=== PATIENT | female | born 1935 | race Caucasian/White ===

== ENCOUNTER → 2018-12-23 | Outpatient (CLI) | payer MEDICARE ==
[2018-12-23 12:45] LABS: HCT 46.7 % (34.0-46.0); HGB 14.7 gm/dL (11.4-16.0); Hypochromasia Slight; MCH 28.3 pg (25.0-35.0); MCHC 31.4 g/dL (31.0-37.0); MCV 90.1 fL (80.0-100.0); Platelet Count 199 k/uL (150-450); RBC 5.19 m/uL (3.80-5.40); RDW 15.5 % (11.5-15.5); WBC 6.4 k/uL (3.8-10.6)
[2018-12-23 12:57] LABS: Potassium 4.9 mmol/L (3.5-5.1)
== END | disposition home or self-care (01) ==
LOC: LABPAT 11:41
PROVIDERS: ATTEND Internal Medicine Cardiovascular Disease
DX: Z01.812 Encounter for preprocedural laboratory examination (principal); I25.10 Atherosclerotic heart disease of native coronary artery without angina pectoris
CPT/HCPCS: 36415; 80051; 82565; 82947; 84520; 85027

== ENCOUNTER 2018-12-25 06:15 | Inpatient (IN) | payer MEDICARE ==
[~2018-12-25 06:15] MED LIST: ALPRAZolam 0.25 MG TAB PO PRN; ALPRAZolam 0.5 MG TAB PO PRN; ASPIRIN 325 MG TAB PO ONE; NITROGLYCERIN SL TABS 0.4 MG TAB SUBLINGUAL PRN
[2018-12-25] MEDS: SODIUM CHLORIDE 0.9% 1,000 ML IV SCH ×2 (08:05→16:00)
[2018-12-25] MEDS ORDERED: LIDOCAINE 1% INJ 10MG/ML (20 ML MDV) ONE ×2 (08:05→08:50)
[2018-12-25] MEDS ORDERED: fentaNYL (PF) 50 MCG/ML 2 ML AMP ONE (08:26)
[2018-12-25] MEDS ORDERED: IV FLUID CONTINUATION 1,000 ML IV ONE (08:32)
--- NOTE | 2018-12-25 08:36 | P.HPCAR ---
History of Present Illness H&P Date: 12/25/18 This is a 83-year-old female with history of ischemic heart disease, previous myocardial infarction and stent placement who has moved to live with her daughters recently. She used to live in [facility]. Patient apparently has been having chest pains going to the back and associated with shortness of breath with minimal activities. The symptoms are relieved with rest. The symptoms reminded her of the pains that she had during her myocardial infarction. Patient did have a nuclear stress test last year and apparently the findings were normal. Echocardiogram done at the time showed normal LV function. Patient also has chronic atrial fibrillation and has been on anti-cognition therapy. She has hypercholesterolemia and also hypertensive cardiac vascular disease. In view of typical chest pains, patient is advised to have a cardiac catheterization for definitive diagnosis. Patient and family were explained the risks and benefits of the procedure to the fully understood and accepted. Review of Systems REVIEW OF SYSTEMS: CONSTITUTIONAL:. Patient is doing well. No complaints of fever or chills EYES: Denies diplopia, blurring of vision EARS, NOSE, MOUTH, THROAT: Denies headaches, denies sore throat. CARDIOVASCULAR: As per the chart and H&P RESPIRATORY: Denies shortness of breath, denies cough. GASTROINTESTINAL: Denies change in appetite, denies abdominal pain, denies diarrhea GENITOURINARY: Denies hematuria, denies infections. MUSKULOSKELETAL: Denies pain, denies swelling. Denies any cramps or claudication INTEGUMENTARY: Denies rash, denies eczema. NEUROLOGICAL: Denies focal weakness, or visual disturbance. Denies any dizzin ess or syncope PSYCHIATRIC: Denies anxiety, denies depression. HEMATOLOGIC/LYMPHATIC: Denies any bleeding, denies enlarged lymph nodes. Physical Exam Vitals: Vital Signs Temp Pulse Resp BP Pulse Ox 12/25/18 06:33 97.3 F L 67 16 110/73 98 GENERAL EXAM: Patient is alert and oriented and doesn't appear to be in any acute distress HEENT: Normocephalic. Normal reaction of pupils, equal size, normal range of extraocular motion. No erythema or exudates in the throat. NECK: No masses, no nuchal rigidity. CHEST: No chest wall deformity. LUNGS: Equal air entry with no crackles or wheeze. HEART: S1 and S2 normal with no audible mumurs or gallops. Regular rhythm, femorals equal on both sides.. ABDOMEN: No hepatosplenomegaly, normal bowel sounds, no guarding or rigidity. SKIN: No rashes CENTRAL NERVOUS SYSTEM: No focal deficits. EXTREMITIES: No cyanosis, clubbing or edema. Past Medical History Past Medical History: Coronary Artery Disease (CAD), GERD/Reflux, Hyperlipidemia, Hypertension, Osteoarthritis (OA) Additional Past Medical History / Comment(s): See Dr Ayala's H&P,"prediabetic" History of Any Multi-Drug Resistant Organisms: None Reported Past Surgical History: Heart Catheterization With Stent, Hysterectomy, Orthopedic Surgery Additional Past Surgical History / Comment(s): vein stripping,heart stents x4,lt foot,mattie carpel tunnel Past Anesthesia/Blood Transfusion Reactions: No Reported Reaction Additional Past Anesthesia/Blood Transfusion Reaction / Comment(s): no hx blood transfusion Date of Last Stent Placement:: 2009 Past Psychological History: No Psychological Hx Reported Smoking Status: Unknown if ever smoked Past Alcohol Use History: None Reported Past Drug Use History: None Reported - Past Family History Mother Family Medical History: Cancer Additional Family Medical History / Comment(s): colon Father Family Medical History: Coronary Artery Disease (CAD) Brother(s) Family Medical History: Myocardial Infarction (NH) Physical Examination Vital Signs Temp Pulse Resp BP Pulse Ox 12/25/18 06:33 97.3 F L 67 16 110/73 98 Results Current Medications Generic Name Dose Route Start Last Admin Trade Name Freq PRN Reason Stop Dose Admin Alprazolam 0.25 mg 12/25/18 06:00 Xanax PO Q6HR PRN Mild Anxiety Alprazolam 0.5 mg 12/25/18 06:00 Xanax PO Q6HR PRN Moderate Anxiety Sodium Chloride 1,000 mls @ 100 mls/hr 12/25/18 06:00 12/25/18 08:05 Saline 0.9% IV 100 mls/hr .Q10H KIMBERLY Administration Nitroglycerin 0.4 mg 12/25/18 06:00 Nitrostat SUBLINGUAL Q5M PRN Chest Pain EKG Interpretations (text) Atrial fibrillation with controlled ventricular response Assessment and Plan (1) Unstable angina Current Visit: Yes Status: Acute Code(s): I20.0 - UNSTABLE ANGINA SNOMED Code(s): 2110141 (2) Ischemic heart disease Current Visit: Yes Status: Acute Code(s): I25.9 - CHRONIC ISCHEMIC HEART DISEASE, UNSPECIFIED SNOMED Code(s): 289118330 (3) Previous myocardial infarction older than 8 weeks Current Visit: Yes Status: Acute Code(s): I25.2 - OLD MYOCARDIAL INFARCTION SNOMED Code(s): 6473589 (4) Essential hypertension Current Visit: Yes Status: Acute Code(s): I10 - ESSENTIAL (PRIMARY) HYPERTENSION SNOMED Code(s): 37833011 (5) Hypercholesterolemia Current Visit: Yes Status: Acute Code(s): E78.00 - PURE HYPERCHOLESTEROLEMIA, UNSPECIFIED SNOMED Code(s): 98287914 Plan: Patient is having atypical chest pain sized of exertional angina which is new onset. Patient is advised to have a cardiac catheterization for definitive diagnosis. Patient and family were explained the risks and benefits of the procedure which they fully understood and accepted. Further recommendations depend upon the cardiac catheterization.
[2018-12-25] MEDS ORDERED: MIDAZOLAM (PF) 2 MG/2 ML VIAL IV ONE (08:42)
[2018-12-25] MEDS: fentaNYL (PF) 50 MCG/ML 2 ML AMP IV ONE ×2 (08:42→10:15)
[2018-12-25] MEDS ORDERED: LIDOCAINE 1% INJ 10MG/ML (20 ML MDV) SQ ONE (08:45)
[2018-12-25] MEDS ORDERED: CLOPIDOGREL 75 MG TAB ONE (09:12)
[2018-12-25] MEDS ORDERED: BIVALIRUDIN BOLUS 250 MG/50 ML IV ONE (09:15)
[2018-12-25] MEDS ORDERED: CLOPIDOGREL 75 MG TAB PO ONE (09:20)
[2018-12-25] MEDS ORDERED: BIVALIRUDIN 250 MG in SODIUM CHLORIDE 0.9% 50 ML IV ONE ×2 (09:20→10:08)
--- NOTE | 2018-12-25 09:32 | P.CARDCATH ---
Date of Procedure: 12/25/18 Preoperative Diagnosis: Unstable angina Postoperative Diagnosis: The same: Multivessel disease Procedure(s) Performed: Left heart catheterization without left ventriculography Description of Procedure: HISTORY: This is a 83-year-old female with history of ischemic heart disease with a previous stent placement of the left anterior descending coronary artery done about 10 years ago in [facility]. Patient came to live with her daughters locally and has been having exertional chest pain suggestive of new-onset angina. Patient is also having exertional shortness of breath. In view of recurrent symptoms and known ischemic heart disease, patient is advised to have cardiac catheterization for definite diagnosis. CONSENT:I have discussed the risks, benefits and alternative therapies for the above-mentioned procedure and for both sedation/analgesia as well as necessary blood product administration, if indicated, as they pertain to this patient. The patient has indicated understanding and acceptance of the risks and procedures discussed. PROCEDURE: Patient was brought to the lab in a fasting state. Patient was given some IV sedation. The right groin is infiltrated with lidocaine and right femoral artery was entered using Seldinger technique. A 6-Turkish catheter was left in place and selective coronary arteriography was performed. Patient tolerated the procedure well. Femoral angiogram was performed and Angio-Seal was applied for hemostasis. No immediate complications were noted and patient was transferred to [facility] in a stable condition Conscious Sedation: Versed 0.5mg Fentanyl 12.5 g Duration 21minutes HEMODYNAMICS: The aortic pressure is about 17 1/80. Left ventricular end- diastolic pressure was 12-16. There was no gradient across the aortic valve SELECTIVE CORONARY ARTERIOGRAPHY: LEFT MAIN: Short and divides into LAD and circumflex coronary artery immediately. Free of any significant focal lesions THE LEFT ANTERIOR DESCENDING CORONARY ARTERY:. This is a good caliber vessel with multiple stents from ostium to midportion. The LAD has a 95% stenosis proximally and totally occluded after the diagonal branch. There are collaterals from the right coronary artery filling the distal LAD THE LEFT CIRCUMFLEX AND IS CORONARY ARTERY: This is a good caliber vessel giving rise to good-sized OM branch. OM branch has about 70% stenosis followed by 95% stenosis. THE RIGHT CORONARY ARTERY: Small and nondominant and free of occlusive disease and provides collateral to the distal LAD LEFT VENTRICULOGRAPHY: Not performed FINAL IMPRESSION:. 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 The LAD has multiple stents involving a long segment and is felt it's not practical to work in the LAD PROGNOSIS: Guarded
[2018-12-25] MEDS ORDERED: IOPAMIDOL-370 125ML BTL INJ ONE (09:35)
[2018-12-25] MEDS ORDERED: IOPAMIDOL-370 100ML BTL INJ ONE ×2 (10:19→10:50)
[2018-12-25] MEDS ORDERED: MAG HYDROX/AL HYDROX/SIMETH 30 ML CUP PO PRN (10:33)
[2018-12-25] MEDS ORDERED: ATROPINE SULFATE 0.1 MG/ML 10ML SYRINGE IV PRN (10:33)
[2018-12-25] MEDS ORDERED: NITROGLYCERIN SL TABS 0.4 MG TAB SUBLINGUAL PRN (10:33)
[2018-12-25] MEDS ORDERED: RX INFO: IV CONTRAST WAS GIVEN 1 EACH MISC MISCELLANE PRN (10:33)
[2018-12-25] MEDS ORDERED: ZOLPIDEM 5 MG TAB PO PRN (10:33)
[2018-12-25] MEDS ORDERED: SODIUM CHLORIDE 0.9% 1,000 ML IV SCH (10:45)
[2018-12-25 11:03] LABS: Glucose,Whole Blood 107 mg/dL (75-99)
--- NOTE | 2018-12-25 11:24 | PTCA ---
PERCUTANEOUSTRANS CORORONARY ANGIOGRAPHY Mrs. Stokes is an 83-year-old female with known history of coronary artery disease, history of hypertension, hyperlipidemia, who was seen by Dr. Ayala, has been having progressive symptoms of angina pectoris. She has underwent multiple stents into the LAD in the [facility]. She underwent cardiac catheterization, was found to have a totally occluded LAD in the stented segment with tight lesion in the diagonal branch that is a jailed branch as well as tight lesion in the first obtuse marginal branch. In view of that, recommendation was made regarding angioplasty and stenting. The procedures as well as risks and complications were discussed with the patient who is in full understanding and agreement. PROCEDURE: A 6-Mongolian FR4 guiding catheter into system. After cannulating the left main, a 0.014 balanced medium weight J-wire was advanced and position in the diagonal branch. Attempt to advance a 2.5 x 12 mm balloon trek in the diagonal branch were unsuccessful. That balloon was removed and a 0.014 whisper J-wire was advanced and positioned distally and next to the first one in a pramod fashion. An attempt to advance the balloon were unsuccessful to exit into the diagonal branch because it is a jailed branch. That balloon was removed and a 1.5 x 8 mm Trek balloon was advanced and that balloon could not cross the jailed ostium of the diagonal branch. At that point, the balloon was removed and a 3.0 x 12 mm NC Trek balloon was advanced and one inflation into the LAD in the stented segment was done at 12 atmospheres. Following that, the balloon was removed and because of the inability to advance a diagonal branch, the wire was withdrawn and the whisper weight J-wire was advanced into the obtuse marginal branch and subsequently the 1.5 x 8 mm Trek balloon was advanced and 2 inflations at 14 atmospheres were done. Following that, the balloon was removed and the 2.5 x 12 mm Trek balloon was advanced and inflation at 8 atmospheres were done. Following that, the balloon was removed and the whisper J-wire was advanced next to the 1st wire in a pramod fashion. Subsequently attempt to advance a 2.5 x 12 mm Xience Dulce Maria stent were unsuccessful in entering the first obtuse marginal branch because of the tortuosity. That stent was removed and the BMW J-wire was removed and the GuideLiner was advanced and in spite of the GuideLiner support, there was inability to advance the stent into the obtuse marginal branch. That stent was removed and a 2.5 x 12 mm Resolute shayan stent was advanced, and that could not enter the obtuse marginal branch either and even a 2.5 x 8 mm Xience Dulce Maria stent. At that point, the balloon and the guidewire were withdrawn back in the guiding catheter. Images were obtained, repeated. Those images reveal stable successful angioplasty. At that point, the guiding catheter, the balloon and the guidewire were removed. The sheath was removed. Hemostasis was obtained with deployment of an Angio-Seal and suture of the right femoral vein sheath. The patient was returned to her room in stable condition. Of note, the patient had chest discomfort during the procedure that resolved at the end of the procedure. She received Angiomax per protocol as well as oral loading dose of clopidogrel. RESULTS: 1. Successful angioplasty of the first obtuse marginal branch with reduction of stenosis from 99% to less than 10%. 2. Unsuccessful angioplasty of the jailed diagonal branch through the heavily stented LAD. RECOMMENDATION: Patient will be continued on dual antiplatelet treatment. Xarelto will be initiated because of her history of atrial fibrillation. Those findings and recommendations were discussed with the patient and her family who are in full understanding and agreement. If she has recurrent pain, then further attempt to try to do angioplasty to the obtuse marginal branch and stenting will be done. The patient and family are in full understanding and agreement. Duration of procedure is 60 minutes. MMODL / IJN: [id number] /
[2018-12-25 12:42] LABS: Basophils % (A) 0 %; Eosinophils # (A) 0.2 k/uL (0-0.7); Eosinophils % (A) 3 %; HCT 40.5 % (34.0-46.0); HGB 12.5 gm/dL (11.4-16.0); Hypochromasia Slight; Lymphocytes # (A) 1.4 k/uL (1.0-4.8); Lymphocytes % (A) 28 %; MCH 27.3 pg (25.0-35.0); MCHC 30.7 g/dL (31.0-37.0); MCV 88.9 fL (80.0-100.0); Mean Platelet Volume 7.9; Monocytes # (A) 0.3 k/uL (0-1.0); Monocytes % (A) 6 %; Neutrophils # (A) 2.9 k/uL (1.3-7.7); Neutrophils % (A) 59 %; Platelet Count 162 k/uL (150-450); RBC 4.56 m/uL (3.80-5.40); RDW 15.2 % (11.5-15.5); WBC 4.8 k/uL (3.8-10.6)
[2018-12-25 13:09] LABS: Calcium 8.4 mg/dL (8.4-10.2); Potassium 4.7 mmol/L (3.5-5.1)
[2018-12-25] MEDS ORDERED: METOPROLOL TARTRATE 50 MG TAB PO SCH (21:00)
[2018-12-25] MEDS: ATORVASTATIN 80 MG TAB PO SCH (21:21)
[2018-12-25] MEDS: METOPROLOL TARTRATE 25 MG TAB PO SCH (21:23)
[2018-12-26] MEDS: SODIUM CHLORIDE 0.9% 1,000 ML IV SCH ×2 (03:38→14:44)
[2018-12-26 06:20] LABS: HCT 39.2 % (34.0-46.0); HGB 12.1 gm/dL (11.4-16.0); Hypochromasia Slight; MCH 27.4 pg (25.0-35.0); MCHC 30.9 g/dL (31.0-37.0); MCV 88.7 fL (80.0-100.0); Mean Platelet Volume 8.5; Platelet Count 177 k/uL (150-450); RBC 4.42 m/uL (3.80-5.40); RDW 15.5 % (11.5-15.5); WBC 5.7 k/uL (3.8-10.6)
[2018-12-26 06:26] LABS: Calcium 8.5 mg/dL (8.4-10.2); Magnesium 1.9 mg/dL (1.6-2.3); Potassium 4.5 mmol/L (3.5-5.1)
[2018-12-26] MEDS: PANTOPRAZOLE 40 MG TABLET PO SCH (06:53)
[2018-12-26] MEDS: LISINOPRIL 10 MG TAB PO SCH (08:12)
[2018-12-26] MEDS: CLOPIDOGREL 75 MG TAB PO SCH (08:13)
[2018-12-26] MEDS: METOPROLOL TARTRATE 25 MG TAB PO SCH ×2 (08:13→20:48)
[2018-12-26] MEDS: ISOSORBIDE MONONITRATE ER 30 MG TAB.ER.24H PO SCH (08:13)
[2018-12-26] MEDS: ASPIRIN 81 MG PO SCH (08:13)
--- NOTE | 2018-12-26 08:34 | PN ---
PROGRESS NOTE Mrs. Stokes is an 83-year-old female with known history of coronary artery disease status post multiple stenting of the LAD done [facility], who presented with symptoms of chest pain. She underwent cardiac catheterization by Dr. Ayala and was found to have critical stenosis involving the first obtuse marginal branch as well as diagonal branch. The diagonal branch was a jailed branch and he was unable to advance any balloon in it. She underwent angioplasty of the obtuse marginal branch with inability to advance the stent. She is feeling well this morning. Her breathing is stable. She denies any chest pain. She denies any dizziness or palpitation. Hemodynamically, she is stable. She continues to be on aspirin once a day, Plavix 75 mg daily, isosorbide mononitrate 30 mg daily, lisinopril 10 mg daily, metoprolol tartrate 25 mg twice a day. PHYSICAL EXAMINATION: Blood pressure 143/70 with a heart rate in the 50s. LUNGS: Clear. HEART: Irregularly irregular S1, S2. No S3 with systolic murmur. No diastolic murmur. No rub. ABDOMEN: Soft, nontender. EXTREMITIES: No edema. Right groin no hematoma. LAB DATA: Lab data revealed BUN and creatinine 22 and 0.9, potassium 4.5, hemoglobin 12.1. IMPRESSION: 1. Status post angioplasty of the right coronary artery. 2. History of chronically occluded stented segment of the LAD. 3. Atrial fibrillation chronic and rate controlled. 4. Hypertension. 5. Hyperlipidemia. RECOMMENDATION: I will re-initiate treatment with Xarelto, transfer to telemetry floor. Increase her activity. If she remains stable, I would expect she should be able to be discharged home tomorrow. If she has further symptoms, then attempt to proceed with stenting of the obtuse marginal branch can be tried again. Yesterday, the balloon angioplasty was done only because of reaching the dye threshold. MMODL / IJN: [id number] /
[2018-12-26 12:19] VITALS: BMI 36.9
[2018-12-26] MEDS ORDERED: RIVAROXABAN 15 MG TAB PO SCH (17:30)
[2018-12-26] MEDS: ATORVASTATIN 80 MG TAB PO SCH (20:48)
[2018-12-26] MEDS ORDERED: ACETAMINOPHEN TAB 325 MG TAB PO PRN (23:36)
[2018-12-27 05:31] LABS: Calcium 8.8 mg/dL (8.4-10.2); Potassium 4.5 mmol/L (3.5-5.1)
[2018-12-27] MEDS: PANTOPRAZOLE 40 MG TABLET PO SCH (06:59)
--- NOTE | 2018-12-27 08:09 | DS ---
DISCHARGE SUMMARY Mrs. Stokes is an 83-year-old female with known history of chronic persistent atrial fibrillation, history of coronary disease who underwent cardiac catheterization because of progressive angina pectoris by Dr. Ayala and was found to have a chronically occluded long segment of the LAD that had multiple stents, a tight lesion in the diagonal branch that is a jailed branch as well as significant disease in the first obtuse marginal branch. She underwent angioplasty of the first obtuse marginal branch. She is feeling well at this time. She is denying any chest pain. Her breathing has been stable. She denies any dizziness or palpitation. She denies any nausea. She is ambulating without symptoms. She continued be on aspirin 81 mg daily, Lipitor 80 mg daily, Plavix 75 mg daily, isosorbide mononitrate 30 mg daily, lisinopril 10 mg daily, metoprolol tartrate 25 mg twice a day, Xarelto 15 mg daily. PHYSICAL EXAMINATION: Blood pressure 132/80 with the heart rate in the 60s. LUNGS: Clear. HEART: Irregular, irregular. S1, S2. No S3 with systolic murmur. No diastolic murmur. ABDOMEN: Soft, obese, nontender. EXTREMITIES: No edema. LAB DATA: Lab data revealed BUN and creatinine 21 and 0.87. Potassium 4.5. IMPRESSION: 1. Status post angioplasty of the first obtuse marginal branch with chronic occluded LAD and with stent chronic occlusion. 2. Chronic persistent atrial fibrillation. 3. Hypertension. 4. Hyperlipidemia. RECOMMENDATION: The patient will be discharged home today and followed with Dr. Ayala. She will stop her aspirin in 4 weeks and continue on Xarelto and Plavix. MMODL / IJN: [id number] /
[2018-12-27] MEDS: LISINOPRIL 10 MG TAB PO SCH (08:40)
[2018-12-27] MEDS: ISOSORBIDE MONONITRATE ER 30 MG TAB.ER.24H PO SCH (08:40)
[2018-12-27] MEDS: ASPIRIN 81 MG PO SCH (08:40)
[2018-12-27] MEDS: CLOPIDOGREL 75 MG TAB PO SCH (08:40)
[2018-12-27] MEDS: METOPROLOL TARTRATE 25 MG TAB PO SCH (08:40)
[2018-12-27 11:43] VITALS: BP 121/72; PULSE 61; RESP 16; TEMP 98.1
== END 2018-12-27 11:46 | disposition home or self-care (01) | DRG 251 ==
LOC: CATHCVL 06:15 → 1SOBS 06:16 → 2SICU 10:44 → CATHCVL 12-26 14:24
PROVIDERS: ADMIT Internal Medicine Cardiovascular Disease; ATTEND Internal Medicine Cardiovascular Disease
PROC: 02703ZZ Dilation of Coronary Artery, One Artery, Percutaneous Approach (ICD-10-PCS; principal; 2018-12-25 08:30)
PROC: 4A023N7 Measurement of Cardiac Sampling and Pressure, Left Heart, Percutaneous Approach (ICD-10-PCS; 2018-12-25 08:30)
PROC: B2111ZZ Fluoroscopy of Multiple Coronary Arteries using Low Osmolar Contrast (ICD-10-PCS; 2018-12-25 08:30)
DX: I25.110 Atherosclerotic heart disease of native coronary artery with unstable angina pectoris (principal); I48.1 Persistent atrial fibrillation; I25.82 Chronic total occlusion of coronary artery; I10 Essential (primary) hypertension; I25.2 Old myocardial infarction; E78.5 Hyperlipidemia, unspecified; E78.00 Pure hypercholesterolemia, unspecified; F41.9 Anxiety disorder, unspecified; K21.9 Gastro-esophageal reflux disease without esophagitis; R73.03 Prediabetes; M19.90 Unspecified osteoarthritis, unspecified site; Z79.01 Long term (current) use of anticoagulants; Z79.82 Long term (current) use of aspirin; Z79.899 Other long term (current) drug therapy; Z95.5 Presence of coronary angioplasty implant and graft; Z90.710 Acquired absence of both cervix and uterus; Z98.890 Other specified postprocedural states; Z80.0 Family history of malignant neoplasm of digestive organs; Z82.49 Family history of ischemic heart disease and other diseases of the circulatory system
CPT/HCPCS: 80048; 83735; 85025; 85027; 85347; 92920; 93458; C1874

== ENCOUNTER 2019-10-17 | Emergency (ER) | payer MEDICARE | END 2019-10-18 00:09 | disposition home or self-care (01) | CPT/HCPCS: 36415; 70450; 80053; 81001; 85025; 85610; 85730; 87086; 93005; 99285 ==

== ENCOUNTER 2020-03-15 18:05 | Inpatient (IN) | payer MEDICARE ==
[2020-03-15] MEDS ORDERED: HYDROmorphone 1 MG/ML 1 ML SYRINGE IVP STA (18:43)
[2020-03-15 19:07] LABS: Anisocytosis Slight; Basophils % (A) 0 %; Eosinophils # (A) 0.2 k/uL (0-0.7); Eosinophils % (A) 2 %; HCT 40.4 % (34.0-46.0); HGB 12.5 gm/dL (11.4-16.0); Hypochromasia Moderate; Lymphocytes # (A) 2.1 k/uL (1.0-4.8); Lymphocytes % (A) 27 %; MCH 26.5 pg (25.0-35.0); MCHC 30.9 g/dL (31.0-37.0); MCV 85.9 fL (80.0-100.0); Mean Platelet Volume 8.2; Monocytes # (A) 0.4 k/uL (0-1.0); Monocytes % (A) 6 %; Neutrophils # (A) 4.8 k/uL (1.3-7.7); Neutrophils % (A) 63 %; Platelet Count 195 k/uL (150-450); RDW 16.6 % (11.5-15.5); WBC 7.7 k/uL (3.8-10.6)
[2020-03-15 19:18] LABS: Albumin 3.5 g/dL (3.5-5.0); Calcium 9.1 mg/dL (8.4-10.2); Potassium 4.6 mmol/L (3.5-5.1); Total Bilirubin 0.6 mg/dL (0.2-1.3); Total Protein 6.2 g/dL (6.3-8.2)
[2020-03-15 19:20] LABS: INR 1.1 (<1.2); Partial Thromboplastin Time 24.2 sec (22.0-30.0)
--- NOTE | 2020-03-15 19:26 | ED ---
Fall HPI - General Source: patient, EMS, RN notes reviewed, old records reviewed Mode of arrival: EMS <JoelerwinRashida - Last Filed: 03/15/20 19:49> <Eyal Henry - Last Filed: 03/16/20 01:19> <OzielEleni Marbin - Last Filed: 03/22/20 03:03> - General Chief Complaint: Fall Stated Complaint: Fall, left leg injury Time Seen by Provider: 03/15/20 18:20 - History of Present Illness Initial Comments: This Patient is a pleasant 84-year-old female who presents emergency department today for concern for trip and fall. She reports that she was walking back into her home from her garage and she tripped. She reports that she fell onto her r ight hip and thigh. She reports severe pain with any range of motion. She also states that she had her head and neck. She is on several toe. She has a history of hypertension and thyroid disorder. Patient has had no previous orthopedic injuries. Her main complaint at this time is severe pain with any range of motion over the right leg and hip. She denies any loss of consciousness with that injury. She was placed in a c-collar by EMS. Patient reports that she was laying on the ground for 15-20 minutes before she was able to be helped. (Rashida Mock) - Related Data Home Medications Medication Instructions Recorded Confirmed Acetaminophen [Tylenol] 1,000 mg PO Q4-6H PRN 12/24/18 03/15/20 Aspirin 81 mg PO DAILY 12/24/18 03/15/20 Cholecalciferol (Vitamin D3) 2,000 unit PO DAILY 12/24/18 03/15/20 [Vitamin D3] Isosorbide Mononitrate ER [Imdur] 30 mg PO DAILY 12/24/18 03/15/20 Lansoprazole [Prevacid] 15 mg PO DAILY 12/24/18 03/15/20 Nitroglycerin Sl Tabs [Nitrostat] 0.4 mg SUBLINGUAL Q5M PRN 12/24/18 03/15/20 Rivaroxaban [Xarelto] 15 mg PO DAILY 12/24/18 03/15/20 Ubidecarenone [Co Q-10] 100 mg PO DAILY 12/24/18 03/15/20 Previous Rx's Medication Instructions Recorded Atorvastatin [Lipitor] 80 mg PO HS #90 tab 12/27/18 Metoprolol Tartrate [Lopressor] 25 mg PO BID #0 12/27/18 Sennosides-Docusate Sodium 2 tab PO DAILY #30 tablet 03/19/20 [Senokot-S] oxyCODONE HCL/ACETAMINOPHEN 1 tab PO Q6HR PRN #40 tab 03/20/20 [Percocet 5-325 mg] Allergies Allergy/AdvReac Type Severity Reaction Status Date / Time latex Allergy Rash/Hives Verified 03/15/20 19:27 Review of Systems ROS Other: All systems not noted in ROS Statement are negative. <Rashida Mock - Last Filed: 03/15/20 19:49> ROS Other: All systems not noted in ROS Statement are negative. <Eyal Henry - Last Filed: 03/16/20 01:19> ROS Other: All systems not noted in ROS Statement are negative. <Eleni Ludwig - Last Filed: 03/22/20 03:03> ROS Statement: Those systems with pertinent positive or pertinent negative responses have been documented in the HPI. Past Medical History Past Medical History: Coronary Artery Disease (CAD), GERD/Reflux, Hyperlipidemi a, Hypertension, Osteoarthritis (OA) Additional Past Medical History / Comment(s): "prediabetic" History of Any Multi-Drug Resistant Organisms: None Reported Past Surgical History: Heart Catheterization With Stent, Hysterectomy, Orthopedic Surgery Additional Past Surgical History / Comment(s): vein stripping,heart stents x4,lt foot,mattie carpel tunnel Past Anesthesia/Blood Transfusion Reactions: No Reported Reaction Additional Past Anesthesia/Blood Transfusion Reaction / Comment(s): no hx blood transfusion Date of Last Stent Placement:: 2009 Past Psychological History: No Psychological Hx Reported Smoking Status: Never smoker Past Alcohol Use History: None Reported Past Drug Use History: None Reported - Past Family History Mother Family Medical History: Cancer Additional Family Medical History / Comment(s): colon Father Family Medical History: Coronary Artery Disease (CAD) Brother(s) Family Medical History: Myocardial Infarction ([place]) <Rashida Mock - Last Filed: 03/15/20 19:49> General Exam Limitations: no limitations General appearance: alert, in no apparent distress, other ( has contusion over the right side of the scalp) Head exam: Present: atraumatic, normocephalic, normal inspection Eye exam: Present: normal appearance, PERRL, EOMI. Absent: scleral icterus, conjunctival injection, periorbital swelling ENT exam: Present: normal exam, mucous membranes moist Neck exam: Present: other (Patient is in c-collar). Absent: normal inspection, tenderness, meningismus, lymphadenopathy Respiratory exam: Present: normal lung sounds bilaterally. Absent: respiratory distress, wheezes, rales, rhonchi, stridor Cardiovascular Exam: Present: regular rate, normal rhythm, normal heart sounds. Absent: systolic murmur, diastolic murmur, rubs, gallop, clicks GI/Abdominal exam: Present: soft, normal bowel sounds. Absent: distended, tenderness, guarding, rebound, rigid Extremities exam: Present: full ROM, normal capillary refill. Absent: normal inspection, tenderness, pedal edema, joint swelling, calf tenderness Right Hip exam: Present: tenderness (over greater trochanter), external rotation, shortening. Absent: normal inspection Upper Leg exam: Present: normal inspection, full ROM Knee exam: Present: normal inspection, full ROM Lower Leg exam: Present: normal inspection, full ROM Ankle exam: Present: normal inspection, full ROM Foot/Toe exam: Present: normal inspection, full ROM Neurovascular tendon exam: Present: no vascular compromise Gait: observed and normal Neurological exam: Present: alert, oriented X3, CN II-XII intact Psychiatric exam: Present: normal affect, normal mood Skin exam: Present: warm, dry, intact, normal color. Absent: rash <Rashida Mock - Last Filed: 03/15/20 19:49> Course <Rashida Mock - Last Filed: 03/15/20 19:49> Vital Signs 03/15/20 03/15/20 03/15/20 18:16 19:32 21:00 Temperature 98.7 F 97.9 F 97.4 F L Pulse Rate 72 71 64 Pulse Rate [ Pulse Oximetery ] Respiratory 18 18 16 Rate Blood Pressure 137/95 144/79 114/73 O2 Sat by Pulse 100 99 100 Oximetry 03/15/20 03/15/20 22:11 22:30 Temperature 97.6 F Pulse Rate 70 Pulse Rate [ 74 Pulse Oximetery ] Respiratory 18 18 Rate Blood Pressure 116/86 O2 Sat by Pulse 98 Oximetry - Reevaluation(s) Reevaluation #1: 03/15/20 19:49 Patient case transferred to Chidi Henry PA-C at 7:49 PM (Rashida Mock) Medical Decision Making - Lab Data Result diagrams: 03/15/20 18:46 03/15/20 18:46 <Rashida Mock - Last Filed: 03/15/20 19:49> - Lab Data Result diagrams: 03/15/20 18:46 03/15/20 18:46 - EKG Data -: EKG Interpreted by Me (and Dr. Sanchez ) <Eyal Henry - Last Filed: 03/16/20 01:19> - Lab Data Result diagrams: 03/19/20 07:51 03/18/20 06:50 <Eleni Ludwig - Last Filed: 03/22/20 03:03> - Medical Decision Making I received this patient has a sign out at shift change. Patient does have evidence of a right-sided intertrochanteric hip fracture. Patient will be admitted for orthopedic evaluation. Medicine was consult that. Patient has history of atrial fibrillation. Which is chronic displayed on her EKG. Rate is well-controlled. Case discussed with Dr. Ludwig. (Eyal Henry) I was available for consultation in the emergency department. The history and physical exam were done by the midlevel provider. I was consulted for this patients care. I reviewed the case with the midlevel provider and based on their presentation of the patient, I agree with the assessment, medical decision making and plan of care as documented. Chart was dictated using [employer] dictation software. Attempts were made to correct any dictation errors however some typographical errors may persist. Patient was seen during a national state of emergency due to the Covid-19 pandemic. (Eleni Ludwig) - Lab Data Lab Results 03/15/20 03/15/20 03/15/20 Range/Units 18:46 18:46 18:46 WBC 7.7 (3.8-10.6) k/uL RBC 4.70 (3.80-5.40) m/uL Hgb 12.5 (11.4-16.0) gm/dL Hct 40.4 (34.0-46.0) % MCV 85.9 (80.0-100.0) fL MCH 26.5 (25.0-35.0) pg MCHC 30.9 L (31.0-37.0) g/dL RDW 16.6 H (11.5-15.5) % Plt Count 195 (150-450) k/uL Neutrophils % 63 % Lymphocytes % 27 % Monocytes % 6 % Eosinophils % 2 % Basophils % 0 % Neutrophils # 4.8 (1.3-7.7) k/uL Lymphocytes # 2.1 (1.0-4.8) k/uL Monocytes # 0.4 (0-1.0) k/uL Eosinophils # 0.2 (0-0.7) k/uL Basophils # 0.0 (0-0.2) k/uL Hypochromasia Moderate Anisocytosis Slight PT 11.0 (9.0-12.0) sec INR 1.1 (<1.2) APTT 24.2 (22.0-30.0) sec Sodium 136 L (137-145) mmol/L Potassium 4.6 (3.5-5.1) mmol/L Chloride 106 (98-107) mmol/L Carbon Dioxide 23 (22-30) mmol/L Anion Gap 7 mmol/L BUN 31 H (7-17) mg/dL Creatinine 1.04 (0.52-1.04) mg/dL Est GFR (CKD-EPI)AfAm 56 (>60 ml/min/1.73 sqM) Est GFR (CKD-EPI)NonAf 49 (>60 ml/min/1.73 sqM) Glucose 100 H (74-99) mg/dL Calcium 9.1 (8.4-10.2) mg/dL Total Bilirubin 0.6 (0.2-1.3) mg/dL AST 29 (14-36) U/L ALT 16 (4-34) U/L Alkaline Phosphatase 94 (38-126) U/L Total Protein 6.2 L (6.3-8.2) g/dL Albumin 3.5 (3.5-5.0) g/dL - EKG Data EKG Comments: Ventricular rate 75, QTS 76, QT/QTc 400/446. Atrial fibrillation. No concern for acute ischemia at this time. (Eyal Henry) Disposition <Rashida Mock - Last Filed: 03/15/20 19:49> Is patient prescribed a controlled substance at d/c from ED?: No <Eyal Henry - Last Filed: 03/16/20 01:19> <Eleni Ludwig - Last Filed: 03/22/20 03:03> Clinical Impression: Hip fracture Disposition: ADMITTED IP TO THIS HOSP Condition: Stable
--- NOTE | 2020-03-15 20:01 | CT ---
EXAMINATION TYPE: CT brain cspine wo con DATE OF EXAM: 03/15/2020 COMPARISON: 10/17/2019 HISTORY: Fall today. Pain. CT DLP: 1561.3 mGycm Automated exposure control for dose reduction was used. TECHNIQUE: CT scan of the head and cervical spine are performed without contrast. FINDINGS: There is no acute intracranial hemorrhage, mass effect, or midline shift identified. No definite new attenuation defect. Previously seen 2 x 1 cm right encephalomalacia is unchanged. The ve ntricles and sulci are within normal limits in size. The globes are intact and the visualized sinuse s are clear. Cervical spine is visualized in its entirety from C1 through upper thoracic levels and demonstrates s atisfactory alignment without evidence of acute fracture or dislocation. Prevertebral soft tissue ap pears within normal limits. The C1-C2 articulation is unremarkable. IMPRESSION: 1. There is no acute fracture or dislocation evident in the cervical spine. 2. No acute intracranial hemorrhage, mass effect, or midline shift is seen.
--- NOTE | 2020-03-15 21:11 | XR ---
PROCEDURE: XR Hip RT and AP Pelvis - 3 views DATE AND TIME: 03/15/2020 8:22 PM CLINICAL INDICATION: fall, shortening, pain TECHNIQUE: AP pelvis. Right hip coned AP and crosstable lateral views. COMPARISON: None FINDINGS: There is a comminuted intertrochanteric right hip fracture with apex superolateral angulati on. The right femoral head remains seated within the acetabulum. The left hip is negative for acute injury. There is no other fracture or malalignment. IMPRESSION: Comminuted intratrochanteric right hip fracture.
--- NOTE | 2020-03-15 21:12 | XR ---
PROCEDURE: XR femur RT - 4V DATE AND TIME: 03/15/2020 8:22 PM CLINICAL INDICATION: PHH; fall TECHNIQUE: Department protocol, with imaging from the right hip to the right knee. COMPARISON: None FINDINGS: There is a comminuted intertrochanteric right hip fracture with apex superolateral angulati on. The right femoral head remains seated within the acetabulum. There is no other fracture or malalignment. IMPRESSION: Comminuted intertrochanteric right hip fracture.
--- NOTE | 2020-03-15 21:14 | XR ---
EXAMINATION: XR chest 1V AP supine portable DATE AND TIME: 03/15/2020 8:22 PM CLINICAL INDICATION: PHH; fall, pain TECHNIQUE: AP supine radiograph COMPARISON: None FINDINGS: The lungs are clear. The pleural spaces are negative as seen. The cardiac silhouette appears mildly enlarged on this AP supine view. The remainder of the mediastinal silhouette is unremarkable. The skeletal structures and soft tissues are negative for acute findings. IMPRESSION: No acute radiographic process, AP supine radiograph.
[2020-03-15] MEDS ORDERED: ONDANSETRON 4 MG/2 ML VIAL IVP STA (21:25)
[2020-03-15] MEDS ORDERED: NALOXONE 0.4 MG/ML 1 ML VIAL IV PRN (21:48)
[2020-03-15 21:55] LABS: Appearance,Urine Clear (Clear); Bilirubin,Urine Negative (Negative); Blood,Urine Negative (Negative); Color,Urine Yellow; Glucose,Urine (UA) Negative (Negative); Ketones,Urine Negative (Negative); Leukocyte Esterase,Urine Negative (Negative); Nitrite,Urine Negative (Negative); Protein,Urine Negative (Negative); Specific Gravity,Urine 1.015 (1.001-1.035); Urobilinogen,Urine <2.0 mg/dL (<2.0)
[2020-03-15] MEDS: MORPHINE SULFATE 4 MG/ML SYRINGE IV PRN (21:58)
[2020-03-16] MEDS: MORPHINE SULFATE 4 MG/ML SYRINGE IV PRN ×3 (04:23→14:04)
[2020-03-16] MEDS: SODIUM CHLORIDE 0.9% 1,000 ML IV SCH (08:54)
--- NOTE | 2020-03-16 09:03 | P.HPOR ---
<Kelley Sellers J - Last Filed: 03/16/20 09:05> History of Present Illness H&P Date: 03/16/20 Chief Complaint: Right hip fracture The patient is an 84-year-old female with a past medical history of CAD with a stent in December 2019, GERD, hypertension, and hyperlipidemia, who presented to the emergency department via EMS after sustaining a fall at home. She states that she was walking back and/or house from her garage and she tripped. She states she fell onto her right hip and thigh and had immediate pain. She was unable to ambulate and she also hit her head. The patient denied any loss of consciousness and she laid on the ground for approximately 15-20 minutes. She presented to the emergency department and a CT of the head was performed which revealed no fractures or bleed. X-rays of the right hip and pelvis revealed a comminuted intertrochanteric fracture of the right hip with angulation. The patient was admitted to orthopedics for further surgical care. Internal medicine has been consulted for preoperative evaluation and medical management. The patient states that she does live in their own home but her daughter lives across the street. She uses a cane at home for ambulation. Today, the patient states that the hip is comfortable while laying in bed. Her main complaint this morning is a dry throat which makes it difficult to swallow. She has been using mouth swabs which seems to help a little. Review of Systems Constitutional: Denies chills, Denies fever Cardiovascular: Denies chest pain, Denies shortness of breath Respiratory: Denies cough Gastrointestinal: Denies abdominal pain, Denies diarrhea, Denies nausea, Denies vomiting Musculoskeletal: right: hip pain, hip stiffness, hip swelling Past Medical History Past Medical History: Coronary Artery Disease (CAD), GERD/Reflux, H yperlipidemia, Hypertension, Osteoarthritis (OA) Additional Past Medical History / Comment(s): "prediabetic" History of Any Multi-Drug Resistant Organisms: None Reported Past Surgical History: Heart Catheterization With Stent, Hysterectomy, Orthopedic Surgery Additional Past Surgical History / Comment(s): vein stripping,heart stents x4,lt foot,mattie carpel tunnel Past Anesthesia/Blood Transfusion Reactions: No Reported Reaction Additional Past Anesthesia/Blood Transfusion Reaction / Comment(s): no hx blood transfusion Date of Last Stent Placement:: 2009 Past Psychological History: No Psychological Hx Reported Smoking Status: Never smoker Past Alcohol Use History: None Reported Past Drug Use History: None Reported - Past Family History Mother Family Medical History: Cancer Additional Family Medical History / Comment(s): colon Father Family Medical History: Coronary Artery Disease (CAD) Brother(s) Family Medical History: Myocardial Infarction ([place]) Medications and Allergies Home Medications Medication Instructions Recorded Confirmed Type Acetaminophen [Tylenol] 1,000 mg PO Q4-6H PRN 12/24/18 03/15/20 History Aspirin 81 mg PO DAILY 12/24/18 03/15/20 History Cholecalciferol (Vitamin D3) 2,000 unit PO DAILY 12/24/18 03/15/20 History [Vitamin D3] Furosemide [Lasix] 20 mg PO DAILY 12/24/18 03/15/20 History Isosorbide Mononitrate ER [Imdur] 30 mg PO DAILY 12/24/18 03/15/20 History Lansoprazole [Prevacid] 15 mg PO DAILY 12/24/18 03/15/20 History Nitroglycerin Sl Tabs [Nitrostat] 0.4 mg SUBLINGUAL Q5M PRN 12/24/18 03/15/20 History Rivaroxaban [Xarelto] 15 mg PO DAILY 12/24/18 03/15/20 History Ubidecarenone [Co Q-10] 100 mg PO DAILY 12/24/18 03/15/20 History lisinopriL [Zestril] 10 mg PO DAILY 12/24/18 03/15/20 History Atorvastatin [Lipitor] 80 mg PO HS #90 tab 12/27/18 03/15/20 Rx Metoprolol Tartrate [Lopressor] 25 mg PO BID #0 12/27/18 03/15/20 Rx Allergies Allergy/AdvReac Type Severity Reaction Status Date / Time latex Allergy Rash/Hives Verified 03/15/20 19:27 Physical Examination The patient is an 84 year old female that is no acute distress. She is alert and oriented x3. The patient's head is normocephalic with a small external hematoma on the back of her head. Exam of the cervical spine reveals no pain up on palpation or range of motion. Exam of the bilateral upper extremities reveal no obvious deformities or pain upon range of motion. Exam of the left lower extremity reveals no pain upon palpation. Exam of the right lower extremity reveals a externally rotated and shortened leg. No pain upon palpation to the lateral hip. There is pain upon logrolling and any range of motion of the leg. Bilateral calves are soft and nontender. Patient has good foot and ankle motion bilaterally. Neurological and circulatory status is intact. Results - Labs Labs: Abnormal Lab Results - Last 24 Hours (Table) 03/15/20 03/15/20 Range/Units 18:46 18:46 MCHC 30.9 L (31.0-37.0) g/dL RDW 16.6 H (11.5-15.5) % Sodium 136 L (137-145) mmol/L BUN 31 H (7-17) mg/dL Glucose 100 H (74-99) mg/dL Total Protein 6.2 L (6.3-8.2) g/dL H & H 03/15/20 Range/Units 18:46 Hgb 12.5 (11.4-16.0) gm/dL Hct 40.4 (34.0-46.0) % Coagulation 03/15/20 Range/Units 18:46 INR 1.1 (<1.2) Result Diagrams: 03/15/20 18:46 03/15/20 18:46 - Diagnostic results Hip x-ray: image reviewed (X-rays of the right hip reveal a comminuted intertrochanteric fracture with angulation.) Assessment and Plan (1) Hip fracture, right Current Visit: Yes Status: Acute Code(s): S72.001A - FRACTURE OF UNSP PART OF NECK OF RIGHT FEMUR, INIT SNOMED Code(s): 921377021 (2) CAD (coronary artery disease) Current Visit: Yes Status: Acute Code(s): I25.10 - ATHSCL HEART DISEASE OF [place] CORONARY ARTERY W/O ANG PCTRS SNOMED Code(s): 88183376 (3) GERD (gastroesophageal reflux disease) Current Visit: Yes Status: Acute Code(s): K21.9 - GASTRO-ESOPHAGEAL REFLUX DISEASE WITHOUT ESOPHAGITIS SNOMED Code(s): 737036846 (4) Osteoarthritis Current Visit: Yes Status: Acute Code(s): M19.90 - UNSPECIFIED OSTEOARTHRITI S, UNSPECIFIED SITE SNOMED Code(s): 243494524 (5) Essential hypertension Current Visit: No Status: Acute Code(s): I10 - ESSENTIAL (PRIMARY) HYPERTENSION SNOMED Code(s): 65894582 (6) Hypercholesterolemia Current Visit: No Status: Acute Code(s): E78.00 - PURE HYPERCHOLESTEROLEMIA, UNSPECIFIED SNOMED Code(s): 84305094 Plan: The clinical and x-ray findings were discussed with the patient. The case was discussed at length with Dr. Finley. Treatment options were discussed and surgical intervention is recommended. We discussed the surgical plan as well as the expected postoperative course. Risks and benefits were reviewed including (but not limited to) the risks of infection, bleeding, blood clots, delayed or nonunion, anesthesia-related complications and possible need for additional surgery. Questions were invited and answered. The patient expressed understanding and wishes to proceed with surgery. The patient will be kept on bedrest. Continue PRN pain management. NPO today. Start IV fluids at 50 mL/hr. She is scheduled for a closed reduction with insertion of cephalomedullary nail of the right hip later this afternoon. We will await pre-op clearance from internal medicine. The patient did have recent cardiac workup with a heart cath with stent placement in December 2019. <Fernando Finley - Last Filed: 03/16/20 13:14> Results - Labs Labs: Abnormal Lab Results - Last 24 Hours (Table) 03/15/20 03/15/20 Range/Units 18:46 18:46 MCHC 30.9 L (31.0-37.0) g/dL RDW 16.6 H (11.5-15.5) % Sodium 136 L (137-145) mmol/L BUN 31 H (7-17) mg/dL Glucose 100 H (74-99) mg/dL Total Protein 6.2 L (6.3-8.2) g/dL H & H 03/15/20 Range/Units 18:46 Hgb 12.5 (11.4-16.0) gm/dL Hct 40.4 (34.0-46.0) % Coagulation 03/15/20 Range/Units 18:46 INR 1.1 (<1.2) Result Diagrams: 03/15/20 18:46 03/15/20 18:46 Assessment and Plan Plan: Discussed with MUKESH Sellers and agree with above (amendments/correction noted below). The patient was also seen and examined by me. S: The patient states she simply stumbled and fell. She denies antecedent hip pain or dizziness. O: Focused musculoskeletal examination of the right lower extremity: The limb rests in a shortened and externally rotated position. No tenderness to palpation over the greater trochanter. No visible ulcerations, abrasions or ecchymosis around the hip. Prominent pain with logroll. The calf is soft and nontender. Intact active dorsiflexion and plantarflexion (but limited secondary to pain). Light touch sensation is subjectively intact throughout the lower extremity and symmetric to the contralateral side. The foot is warm, dry and well perfused. DP pulse: 2+ Imaging: Comminuted, displaced right intertrochanteric femur fracture with shortening and varus angulation. Large fragment of the lesser trochanter and posteromedial wall. A: 1. Displaced right intertrochanteric femur fracture status post fall on 03/15/20 P: I discussed the diagnosis and radiographic findings with the patient. We reviewed the pertinent anatomy and pathophysiology of the fracture. We discussed treatment options and I explained the rationale behind surgical intervention. I recommended operative treatment in the form of closed reduction and cephalomedullary nailing. We discussed the surgical plan as well as the expected postoperative course. Risks and benefits were reviewed including (but not limited to) the risks of infection, bleeding, blood clots, anesthesia- related complications and possible need for additional surgery. Questions were invited and answered. The patient expressed understanding and wishes to proceed with surgery. The patient will be kept on bedrest. Continue PRN pain management. NPO. We will plan for surgery after preoperative evaluation by the internal medicine team. Thank you for allowing me to participate in the care of this patient. Fernando Finley D.O. [facility]
[2020-03-16] MEDS ORDERED: NITROGLYCERIN SL TABS 0.4 MG TAB SUBLINGUAL PRN (09:26)
[2020-03-16] MEDS ORDERED: ACETAMINOPHEN TAB 500 MG TAB PO PRN (09:30)
[2020-03-16] MEDS: PANTOPRAZOLE 40 MG TABLET PO SCH (10:05)
[2020-03-16] MEDS ORDERED: PANTOPRAZOLE 40 MG/10 ML VIAL IVP ONE (10:15)
--- NOTE | 2020-03-16 11:55 | P.CRDCN ---
History of Present Illness History of present illness: HISTORY OF PRESENTING ILLNESS This is a pleasant 84-year-old female past medical history significant for coronary artery disease, hypertension, dyslipidemia, chronic persistent atr ial fibrillation on long-term anticoagulation and gastroesophageal reflux disease. She follows in the office with Dr. Ayala. We have been asked to see in consultation for preoperative evaluation. Presented to the hospital status post fall. She states her feet simply tripped over the stairs she was walking on and she fell landing on her right side suffering a comminuted intertrochanteric right hip fracture. She is scheduled to undergo surgical repair with Dr. Finley this afternoon. She is seen and examined laying flat resting comfortably in bed in no acute distress. She denies symptoms of chest discomfort, shortness of breath with activity or exertion, PND, orthopnea, palpitations or dizziness. She underwent successful PCI of the first OM branch in [address] Avendano. At that time he attempted angioplasty of the jailed diagonal branch through heavily calcified and stented LAD however was unsuccessful. She is currently maintained on Xarelto, aspirin, Lasix, Imdur, Lopressor and lisinopril. EKG on arrival reveals atrial fibrillation with controlled ventricular rates. Chest x-ray is negative for an acute cardiopulmonary process. Laboratory data reviewed. Most recent echo performed 04/2018 showed preserved LV function. REVIEW OF SYSTEMS At the time of my exam: CONSTITUTIONAL: Denies fever or chills. CARDIOVASCULAR: Denies chest pain, shortness of breath, orthopnea, PND or palpitations. RESPIRATORY: Denies cough. GASTROINTESTINAL: Denies abdominal pain, diarrhea, constipation, nausea or vomiting. MUSCULOSKELETAL: Complains of discomfort to the right hip and leg. NEUROLOGIC: Denies numbness, tingling or weakness. ENDOCRINE: Denies fatigue, weight change, polydipsia or polyurina. GENITOURINARY: Denies burning, hematuria or urgency with micturation. HEMATOLOGIC: Denies history of anemia or bleeding. PHYSICAL EXAMINATION Blood pressure 110/64 heart rate 67 afebrile and maintaining oxygen saturation on nasal cannula. CONSTITUTIONAL: No apparent distress. HEENT: Head is normocephalic. Pupils are equal, round. Sclerae anicteric. Mucous membranes of the mouth are moist. No JVD. No carotid bruit. CHEST EXAMINATION: Lungs are clear to auscultation. No chest wall tenderness is noted on palpation or with deep breathing. HEART EXAMINATION: Irregular rate and rhythm. S1, S2 heard. No murmurs, gallops or rub. ABDOMEN: Soft, nontender. Positive bowel sounds. EXTREMITIES: 2+ peripheral pulses, no lower extremity edema and no calf tenderness. NEUROLOGIC EXAMINATION: Patient is awake, alert and oriented x3. ASSESSMENT Fall Right intertrochanteric hip fracture Chronic persistent atrial fibrillation on long-term anticoagulation Coronary artery disease status post PCI Hypertension Dyslipidemia PLAN Clinically the patient is euvolemic and free of symptoms of angina. She has had no syncope associated with her fall. PCI was over one year ago. She is maintained on Xarelto along with aspirin. Recommend continuous administration of beta walter and aspirin perioperatively. Resume Xarelto as soon as possible postoperatively. In the postoperative phase would recommend continuing Xarelto 15 mg daily and Plavix 75 mg daily and discontinuation of aspirin at that time. Thank you kindly for this consultation. Nurse Practitioner note has been reviewed, I agree with a documented findings and plan of care. Patient was seen and examined. Past Medical History Past Medical History: Coronary Artery Disease (CAD), GERD/Reflux, Hyperlipidemia, Hypertension, Osteoarthritis (OA) Additional Past Medical History / Comment(s): "prediabetic" History of Any Multi-Drug Resistant Organisms: None Reported Past Surgical History: Heart Catheterization With Stent, Hysterectomy, Orthopedic Surgery Additional Past Surgical History / Comment(s): vein stripping,heart stents x4,lt foot,mattie carpel tunnel Past Anesthesia/Blood Transfusion Reactions: No Reported Reaction Additional Past Anesthesia/Blood Transfusion Reaction / Comment(s): no hx blood transfusion Date of Last Stent Placement:: 2009 Past Psychological History: No Psychological Hx Reported Smoking Status: Never smoker Past Alcohol Use History: None Reported Past Drug Use History: None Reported - Past Family History Mother Family Medical History: Cancer Additional Family Medical History / Comment(s): colon Father Family Medical History: Coronary Artery Disease (CAD) Brother(s) Family Medical History: Myocardial Infarction ([place]) Medications and Allergies Home Medications Medication Instructions Recorded Confirmed Type Acetaminophen [Tylenol] 1,000 mg PO Q4-6H PRN 12/24/18 03/15/20 History Aspirin 81 mg PO DAILY 12/24/18 03/15/20 History Cholecalciferol (Vitamin D3) 2,000 unit PO DAILY 12/24/18 03/15/20 History [Vitamin D3] Furosemide [Lasix] 20 mg PO DAILY 12/24/18 03/15/20 History Isosorbide Mononitrate ER [Imdur] 30 mg PO DAILY 12/24/18 03/15/20 History Lansoprazole [Prevacid] 15 mg PO DAILY 12/24/18 03/15/20 History Nitroglycerin Sl Tabs [Nitrostat] 0.4 mg SUBLINGUAL Q5M PRN 12/24/18 03/15/20 History Rivaroxaban [Xarelto] 15 mg PO DAILY 12/24/18 03/15/20 History Ubidecarenone [Co Q-10] 100 mg PO DAILY 12/24/18 03/15/20 History lisinopriL [Zestril] 10 mg PO DAILY 12/24/18 03/15/20 History Atorvastatin [Lipitor] 80 mg PO HS #90 tab 12/27/18 03/15/20 Rx Metoprolol Tartrate [Lopressor] 25 mg PO BID #0 12/27/18 03/15/20 Rx Allergies Allergy/AdvReac Type Severity Reaction Status Date / Time latex Allergy Rash/Hives Verified 03/15/20 19:27 Physical Exam Vitals: Vital Signs Temp Pulse Pulse Resp BP BP BP 03/16/20 07:18 98.2 F 67 16 110/64 03/16/20 04:00 18 03/16/20 01:20 98.2 F 73 125/77 03/16/20 00:00 18 03/15/20 22:51 97.7 F 74 157/75 03/15/20 22:30 97.6 F 70 18 116/86 03/15/20 22:11 74 18 03/15/20 21:00 97.4 F L 64 16 114/73 03/15/20 19:32 97.9 F 71 18 144/79 03/15/20 18:16 98.7 F 72 18 137/95 Pulse Ox 03/16/20 07:18 99 03/16/20 04:00 03/16/20 01:20 100 03/16/20 00:00 03/15/20 22:51 100 03/15/20 22:30 98 03/15/20 22:11 03/15/20 21:00 100 03/15/20 19:32 99 03/15/20 18:16 100 Intake and Output 03/15/20 03/16/20 03/16/20 22:59 06:59 14:59 Output Total 400 Balance -400 Output: Urine 400 Other: Voiding Method Indwelling Catheter Indwelling Catheter Indwelling Catheter Weight 86.183 kg Results 03/15/20 18:46 03/15/20 18:46 Cardiac Enzymes 03/15/20 Range/Units 18:46 AST 29 (14-36) U/L Coagulation 03/15/20 Range/Units 18:46 PT 11.0 (9.0-12.0) sec APTT 24.2 (22.0-30.0) sec CBC 03/15/20 Range/Units 18:46 WBC 7.7 (3.8-10.6) k/uL RBC 4.70 (3.80-5.40) m/uL Hgb 12.5 (11.4-16.0) gm/dL Hct 40.4 (34.0-46.0) % Plt Count 195 (150-450) k/uL Comprehensive Metabolic Panel 03/15/20 Range/Units 18:46 Sodium 136 L (137-145) mmol/L Potassium 4.6 (3.5-5.1) mmol/L Chloride 106 (98-107) mmol/L Carbon Dioxide 23 (22-30) mmol/L BUN 31 H (7-17) mg/dL Creatinine 1.04 (0.52-1.04) mg/dL Glucose 100 H (74-99) mg/dL Calcium 9.1 (8.4-10.2) mg/dL AST 29 (14-36) U/L ALT 16 (4-34) U/L Alkaline Phosphatase 94 (38-126) U/L Total Protein 6.2 L (6.3-8.2) g/dL Albumin 3.5 (3.5-5.0) g/dL Current Medications Generic Name Dose Route Start Last Admin Trade Name Freq PRN Reason Stop Dose Admin Acetaminophen 1,000 mg 03/16/20 09:30 Tylenol Tab PO Q6H PRN Pain Aspirin 81 mg 03/17/20 09:00 Aspirin PO DAILY [facility] Atorvastatin Calcium 80 mg 03/16/20 21:00 Lipitor PO HS [facility] Cholecalciferol 2,000 unit 03/17/20 09:00 Vitamin D3 (25 Mcg = 1000 Iu) PO DAILY [facility] Sodium Chloride 1,000 mls @ 50 mls/hr 03/16/20 08:45 03/16/20 08:54 Saline 0.9% IV 50 mls/hr .Q20H KIMBERLY Administration Isosorbide Mononitrate 30 mg 03/17/20 09:00 Imdur PO DAILY [facility] Lisinopril 10 mg 03/17/20 09:00 Zestril PO DAILY [facility] Metoprolol Tartrate 25 mg 03/16/20 21:00 Lopressor PO BID [facility] Morphine Sulfate 4 mg 03/15/20 21:48 03/16/20 09:00 Morphine Sulfate (Inj) IV 4 mg Q4HR PRN Administration Severe Pain Naloxone HCl 0.2 mg 03/15/20 21:48 Narcan IV Q2M PRN Opioid Reversal Nitroglycerin 0.4 mg 03/16/20 09:26 Nitrostat SUBLINGUAL Q5M PRN Chest Pain Pantoprazole Sodium 40 mg 03/16/20 09:45 03/16/20 10:05 Protonix PO Not Given [facility] Intake and Output 03/15/20 03/16/20 03/16/20 22:59 06:59 14:59 Output Total 400 Balance -400 Output: Urine 400 Other: Voiding Method Indwelling Catheter Indwelling Catheter Indwelling Catheter Weight 86.183 kg 03/15/20 18:46 03/15/20 18:46
[2020-03-16] MEDS ORDERED: SODIUM CHLORIDE 0.9% 1,000 ML IV ONE (14:38)
[2020-03-16] MEDS ORDERED: fentaNYL (PF) 50 MCG/ML 2 ML AMP ONE (16:25)
[2020-03-16] MEDS ORDERED: ROCURONIUM BROMIDE 10 MG/ML 5 ML VIAL IV ONE (16:25)
[2020-03-16] MEDS ORDERED: LIDOCAINE 1% INJ 10MG/ML (20 ML MDV) ONE (16:25)
[2020-03-16] MEDS ORDERED: PROPOFOL 10 MG/ML 20 ML VIAL IV ONE (16:25)
[2020-03-16] MEDS ORDERED: PHENYLEPHRINE-0.9% NACL SYG 1 MG/10 ML SYRINGE ONE (16:25)
[2020-03-16] MEDS ORDERED: SUCCINYLCHOLINE CHLORIDE 100 MG/5 ML SYR IV ONE (16:25)
[2020-03-16] MEDS ORDERED: SODIUM CHLORIDE 0.9% 100 ML with ceFAZolin 2,000 MG IV ONE ×2 (17:20)
[2020-03-16] MEDS ORDERED: LIDOCAINE 2%-EPI 1:100,000 20 ML VIAL SQ ONE ×2 (18:04)
[2020-03-16] MEDS ORDERED: LACTATED RINGERS 1,000 ML IV ONE (18:16)
[2020-03-16] MEDS ORDERED: NALOXONE 0.4 MG/ML 1 ML VIAL IV PRN (18:41)
[2020-03-16] MEDS ORDERED: ONDANSETRON 4 MG/2 ML VIAL IVP PRN (18:41)
[2020-03-16] MEDS ORDERED: HYDROcodone/APAP 5-325MG 1 EACH TAB PO PRN (18:41)
--- NOTE | 2020-03-16 18:41 | P.OP ---
Date of Procedure: 03/16/20 Preoperative Diagnosis: Displaced, comminuted right intertrochanteric femur fracture Postoperative Diagnosis: Displaced, comminuted right intertrochanteric femur fracture Procedure(s) Performed: Closed reduction and surgical stabilization of right intertrochanteric femur fracture with cephalomedullary nailing Implants: [employer] TFNA short proximal femoral nail, 120 11mm x 170 mm; 95mm helical blade and a 38 mm x 5.0 mm distal locking screw Anesthesia: GETA Surgeon: Fernando Finley Estimated Blood Loss (ml): 150 Condition: stable Disposition: PACU Indications for Procedure: The patient is pleasant 84-year-old female who sustained a displaced right intertrochanteric femur fracture after a mechanical fall. Surgical treatment was recommended. Risks and benefits were discussed, including (but not limited to) the risks of infection, bleeding, anesthesia-related complications and blood clots. In preop, additional questions were addressed with the patient and her family. The patient expressed understanding and wished to proceed with surgery. Consent forms were signed. The surgical site was confirmed and marked preoperatively. Description of Procedure: The patient was brought to the operative suite by the anesthesia team. General anesthesia was administered uneventfully. The patient was transferred to the operating table and positioned supine. The foot of the operative limb was secured in a well-padded boot and positioned straight. The contralateral limb was flexed, abducted and secured to a padded, well-leg betts. All bony prominences were padded in the typical fashion. Prophylactic antibiotics were administered. A time-out was performed, confirming patient identifiers, the operative side, site and procedure: all team members expressed agreement. The fracture was evaluated with intraoperative fluoroscopy. The fracture was manually reduced and confirmed on orthogonal images. The right lower extremity was then prepped and draped in a standard, sterile fashion. A small stab incision was made proximal to the greater trochanter and a guidewire was inserted. Fluoroscopy was used to localize the starting point at the tip of the greater trochanter and the wire was advanced into the proximal femur. Wire position was confirmed on orthogonal imaging. The skin incision was extended to accommodate the entry reamer, which was inserted through a tissue protector and advanced to the level of the lesser trochanter under fluoroscopic guidance. The reamer and guidewire were removed. Based on the patient's anatomy and fracture pattern, an 11 mm short nail was selected. This was attached to the insertion handle and passed down the medullary canal. An incision was made laterally along the proximal thigh for placement of the cephalomedullary helical blade. A drill sleeve was inserted through the aiming arm and advanced to the lateral femoral cortex. A guidewire was advanced through the nail and into the femoral head. Position of the wire was confirmed on orthogonal views and adjusted to a satisfactory position. M easuring off the guidewire, 95 mm blade was selected. The cannulated drill was used and the blade was inserted over the guidewire to the appropriate depth. The set screw was tightened to lock the blade in place, then slightly loosened to allow for dynamic compression. Compression was applied through the lag screw insertion cannula, visually confirmed on imaging. The guidewire was removed. A small incision was made for the distal screw. The drill sleeve was inserted and advanced to the lateral femoral cortex. The bone was drilled & measured. A 5 mm x 38 mm distal cortical screw was inserted. The insertion handle and aiming arm were removed. Final x-rays were taken to confirm fracture reduction and implant position. All wounds were irrigated thoroughly with normal saline. The wounds were closed in layers with 0 Vicryl for the fascia and interrupted 0 Vicryl and 2-0 Vicryl sutures for the deep and superficial subcutaneous tissues. The skin was closed with cyndi. The operative sites were injected with local anaesthetic with epinephrine for adjunct postoperative pain control and hemostasis. Sterile dressings were applied. All sponge, needle and instrument counts were correct at the end of the procedure. The patient tolerated the procedure well. The patient was transferred to a hospital bed and transported to the recovery room in stable condition.
[2020-03-16] MEDS ORDERED: ONDANSETRON 4 MG/2 ML VIAL IVP ONE (18:59)
[2020-03-16] MEDS: ATORVASTATIN 80 MG TAB PO SCH (20:04)
[2020-03-16] MEDS: METOPROLOL TARTRATE 25 MG TAB PO SCH (20:04)
--- NOTE | 2020-03-16 20:44 | FL ---
EXAMINATION TYPE: FL guidance operating room, XR Hip Complete RT DATE OF EXAM: 03/16/2020 COMPARISON: NONE HISTORY: ORIF right hip TECHNIQUE: Fluoroscopy. FINDINGS: Fluoroscopic guidance was provided during procedure by performing physician. A total of 1 min 22 seconds of fluoroscopic time was utilized during the procedure and 4 spot images was acquired . Please see operative report for additional details. IMPRESSION: As Above.
--- NOTE | 2020-03-16 23:04 | P.CONS ---
History of Present Illness - Reason for Consult Consult date: 03/16/20 medical management Requesting physician: Fernando Finley - Chief Complaint fall - History of Present Illness Consultation: This is a pleasant 84-year-old patient of . Does use a cane at baseline. Chronic stable medical conditions include coronary artery disease with stent over a year ago, GERD, hypertension, hyperlipidemia, osteoarthritis. Vision to go wrong step and fell down causing a fractured right hip. Significant pain in the same. Patient denies any chest pain or shortness of breath. Of course of excess tolerance is unlimited. She does follow with Dr. Baker from cardiology. Laying in bed. Due to go down for surgery this afternoon. No active chest pain or shortness breath. No fever no chills. Review of systems: GEN.: Tired EYES: None HEENT: None NECK: None RESPIRATORY: None CARDIOVASCULAR: None GASTROINTESTINAL: None GENITOURINARY: None MUSCULOSKELETAL: Joint pains LYMPHATICS: None HEMATOLOGICAL: None PSYCHIATRY: Bit forgetful NEUROLOGICAL: None Past medical history to include: Coronary artery disease with stent, GERD, hyperlipidemia, hypertension, osteoarthritis, coronary stents 4 carpal tunnel Social history: Does not smoke or drink alcohol. Lives alone. Does use a cane Physical examination: VITAL SIGNS: 98.7, 72, 18, 137/95, 100% room air GENERAL: BMI 33.7, laying in bed, awake. EYES: Pupils equal. Conjunctiva normal. HEENT: External appearance of nose and ears normal, oral cavity grossly normal. NECK: JVD not raised; masses not palpable. HEART: First and second heart sounds are normal; no edema. LUNGS: Respiratory rate normal; decreased breath sounds. ABDOMEN: Soft, nontender, liver spleen not palpable, no masses palpable. PSYCH: Alert and oriented x3; mood and affect normal MUSCULAR skeletal: Evidence of OA, limited range of motion of the right hip. NEUROLOGICAL: Cranial nerves grossly intact; no facial asymmetry, power and sensation grossly intact. LYMPHATICS: No lymph nodes palpable in the axilla and neck INVESTIGATIONS, reviewed in the clinical context: White count 7.7 hemoglobin 12.54.6 creatinine 1.04 UA negative X-ray of the hip and femur shows comminuted fracture right hip Chest x-ray film personally reviewed by me-cardiomegaly and some chronic changes EKG tracing personally reviewed by me-atrial fibrillation heart rate controlled Assessment: -Cardiovascular assessment: Patient is multiple medical comorbidities with coronary artery with a stent a year ago. Patient is no new coronary symptoms. Has limited excess tolerance. Ordered a beta walter. Continue with the same patient is. At moderate cardiovascular risk for surgery with no medical contraindication -Coronary artery with stent over a year ago -GERD -Hyperlipidemia -Essential hypertension -Primary osteoarthritis -Chronic gait dysfunction uses a cane Plan: Home medications are to continue. Patient xarelto has been held. Cardiac consultation will also place. I did communicate the nurse that patient can go for surgery. Care was discussed with the patient. Questions were answered. will needDVT prophylaxis. Thank you Dr. Finley Past Medical History Past Medical History: Coronary Artery Disease (CAD), GERD/Reflux, Hyperlipidemia, Hypertension, Osteoarthritis (OA) Additional Past Medical History / Comment(s): "prediabetic" History of Any Multi-Drug Resistant Organisms: None Reported Past Surgical History: Heart Catheterization With Stent, Hysterectomy, Ortho pedic Surgery Additional Past Surgical History / Comment(s): vein stripping,heart stents x4,lt foot,mattie carpel tunnel Past Anesthesia/Blood Transfusion Reactions: No Reported Reaction Additional Past Anesthesia/Blood Transfusion Reaction / Comm: no hx blood transfusion Date of Last Stent Placement:: 2009 Past Psychological History: No Psychological Hx Reported Smoking Status: Never smoker Past Alcohol Use History: None Reported Past Drug Use History: None Reported - Past Family History Mother Family Medical History: Cancer Additional Family Medical History / Comment(s): colon Father Family Medical History: Coronary Artery Disease (CAD) Brother(s) Family Medical History: Myocardial Infarction ([place]) Medications and Allergies Home Medications Medication Instructions Recorded Confirmed Type Acetaminophen [Tylenol] 1,000 mg PO Q4-6H PRN 12/24/18 03/15/20 History Aspirin 81 mg PO DAILY 12/24/18 03/15/20 History Cholecalciferol (Vitamin D3) 2,000 unit PO DAILY 12/24/18 03/15/20 History [Vitamin D3] Furosemide [Lasix] 20 mg PO DAILY 12/24/18 03/15/20 History Isosorbide Mononitrate ER [Imdur] 30 mg PO DAILY 12/24/18 03/15/20 History Lansoprazole [Prevacid] 15 mg PO DAILY 12/24/18 03/15/20 History Nitroglycerin Sl Tabs [Nitrostat] 0.4 mg SUBLINGUAL Q5M PRN 12/24/18 03/15/20 History Rivaroxaban [Xarelto] 15 mg PO DAILY 12/24/18 03/15/20 History Ubidecarenone [Co Q-10] 100 mg PO DAILY 12/24/18 03/15/20 History lisinopriL [Zestril] 10 mg PO DAILY 12/24/18 03/15/20 History Atorvastatin [Lipitor] 80 mg PO HS #90 tab 12/27/18 03/15/20 Rx Metoprolol Tartrate [Lopressor] 25 mg PO BID #0 12/27/18 03/15/20 Rx Allergies Allergy/AdvReac Type Severity Reaction Status Date / Time latex Allergy Rash/Hives Verified 03/15/20 19:27 Physical Exam Vitals: Vital Signs Temp Pulse Pulse Resp BP BP BP 03/16/20 07:18 98.2 F 67 16 110/64 03/16/20 04:00 18 03/16/20 01:20 98.2 F 73 125/77 03/16/20 00:00 18 03/15/20 22:51 97.7 F 74 157/75 03/15/20 22:30 97.6 F 70 18 116/86 03/15/20 22:11 74 18 03/15/20 21:00 97.4 F L 64 16 114/73 03/15/20 19:32 97.9 F 71 18 144/79 03/15/20 18:16 98.7 F 72 18 137/95 Pulse Ox 03/16/20 07:18 99 03/16/20 04:00 03/16/20 01:20 100 03/16/20 00:00 03/15/20 22:51 100 03/15/20 22:30 98 03/15/20 22:11 03/15/20 21:00 100 03/15/20 19:32 99 03/15/20 18:16 100 Intake and Output 03/15/20 03/16/20 03/16/20 22:59 06:59 14:59 Output Total 400 Balance -400 Output: Urine 400 Other: Voiding Method Indwelling Catheter Indwelling Catheter Indwelling Catheter Weight 86.183 kg Results CBC & Chem 7: 03/15/20 18:46 03/15/20 18:46 Labs: Abnormal Lab Results - Last 24 Hours (Table) 03/15/20 03/15/20 Range/Units 18:46 18:46 MCHC 30.9 L (31.0-37.0) g/dL RDW 16.6 H (11.5-15.5) % Sodium 136 L (137-145) mmol/L BUN 31 H (7-17) mg/dL Glucose 100 H (74-99) mg/dL Total Protein 6.2 L (6.3-8.2) g/dL
[2020-03-16] MEDS: HYDROcodone/APAP 5-325MG 1 EACH TAB PO PRN (23:47)
[2020-03-17] MEDS: HYDROcodone/APAP 5-325MG 1 EACH TAB PO PRN ×3 (05:10→21:42)
[2020-03-17] MEDS: SODIUM CHLORIDE 0.9% 1,000 ML IV SCH ×2 (06:25→08:53)
[2020-03-17] MEDS: METOPROLOL TARTRATE 25 MG TAB PO SCH (08:49)
[2020-03-17] MEDS: ASPIRIN 81 MG PO SCH (08:49)
[2020-03-17] MEDS: PANTOPRAZOLE 40 MG TABLET PO SCH (08:49)
[2020-03-17] MEDS: CHOLECALCIFEROL 1,000 UNIT TAB PO SCH (08:50)
[2020-03-17] MEDS: ISOSORBIDE MONONITRATE ER 30 MG TAB.ER.24H PO SCH (08:50)
[2020-03-17] MEDS: MORPHINE SULFATE 4 MG/ML SYRINGE IV PRN ×2 (08:56→15:57)
[2020-03-17] MEDS ORDERED: lisinopriL 10 MG TAB PO SCH (09:00)
[2020-03-17] MEDS ORDERED: RIVAROXABAN 15 MG TAB PO SCH (09:00)
[2020-03-17] MEDS ORDERED: NON FORMULARY DRUG (Ubidecarenone [Co Q-10] 100 MG) PO SCH (09:00)
[2020-03-17] MEDS ORDERED: FUROSEMIDE 20 MG TAB PO SCH (09:00)
[2020-03-17] MEDS ORDERED: ENOXAPARIN 40 MG/0.4 ML SYRINGE SQ SCH (09:00)
[2020-03-17 09:01] LABS: Anisocytosis Slight; Basophils % (A) 0 %; Eosinophils % (A) 0 %; HCT 32.7 % (34.0-46.0); Hypochromasia Marked; Lymphocytes % (A) 11 %; MCH 26.8 pg (25.0-35.0); MCHC 30.2 g/dL (31.0-37.0); MCV 88.7 fL (80.0-100.0); Mean Platelet Volume 9.5; Monocytes # (A) 0.8 k/uL (0-1.0); Monocytes % (A) 9 %; Neutrophils % (A) 79 %; Platelet Count 154 k/uL (150-450); RBC 3.68 m/uL (3.80-5.40); RDW 16.4 % (11.5-15.5); WBC 8.8 k/uL (3.8-10.6)
[2020-03-17 09:12] LABS: HGB 9.9 gm/dL (11.4-16.0)
--- NOTE | 2020-03-17 09:35 | P.PN ---
Subjective Progress Note Date: 03/17/20 This is an 84-year-old female who is status post closed reduction and internal fixation of right intertrochanteric femur fracture with cephalomedullary nail. This is postoperative day #1 and patient is seen and evaluated at bedside. Patient does report soreness in the right hip today. Otherwise patient denies any new complaints. Patient denies any fever/chills, numbness, weakness, tingling, abdominal pain, shortness of breath or chest pain. Objective - Vital Signs Vital signs: Vital Signs Temp 98.2 F 03/17/20 07:38 Pulse 74 03/17/20 08:48 Resp 16 03/17/20 07:38 BP 113/64 03/17/20 08:48 Pulse Ox 95 03/17/20 07:38 Intake & Output 03/16/20 03/17/20 03/17/20 18:59 06:59 18:59 Intake Total 1400 100 275 Output Total 700 225 Balance 700 -125 275 Intake: IV 1400 100 Oral 275 Output: Urine 550 225 Estimated Blood Loss 150 Other: Voiding Method Indwelling Catheter Indwelling Catheter Indwelling Catheter - Exam Vital signs are stable. Patient is in no acute distress and is alert and oriented 3. Calf is soft and nontender to palpation. Dressing is clean, dry, and intact. Patient has full foot and ankle motion without pain or difficulty. Neurovascular status and circulatory status are intact. - Labs CBC & Chem 7: 03/17/20 08:19 03/15/20 18:46 Labs: Abnormal Lab Results - Last 24 Hours (Table) 03/17/20 Range/Units 08:19 RBC 3.68 L (3.80-5.40) m/uL Hgb 9.9 L D (11.4-16.0) gm/dL Hct 32.7 L (34.0-46.0) % MCHC 30.2 L (31.0-37.0) g/dL RDW 16.4 H (11.5-15.5) % Microbiology - Last 24 Hours (Table) 03/16/20 17:55 Urine Culture - Preliminary Urine,Voided Assessment and Plan Assessment: Status post closed reduction and internal fixation of right intertrochanteric femur fracture. (1) Hip fracture Current Visit: Yes Status: Acute Code(s): S72.009A - FRACTURE OF UNSP PART OF NECK OF UNSP FEMUR, INIT SNOMED Code(s): 242705171 Plan: Continue routine postop care and pain control. Continue anticoagulation with Xarelto. Weightbearing as tolerated with a walker. Daily dressing changes. Appreciate input from medicine. Anticipated discharge to [facility] in the next 48-72 hours.
[2020-03-17] MEDS ORDERED: PANTOPRAZOLE 40 MG/10 ML VIAL IVP ONE (10:04)
--- NOTE | 2020-03-17 11:01 | P.PN ---
Subjective Progress Note Date: 03/17/20 Principal diagnosis: Long-standing persistent atrial fibrillation This is an 84-year-old female patient with history of long-standing persistent atrial fibrillation as well as coronary artery disease and hypertension and dyslipidemia was admitted to the hospital after she fell and fractured her right hip. She underwent surgery yesterday. The patient was seen today 03/17/2020. She seems to be stable from a cardiac vascular standpoint overview. The heart rate has been under good control. She is on oral anticoagulation as well as antiplatelet. Objective - Vital Signs Vital signs: Vital Signs Temp 98.2 F 03/17/20 07:38 Pulse 74 03/17/20 08:48 Resp 16 03/17/20 07:38 BP 113/64 03/17/20 08:48 Pulse Ox 95 03/17/20 07:38 Intake & Output 03/16/20 03/17/20 03/17/20 18:59 06:59 18:59 Intake Total 1400 100 275 Output Total 700 225 Balance 700 -125 275 Intake: IV 1400 100 Oral 275 Output: Urine 550 225 Estimated Blood Loss 150 Other: Voiding Method Indwelling Catheter Indwelling Catheter Indwelling Catheter - Constitutional General appearance: Present: no acute distress - Respiratory Respiratory: bilateral: CTA - Cardiovascular Rhythm: irregularly irregular Heart sounds: normal: S1, S2 - Labs CBC & Chem 7: 03/17/20 08:19 03/15/20 18:46 Labs: Abnormal Lab Results - Last 24 Hours (Table) 03/17/20 Range/Units 08:19 RBC 3.68 L (3.80-5.40) m/uL Hgb 9.9 L D (11.4-16.0) gm/dL Hct 32.7 L (34.0-46.0) % MCHC 30.2 L (31.0-37.0) g/dL RDW 16.4 H (11.5-15.5) % Microbiology - Last 24 Hours (Table) 03/16/20 17:55 Urine Culture - Preliminary Urine,Voided Assessment and Plan Assessment: Assessment #1 status post fall with right hip fracture #2 long-standing persistent atrial fibrillation #3 coronary artery disease #4 multiple comorbid conditions Plan #1 continue the current medical regimen #2 the patient is stable from the cardiac vascular standpoint overview #3 follow-up with the patient on when necessary
[2020-03-17] MEDS ORDERED: LACTATED RINGERS 1,000 ML IV SCH ×2 (15:00→15:30)
[2020-03-17] MEDS: RIVAROXABAN 15 MG TAB PO SCH (18:26)
[2020-03-17] MEDS ORDERED: SODIUM CHLORIDE 0.9% 250 ML IV SCH (19:00)
--- NOTE | 2020-03-17 19:42 | P.PN ---
Progress Note - Text Progress Note Date: 03/17/20 - Chief Complaint fall Consultation: This is a pleasant 84-year-old patient of . Does use a cane at baseline. Chronic stable medical conditions include coronary artery disease with stent over a year ago, GERD, hypertension, hyperlipidemia, osteoarthritis. Vision to go wrong step and fell down causing a fractured right hip. follow with Dr. Baker from cardiology. On March 16 underwent closed reduction and internal fixation with the nailing. Today-some pain at the operative site. The more awake. Did start some diet. Daughter is present. Breathing is stable. No chest pain. Review of systems: Was done for constitutional, cardiovascular, GI, pulmonary. Musculoskeletal relevant finding as above Active Medications Acetaminophen (Tylenol Tab) 1,000 mg PO Q6H PRN PRN Reason: Pain Hydrocodone Bitart/Acetaminophen ([place] 5-325) 1 each PO Q6HR PRN PRN Reason: Pain Scale 1 to 5 Hydrocodone Bitart/Acetaminophen ([place] 5-325) 2 each PO Q6HR PRN PRN Reason: Pain Scale 6 to 10 Last Admin: 03/17/20 12:22 Dose: 2 each Documented by: Aspirin (Aspirin) 81 mg PO DAILY [facility] Last Admin: 03/17/20 08:49 Dose: 81 mg Documented by: Atorvastatin Calcium (Lipitor) 80 mg PO HS [facility] Last Admin: 03/16/20 20:04 Dose: Not Given Documented by: Cholecalciferol (Vitamin D3 (25 Mcg = 1000 Iu)) 2,000 unit PO DAILY [facility] Last Admin: 03/17/20 08:50 Dose: 2,000 unit Documented by: Sodium Chloride (Saline 0.9%) 1,000 mls @ 75 mls/hr IV .[id number] [facility] Last Admin: 03/17/20 08:53 Dose: 50 mls/hr Documented by: Isosorbide Mononitrate (Imdur) 30 mg PO DAILY [facility] Last Admin: 03/17/20 08:50 Dose: 30 mg Documented by: Lisinopril (Zestril) 10 mg PO DAILY [facility] Last Admin: 03/17/20 08:49 Dose: 10 mg Documented by: Metoprolol Tartrate (Lopressor) 25 mg PO BID [facility] Last Admin: 03/17/20 08:49 Dose: 25 mg Documented by: Morphine Sulfate (Morphine Sulfate (Inj)) 4 mg IV Q4HR PRN PRN Reason: Severe Pain Last Admin: 03/17/20 15:57 Dose: 4 mg Documented by: Naloxone HCl (Narcan) 0.2 mg IV Q2M PRN PRN Reason: Opioid Reversal Nitroglycerin (Nitrostat) 0.4 mg SUBLINGUAL Q5M PRN PRN Reason: Chest Pain Ondansetron HCl (Zofran) 4 mg IVP Q8HR PRN PRN Reason: Nausea And Vomiting Pantoprazole Sodium (Protonix) 40 mg PO AC-BRKFST [facility] Last Admin: 03/17/20 08:49 Dose: 40 mg Documented by: Rivaroxaban (Xarelto) 15 mg PO W/SUPPER [facility] Last Admin: 03/17/20 18:26 Dose: 15 mg Documented by: Physical examination: VITAL SIGNS: 98.2, 85, 14, 8251, 97% on 2 L GENERAL: Propper in bed, awake EYES: Pupils equal. Conjunctiva pale HEENT: External appearance of nose and ears normal, oral cavity grossly normal. NECK: JVD not raised; masses not palpable. HEART: First and second heart sounds are normal; no edema. LUNGS: Respiratory rate normal; decreased breath sounds. ABDOMEN: Soft, nontender, liver spleen not palpable, no masses palpable. PSYCH: Alert and oriented x3; mood and affect normal MUSCULAR skeletal: Evidence of OA, limited range of motion of the right hip. INVESTIGATIONS, reviewed in the clinical context: Hemoglobin 9.9 Previous testing White count 7.7 hemoglobin 12.5potassium 4.6 creatinine 1.04 UA negative X-ray of the hip and femur shows comminuted fracture right hip Chest x-ray film personally reviewed by me-cardiomegaly and some chronic changes EKG tracing personally reviewed by me-atrial fibrillation heart rate controlled Assessment: -Right femur fracture secondary to fall followed by closed reduction internal fixation with cephalo-medullary nail -Coronary artery with stent over a year ago -GERD -Hyperlipidemia -Essential hypertension -Primary osteoarthritis -Chronic gait dysfunction uses a cane - Plan: Patient was hypotensive earlier today. Fluid bolus was given. Put on maintenance fluid. Would hold off lisinopril. Cutback the dose of beta walter. Resume the same and systolic blood pressure above 100. Discussed with the patient daughter the bedside. Repeat labs in the morning. Thank you Dr. Finley
[2020-03-17] MEDS: METOPROLOL TARTRATE 12.5 MG TAB PO SCH (20:19)
[2020-03-17] MEDS: ATORVASTATIN 80 MG TAB PO SCH (20:25)
[2020-03-18 07:48] LABS: Anisocytosis Slight; HCT 26.3 % (34.0-46.0); Hypochromasia Marked; MCH 26.9 pg (25.0-35.0); MCHC 30.6 g/dL (31.0-37.0); MCV 87.9 fL (80.0-100.0); Mean Platelet Volume 8.3; Platelet Count 126 k/uL (150-450); RDW 16.2 % (11.5-15.5); WBC 7.6 k/uL (3.8-10.6)
[2020-03-18 07:55] LABS: HGB 8.1 gm/dL (11.4-16.0)
[2020-03-18 08:04] LABS: Calcium 7.7 mg/dL (8.4-10.2); Potassium 4.8 mmol/L (3.5-5.1)
[2020-03-18] MEDS: ISOSORBIDE MONONITRATE ER 30 MG TAB.ER.24H PO SCH (08:55)
[2020-03-18] MEDS: CHOLECALCIFEROL 1,000 UNIT TAB PO SCH (08:55)
[2020-03-18] MEDS: METOPROLOL TARTRATE 12.5 MG TAB PO SCH ×2 (08:55→19:13)
[2020-03-18] MEDS: ASPIRIN 81 MG PO SCH (08:55)
[2020-03-18] MEDS: PANTOPRAZOLE 40 MG TABLET PO SCH (08:55)
[2020-03-18] MEDS: HYDROcodone/APAP 5-325MG 1 EACH TAB PO PRN ×2 (09:06→17:41)
--- NOTE | 2020-03-18 09:54 | P.PN ---
Subjective Progress Note Date: 03/18/20 This is an 84-year-old female who is status post closed reduction and internal fixation of right intertrochanteric femur fracture with cephalomedullary nail. This is postoperative day #2 and patient is seen and evaluated at bedside. Patient denies any new complaints today. Objective - Vital Signs Vital signs: Vital Signs Temp 98.1 F 03/18/20 07:30 Pulse 78 03/18/20 08:52 Resp 15 03/18/20 07:30 BP 116/77 03/18/20 08:52 Pulse Ox 94 L 03/18/20 08:57 Intake & Output 03/17/20 03/18/20 03/18/20 18:59 06:59 18:59 Intake Total 595 150 Output Total 340 250 Balance 255 -100 Intake: Intake, IV Titration 150 Amount Sodium Chloride 0.9% 1, 150 000 ml @ 75 mls/hr IV . [id number] [facility] Rx#:[id number] Oral 595 Output: Urine 340 250 Uretheral ([place]) 220 Other: Voiding Method Indwelling Catheter Indwelling Catheter - Exam Vital signs are stable. Patient is in no acute distress and is alert and oriented 3. Calf is soft and nontender to palpation. Incisions are clean, dry, and intact. Patient has full foot and ankle motion without pain or difficulty. Neurovascular status and circulatory status are intact. - Labs CBC & Chem 7: 03/18/20 06:50 03/18/20 06:50 Labs: Abnormal Lab Results - Last 24 Hours (Table) 03/18/20 03/18/20 Range/Units 06:50 06:50 RBC 3.00 L (3.80-5.40) m/uL Hgb 8.1 L D (11.4-16.0) gm/dL Hct 26.3 L (34.0-46.0) % MCHC 30.6 L (31.0-37.0) g/dL RDW 16.2 H (11.5-15.5) % Plt Count 126 L (150-450) k/uL Sodium 134 L (137-145) mmol/L Chloride 108 H (98-107) mmol/L BUN 29 H (7-17) mg/dL Creatinine 1.15 H (0.52-1.04) mg/dL Glucose 119 H (74-99) mg/dL Calcium 7.7 L (8.4-10.2) mg/dL Microbiology - Last 24 Hours (Table) 03/16/20 17:55 Urine Culture - Final Urine,Voided Assessment and Plan Assessment: Status post closed reduction and internal fixation of right intertrochanteric femur fracture. (1) Hip fracture Current Visit: Yes Status: Acute Code(s): S72.009A - FRACTURE OF UNSP PART OF NECK OF UNSP FEMUR, INIT SNOMED Code(s): 723549429 Plan: Continue routine postop care and pain control. Continue anticoagulation with Xarelto. Weightbearing as tolerated with a walker. Daily dressing changes. Appreciate input from medicine. Anticipated discharge to ECF in the next 24-48 hours.
--- NOTE | 2020-03-18 17:05 | P.PN ---
Progress Note - Text Progress Note Date: 03/18/20 - Chief Complaint fall Consultation: This is a pleasant 84-year-old patient of . Does use a cane at baseline. Chronic stable medical conditions include coronary artery disease with stent over a year ago, GERD, hypertension, hyperlipidemia, osteoarthritis. Vision to go wrong step and fell down causing a fractured right hip. follow with Dr. Baker from cardiology. On March 16 underwent closed reduction and internal fixation with the nailing. Today-laying in bed. Pain at the operative site. Decreased appetite. Awake propped up in bed. Weak and tired. Did drop of blood pressure with standing up. Review of systems: Was done for constitutional, cardiovascular, GI, pulmonary. Musculoskeletal relevant finding as above Active Medications Acetaminophen (Tylenol Tab) 1,000 mg PO Q6H PRN PRN Reason: Pain Hydrocodone Bitart/Acetaminophen ([place] 5-325) 1 each PO Q6HR PRN PRN Reason: Pain Scale 1 to 5 Hydrocodone Bitart/Acetaminophen ([place] 5-325) 2 each PO Q6HR PRN PRN Reason: Pain Scale 6 to 10 Last Admin: 03/18/20 09:06 Dose: 2 each Documented by: Aspirin (Aspirin) 81 mg PO DAILY [facility] Last Admin: 03/18/20 08:55 Dose: 81 mg Documented by: Atorvastatin Calcium (Lipitor) 80 mg PO HS [facility] Last Admin: 03/17/20 20:25 Dose: 80 mg Documented by: Cholecalciferol (Vitamin D3 (25 Mcg = 1000 Iu)) 2,000 unit PO DAILY [facility] Last Admin: 03/18/20 08:55 Dose: 2,000 unit Documented by: Isosorbide Mononitrate (Imdur) 30 mg PO DAILY [facility] Last Admin: 03/18/20 08:55 Dose: 30 mg Documented by: Metoprolol Tartrate (Lopressor) 12.5 mg PO BID [facility] Last Admin: 03/18/20 08:55 Dose: 12.5 mg Documented by: Morphine Sulfate (Morphine Sulfate (Inj)) 4 mg IV Q4HR PRN PRN Reason: Severe Pain Last Admin: 03/17/20 15:57 Dose: 4 mg Documented by: Naloxone HCl (Narcan) 0.2 mg IV Q2M PRN PRN Reason: Opioid Reversal Nitroglycerin (Nitrostat) 0.4 mg SUBLINGUAL Q5M PRN PRN Reason: Chest Pain Ondansetron HCl (Zofran) 4 mg IVP Q8HR PRN PRN Reason: Nausea And Vomiting Last Admin: 03/18/20 09:31 Dose: 4 mg Documented by: Pantoprazole Sodium (Protonix) 40 mg PO AC-BRKFST [facility] Last Admin: 03/18/20 08:55 Dose: 40 mg Documented by: Rivaroxaban (Xarelto) 15 mg PO W/SUPPER [facility] Last Admin: 03/17/20 18:26 Dose: 15 mg Documented by: Physical examination: VITAL SIGNS: 98.2, 66, 16, 85/64, 97% GENERAL: Propper in bed, awake EYES: Pupils equal. Conjunctiva pale HEENT: External appearance of nose and ears normal, oral cavity grossly normal. NECK: JVD not raised; masses not palpable. HEART: First and second heart sounds are normal; no edema. LUNGS: Respiratory rate normal; decreased breath sounds. ABDOMEN: Soft, nontender, liver spleen not palpable, no masses palpable. PSYCH: Alert and oriented x3; mood and affect normal MUSCULAR skeletal: Evidence of OA, dressing over the right hip incision INVESTIGATIONS, reviewed in the clinical context: Hemoglobin 8.1 Previous testing White count 7.7 hemoglobin 12.5potassium 4.6 creatinine 1.04 UA negative X-ray of the hip and femur shows comminuted fracture right hip Chest x-ray film personally reviewed by me-cardiomegaly and some chronic changes EKG tracing personally reviewed by me-atrial fibrillation heart rate controlled Assessment: -Right femur fracture secondary to fall followed by closed reduction internal fixation with cephalo-medullary nail -Coronary artery with stent over a year ago -GERD -Hyperlipidemia -Essential hypertension -Primary osteoarthritis -Chronic gait dysfunction uses a cane -Acute blood loss anemia secondary surgery expected, symptomatic with low blood pressure. Hypotension-we'll transfuse unit of blood - Plan: Transfuse 1 unit of blood. DC IV fluids for now. Repeat H&H. We will need to go to rehab. Thank you Dr. Finley
[2020-03-18] MEDS: RIVAROXABAN 15 MG TAB PO SCH (18:30)
[2020-03-18] MEDS: ATORVASTATIN 80 MG TAB PO SCH (19:16)
[2020-03-19 08:08] LABS: Anisocytosis Slight; Basophils % (A) 0 %; Eosinophils # (A) 0.2 k/uL (0-0.7); Eosinophils % (A) 3 %; HCT 29.9 % (34.0-46.0); HGB 9.3 gm/dL (11.4-16.0); Hypochromasia Moderate; Lymphocytes # (A) 0.9 k/uL (1.0-4.8); Lymphocytes % (A) 13 %; MCHC 30.9 g/dL (31.0-37.0); MCV 87.2 fL (80.0-100.0); Mean Platelet Volume 8.5; Monocytes # (A) 0.5 k/uL (0-1.0); Monocytes % (A) 7 %; Neutrophils # (A) 5.2 k/uL (1.3-7.7); Neutrophils % (A) 75 %; Platelet Count 127 k/uL (150-450); RBC 3.43 m/uL (3.80-5.40); RDW 16.2 % (11.5-15.5); WBC 6.9 k/uL (3.8-10.6)
[2020-03-19] MEDS: METOPROLOL TARTRATE 12.5 MG TAB PO SCH ×2 (08:37→20:00)
[2020-03-19] MEDS: HYDROcodone/APAP 5-325MG 1 EACH TAB PO PRN ×3 (08:37→20:00)
[2020-03-19] MEDS: CHOLECALCIFEROL 1,000 UNIT TAB PO SCH (08:37)
[2020-03-19] MEDS: ASPIRIN 81 MG PO SCH (08:37)
[2020-03-19] MEDS: PANTOPRAZOLE 40 MG TABLET PO SCH (08:37)
[2020-03-19] MEDS: ISOSORBIDE MONONITRATE ER 30 MG TAB.ER.24H PO SCH (08:37)
[2020-03-19] MEDS ORDERED: MAGNESIUM HYDROXIDE 2,400 MG/10 ML CUP PO PRN (09:28)
--- NOTE | 2020-03-19 09:40 | P.DS ---
Providers Date of admission: 03/15/20 21:42 Expected date of discharge: 03/19/20 Attending physician: Fernando Finley DO Consults: 03/15/20 21:48 Consult Physician Stat Consulting Provider: Bishop Rodriguez Consult Reason/Comments: medical management Do you want consulting provider notified?: Yes 03/16/20 10:44 Consult Physician Routine Consulting Provider: Danika Ayala Consult Reason/Comments: pre-op-/CAD Do you want consulting provider notified?: Yes Primary care physician: Miko Bocanegra - Discharge Diagnosis(es) (1) Hip fracture, right Current Visit: Yes Status: Acute (2) CAD (coronary artery disease) Current Visit: Yes Status: Acute (3) GERD (gastroesophageal reflux disease) Current Visit: Yes Status: Acute (4) Osteoarthritis Current Visit: Yes Status: Acute (5) Essential hypertension Current Visit: No Status: Acute (6) Hypercholesterolemia Current Visit: No Status: Acute (7) Status post hip surgery Current Visit: Yes Status: Acute Hospital Course: This is an 84 year old female who presented to the hospital post fall at home and sustained a right hip fracture. The patient was cleared by internal medicine and cardiology for surgery. The patient underwent a closed reduction with insertion of cephalomedullary nail on 03/16/[address] Finlye. The procedure was performed without complication or sequelae. The patient is doing well postoperatively. Labs and vital signs are stable on the day of discharge. She had one unit of PRBCs yesterday. Hgb is 9.3 today. On the day of discharge the patient's hip incision is healing well. There is minimal erythema. There is no drainage noted at this time. There is minimal soft tissue swelling to the hip and thigh. The patient has full foot and ankle motion without difficulty or pain. Neurovascular status to the right lower extremity is intact. The patient is discharged to skilled rehab in stable condition. See discharge medication reconciliation for accurate list of discharge medications. Pertinent Studies: Laboratory Tests 03/18/20 03/19/20 06:50 07:51 WBC 6.9 RBC 3.43 L Hgb 9.3 L Hct 29.9 L MCHC 30.9 L RDW 16.2 H Plt Count 127 L Lymphocytes # 0.9 L Sodium 134 L Chloride 108 H BUN 29 H Creatinine 1.15 H Glucose 119 H Calcium 7.7 L Patient Condition at Discharge: Stable Plan - Discharge Summary Discharge Rx Participant: Yes New Discharge Prescriptions: New HYDROcodone/APAP 5-325MG [[place] 5] 1 - 2 each PO Q4-6H PRN #48 tab PRN Reason: Pain Sennosides-Docusate Sodium [Senokot-S] 2 tab PO DAILY #30 tablet No Action Isosorbide Mononitrate ER [Imdur] 30 mg PO DAILY Furosemide [Lasix] 20 mg PO DAILY lisinopriL [Zestril] 10 mg PO DAILY Lansoprazole [Prevacid] 15 mg PO DAILY Acetaminophen [Tylenol] 1,000 mg PO Q4-6H PRN PRN Reason: Pain Ubidecarenone [Co Q-10] 100 mg PO DAILY Nitroglycerin Sl Tabs [Nitrostat] 0.4 mg SUBLINGUAL Q5M PRN PRN Reason: Chest Pain Cholecalciferol (Vitamin D3) [Vitamin D3] 2,000 unit PO DAILY Aspirin 81 mg PO DAILY Rivaroxaban [Xarelto] 15 mg PO DAILY Atorvastatin [Lipitor] 80 mg PO HS #90 tab Metoprolol Tartrate [Lopressor] 25 mg PO BID #0 Discharge Medication List Acetaminophen [Tylenol] 1,000 mg PO Q4-6H PRN 12/24/18 [History] Aspirin 81 mg PO DAILY 12/24/18 [History] Cholecalciferol (Vitamin D3) [Vitamin D3] 2,000 unit PO DAILY 12/24/18 [History] Furosemide [Lasix] 20 mg PO DAILY 12/24/18 [History] Isosorbide Mononitrate ER [Imdur] 30 mg PO DAILY 12/24/18 [History] Lansoprazole [Prevacid] 15 mg PO DAILY 12/24/18 [History] Nitroglycerin Sl Tabs [Nitrostat] 0.4 mg SUBLINGUAL Q5M PRN 12/24/18 [History] Rivaroxaban [Xarelto] 15 mg PO DAILY 12/24/18 [History] Ubidecarenone [Co Q-10] 100 mg PO DAILY 12/24/18 [History] lisinopriL [Zestril] 10 mg PO DAILY 12/24/18 [History] Atorvastatin [Lipitor] 80 mg PO HS #90 tab 12/27/18 [Rx] Metoprolol Tartrate [Lopressor] 25 mg PO BID #0 12/27/18 [Rx] HYDROcodone/APAP 5-325MG [[place] 5] 1 - 2 each PO Q4-6H PRN #48 tab 03/19/20 [Rx] Sennosides-Docusate Sodium [Senokot-S] 2 tab PO DAILY #30 tablet 03/19/20 [Rx] Follow up Appointment(s)/Referral(s): Miko Bocanegra MD [Primary Care Provider] - 1-2 days Fernando Finley DO [Medical Doctor] - 2 Weeks Activity/Diet/Wound Care/Special Instructions: Change dressing daily and as needed with sterile 4x4s and paper tape. [place] to be removed in the office in 2 weeks. PT - WBAT with walker and assistance. Use pain medication as directed. Continue Xarelto per home dose. Follow up outpatient with Dr. Finley in 2 weeks -- call for appointment. Call [facility] with questions or concerns. Discharge Disposition: TRANSFER TO SNF/ECF
[2020-03-19] MEDS: SENNOSIDES-DOCUSATE SODIUM 1 EACH TAB PO SCH ×2 (10:54→20:00)
[2020-03-19] MEDS: RIVAROXABAN 15 MG TAB PO SCH (17:55)
[2020-03-19] MEDS: ATORVASTATIN 80 MG TAB PO SCH (20:00)
--- NOTE | 2020-03-20 01:29 | P.PN ---
Subjective Progress Note Date: 03/19/20 Principal diagnosis: Right femur fracture secondary to fall followed by closed reduction internal fixation with cephalo-medullary nail This is a pleasant 84-year-old patient of . Does use a cane at baseline. Chronic stable medical conditions include coronary artery disease with stent over a year ago, GERD, hypertension, hyperlipidemia, osteoarthritis. Vision to go wrong step and fell down causing a fractured right hip. follow with Dr. Baker from cardiology. On March 16 underwent closed reduction and internal fixation with the nailing. on 03/18-laying in bed. Pain at the operative site. Decreased appetite. Awake propped up in bed. Weak and tired. Did drop of blood pressure with standing up. 03/19/2020 Patient is status post close reduction and surgical stabilization of the right intertrochanteric femur fracture with cephalo-medullary nailing. Patient is currently sitting in the chair comfortably. Still complaining of right hip pain and unable to bear weight. Not able to participate in physical therapy. Continue with pain management and monitor for another 24 hours. Review of systems: Was done for constitutional, cardiovascular, GI, pulmonary. Musculoskeletal relevant finding as above Current medications reviewed. Objective - Vital Signs Vital signs: Vital Signs Temp 97.9 F 03/19/20 14:05 Pulse 75 03/19/20 14:05 Resp 17 03/19/20 14:05 BP 103/66 03/19/20 14:05 Pulse Ox 97 03/19/20 14:05 Intake & Output 03/18/20 03/19/20 03/19/20 18:59 06:59 18:59 Intake Total 910 Output Total 862 303 3702 Balance 590 -450 -1300 Intake: IV 600 Sodium Chloride 0.9% 1, 600 000 ml @ 75 mls/hr IV . [id number] [facility] Rx#:[id number] Blood Product 310 Rc As-1 Unit 310 [id number] Output: Urine 634 287 6619 Uretheral ([place]) 320 1300 Other: Voiding Method Indwelling Catheter Indwelling Catheter - Exam Physical examination: VITAL SIGNS: 98.2, 66, 16, 85/64, 97% GENERAL: Propper in bed, awake EYES: Pupils equal. Conjunctiva pale HEENT: External appearance of nose and ears normal, oral cavity grossly normal. NECK: JVD not raised; masses not palpable. HEART: First and second heart sounds are normal; no edema. LUNGS: Respiratory rate normal; decreased breath sounds. ABDOMEN: Soft, nontender, liver spleen not palpable, no masses palpable. PSYCH: Alert and oriented x3; mood and affect normal MUSCULAR skeletal: Evidence of OA, dressing over the right hip incision - Labs CBC & Chem 7: 03/19/20 07:51 03/18/20 06:50 Labs: Abnormal Lab Results - Last 24 Hours (Table) 03/18/20 03/19/20 Range/Units 12:11 07:51 RBC 3.43 L (3.80-5.40) m/uL Hgb 9.3 L (11.4-16.0) gm/dL Hct 29.9 L (34.0-46.0) % MCHC 30.9 L (31.0-37.0) g/dL RDW 16.2 H (11.5-15.5) % Plt Count 127 L (150-450) k/uL Lymphocytes # 0.9 L (1.0-4.8) k/uL Crossmatch See Detail Assessment and Plan Assessment: Assessment: -Right femur fracture secondary to fall followed by closed reduction internal fixation with cephalo-medullary nail -Coronary artery with stent over a year ago -GERD -Hyperlipidemia -Essential hypertension -Primary osteoarthritis -Chronic gait dysfunction uses a cane -Acute blood loss anemia secondary surgery expected, symptomatic with low blood pressure. Hypotension-we'll transfuse unit of blood - Plan: Patient is status post 1 unit of PRBC transfusion. Hemoglobin is 9.3 today. Encourage oral intake. PT OT. Incentive spirometry. Possible discharge to rehab in the next [address] Finley Time with Patient: Greater than 30
[2020-03-20] MEDS ORDERED: PSYLLIUM HUSK 100% 6 GM PACKET PO SCH (09:00)
[2020-03-20] MEDS: SENNOSIDES-DOCUSATE SODIUM 1 EACH TAB PO SCH (09:14)
[2020-03-20] MEDS: ASPIRIN 81 MG PO SCH (09:14)
[2020-03-20] MEDS: ISOSORBIDE MONONITRATE ER 30 MG TAB.ER.24H PO SCH (09:14)
[2020-03-20] MEDS: METOPROLOL TARTRATE 12.5 MG TAB PO SCH (09:14)
[2020-03-20] MEDS: CHOLECALCIFEROL 1,000 UNIT TAB PO SCH (09:14)
[2020-03-20] MEDS: PANTOPRAZOLE 40 MG TABLET PO SCH (09:15)
[2020-03-20] MEDS ORDERED: oxyCODONE-APAP 5-325MG 1 EACH TAB PO PRN (11:56)
[2020-03-20 18:40] VITALS: BP 144/67; PULSE 74; RESP 16; TEMP 97.9
== END 2020-03-20 16:08 | DRG 481 ==
LOC: EC 18:05 → 4SSUR 21:42
PROVIDERS: ADMIT Orthopaedic Surgery; ATTEND Orthopaedic Surgery
PROC: 0QS636Z Reposition Right Upper Femur with Intramedullary Internal Fixation Device, Percutaneous Approach (ICD-10-PCS; principal; 2020-03-16 11:35)
PROC: 30233N1 Transfusion of Nonautologous Red Blood Cells into Peripheral Vein, Percutaneous Approach (ICD-10-PCS; 2020-03-18)
DX: S72.141A Displaced intertrochanteric fracture of right femur, initial encounter for closed fracture (principal); I48.11 Longstanding persistent atrial fibrillation; D62 Acute posthemorrhagic anemia; I95.9 Hypotension, unspecified; Y93.01 Activity, walking, marching and hiking; K21.9 Gastro-esophageal reflux disease without esophagitis; I25.10 Atherosclerotic heart disease of native coronary artery without angina pectoris; I10 Essential (primary) hypertension; E78.5 Hyperlipidemia, unspecified; E78.00 Pure hypercholesterolemia, unspecified; W01.0XXA Fall on same level from slipping, tripping and stumbling without subsequent striking against object, initial encounter; M19.91 Primary osteoarthritis, unspecified site; R26.9 Unspecified abnormalities of gait and mobility; Z11.59 Encounter for screening for other viral diseases; Z79.01 Long term (current) use of anticoagulants; Z79.82 Long term (current) use of aspirin; Z79.899 Other long term (current) drug therapy; Z91.040 Latex allergy status; Z95.5 Presence of coronary angioplasty implant and graft; Z90.710 Acquired absence of both cervix and uterus; Z82.49 Family history of ischemic heart disease and other diseases of the circulatory system; Y92.009 Unspecified place in unspecified non-institutional (private) residence as the place of occurrence of the external cause; Z80.9 Family history of malignant neoplasm, unspecified
CPT/HCPCS: 36415; 70450; 71045; 72125; 73502; 80048; 80053; 81003; 85025; 85027; 85610; 85730; 86850; 86900; 86901; 86920; 87086; 87635; 93005; 96374; 96375; 99285

== ENCOUNTER 2020-08-16 11:43 | Inpatient (IN) | payer MEDICARE ==
--- NOTE | 2020-08-16 12:10 | ED ---
General Adult HPI - General Chief complaint: Shortness of Breath Stated complaint: sob Time Seen by Provider: 08/16/20 11:50 Source: patient, RN notes reviewed, old records reviewed Mode of arrival: EMS Limitations: no limitations - History of Present Illness Initial comments: This is an 84-year-old female who complains of shortness of breath for 3 weeks. Patient states she seen her primary medical care doctor but is yet to have any workup. Patient states she feels weak if she exerts of. Patient denies any chest pain or palpitations. Patient denies abdominal pain patient denies nausea vomiting diarrhea. Patient denies any edema to the legs or calf tenderness. Patient denies any fever chills or cough - Related Data Home Medications Medication Instructions Recorded Confirmed Aspirin 81 mg PO DAILY 12/24/18 08/16/20 Cholecalciferol (Vitamin D3) 2,000 unit PO DAILY 12/24/18 08/16/20 [Vitamin D3] Isosorbide Mononitrate ER [Imdur] 30 mg PO DAILY 12/24/18 08/16/20 Lansoprazole [Prevacid] 15 mg PO DAILY 12/24/18 08/16/20 Nitroglycerin Sl Tabs [Nitrostat] 0.4 mg SUBLINGUAL Q5M PRN 12/24/18 08/16/20 Rivaroxaban [Xarelto] 15 mg PO DAILY 12/24/18 08/16/20 Furosemide [Lasix] 20 mg PO DAILY 08/16/20 08/16/20 Metoprolol Tartrate [Lopressor] 50 mg PO BID 08/16/20 08/16/20 lisinopriL [Zestril] 10 mg PO DAILY 08/16/20 08/16/20 Previous Rx's Medication Instructions Recorded Atorvastatin [Lipitor] 80 mg PO HS #90 tab 12/27/18 Allergies Allergy/AdvReac Type Severity Reaction Status Date / Time latex Allergy Rash/Hives Verified 08/16/20 12:44 Review of Systems ROS Statement: Those systems with pertinent positive or pertinent negative responses have been documented in the HPI. ROS Other: All systems not noted in ROS Statement are negative. Past Medical History Past Medical History: Coronary Artery Disease (CAD), GERD/Reflux, Hyperlipidemia, Hypertension, Osteoarthritis (OA) Additional Past Medical History / Comment(s): "prediabetic" History of Any Multi-Drug Resistant Organisms: None Reported Past Surgical History: Heart Catheterization With Stent, Hysterectomy, Orthopedic Surgery Additional Past Surgical History / Comment(s): vein stripping,heart stents x4,lt foot,mattie carpel tunnel Past Anesthesia/Blood Transfusion Reactions: No Reported Reaction Additional Past Anesthesia/Blood Transfusion Reaction / Comment(s): no hx blood transfusion Date of Last Stent Placement:: 2009 Past Psychological History: Depression Smoking Status: Never smoker Past Alcohol Use History: None Reported Past Drug Use History: None Reported - Past Family History Mother Family Medical History: Cancer Additional Family Medical History / Comment(s): colon Father Family Medical History: Coronary Artery Disease (CAD) Brother(s) Family Medical History: Myocardial Infarction ([place]) General Exam - General Exam Comments Initial Comments: GENERAL: Patient is well-developed and well-nourished. Patient is nontoxic and well- hydrated and is in no acute distress. ENT: Neck is soft and supple. No significant lymphadenopathy is noted. Oropharynx is clear. Moist mucous membranes. Neck has full range of motion without eliciting any pain. ` EYES: Patient conjunctiva is pale. Extraocular movements were intact and pupils were equal round and reactive to light. Eyelids were unremarkable. PULMONARY: Unlabored respirations. Good breath sounds bilaterally. No audible rales rhonchi or wheezing was noted. CARDIOVASCULAR: There is a regular rate and rhythm without any murmurs gallops or rubs. ABDOMEN: Soft and nontender with normal bowel sounds. SKIN: Skin is pale NEUROLOGIC: Patient is alert and oriented x3. Cranial nerves II through XII are grossly intact. Motor and sensory are also intact. Normal speech, volume and content. Symmetrical smile. MUSCULOSKELETAL: Normal extremities with adequate strength and full range of motion. No lower extremity swelling or edema. No calf tenderness. LYMPHATICS: No significant lymphadenopathy is noted PSYCHIATRIC: Normal psychiatric evaluation. Limitations: no limitations Course Vital Signs 08/16/20 08/16/20 08/16/20 11:51 12:30 13:00 Temperature 97.7 F Pulse Rate 67 69 53 L Respiratory 18 18 16 Rate Blood Pressure 97/58 123/46 104/40 O2 Sat by Pulse 96 86 L 78 L Oximetry 08/16/20 13:46 Temperature Pulse Rate 52 L Respiratory 16 Rate Blood Pressure 101/40 O2 Sat by Pulse 99 Oximetry Medical Decision Making - Medical Decision Making EKG shows atrial fibrillation at a rate of 57 bpm NV interval 70 QRS is 14 QTC is 406. Patient's EKG shows no ST segment elevation or depression. - Lab Data Result diagrams: 08/16/20 12:07 08/16/20 12:07 Lab Results 08/16/20 08/16/20 08/16/20 Range/Units 12:07 12:07 12:07 WBC 5.7 (3.8-10.6) k/uL RBC 3.14 L (3.80-5.40) m/uL Hgb 7.3 L (11.4-16.0) gm/dL Hct 24.8 L (34.0-46.0) % MCV 79.1 L (80.0-100.0) fL MCH 23.4 L (25.0-35.0) pg MCHC 29.6 L (31.0-37.0) g/dL RDW 15.9 H (11.5-15.5) % Plt Count 300 (150-450) k/uL MPV 8.2 Neutrophils % 69 % Lymphocytes % 17 % Monocytes % 9 % Eosinophils % 1 % Basophils % 1 % Neutrophils # 4.0 (1.3-7.7) k/uL Lymphocytes # 1.0 (1.0-4.8) k/uL Monocytes # 0.5 (0-1.0) k/uL Eosinophils # 0.1 (0-0.7) k/uL Basophils # 0.0 (0-0.2) k/uL Hypochromasia Marked Poikilocytosis Moderate PT 11.0 (9.0-12.0) sec INR 1.0 (<1.2) APTT 20.4 L (22.0-30.0) sec Sodium 138 (137-145) mmol/L Potassium 4.6 (3.5-5.1) mmol/L Chloride 108 H (98-107) mmol/L Carbon Dioxide 21 L (22-30) mmol/L Anion Gap 9 mmol/L BUN 32 H (7-17) mg/dL Creatinine 1.02 (0.52-1.04) mg/dL Est GFR (CKD-EPI)AfAm 58 (>60 ml/min/1.73 sqM) Est GFR (CKD-EPI)NonAf 50 (>60 ml/min/1.73 sqM) Glucose 121 H (74-99) mg/dL Plasma Lactic Acid Los (0.7-2.0) mmol/L Calcium 9.1 (8.4-10.2) mg/dL Total Bilirubin 0.5 (0.2-1.3) mg/dL AST 19 (14-36) U/L ALT 14 (4-34) U/L Alkaline Phosphatase 85 (38-126) U/L Troponin I (0.000-0.034) ng/mL Total Protein 6.0 L (6.3-8.2) g/dL Albumin 3.3 L (3.5-5.0) g/dL Blood Type Blood Type Recheck Bld Type Recheck Status Antibody Screen Spec Expiration Date 08/16/20 08/16/20 08/16/20 Range/Units 12:07 12:07 12:15 WBC (3.8-10.6) k/uL RBC (3.80-5.40) m/uL Hgb (11.4-16.0) gm/dL Hct (34.0-46.0) % MCV (80.0-100.0) fL MCH (25.0-35.0) pg MCHC (31.0-37.0) g/dL RDW (11.5-15.5) % Plt Count (150-450) k/uL MPV Neutrophils % % Lymphocytes % % Monocytes % % Eosinophils % % Basophils % % Neutrophils # (1.3-7.7) k/uL Lymphocytes # (1.0-4.8) k/uL Monocytes # (0-1.0) k/uL Eosinophils # (0-0.7) k/uL Basophils # (0-0.2) k/uL Hypochromasia Poikilocytosis PT (9.0-12.0) sec INR (<1.2) APTT (22.0-30.0) sec Sodium (137-145) mmol/L Potassium (3.5-5.1) mmol/L Chloride (98-107) mmol/L Carbon Dioxide (22-30) mmol/L Anion Gap mmol/L BUN (7-17) mg/dL Creatinine (0.52-1.04) mg/dL Est GFR (CKD-EPI)AfAm (>60 ml/min/1.73 sqM) Est GFR (CKD-EPI)NonAf (>60 ml/min/1.73 sqM) Glucose (74-99) mg/dL Plasma Lactic Acid Los 3.1 H* (0.7-2.0) mmol/L Calcium (8.4-10.2) mg/dL Total Bilirubin (0.2-1.3) mg/dL AST (14-36) U/L ALT (4-34) U/L Alkaline Phosphatase (38-126) U/L Troponin I <0.012 (0.000-0.034) ng/mL Total Protein (6.3-8.2) g/dL Albumin (3.5-5.0) g/dL Blood Type O Positive Blood Type Recheck O Pos Bld Type Recheck Status No Antibody Screen NEGATIVE Spec Expiration Date 08/19/20202314 Disposition Clinical Impression: Anemia, Dyspnea Disposition: ADMITTED IP TO THIS [facility] Referrals: Miko Bocanegra MD [Primary Care Provider] - 1-2 days Time of Disposition: 14:11
[2020-08-16 12:22] LABS: Basophils % (A) 1 %; Eosinophils # (A) 0.1 k/uL (0-0.7); Eosinophils % (A) 1 %; HCT 24.8 % (34.0-46.0); HGB 7.3 gm/dL (11.4-16.0); Hypochromasia Marked; Lymphocytes % (A) 17 %; MCH 23.4 pg (25.0-35.0); MCHC 29.6 g/dL (31.0-37.0); MCV 79.1 fL (80.0-100.0); Mean Platelet Volume 8.2; Monocytes # (A) 0.5 k/uL (0-1.0); Monocytes % (A) 9 %; Neutrophils % (A) 69 %; Platelet Count 300 k/uL (150-450); Poikilocytosis Moderate; RBC 3.14 m/uL (3.80-5.40); RDW 15.9 % (11.5-15.5); WBC 5.7 k/uL (3.8-10.6)
--- NOTE | 2020-08-16 12:32 | XR ---
EXAMINATION TYPE: XR chest 2V DATE OF EXAM: 08/16/2020 COMPARISON: 03/15/2020 TECHNIQUE: PA and lateral views submitted. HISTORY: Difficulty breathing FINDINGS: The lungs are clear and there is no pneumothorax, pleural effusion, or focal pneumonia. Annular marilyn cification noted. Heart size stable. No overt failure. Subsegmental consolidation at the lung bases. Diffuse osteopenia. Degenerative change of the spine. Hyperinflation suggests COPD. IMPRESSION: 1. COPD with basilar atelectasis favored over pneumonia..
[2020-08-16 12:40] LABS: Albumin 3.3 g/dL (3.5-5.0); Calcium 9.1 mg/dL (8.4-10.2); Potassium 4.6 mmol/L (3.5-5.1); Total Bilirubin 0.5 mg/dL (0.2-1.3)
[2020-08-16 12:41] LABS: Partial Thromboplastin Time 20.4 sec (22.0-30.0)
[2020-08-16] MEDS ORDERED: SODIUM CHLORIDE 0.9% 1,000 ML IV ONE ×2 (13:02→13:38)
[2020-08-16 14:21] LABS: Glucose,Whole Blood 83 mg/dL (75-99)
[2020-08-16 17:40] LABS: Basophils % (A) 1 %; Eosinophils # (A) 0.1 k/uL (0-0.7); Eosinophils % (A) 2 %; Hypochromasia Marked; Lymphocytes # (A) 1.1 k/uL (1.0-4.8); Lymphocytes % (A) 26 %; MCH 24.1 pg (25.0-35.0); MCHC 30.3 g/dL (31.0-37.0); MCV 79.4 fL (80.0-100.0); Mean Platelet Volume 9.1; Monocytes # (A) 0.3 k/uL (0-1.0); Monocytes % (A) 7 %; Neutrophils # (A) 2.7 k/uL (1.3-7.7); Neutrophils % (A) 62 %; Platelet Count 242 k/uL (150-450); Poikilocytosis Moderate; RBC 2.78 m/uL (3.80-5.40); RDW 15.6 % (11.5-15.5); WBC 4.3 k/uL (3.8-10.6)
[2020-08-16 17:42] LABS: HGB 6.7 gm/dL (11.4-16.0)
[2020-08-16] MEDS: ATORVASTATIN 80 MG TAB PO SCH (20:56)
[2020-08-16] MEDS: METOPROLOL TARTRATE 50 MG TAB PO SCH (20:56)
[2020-08-16] MEDS ORDERED: NITROGLYCERIN SL TABS 0.4 MG TAB SUBLINGUAL PRN (22:37)
[2020-08-17 00:31] LABS: Basophils % (A) 1 %; Eosinophils # (A) 0.1 k/uL (0-0.7); Eosinophils % (A) 2 %; HCT 24.4 % (34.0-46.0); HGB 7.8 gm/dL (11.4-16.0); Hypochromasia Marked; Lymphocytes # (A) 1.2 k/uL (1.0-4.8); Lymphocytes % (A) 21 %; MCH 25.4 pg (25.0-35.0); MCHC 31.9 g/dL (31.0-37.0); MCV 79.6 fL (80.0-100.0); Mean Platelet Volume 7.9; Monocytes # (A) 0.5 k/uL (0-1.0); Monocytes % (A) 9 %; Neutrophils # (A) 3.7 k/uL (1.3-7.7); Neutrophils % (A) 66 %; Platelet Count 260 k/uL (150-450); Poikilocytosis Marked; RBC 3.06 m/uL (3.80-5.40); WBC 5.6 k/uL (3.8-10.6)
[2020-08-17 06:15] LABS: Anisocytosis Slight; Basophils % (A) 1 %; Eosinophils # (A) 0.3 k/uL (0-0.7); Eosinophils % (A) 4 %; HCT 24.6 % (34.0-46.0); HGB 7.5 gm/dL (11.4-16.0); Hypochromasia Marked; Lymphocytes # (A) 1.3 k/uL (1.0-4.8); Lymphocytes % (A) 22 %; MCH 24.8 pg (25.0-35.0); MCHC 30.6 g/dL (31.0-37.0); Mean Platelet Volume 8.1; Monocytes # (A) 0.4 k/uL (0-1.0); Monocytes % (A) 7 %; Neutrophils # (A) 3.9 k/uL (1.3-7.7); Neutrophils % (A) 65 %; Platelet Count 257 k/uL (150-450); Poikilocytosis Marked; RBC 3.03 m/uL (3.80-5.40); RDW 16.2 % (11.5-15.5)
[2020-08-17] MEDS: ISOSORBIDE MONONITRATE ER 30 MG TAB.ER.24H PO SCH (07:38)
[2020-08-17] MEDS: CHOLECALCIFEROL 1,000 UNIT TAB PO SCH (07:38)
[2020-08-17] MEDS: METOPROLOL TARTRATE 50 MG TAB PO SCH ×2 (07:38→19:58)
[2020-08-17] MEDS: PANTOPRAZOLE 40 MG TABLET PO SCH (07:38)
[2020-08-17] MEDS: ASPIRIN 81 MG PO SCH (07:38)
[2020-08-17] MEDS: lisinopriL 10 MG TAB PO SCH (07:38)
[2020-08-17] MEDS ORDERED: FUROSEMIDE 20 MG TAB PO SCH (09:00)
[2020-08-17] MEDS ORDERED: RIVAROXABAN 15 MG TAB PO SCH (09:00)
[2020-08-17] MEDS: ATORVASTATIN 80 MG TAB PO SCH (19:58)
--- NOTE | 2020-08-17 21:12 | P.HPIM ---
History of Present Illness H&P Date: 08/17/20 Chief Complaint: Dizzy History of presenting complaint: This is a pleasant 84-year-old patient of . Does use a cane at baseline. Chronic stable medical conditions include coronary artery disease with stent over a year ago, GERD, hypertension, hyperlipidemia, osteoarthritis. Atrial fibrillation Patient now presents with 2-1/2 weeks of progressively getting weaker. Dizzy. Hardly able to walk. Tired rundown. About 2 weeks ago she noticed some red stools. On presentation hemoglobin was found to be 6.7. Patient is given 2 units of blood. Denies any abdominal pain. Patient is on xarelto for atrial fibrillation. Review of systems: GEN.: Tired EYES: None HEENT: None NECK: None RESPIRATORY: None CARDIOVASCULAR: None GASTROINTESTINAL: As above GENITOURINARY: None MUSCULOSKELETAL: Joint pains LYMPHATICS: None HEMATOLOGICAL: None PSYCHIATRY: Bit forgetful NEUROLOGICAL: None Past medical history to include: Coronary artery disease with stent, GERD, hyperlipidemia, hypertension, osteoarthritis, coronary stents 4 carpal tunnel Social history: Does not smoke or drink alcohol. Lives alone. Does use a cane Physical examination: VITAL SIGNS: 97.7, 67, 18, 97/58, 96% room air GENERAL: BMI 32.9, laying in bed, tired. EYES: Pupils equal. Conjunctiva pale HEENT: External appearance of nose and ears normal, oral cavity grossly normal. NECK: JVD not raised; masses not palpable. HEART: First and second heart sounds are normal; no edema. LUNGS: Respiratory rate normal; decreased breath sounds. ABDOMEN: Soft, nontender, liver spleen not palpable, no masses palpable. PSYCH: Alert and oriented x3; mood and affect normal MUSCULAR skeletal: Evidence of OA, NEUROLOGICAL: Cranial nerves grossly intact; no facial asymmetry, power and sensation grossly intact. LYMPHATICS: No lymph nodes palpable in the axilla and neck INVESTIGATIONS, reviewed in the clinical context: White count 4.3 hemoglobin 6.7 platelets 242 Potassium 4.6 creatinine 1.02 Coronary risk-P/Cr-not detected EKG tracing personally reviewed by me-atrial flutter fibrillation with a rate of 57 Chest x-ray film personally reviewed by me-cardiomegaly, lung pina clear Assessment: -Acute GI bleed in a patient is on xarelto with patient having noticed red stools about to have weeks ago. -Symptomatic acute GI blood loss anemia with a hemoglobin down to 6.7, patient requiring 2 units of blood -Coronary artery with stent over a year ago -GERD -Hyperlipidemia -Essential hypertension -Primary osteoarthritis -Chronic gait dysfunction uses a cane -Persistent atrial fibrillation rate control chronically on xarelto Plan: Patient has received 2 units of blood. Home medications resumed. Xarelto held. GI consulted. Care discussed with the patient. Past Medical History Past Medical History: Coronary Artery Disease (CAD), GERD/Reflux, Hyperlipidemia, Hypertension, Osteoarthritis (OA) Additional Past Medical History / Comment(s): "prediabetic". hiatal hernia History of Any Multi-Drug Resistant Organisms: None Reported Past Surgical History: Heart Catheterization With Stent, Hysterectomy, Orthopedic Surgery Additional Past Surgical History / Comment(s): vein stripping,heart stents x4,lt foot,mattie carpel tunnel. right leg and hip surgery Past Anesthesia/Blood Transfusion Reactions: No Reported Reaction Additional Past Anesthesia/Blood Transfusion Reaction / Comment(s): no hx blood transfusion Date of Last Stent Placement:: 2018 Smoking Status: Never smoker Past Alcohol Use History: None Reported Past Drug Use History: None Reported - Past Family History Mother Family Medical History: Cancer Additional Family Medical History / Comment(s): colon Father Family Medical History: Coronary Artery Disease (CAD), Myocardial Infarction ([place]) Brother(s) Family Medical History: Cancer, Myocardial Infarction ([place]) Additional Family Medical History / Comment(s): colon cancer Medications and Allergies Home Medications Medication Instructions Recorded Confirmed Type Aspirin 81 mg PO DAILY 12/24/18 08/16/20 History Cholecalciferol (Vitamin D3) 2,000 unit PO DAILY 12/24/18 08/16/20 History [Vitamin D3] Isosorbide Mononitrate ER [Imdur] 30 mg PO DAILY 12/24/18 08/16/20 History Lansoprazole [Prevacid] 15 mg PO DAILY 12/24/18 08/16/20 History Nitroglycerin Sl Tabs [Nitrostat] 0.4 mg SUBLINGUAL Q5M PRN 12/24/18 08/16/20 History Rivaroxaban [Xarelto] 15 mg PO DAILY 12/24/18 08/16/20 History Atorvastatin [Lipitor] 80 mg PO HS #90 tab 12/27/18 08/16/20 Rx Furosemide [Lasix] 20 mg PO DAILY 08/16/20 08/16/20 History Metoprolol Tartrate [Lopressor] 25 mg PO BID 08/16/20 08/17/20 History lisinopriL [Zestril] 10 mg PO DAILY 08/16/20 08/16/20 History Allergies Allergy/AdvReac Type Severity Reaction Status Date / Time latex Allergy Rash/Hives Verified 08/16/20 16:24 Physical Exam Vitals: Vital Signs Temp Pulse Pulse Resp BP BP Pulse Ox 08/17/20 08:00 18 08/17/20 07:51 97.1 F L 85 18 132/78 99 08/17/20 01:38 98.2 F 57 L 19 133/70 100 08/16/20 20:40 98.5 F 70 19 121/80 100 08/16/20 19:10 70 15 08/16/20 19:07 98.4 F 97 15 121/80 92 L 08/16/20 18:37 98.0 F 55 L 17 121/80 92 L 08/16/20 18:27 98.4 F 66 17 119/69 94 L 08/16/20 16:43 97.6 F 70 18 156/63 97 08/16/20 15:05 54 L 18 122/55 98 08/16/20 14:23 66 16 122/73 96 08/16/20 13:46 52 L 16 101/40 99 08/16/20 13:00 53 L 16 104/40 95 08/16/20 12:30 69 18 123/46 96 08/16/20 11:51 97.7 F 67 18 97/58 96 Intake and Output 08/16/20 08/17/20 08/17/20 22:59 06:59 14:59 Intake Total 750 Balance 750 Intake: Oral 440 Blood Product 310 Rc Pheresis As-3 Unit 310 [id number] Other: Voiding Method Bedside Commode # Voids 1 1 Results CBC & Chem 7: 08/17/20 05:23 08/16/20 12:07 Labs: Abnormal Lab Results - Last 24 Hours (Table) 08/16/20 08/16/20 08/16/20 Range/Units 12:07 12:07 12:07 RBC 3.14 L (3.80-5.40) m/uL Hgb 7.3 L (11.4-16.0) gm/dL Hct 24.8 L (34.0-46.0) % MCV 79.1 L (80.0-100.0) fL MCH 23.4 L (25.0-35.0) pg MCHC 29.6 L (31.0-37.0) g/dL RDW 15.9 H (11.5-15.5) % APTT 20.4 L (22.0-30.0) sec Chloride 108 H (98-107) mmol/L Carbon Dioxide 21 L (22-30) mmol/L BUN 32 H (7-17) mg/dL Glucose 121 H (74-99) mg/dL Plasma Lactic Acid Los (0.7-2.0) mmol/L Total Protein 6.0 L (6.3-8.2) g/dL Albumin 3.3 L (3.5-5.0) g/dL Crossmatch 08/16/20 08/16/20 08/16/20 Range/Units 12:07 12:15 14:52 RBC (3.80-5.40) m/uL Hgb (11.4-16.0) gm/dL Hct (34.0-46.0) % MCV (80.0-100.0) fL MCH (25.0-35.0) pg MCHC (31.0-37.0) g/dL RDW (11.5-15.5) % APTT (22.0-30.0) sec Chloride (98-107) mmol/L Carbon Dioxide (22-30) mmol/L BUN (7-17) mg/dL Glucose (74-99) mg/dL Plasma Lactic Acid Los 3.1 H* 2.5 H* (0.7-2.0) mmol/L Total Protein (6.3-8.2) g/dL Albumin (3.5-5.0) g/dL Crossmatch See Detail 08/16/20 08/16/20 08/17/20 Range/Units 17:11 23:25 05:23 RBC 2.78 L 3.06 L 3.03 L (3.80-5.40) m/uL Hgb 6.7 L* 7.8 L 7.5 L (11.4-16.0) gm/dL Hct 22.0 L 24.4 L 24.6 L (34.0-46.0) % MCV 79.4 L 79.6 L (80.0-100.0) fL MCH 24.1 L 24.8 L (25.0-35.0) pg MCHC 30.3 L 30.6 L (31.0-37.0) g/dL RDW 15.6 H 16.0 H 16.2 H (11.5-15.5) % APTT (22.0-30.0) sec Chloride (98-107) mmol/L Carbon Dioxide (22-30) mmol/L BUN (7-17) mg/dL Glucose (74-99) mg/dL Plasma Lactic Acid Los (0.7-2.0) mmol/L Total Protein (6.3-8.2) g/dL Albumin (3.5-5.0) g/dL Crossmatch Thrombosis Risk Factor Assmnt - Choose All That Apply Any of the Below Risk Factors Present?: Yes Each Factor Represents 1 point: Obesity (BMI >25) Other Risk Factors: Yes Each Risk Factor Represents 3 Points: Age 75 years or older Other congenital or acquired thrombophilia - If yes, enter type in comment: No Thrombosis Risk Factor Assessment Total Risk Factor Score: 4 Thrombosis Risk Factor Assessment Level: Moderate Risk
--- NOTE | 2020-08-17 23:12 | CONS ---
CONSULTATION DATE OF SERVICE: August 17, 2020. REASON FOR CONSULTATION: Severe symptomatic anemia with a hemoglobin of 6.7 g/dL. HISTORY OF PRESENT ILLNESS: The patient is an 84-year-old pleasant white female admitted to the hospital because of progressive fatigue and weakness with some shortness of breath for the last 2 weeks duration. She went to her primary care and was recommended to go to the emergency room. In the ER, she was noted to have a hemoglobin of 5.5 g/dL and hence admitted to the hospital for further evaluation. She received one unit of PRBC transfusion and repeat hemoglobin was 7.1 g/dL. The patient denies any abdominal pain. No nausea, no vomiting. No rectal bleeding or melena. She does recall having a colonoscopy about 5 years ago. She has been taking Xarelto and the last dose was 2 days ago. She denies any prior history of peptic ulcer disease or recent NSAID use. PAST MEDICAL HISTORY: Hypertension, coronary artery disease, hyperlipidemia, degenerative joint disease, gastroesophageal reflux disease. PAST SURGICAL HISTORY: Cardiac catheterization with stent placement hysterectomy, carpal tunnel surgery. SOCIAL HISTORY: No smoking. No alcohol use. FAMILY HISTORY: Mother had some kind of cancer. Father had coronary artery disease. MEDICATIONS: Medications at home include aspirin, vitamin D3, Imdur, Prevacid, Nitrostat, Xarelto, Lopressor. ALLERGIES: To LATEX. REVIEW OF SYSTEMS: CARDIOPULMONARY: No chest pain or shortness of breath. Genitourinary: No dysuria or hematuria. MUSCULOSKELETAL unremarkable. Skin unremarkable. Endocrine unremarkable. Psychiatric unremarkable. NEUROLOGY: Unremarkable. ENT/VISION: Unremarkable. CONSTITUTIONAL: No recent weight loss. No fever, chills, night sweats. PHYSICAL EXAMINATION: She appears comfortable. No apparent distress. Vital signs stable. Blood pressure is 104/45, pulse rate 59. Temperature 97.7. HEENT examination unremarkable. Conjunctive pink. Sclerae anicteric. Oral cavity no lesions. Neck no JVD. No lymph node enlargement. CHEST was clear to auscultation. HEART: Regular rate and rhythm. ABDOMEN: Soft. Bowel sounds are positive. No organomegaly. Extremities: No pedal edema. NEUROLOGIC: Alert and oriented x3. No focal deficits. LABS: At the time of admission to the hospital: WBC 4.3, hemoglobin 6.7, platelets are 242. Repeat hemoglobin was 7.5 g/dL today. MCV 79. AST, ALT, T-bilirubin and alkaline phosphatase are within normal limits. BUN is 32, creatinine 1.02. IMPRESSION: 1. Microcytic hypochromic anemia with clinically no evidence of active bleeding. The patient presented with a hemoglobin of 6.7, received one unit of PRBC transfusion and repeat hemoglobin is 7.5 g/dL. She has been on Xarelto for chronic atrial fibrillation, which is currently on hold since yesterday. She does recall having an upper endoscopy 2 years ago and a colonoscopy about 5 years ago. She also recalls having a small bowel capsule endoscopy several years ago for acute gastrointestinal bleed. Most likely, we are dealing with occult gastrointestinal blood loss currently. 2. Atrial fibrillation on Xarelto which is currently on hold. 3. History of hypertension and hyperlipidemia. RECOMMENDATIONS: 1. Continue to hold Xarelto. 2. Start on a clear liquid diet. 3. We will proceed with EGD and colonoscopy on Thursday. I discussed with the patient, risks, benefits and complications and she is agreeable to it. In the meantime, continue to monitor CBC on a daily basis and we will continue Protonix 40 mg daily and we will follow with you closely. Thank you for this consultation. MMODL / IJN: [id number] /
[2020-08-18 06:14] LABS: Anisocytosis Slight; HCT 26.1 % (34.0-46.0); HGB 8.5 gm/dL (11.4-16.0); Hypochromasia Marked; MCH 26.6 pg (25.0-35.0); MCHC 32.6 g/dL (31.0-37.0); MCV 81.7 fL (80.0-100.0); Mean Platelet Volume 7.9; Platelet Count 223 k/uL (150-450); Poikilocytosis Marked; RBC 3.19 m/uL (3.80-5.40); RDW 16.1 % (11.5-15.5); WBC 6.1 k/uL (3.8-10.6)
[2020-08-18] MEDS: ASPIRIN 81 MG PO SCH (08:53)
[2020-08-18] MEDS: METOPROLOL TARTRATE 50 MG TAB PO SCH (08:53)
[2020-08-18] MEDS: lisinopriL 10 MG TAB PO SCH (08:53)
[2020-08-18] MEDS: PANTOPRAZOLE 40 MG TABLET PO SCH (08:53)
[2020-08-18] MEDS: CHOLECALCIFEROL 1,000 UNIT TAB PO SCH (08:53)
[2020-08-18] MEDS: ISOSORBIDE MONONITRATE ER 30 MG TAB.ER.24H PO SCH (08:53)
--- NOTE | 2020-08-18 11:34 | PN ---
PROGRESS NOTE DATE OF SERVICE: 08/18/2020 Patient is an 84-year-old pleasant white female admitted to the hospital with severe symptomatic anemia and hemoglobin of 6.7 requiring 2 units of PRBC transfusion. She was noted to have microcytosis consistent with iron deficiency anemia. The patient is doing well. She denies any bleeding. She received one unit of blood transfusion yesterday. Hemoglobin is 8.5 g/dL. No abdominal pain. No nausea, vomiting. PHYSICAL EXAMINATION: Blood pressure is 111/70, pulse is 64, temperature 98.6. HEENT examination unremarkable. Conjunctivae pink. Sclerae anicteric. Oral cavity no lesions. NECK: No JVD or lymph node enlargement. CHEST was clear to auscultation. HEART: Regular rate and rhythm. ABDOMEN: Soft. Bowel sounds are positive. No organomegaly. EXTREMITIES: No pedal edema. NEUROLOGIC: Alert and oriented x3. No focal deficits. LABS: From today WBC 6.1, hemoglobin 8.5, platelets normal. IMPRESSION: Microcytic hypochromic anemia consistent with iron deficiency secondary to occult gastrointestinal blood loss. Clinically no evidence of active bleeding. The patient is status post one unit of PRBC transfusion for hemoglobin of 6.7 and last hemoglobin is 8.5 g/dL. RECOMMENDATIONS: Proceed with EGD and colonoscopy tomorrow. She will be on a clear liquid diet today. I discussed with her risks, benefits and complications of the procedure and she is agreeable to it. In the meantime, continue with Protonix 40 mg daily and monitor CBC on a daily basis. Thank you for this consultation. MMODL / IJN: [id number] /
[2020-08-18] MEDS ORDERED: PEG 3350-NA SULF,BICARB,CL/KCL 4,000 ML BOTTLE PO ONE (16:00)
[2020-08-18] MEDS: ATORVASTATIN 80 MG TAB PO SCH (20:20)
[2020-08-18] MEDS: METOPROLOL TARTRATE 25 MG TAB PO SCH (20:20)
--- NOTE | 2020-08-18 21:01 | XR ---
EXAMINATION TYPE: XR abdomen acute w cxr DATE OF EXAM: 08/18/2020 COMPARISON: Chest x-ray 08/16/2020 HISTORY: Abdominal pain TECHNIQUE: 4 views FINDINGS: Heart is enlarged. There is no gross heart failure. There is coarse interstitial density in the lungs. There is no pulmonary consolidation. There is no sign of intestinal obstruction or pneumoperitoneum. There is right hip nailing. Fecal pat tern is normal. There is no evidence of abdominal mass. IMPRESSION: Cardiomegaly. Mild pulmonary fibrosis. No acute lung disease. No change. Nonacute abdomen.
--- NOTE | 2020-08-18 23:18 | P.PN ---
Progress Note - Text Progress Note Date: 08/18/20 Chief Complaint: Dizzy History of presenting complaint: This is a pleasant 84-year-old patient of . Does use a cane at baseline. Chronic stable medical conditions include coronary artery disease with stent over a year ago, GERD, hypertension, hyperlipidemia, osteoarthritis. Atrial fibrillation Patient now presents with 2-1/2 weeks of progressively getting weaker. Dizzy. Hardly able to walk. Tired rundown. About 2 weeks ago she noticed some red stools. On presentation hemoglobin was found to be 6.7. Patient is given 2 units of blood. Denies any abdominal pain. Patient is on xarelto for atrial fibrillation. Today-feeling better after getting 2 units of blood. Plan is for endoscopy tomorrow. On clear liquids. Review of systems: Was done for constitutional, cardiovascular, GI, pulmonary. relevant finding as above Active Medications Aspirin (Aspirin 81 Mg) 81 mg PO DAILY [facility] Last Admin: 08/18/20 08:53 Dose: 81 mg Documented by: Atorvastatin Calcium (Atorvastatin 80 Mg Tab) 80 mg PO HS [facility] Last Admin: 08/18/20 20:20 Dose: 80 mg Documented by: Cholecalciferol (Cholecalciferol 1,000 Unit Tab) 2,000 unit PO DAILY [facility] Last Admin: 08/18/20 08:53 Dose: 2,000 unit Documented by: Isosorbide Mononitrate (Isosorbide Mononitrate Er 30 Mg Tab.Er.24h) 30 mg PO DAILY [facility] Last Admin: 08/18/20 08:53 Dose: 30 mg Documented by: Lisinopril (Lisinopril 10 Mg Tab) 10 mg PO DAILY [facility] Last Admin: 08/18/20 08:53 Dose: 10 mg Documented by: Metoprolol Tartrate (Metoprolol Tartrate 25 Mg Tab) 25 mg PO BID [facility] Last Admin: 08/18/20 20:20 Dose: 25 mg Documented by: Nitroglycerin (Nitroglycerin Sl Tabs 0.4 Mg Tab) 0.4 mg SUBLINGUAL Q5M PRN PRN Reason: Chest Pain Pantoprazole Sodium (Pantoprazole 40 Mg Tablet) 40 mg PO AC-BRKFST [facility] Last Admin: 08/18/20 08:53 Dose: 40 mg Documented by: Past medical history to include: Coronary artery disease with stent, GERD, hyperlipidemia, hypertension, osteoarthritis, coronary stents 4 carpal tunnel Social history: Does not smoke or drink alcohol. Lives alone. Does use a cane Physical examination: VITAL SIGNS: 98.6, 64, 16, 111/70, 96% room air GENERAL: BMI 32.9, laying in bed, comfortable EYES: Pupils equal. Conjunctiva pale HEENT: External appearance of nose and ears normal, oral cavity grossly normal. NECK: JVD not raised; masses not palpable. HEART: First and second heart sounds are normal; no edema. LUNGS: Respiratory rate normal; decreased breath sounds. ABDOMEN: Soft, nontender, liver spleen not palpable, no masses palpable. PSYCH: Alert and oriented x3; mood and affect normal MUSCULAR skeletal: Evidence of OA, INVESTIGATIONS, reviewed in the clinical context: August 18: Hemoglobin 8.5 White count 4.3 hemoglobin 6.7 platelets 242 Potassium 4.6 creatinine 1.02 Coronary risk-P/Cr-not detected EKG tracing personally reviewed by me-atrial flutter fibrillation with a rate of 57 Chest x-ray film personally reviewed by me-cardiomegaly, lung pina clear Assessment: -Acute GI bleed in a patient is on xarelto with patient having noticed red stools about to have weeks ago. -Symptomatic acute GI blood loss anemia with a hemoglobin down to 6.7, patient requiring 2 units of blood -Coronary artery with stent over a year ago -GERD -Hyperlipidemia -Essential hypertension -Primary osteoarthritis -Chronic gait dysfunction uses a cane -Persistent atrial fibrillation rate control chronically on xarelto Plan: Continue current medication treatment plan. Discussed with the patient. GI endoscopy tomorrow.
[2020-08-19] MEDS ORDERED: PROPOFOL 10 MG/ML 20 ML VIAL IV ONE (07:40)
[2020-08-19] MEDS ORDERED: LIDOCAINE 1% INJ 10MG/ML (20 ML MDV) ONE (07:40)
--- NOTE | 2020-08-19 07:58 | P.PCN ---
Date of Procedure: 08/19/20 Procedure(s) Performed: Brief history: Patient is a pleasant 84-year-old white female admitted hospital with severe symptomatic anemia and hemoglobin of 6.5 g/dL requiring 1 unit of blood transfusion. She denies any GI bleed. She is scheduled for an upper endoscopy as well as colonoscopy as a part of evaluation of severe symptomatic anemia. He has been on Xarelto which has been on hold for the last 2 days. Procedure performed: Esophagogastroduodenoscopy with biopsy Colonoscopy Preoperative diagnosis: Anesthesia: MAC Procedure: After informed consent was obtained from the patient was brought into the endoscopy unit and IV sedation was administered by anesthesia under continuous monitoring. Initially upper endoscopy was done. The Olympus GF 160 video endoscope was inserted inserted into the mouth and esophagus intubated without any difficulty and was gradually advanced into the stomach and duodenum and carefully examined. The bulb and second part of the duodenum appeared normal. She was also the duodenum to rule out celiac disease. The scope was then withdrawn into the stomach adequately insufflated with air and upon careful examination the antrum and body, cardia and fundus appeared normal. The scope was then withdrawn into the esophagus. The GE junction was located at 40 cm to the incisors. It appeared regular with no erythema erosions or ulcerations. Small hiatal hernia. Rest of the esophagus appeared normal. Patient tolerated the procedure well. At this time the patient continued to remain sedation. Initial digital rectal examination was normal. Olympus CF 160 video colonoscope was then inserted into the rectum and gradually advanced to the cecum without any difficulty. Careful examination was performed as the scope was gradually being withdrawn. The prep was excellent. The cecum, ascending colon, transverse colon, descending colon, sigmoid colon and rectum appeared normal. Scattered sigmoid diverticulosis. Retroflexion was performed in the rectum and no lesions were noted. Patient tolerated the procedure well. Impression: 1.. Upper Endoscopy revealed small hiatal hernia 2. Colonoscopy revealed scattered sigmoid diverticulosis but no evidence of telangiectasia or colorectal neoplasia Recommendations: Findings of this examination were discussed with the patient. Since no obvious source of bleeding identified, she will be scheduled for a small bowel capsule endoscopy today.
[2020-08-19] MEDS ORDERED: LACTATED RINGERS 1,000 ML IV ONE (07:59)
[2020-08-19 09:37] VITALS: BP 113/67; RESP 20; TEMP 98.5
[2020-08-19] MEDS: CHOLECALCIFEROL 1,000 UNIT TAB PO SCH (10:45)
[2020-08-19] MEDS: METOPROLOL TARTRATE 25 MG TAB PO SCH (10:45)
[2020-08-19] MEDS: lisinopriL 10 MG TAB PO SCH (10:45)
[2020-08-19] MEDS: ISOSORBIDE MONONITRATE ER 30 MG TAB.ER.24H PO SCH (10:45)
[2020-08-19] MEDS: ASPIRIN 81 MG PO SCH (10:45)
[2020-08-19] MEDS: PANTOPRAZOLE 40 MG TABLET PO SCH (10:45)
[2020-08-19 17:50] VITALS: PULSE 72
--- NOTE | 2020-08-19 23:09 | P.DS ---
Providers Date of admission: 08/16/20 13:39 Expected date of discharge: 08/19/20 Attending physician: Bishop Rodriguez Consults: 08/17/20 12:05 Consult Physician Routine Consulting Provider: Claudette Sharma Consult Reason/Comments: gi bleed Do you want consulting provider notified?: Yes [facility]: Chief Complaint: Dizzy History of presenting complaint: This is a pleasant 84-year-old patient of . Does use a cane at baseline. Chronic stable medical conditions include coronary artery disease with stent over a year ago, GERD, hypertension, hyperlipidemia, osteoarthritis. Atrial fibrillation Patient now presents with 2-1/2 weeks of progressively getting weaker. Dizzy. Hardly able to walk. Tired rundown. About 2 weeks ago she noticed some red stools. On presentation hemoglobin was found to be 6.7. Patient is given 2 units of blood. Denies any abdominal pain. Patient is on xarelto for atrial fibrillation. [id number] hiatal hernia. Colonoscopy-scattered sigmoid diverticulosis. Patient's anticoagulation resumed. Discussed with the patient. Cleared by GI. Consultation: Dr. Chantelle Sharma from GI Past medical history to include: Coronary artery disease with stent, GERD, hyperlipidemia, hypertension, osteoarthritis, coronary stents 4 carpal tunnel Social history: Does not smoke or drink alcohol. Lives alone. Does use a cane Physical examination: VITAL SIGNS: 98.5, 85, 20, 113/67, 100% on 2 L GENERAL: comfortable EYES: Pupils equal. Conjunctiva pale HEENT: External appearance of nose and ears normal, oral cavity grossly normal. NECK: JVD not raised; masses not palpable. HEART: First and second heart sounds are normal; no edema. LUNGS: Respiratory rate normal; decreased breath sounds. ABDOMEN: Soft, nontender, liver spleen not palpable, no masses palpable. PSYCH: Alert and oriented x3; mood and affect normal MUSCULAR skeletal: Evidence of OA, INVESTIGATIONS, reviewed in the clinical context: August 18: Hemoglobin 8.5 White count 4.3 hemoglobin 6.7 platelets 242 Potassium 4.6 creatinine 1.02 Coronary risk-P/Cr-not detected EKG tracing personally reviewed by me-atrial flutter fibrillation with a rate of 57 Chest x-ray film personally reviewed by me-cardiomegaly, lung pina clear Assessment: -Acute GI bleed in a patient is on xarelto with patient having noticed red stools . -Symptomatic acute GI blood loss anemia with a hemoglobin down to 6.7, patient requiring 2 units of blood -Coronary artery with stent over a year ago -GERD -Hyperlipidemia -Essential hypertension -Primary osteoarthritis -Chronic gait dysfunction uses a cane -Persistent atrial fibrillation rate control chronically on xarelto Disposition: Home Patient Condition at Discharge: Stable Plan - Discharge Summary New Discharge Prescriptions: Continue Isosorbide Mononitrate ER [Imdur] 30 mg PO DAILY Lansoprazole [Prevacid] 15 mg PO DAILY Nitroglycerin Sl Tabs [Nitrostat] 0.4 mg SUBLINGUAL Q5M PRN PRN Reason: Chest Pain Cholecalciferol (Vitamin D3) [Vitamin D3] 2,000 unit PO DAILY Aspirin 81 mg PO DAILY Rivaroxaban [Xarelto] 15 mg PO DAILY Atorvastatin [Lipitor] 80 mg PO HS #90 tab Furosemide [Lasix] 20 mg PO DAILY lisinopriL [Zestril] 10 mg PO DAILY Metoprolol Tartrate [Lopressor] 25 mg PO BID Discharge Medication List Aspirin 81 mg PO DAILY 12/24/18 [History] Cholecalciferol (Vitamin D3) [Vitamin D3] 2,000 unit PO DAILY 12/24/18 [History] Isosorbide Mononitrate ER [Imdur] 30 mg PO DAILY 12/24/18 [History] Lansoprazole [Prevacid] 15 mg PO DAILY 12/24/18 [History] Nitroglycerin Sl Tabs [Nitrostat] 0.4 mg SUBLINGUAL Q5M PRN 12/24/18 [History] Rivaroxaban [Xarelto] 15 mg PO DAILY 12/24/18 [History] Atorvastatin [Lipitor] 80 mg PO HS #90 tab 12/27/18 [Rx] Furosemide [Lasix] 20 mg PO DAILY 08/16/20 [History] Metoprolol Tartrate [Lopressor] 25 mg PO BID 08/16/20 [History] lisinopriL [Zestril] 10 mg PO DAILY 08/16/20 [History] Follow up Appointment(s)/Referral(s): Miko Bocanegra MD [Primary Care Provider] - 1-2 days Residential Home[facility] [NON-STAFF] - 1-2 Days Patient Instructions/Handouts: Gastrointestinal Bleeding (DC) Activity/Diet/Wound Care/Special Instructions: cbc - 7 days Discharge Disposition: HOME SELF-CARE
== END 2020-08-19 16:00 | disposition home or self-care (01) | DRG 378 ==
LOC: EC 11:43 → 5NMEDONC 13:39
PROVIDERS: ADMIT Hospitalist; ATTEND Hospitalist
PROC: 30233N1 Transfusion of Nonautologous Red Blood Cells into Peripheral Vein, Percutaneous Approach (ICD-10-PCS; 2020-08-16)
PROC: 0DB98ZX Excision of Duodenum, Via Natural or Artificial Opening Endoscopic, Diagnostic (ICD-10-PCS; principal; 2020-08-19 07:30)
PROC: 0DJD8ZZ Inspection of Lower Intestinal Tract, Via Natural or Artificial Opening Endoscopic (ICD-10-PCS; principal; 2020-08-19 07:30)
DX: K92.1 Melena (principal); D62 Acute posthemorrhagic anemia; I48.19 Other persistent atrial fibrillation; E78.5 Hyperlipidemia, unspecified; D50.9 Iron deficiency anemia, unspecified; I10 Essential (primary) hypertension; I25.10 Atherosclerotic heart disease of native coronary artery without angina pectoris; K21.9 Gastro-esophageal reflux disease without esophagitis; K44.9 Diaphragmatic hernia without obstruction or gangrene; K57.30 Diverticulosis of large intestine without perforation or abscess without bleeding; M19.91 Primary osteoarthritis, unspecified site; Z79.01 Long term (current) use of anticoagulants; Z79.82 Long term (current) use of aspirin; Z79.899 Other long term (current) drug therapy; Z80.0 Family history of malignant neoplasm of digestive organs; Z82.49 Family history of ischemic heart disease and other diseases of the circulatory system; Z90.710 Acquired absence of both cervix and uterus; Z95.5 Presence of coronary angioplasty implant and graft; E66.9 Obesity, unspecified; Z68.32 Body mass index [BMI] 32.0-32.9, adult; Z20.822 Contact with and (suspected) exposure to COVID-19; Z91.040 Latex allergy status; G56.00 Carpal tunnel syndrome, unspecified upper limb; Z60.2 Problems related to living alone
CPT/HCPCS: 36415; 43239; 45378; 71046; 74022; 80053; 83605; 84484; 85025; 85027; 85610; 85730; 86850; 86900; 86901; 86920; 87635; 88305; 93005; 96360; 96361; 99285

== ENCOUNTER 2020-09-03 09:45 | Observation (INO) | payer MEDICARE ==
[2020-09-03] MEDS ORDERED: SODIUM CHLORIDE 0.9% 500 ML 500 ML IV STA (10:30)
--- NOTE | 2020-09-03 11:19 | ED ---
General Adult HPI <Camilo Esteves - Last Filed: 09/03/20 13:24> - General Source: patient, family Mode of arrival: wheelchair Limitations: no limitations <Daya Cuevas - Last Filed: 09/03/20 14:32> - General Chief complaint: Dizziness Stated complaint: GI bleed Time Seen by Provider: 09/03/20 09:57 - History of Present Illness Initial comments: Patient is a 84-year-old female with history of A. fib on Xarelto, anemia, hypertension, presenting to the emergency Department with complaints of ligh theadedness/dizziness, weakness and blood in her stool for the past few days. Patient states she was just discharged from the hospital a few weeks ago for similar complaints, she received a blood transfusion and did feel better. Patient denies any recent falls or trauma. She denies any chest pain. She does feel like she is a little bit short of breath. No fever or chills, no nausea or vomiting, no diarrhea. She denies any changes in her medications. Patient states she has not been eating and drinking very well secondary to not feeling like she has to strength to move around the house like she normally does. She does live on her own. She does have her daughter with her now. There are no further complaints. Upon arrival to the ER, her vital signs are stable. (Daya Cuevas) - Related Data Home Medications Medication Instructions Recorded Confirmed Aspirin 81 mg PO DAILY 12/24/18 09/03/20 Cholecalciferol (Vitamin D3) 50 mcg PO DAILY 12/24/18 09/03/20 [Vitamin D3] Isosorbide Mononitrate ER [Imdur] 30 mg PO DAILY 12/24/18 09/03/20 Lansoprazole [Prevacid] 15 mg PO DAILY 12/24/18 09/03/20 Nitroglycerin Sl Tabs [Nitrostat] 0.4 mg SUBLINGUAL Q5M PRN 12/24/18 09/03/20 Rivaroxaban [Xarelto] 15 mg PO DAILY 12/24/18 09/03/20 Furosemide [Lasix] 20 mg PO DAILY 08/16/20 09/03/20 Metoprolol Tartrate [Lopressor] 25 mg PO BID 08/16/20 09/03/20 lisinopriL [Zestril] 10 mg PO DAILY 08/16/20 09/03/20 Sertraline HCl [Zoloft] 25 mg PO DAILY 09/03/20 09/03/20 Previous Rx's Medication Instructions Recorded Atorvastatin [Lipitor] 80 mg PO HS #90 tab 12/27/18 Allergies Allergy/AdvReac Type Severity Reaction Status Date / Time latex Allergy Rash/Hives Verified 09/03/20 10:42 Review of Systems ROS Other: All systems not noted in ROS Statement are negative. <Camilo Esteves - Last Filed: 09/03/20 13:24> ROS Other: All systems not noted in ROS Statement are negative. <Daya Cuevas - Last Filed: 09/03/20 14:32> ROS Statement: Those systems with pertinent positive or pertinent negative responses have been documented in the HPI. Past Medical History Past Medical History: Coronary Artery Disease (CAD), GERD/Reflux, Hyperlipidemia, Hypertension, Osteoarthritis (OA) Additional Past Medical History / Comment(s): "prediabetic". hiatal hernia History of Any Multi-Drug Resistant Organisms: None Reported Past Surgical History: Heart Catheterization With Stent, Hysterectomy, Orthopedic Surgery Additional Past Surgical History / Comment(s): vein stripping,heart stents x4,lt foot,mattie carpel tunnel. right leg and hip surgery Past Anesthesia/Blood Transfusion Reactions: No Reported Reaction Additional Past Anesthesia/Blood Transfusion Reaction / Comment(s): no hx blood transfusion Date of Last Stent Placement:: 2018 Past Psychological History: Depression Smoking Status: Never smoker Past Alcohol Use History: None Reported Past Drug Use History: None Reported - Past Family History Mother Family Medical History: Cancer Additional Family Medical History / Comment(s): colon Father Family Medical History: Coronary Artery Disease (CAD), Myocardial Infarction ([place]) Brother(s) Family Medical History: Cancer, Myocardial Infarction ([place]) Additional Family Medical History / Comment(s): colon cancer <Daya Cuevas - Last Filed: 09/03/20 14:32> General Exam Limitations: no limitations <Daya Cuevas - Last Filed: 09/03/20 14:32> - General Exam Comments Initial Comments: GENERAL: Patient is well-developed and well-nourished. Patient is nontoxic and in no acute distress. HEAD: Atraumatic, normocephalic. EYES: Pupils equal round and reactive to light, extraocular movements intact, sclera anicteric, conjunctiva are normal. Eyelids were unremarkable. ENT: TMs normal, nares patent, oropharynx clear without exudates. Dry mucous membranes. NECK: Normal range of motion, supple without lymphadenopathy or JVD. LUNGS: Unlabored respirations. Breath sounds clear to auscultation bilaterally and equal. No wheezes rales or rhonchi. HEART: Regular rate and rhythm without murmurs, rubs or gallops. ABDOMEN: Soft, nontender, normoactive bowel sounds. No guarding, no rebound. No masses appreciated. : Deferred MUSCULOSKELETAL: Normal extremities with adequate strength and normal range of motion, no pitting or edema. No clubbing or cyanosis. NEUROLOGICAL: Patient is alert and oriented x 3. Motor and sensory are also intact. Cranial nerves II through XII grossly intact. Symmetrical smile. Normal speech, normal gait. PSYCH: Normal mood, normal affect. SKIN: Warm, Dry, normal turgor, no rashes or lesions noted. (Daya Cuevas) Course <Camilo Esteves - Last Filed: 09/03/20 13:24> Vital Signs 09/03/20 09/03/20 09/03/20 09:51 12:15 13:13 Temperature 98.5 F Pulse Rate 56 L 54 L 52 L Respiratory 18 16 16 Rate Blood Pressure 116/45 128/69 141/77 O2 Sat by Pulse 99 98 99 Oximetry - Reevaluation(s) Reevaluation #1: 09/03/20 13:24 PA supervision: I did personally evaluate this case patient did present with complaints of weakness she was found to have no abdominal pain but she was heme positive on rectal exam. She does have evidence of anemia though her current hemoglobin level stable. She'll be admitted case was discussed with Dr. Rodriguez. (Camilo Esteves) EKG Findings - EKG Comments: EKG Findings:: A. fib with slow ventricular response, low voltage, nonspecific ST abnormalities, no signs of acute ischemia. Similar to previous on 08/16/2020. Ventricular rate 44, QRS duration 66, QTC 452. <Daya Cuevas - Last Filed: 09/03/20 14:32> Medical Decision Making - Lab Data Result diagrams: 09/03/20 10:43 09/03/20 10:43 <Camilo Esteves - Last Filed: 09/03/20 13:24> - Lab Data Result diagrams: 09/03/20 10:43 09/03/20 10:43 <Daya Cuevas - Last Filed: 09/03/20 14:32> - Medical Decision Making Patient is a 84-year-old female here for lightheadedness, fatigue and blood in her stools over the past 3 days. Patient was admitted to the hospital for similar complaints approximately 2 weeks ago. Her vital signs are stable upon arrival. She does have a positive occult test. Lab work shows hemoglobin of 7.6, this is lower than her previous of 8.5. The rest of her labs are stable, urine shows no evidence of infection. Patient was given half a liter fluids and does report mild improvement in her symptoms however when patient sat up to use the commode she still complained of some lightheadedness. Given recent history of anemia, patient will be admitted for repeat labs, GI consult. Patient was accepted by Dr. Rodriguez. Case discussed with Dr. Esteves (Daya Cuevas) - Lab Data Lab Results 09/03/20 09/03/20 09/03/20 Range/Units 10:15 10:15 10:15 WBC (3.8-10.6) k/uL RBC (3.80-5.40) m/uL Hgb (11.4-16.0) gm/dL Hct (34.0-46.0) % MCV (80.0-100.0) fL MCH (25.0-35.0) pg MCHC (31.0-37.0) g/dL RDW (11.5-15.5) % Plt Count (150-450) k/uL MPV Neutrophils % % Lymphocytes % % Monocytes % % Eosinophils % % Basophils % % Neutrophils # (1.3-7.7) k/uL Lymphocytes # (1.0-4.8) k/uL Monocytes # (0-1.0) k/uL Eosinophils # (0-0.7) k/uL Basophils # (0-0.2) k/uL Hypochromasia Poikilocytosis Anisocytosis Microcytosis PT (9.0-12.0) sec INR (<1.2) Sodium 140 (137-145) mmol/L Potassium 4.1 (3.5-5.1) mmol/L Chloride 108 H (98-107) mmol/L Carbon Dioxide 22 (22-30) mmol/L Anion Gap 10 mmol/L BUN 26 H (7-17) mg/dL Creatinine 1.05 H (0.52-1.04) mg/dL Est GFR (CKD-EPI)AfAm 56 (>60 ml/min/1.73 sqM) Est GFR (CKD-EPI)NonAf 48 (>60 ml/min/1.73 sqM) Glucose 147 H (74-99) mg/dL Plasma Lactic Acid Los 1.8 (0.7-2.0) mmol/L Calcium 9.1 (8.4-10.2) mg/dL Total Bilirubin 0.5 (0.2-1.3) mg/dL AST 30 (14-36) U/L ALT 26 (4-34) U/L Alkaline Phosphatase 81 (38-126) U/L Troponin I <0.012 (0.000-0.034) ng/mL Total Protein 6.4 (6.3-8.2) g/dL Albumin 3.4 L (3.5-5.0) g/dL Urine Color Urine Appearance (Clear) Urine pH (5.0-8.0) Ur Specific [place] (1.001-1.035) Urine Protein (Negative) Urine Glucose (UA) (Negative) Urine Ketones (Negative) Urine Blood (Negative) Urine Nitrite (Negative) Urine Bilirubin (Negative) Urine Urobilinogen (<2.0) mg/dL Ur Leukocyte Esterase (Negative) Urine RBC (0-5) /hpf Urine WBC (0-5) /hpf Ur Squamous Epith Cells (0-4) /hpf Urine Bacteria (None) /hpf Hyaline Casts (0-2) /lpf Urine Mucus (None) /hpf Stool Occult Blood (Negative) 09/03/20 09/03/20 09/03/20 Range/Units 10:43 10:43 10:43 WBC 5.3 (3.8-10.6) k/uL RBC 3.18 L (3.80-5.40) m/uL Hgb 7.6 L (11.4-16.0) gm/dL Hct 25.3 L (34.0-46.0) % MCV 79.6 L (80.0-100.0) fL MCH 23.7 L (25.0-35.0) pg MCHC 29.8 L (31.0-37.0) g/dL RDW 16.8 H (11.5-15.5) % Plt Count 322 (150-450) k/uL MPV 8.1 Neutrophils % 72 % Lymphocytes % 14 % Monocytes % 8 % Eosinophils % 3 % Basophils % 1 % Neutrophils # 3.8 (1.3-7.7) k/uL Lymphocytes # 0.8 L (1.0-4.8) k/uL Monocytes # 0.4 (0-1.0) k/uL Eosinophils # 0.2 (0-0.7) k/uL Basophils # 0.0 (0-0.2) k/uL Hypochromasia Marked Poikilocytosis Marked Anisocytosis Slight Microcytosis Slight PT 15.5 H (9.0-12.0) sec INR 1.5 H (<1.2) Sodium 138 (137-145) mmol/L Potassium 4.3 (3.5-5.1) mmol/L Chloride 106 (98-107) mmol/L Carbon Dioxide 24 (22-30) mmol/L Anion Gap 8 mmol/L BUN 26 H (7-17) mg/dL Creatinine 1.05 H (0.52-1.04) mg/dL Est GFR (CKD-EPI)AfAm 56 (>60 ml/min/1.73 sqM) Est GFR (CKD-EPI)NonAf 48 (>60 ml/min/1.73 sqM) Glucose 130 H (74-99) mg/dL Plasma Lactic Acid Los (0.7-2.0) mmol/L Calcium 8.8 (8.4-10.2) mg/dL Total Bilirubin 0.6 (0.2-1.3) mg/dL AST 29 (14-36) U/L ALT 22 (4-34) U/L Alkaline Phosphatase 81 (38-126) U/L Troponin I (0.000-0.034) ng/mL Total Protein 5.8 L (6.3-8.2) g/dL Albumin 3.2 L (3.5-5.0) g/dL Urine Color Urine Appearance (Clear) Urine pH (5.0-8.0) Ur Specific [place] (1.001-1.035) Urine Protein (Negative) Urine Glucose (UA) (Negative) Urine Ketones (Negative) Urine Blood (Negative) Urine Nitrite (Negative) Urine Bilirubin (Negative) Urine Urobilinogen (<2.0) mg/dL Ur Leukocyte Esterase (Negative) Urine RBC (0-5) /hpf Urine WBC (0-5) /hpf Ur Squamous Epith Cells (0-4) /hpf Urine Bacteria (None) /hpf Hyaline Casts (0-2) /lpf Urine Mucus (None) /hpf Stool Occult Blood (Negative) 09/03/20 09/03/20 Range/Units 11:59 11:59 WBC (3.8-10.6) k/uL RBC (3.80-5.40) m/uL Hgb (11.4-16.0) gm/dL Hct (34.0-46.0) % MCV (80.0-100.0) fL MCH (25.0-35.0) pg MCHC (31.0-37.0) g/dL RDW (11.5-15.5) % Plt Count (150-450) k/uL MPV Neutrophils % % Lymphocytes % % Monocytes % % Eosinophils % % Basophils % % Neutrophils # (1.3-7.7) k/uL Lymphocytes # (1.0-4.8) k/uL Monocytes # (0-1.0) k/uL Eosinophils # (0-0.7) k/uL Basophils # (0-0.2) k/uL Hypochromasia Poikilocytosis Anisocytosis Microcytosis PT (9.0-12.0) sec INR (<1.2) Sodium (137-145) mmol/L Potassium (3.5-5.1) mmol/L Chloride (98-107) mmol/L Carbon Dioxide (22-30) mmol/L Anion Gap mmol/L BUN (7-17) mg/dL Creatinine (0.52-1.04) mg/dL Est GFR (CKD-EPI)AfAm (>60 ml/min/1.73 sqM) Est GFR (CKD-EPI)NonAf (>60 ml/min/1.73 sqM) Glucose (74-99) mg/dL Plasma Lactic Acid Los (0.7-2.0) mmol/L Calcium (8.4-10.2) mg/dL Total Bilirubin (0.2-1.3) mg/dL AST (14-36) U/L ALT (4-34) U/L Alkaline Phosphatase (38-126) U/L Troponin I (0.000-0.034) ng/mL Total Protein (6.3-8.2) g/dL Albumin (3.5-5.0) g/dL Urine Color Colorless Urine Appearance Clear (Clear) Urine pH 5.0 (5.0-8.0) Ur Specific [place] 1.007 (1.001-1.035) Urine Protein Negative (Negative) Urine Glucose (UA) Negative (Negative) Urine Ketones Negative (Negative) Urine Blood Negative (Negative) Urine Nitrite Negative (Negative) Urine Bilirubin Negative (Negative) Urine Urobilinogen <2.0 (<2.0) mg/dL Ur Leukocyte Esterase Small H (Negative) Urine RBC 1 (0-5) /hpf Urine WBC 4 (0-5) /hpf Ur Squamous Epith Cells 1 (0-4) /hpf Urine Bacteria Rare H (None) /hpf Hyaline Casts 1 (0-2) /lpf Urine Mucus Rare H (None) /hpf Stool Occult Blood Positive H (Negative) Disposition <Camilo Esteves - Last Filed: 09/03/20 13:24> Decision Date: 09/03/20 Decision Time: 13:37 <Daya Cuevas - Last Filed: 09/03/20 14:32> Clinical Impression: Dehydration, Anemia, Occult blood positive stool, Dizzy Disposition: ADMITTED IP TO THIS [facility] Condition: Stable
[2020-09-03 11:22] LABS: Anisocytosis Slight; Basophils % (A) 1 %; Eosinophils # (A) 0.2 k/uL (0-0.7); Eosinophils % (A) 3 %; HCT 25.3 % (34.0-46.0); HGB 7.6 gm/dL (11.4-16.0); Hypochromasia Marked; Lymphocytes # (A) 0.8 k/uL (1.0-4.8); Lymphocytes % (A) 14 %; MCH 23.7 pg (25.0-35.0); MCHC 29.8 g/dL (31.0-37.0); MCV 79.6 fL (80.0-100.0); Mean Platelet Volume 8.1; Microcytosis Slight; Monocytes # (A) 0.4 k/uL (0-1.0); Monocytes % (A) 8 %; Neutrophils # (A) 3.8 k/uL (1.3-7.7); Neutrophils % (A) 72 %; Platelet Count 322 k/uL (150-450); Poikilocytosis Marked; RBC 3.18 m/uL (3.80-5.40); RDW 16.8 % (11.5-15.5); WBC 5.3 k/uL (3.8-10.6)
[2020-09-03 11:23] LABS: INR 1.5 (<1.2); Prothrombin Time 15.5 sec (9.0-12.0)
[2020-09-03 11:31] LABS: Albumin 3.2 g/dL (3.5-5.0); Calcium 8.8 mg/dL (8.4-10.2); Potassium 4.3 mmol/L (3.5-5.1); Total Bilirubin 0.6 mg/dL (0.2-1.3); Total Protein 5.8 g/dL (6.3-8.2)
[2020-09-03 12:17] LABS: Appearance,Urine Clear (Clear); Bacteria,Urine Rare /hpf; Bilirubin,Urine Negative (Negative); Blood,Urine Negative (Negative); Color,Urine Colorless; Glucose,Urine (UA) Negative (Negative); Hyaline Casts,Urine 1 /lpf (0-2); Ketones,Urine Negative (Negative); Leukocyte Esterase,Urine Small (Negative); Mucus,Urine Rare /hpf; Nitrite,Urine Negative (Negative); Protein,Urine Negative (Negative); RBC,Urine 1 /hpf (0-5); Specific Gravity,Urine 1.007 (1.001-1.035); Squamous Epithelial Cell,Urine 1 /hpf (0-4); Urobilinogen,Urine <2.0 mg/dL (<2.0); WBC,Urine 4 /hpf (0-5)
[2020-09-03 12:31] LABS: Albumin 3.4 g/dL (3.5-5.0); Calcium 9.1 mg/dL (8.4-10.2); Total Bilirubin 0.5 mg/dL (0.2-1.3); Total Protein 6.4 g/dL (6.3-8.2)
[2020-09-03 12:32] LABS: Potassium 4.1 mmol/L (3.5-5.1)
[2020-09-03] MEDS ORDERED: NALOXONE 0.4 MG/ML 1 ML VIAL IV PRN (13:37)
[2020-09-03] MEDS ORDERED: ACETAMINOPHEN TAB 325 MG TAB PO PRN (13:37)
[2020-09-03] MEDS ORDERED: NITROGLYCERIN SL TABS 0.4 MG TAB SUBLINGUAL PRN (17:52)
[2020-09-03] MEDS: METOPROLOL TARTRATE 25 MG TAB PO SCH (19:33)
[2020-09-03] MEDS: ATORVASTATIN 80 MG TAB PO SCH (19:33)
[2020-09-04] MEDS: ASPIRIN 81 MG PO SCH (08:34)
[2020-09-04] MEDS: FUROSEMIDE 20 MG TAB PO SCH (08:35)
[2020-09-04] MEDS: CHOLECALCIFEROL 25 MCG (1000 IU) TABLET PO SCH (08:35)
[2020-09-04] MEDS: ISOSORBIDE MONONITRATE ER 30 MG TAB.ER.24H PO SCH (08:35)
[2020-09-04] MEDS: SERTRALINE 25 MG TAB PO SCH (08:35)
[2020-09-04] MEDS: PANTOPRAZOLE 40 MG TABLET PO SCH (08:36)
[2020-09-04] MEDS: METOPROLOL TARTRATE 25 MG TAB PO SCH (08:36)
[2020-09-04] MEDS ORDERED: lisinopriL 10 MG TAB PO SCH (09:00)
[2020-09-04 09:38] LABS: Anisocytosis Slight; HCT 24.2 % (34.0-46.0); HGB 7.2 gm/dL (11.4-16.0); Hypochromasia Marked; MCH 23.8 pg (25.0-35.0); MCHC 29.8 g/dL (31.0-37.0); MCV 80.1 fL (80.0-100.0); Mean Platelet Volume 10.3; Microcytosis Slight; Platelet Count 221 k/uL (150-450); Poikilocytosis Moderate; RBC 3.02 m/uL (3.80-5.40); RDW 16.9 % (11.5-15.5); WBC 4.7 k/uL (3.8-10.6)
[2020-09-04 09:47] LABS: African American GFR (CKD) 67 (>60 ml/min/1.73 sqM); Anion Gap 6 mmol/L; Blood Urea Nitrogen 18 mg/dL (7-17); Calcium 8.6 mg/dL (8.4-10.2); Carbon Dioxide 26 mmol/L (22-30); Chloride 106 mmol/L (98-107); Glucose 173 mg/dL (74-99); INR 1.2 (<1.2); Non-African American GFR(CKD) 58 (>60 ml/min/1.73 sqM); Potassium 4.3 mmol/L (3.5-5.1); Prothrombin Time 12.4 sec (9.0-12.0); Sodium 138 mmol/L (137-145)
[2020-09-04] MEDS ORDERED: lisinopriL 5 MG TAB PO SCH (14:00)
[2020-09-04] MEDS: SODIUM FERRIC GLUCONAT-SUCROSE 125 MG in SODIUM CHLORIDE 0.9% 100 ML IVPB SCH (14:37)
--- NOTE | 2020-09-04 15:25 | P.CONS ---
History of Present Illness - Reason for Consult Consult date: 09/04/20 Anemia Requesting physician: Daniela Breen - Chief Complaint Anemia - History of Present Illness Mrs. Stokes is a pleasant 84 year old female patient who has known medical history of coronary artery disease with stent over a year ago, GERD, Hypertension, Hyperlipidemia, afib and osteoarthritis. She has been on Xarelto for cardiology reasons. She unfortunately had a fall in March of 2020, resulting in fractured hip. She was seen at [facility] and underwent surgery at that time. She underwent a close reduction and surgical stabilization of the right intertro chanteric femur fracture with cephalo-medullary nailing.Her trending hemoglobin since this time has appeared to remain at a new normal near 8. 08/19/20: EGD and COlonoscopy performed by Dr. Sharma. EGD revealed small hiatel hernia. COlonoscopy revealed scattered sigmoid diverticulosis but no evidence or AVMs or Masses. Small bowel capsule endoscopy was discussed although unclear if this was performed. Since no active bleeding she was discharged on her AC and aspirin at that time. She now presents to the emergency department with complaints of blood in stool, lightheadedness, fatigue. She stated her symptoms worsened over the past few days. Patient was admitted to the hospital for similar complaints approximately 2 weeks ago. She did undergo a GI evaluation at that time 08/20/20. Received PRBC transfusion for hemoglobin of 6.7. Today on arrival her hemoglobin of 7.6. Because of her ongoing anemia we have been asked to further evaluate. She is on PPI, WBC and Platelts are WNL. Renal function and liver function also stable. Review of Systems All systems: negative Constitutional: Reports as per HPI Past Medical History Past Medical History: Coronary Artery Disease (CAD), GERD/Reflux, Hyperlipidemia, Hypertension, Osteoarthritis (OA) Additional Past Medical History / Comment(s): "prediabetic". hiatal hernia History of Any Multi-Drug Resistant Organisms: None Reported Past Surgical History: Heart Catheterization With Stent, Hysterectomy, Orthopedic Surgery Additional Past Surgical History / Comment(s): vein stripping,heart stents x4,lt foot,mattie carpel tunnel. right leg and hip surgery Past Anesthesia/Blood Transfusion Reactions: No Reported Reaction Additional Past Anesthesia/Blood Transfusion Reaction / Comm: no hx blood transfusion Date of Last Stent Placement:: 2018 Past Psychological History: Depression Smoking Status: Never smoker Past Alcohol Use History: None Reported Past Drug Use History: None Reported - Past Family History Mother Family Medical History: Cancer Additional Family Medical History / Comment(s): colon Father Family Medical History: Coronary Artery Disease (CAD), Myocardial Infarction ([place]) Additional Family Medical History / Comment(s): Father of a [place] at the age of 61 yrs. Brother(s) Family Medical History: Cancer, Myocardial Infarction ([place]) Additional Family Medical History / Comment(s): colon cancer Medications and Allergies Home Medications Medication Instructions Recorded Confirmed Type Aspirin 81 mg PO DAILY 12/24/18 09/03/20 History Cholecalciferol (Vitamin D3) 50 mcg PO DAILY 12/24/18 09/03/20 History [Vitamin D3] Isosorbide Mononitrate ER [Imdur] 30 mg PO DAILY 12/24/18 09/03/20 History Lansoprazole [Prevacid] 15 mg PO DAILY 12/24/18 09/03/20 History Nitroglycerin Sl Tabs [Nitrostat] 0.4 mg SUBLINGUAL Q5M PRN 12/24/18 09/03/20 History Rivaroxaban [Xarelto] 15 mg PO DAILY 12/24/18 09/03/20 History Atorvastatin [Lipitor] 80 mg PO HS #90 tab 12/27/18 09/03/20 Rx Furosemide [Lasix] 20 mg PO DAILY 08/16/20 09/03/20 History Metoprolol Tartrate [Lopressor] 25 mg PO BID 08/16/20 09/03/20 History lisinopriL [Zestril] 10 mg PO DAILY 08/16/20 09/03/20 History Sertraline HCl [Zoloft] 25 mg PO DAILY 09/03/20 09/03/20 History Allergies Allergy/AdvReac Type Severity Reaction Status Date / Time latex Allergy Rash/Hives Verified 09/03/20 10:42 Physical Exam Vitals: Vital Signs Temp Pulse Pulse Resp BP BP Pulse Ox 09/04/20 13:26 98.1 F 60 19 105/66 98 09/04/20 07:43 98.1 F 57 L 16 118/67 97 09/04/20 02:00 98 F 88 18 115/77 99 09/03/20 20:00 97.9 F 52 L 18 112/70 100 09/03/20 16:41 50 L 16 115/76 98 Intake and Output 09/04/20 09/04/20 09/04/20 06:59 14:59 22:59 Other: Voiding Method Toilet # Voids 2 1 - Constitutional General appearance: cooperative, no acute distress - EENT Eyes: dentition normal ENT: hard of hearing, NA/AT, normal oropharynx - Neck Neck: normal ROM - Respiratory Respiratory: bilateral: CTA (Shallow effort) - Cardiovascular Rhythm: regular Heart sounds: normal: S1, S2 - Gastrointestinal General gastrointestinal: soft - Integumentary Integumentary: pale - Neurologic non focal - Musculoskeletal Musculoskeletal: strength equal bilaterally - Psychiatric Psychiatric: A&O x's 3, appropriate affect Results CBC & Chem 7: 09/04/20 09:17 09/04/20 09:17 Labs: Abnormal Lab Results - Last 24 Hours (Table) 09/04/20 09/04/20 09/04/20 Range/Units 09:17 09:17 09:17 RBC 3.02 L (3.80-5.40) m/uL Hgb 7.2 L (11.4-16.0) gm/dL Hct 24.2 L (34.0-46.0) % MCH 23.8 L (25.0-35.0) pg MCHC 29.8 L (31.0-37.0) g/dL RDW 16.9 H (11.5-15.5) % PT 12.4 H (9.0-12.0) sec INR 1.2 H (<1.2) BUN 18 H (7-17) mg/dL Glucose 173 H (74-99) mg/dL Comments: Reviewed recent endoscopy and past cbcs, anemia began 03/2020. Assessment and Plan (1) Microcytic hypochromic anemia Current Visit: Yes Status: Acute Code(s): D50.9 - IRON DEFICIENCY ANEMIA, UNSPECIFIED SNOMED Code(s): 86063019 Plan: GI Blood loss without evidence of active bleeding via recent endoscopy. Iron deficiency likely etiology, although iron studies may be altered given recent PRBC last admission, will check. The possibility of Small bowel AVM is still most likely etiology, although other underlying causes will also be assessed for. Since patient is on Anticoagulation with xarelto and she is on aspirin given her cardiac history will need to discuss risk versus benefit with and without. In the interim agree with Parental Iron. Will continue to monitor closely CBC and transfuse hemoglobin less than 7. GI to further evaluate.
[2020-09-04 15:31] LABS: Reticulocyte % 2.4 % (0.5-2.0)
[2020-09-04] MEDS: ATORVASTATIN 80 MG TAB PO SCH (20:31)
[2020-09-04] MEDS: METOPROLOL TARTRATE 12.5 MG TAB PO SCH (20:31)
--- NOTE | 2020-09-04 22:34 | P.HPIM ---
History of Present Illness H&P Date: 09/04/20 Chief Complaint: Dizzy History of presenting complaint: This is a pleasant 84-year-old patient of . Does use a cane at baseline. Chronic stable medical conditions include coronary artery disease with stent over a year ago, GERD, hypertension, hyperlipidemia, osteoarthritis. Atrial fibrillation Patient was just in the hospital from August 16 through August 19. He presented with some red stools. Receive 2 units of blood. EGD showed small hiatal hernia. Colonoscopy showed a scattered sigmoid diverticulosis. Anticoagulation was resumed. Today-presented with limited with feeling dizzy. For 3 days. Sometimes getting up. Has noticed minimal blood in the stool. No fever no chills. No chest pain or palpitation. Review of systems: GEN.: Tired EYES: None HEENT: None NECK: None RESPIRATORY: None CARDIOVASCULAR: None GASTROINTESTINAL: As above GENITOURINARY: None MUSCULOSKELETAL: Joint pains LYMPHATICS: None HEMATOLOGICAL: None PSYCHIATRY: Bit forgetful NEUROLOGICAL: Nonfocal Past medical history to include: Coronary artery disease with stent, GERD, hyperlipidemia, hypertension, osteoarthritis, coronary stents 4 carpal tunnel Social history: Does not smoke or drink alcohol. Lives alone. Does use a cane Physical examination: VITAL SIGNS: 98.5, 56, 18, 116/45, 99% room air GENERAL: BMI 32.9, laying in bed, tired. EYES: Pupils equal. Conjunctiva pale HEENT: External appearance of nose and ears normal, oral cavity grossly normal. NECK: JVD not raised; masses not palpable. HEART: First and second heart sounds are normal; no edema. LUNGS: Respiratory rate normal; decreased breath sounds. ABDOMEN: Soft, nontender, liver spleen not palpable, no masses palpable. PSYCH: Alert and oriented x3; mood and affect normal MUSCULAR skeletal: Evidence of OA, NEUROLOGICAL: Cranial nerves grossly intact; no facial asymmetry, power and sensation grossly intact. LYMPHATICS: No lymph nodes palpable in the axilla and neck INVESTIGATIONS, reviewed in the clinical context: White count 4.7 hemoglobin 7.2 INR 1.2 potassium 4.3 creatinine 0.90 Assessment: -Patient presented with feeling a bit dizzy. There is slight drop in hemoglo bin. Also patient blood pressure running a bit on the lower side. The stool itself can account for patient's symptoms. -Recent acute GI bleed with EGD and colonoscopic unremarkable. -Coronary artery with stent over a year ago -GERD -Hyperlipidemia -Essential hypertension-blood pressure running the lower side. -Primary osteoarthritis -Chronic gait dysfunction uses a cane -Persistent atrial fibrillation rate control chronically on xarelto Plan: We'll cut back the dose of Lopressor to 12.5 twice a day and also Zestril to 5 mg day. Given that he symptomatic hemoglobin 7.2 also will be given a unit of blood. Discussed with patient. Past Medical History Past Medical History: Coronary Artery Disease (CAD), GERD/Reflux, Hyperlipidemia, Hypertension, Osteoarthritis (OA) Additional Past Medical History / Comment(s): "prediabetic". hiatal hernia History of Any Multi-Drug Resistant Organisms: None Reported Past Surgical History: Heart Catheterization With Stent, Hysterectomy, Orthopedic Surgery Additional Past Surgical History / Comment(s): vein stripping,heart stents x4,lt foot,mattie carpel tunnel. right leg and hip surgery Past Anesthesia/Blood Transfusion Reactions: No Reported Reaction Additional Past Anesthesia/Blood Transfusion Reaction / Comment(s): no hx blood transfusion Date of Last Stent Placement:: 2018 Past Psychological History: Depression Smoking Status: Never smoker Past Alcohol Use History: None Reported Past Drug Use History: None Reported - Past Family History Mother Family Medical History: Cancer Additional Family Medical History / Comment(s): colon Father Family Medical History: Coronary Artery Disease (CAD), Myocardial Infarction ([place]) Additional Family Medical History / Comment(s): Father of a [place] at the age of 61 yrs. Brother(s) Family Medical History: Cancer, Myocardial Infarction ([place]) Additional Family Medical History / Comment(s): colon cancer Medications and Allergies Home Medications Medication Instructions Recorded Confirmed Type Aspirin 81 mg PO DAILY 12/24/18 09/03/20 History Cholecalciferol (Vitamin D3) 50 mcg PO DAILY 12/24/18 09/03/20 History [Vitamin D3] Isosorbide Mononitrate ER [Imdur] 30 mg PO DAILY 12/24/18 09/03/20 History Lansoprazole [Prevacid] 15 mg PO DAILY 12/24/18 09/03/20 History Nitroglycerin Sl Tabs [Nitrostat] 0.4 mg SUBLINGUAL Q5M PRN 12/24/18 09/03/20 History Rivaroxaban [Xarelto] 15 mg PO DAILY 12/24/18 09/03/20 History Atorvastatin [Lipitor] 80 mg PO HS #90 tab 12/27/18 09/03/20 Rx Furosemide [Lasix] 20 mg PO DAILY 08/16/20 09/03/20 History Metoprolol Tartrate [Lopressor] 25 mg PO BID 08/16/20 09/03/20 History lisinopriL [Zestril] 10 mg PO DAILY 08/16/20 09/03/20 History Sertraline HCl [Zoloft] 25 mg PO DAILY 09/03/20 09/03/20 History Allergies Allergy/AdvReac Type Severity Reaction Status Date / Time latex Allergy Rash/Hives Verified 09/03/20 10:42 Physical Exam Vitals: Vital Signs Temp Pulse Pulse Resp BP BP Pulse Ox 09/04/20 07:43 98.1 F 57 L 16 118/67 97 09/04/20 02:00 98 F 88 18 115/77 99 09/03/20 20:00 97.9 F 52 L 18 112/70 100 09/03/20 16:41 50 L 16 115/76 98 09/03/20 13:13 52 L 16 141/77 99 09/03/20 12:15 54 L 16 128/69 98 Intake and Output 09/03/20 09/04/20 09/04/20 22:59 06:59 14:59 Intake Total 0 Balance 0 Intake: Oral 0 Other: Voiding Method Toilet Toilet # Voids 1 2 1 Results CBC & Chem 7: 09/04/20 09:17 09/04/20 09:17 Labs: Abnormal Lab Results - Last 24 Hours (Table) 09/03/20 09/03/20 09/03/20 Range/Units 10:15 11:59 11:59 RBC (3.80-5.40) m/uL Hgb (11.4-16.0) gm/dL Hct (34.0-46.0) % MCH (25.0-35.0) pg MCHC (31.0-37.0) g/dL RDW (11.5-15.5) % PT (9.0-12.0) sec INR (<1.2) Chloride 108 H (98-107) mmol/L BUN 26 H (7-17) mg/dL Creatinine 1.05 H (0.52-1.04) mg/dL Glucose 147 H (74-99) mg/dL Albumin 3.4 L (3.5-5.0) g/dL Ur Leukocyte Esterase Small H (Negative) Urine Bacteria Rare H (None) /hpf Urine Mucus Rare H (None) /hpf Stool Occult Blood Positive H (Negative) 09/04/20 09/04/20 09/04/20 Range/Units 09:17 09:17 09:17 RBC 3.02 L (3.80-5.40) m/uL Hgb 7.2 L (11.4-16.0) gm/dL Hct 24.2 L (34.0-46.0) % MCH 23.8 L (25.0-35.0) pg MCHC 29.8 L (31.0-37.0) g/dL RDW 16.9 H (11.5-15.5) % PT 12.4 H (9.0-12.0) sec INR 1.2 H (<1.2) Chloride (98-107) mmol/L BUN 18 H (7-17) mg/dL Creatinine (0.52-1.04) mg/dL Glucose 173 H (74-99) mg/dL Albumin (3.5-5.0) g/dL Ur Leukocyte Esterase (Negative) Urine Bacteria (None) /hpf Urine Mucus (None) /hpf Stool Occult Blood (Negative) Thrombosis Risk Factor Assmnt - Choose All That Apply Any of the Below Risk Factors Present?: Yes Each Factor Represents 1 point: Obesity (BMI >25) Other Risk Factors: Yes Each Risk Factor Represents 3 Points: Age 75 years or older Other congenital or acquired thrombophilia - If yes, enter type in comment: No Thrombosis Risk Factor Assessment Total Risk Factor Score: 4 Thrombosis Risk Factor Assessment Level: Moderate Risk
--- NOTE | 2020-09-04 22:49 | P.CONS ---
History of Present Illness - Reason for Consult Consult date: 09/04/20 Anemia Requesting physician: Bishop Rodriguez - Chief Complaint Lightheadedness, weakness - History of Present Illness 84-year-old female with multiple medical comorbidities including hypertension, atrial fibrillation on anticoagulation therapy, GERD, coronary artery disease, and hyperlipidemia who presented to the hospital with complaints of lightheadedness and weakness. The patient was recently hospitalized similar complaints at which time she underwent endoscopic evaluation on 08/19/2020 with EGD significant for a small hiatal hernia and colonoscopy significant for scattered sigmoid diverticulosis with no evidence of active bleeding, old blood or pathology to explain anemia at that time. On current presentation patient was again found to be anemic with a hemoglobin of 7.6 and positive testing for occult blood. Patient reports a prior history of anemia in the past at which time she also had extensive evaluation including what she describes as a video capsule endoscopy. She denies any hematemesis or coffee-ground emesis, but does report noting some bright red blood per rectum for 2 days prior to admission. She reports that this was mainly blood on the toilet paper with wiping and small amounts of blood in the toilet. She denies any abdominal pain. Review of Systems REVIEW OF SYSTEMS: CONSTITUTIONAL: Denies any fevers, chills, weight change but the patient did report fatigue on presentation. CARDIOVASCULAR: Denies any chest pain, palpitations high or low blood pressures, the patient does have a known history of atrial fibrillation on anticoagulation therapy. RESPIRATORY: Denies any hemoptysis or cough but she does report some shortness breath on presentation. GENITOURINARY: No dysuria or hematuria. MUSCULOSKELETAL: No weakness reported. SKIN: Denies any new rashes or lesions, jaundice or pallor. PSYCHIATRIC: Denies any depression or anxiety. NEUROLOGY: Denies headache, denies any new focal deficits, the patient had reported some lightheadedness on presentation which is improved. EARS/NOSE/THROAT: No recent hearing change, congestion, nasal discharge or sore throat. EYES: No pain in eyes, discharge or change in vision. GASTROINTESTINAL: As per HPI. Past Medical History Past Medical History: Coronary Artery Disease (CAD), GERD/Reflux, Hyperlipidemia, Hypertension, Osteoarthritis (OA) Additional Past Medical History / Comment(s): "prediabetic". hiatal hernia History of Any Multi-Drug Resistant Organisms: None Reported Past Surgical History: Heart Catheterization With Stent, Hysterectomy, Orthopedic Surgery Additional Past Surgical History / Comment(s): vein stripping,heart stents x4,lt foot,mattie carpel tunnel. right leg and hip surgery Past Anesthesia/Blood Transfusion Reactions: No Reported Reaction Additional Past Anesthesia/Blood Transfusion Reaction / Comm: no hx blood transfusion Date of Last Stent Placement:: 2018 Past Psychological History: Depression Smoking Status: Never smoker Past Alcohol Use History: None Reported Past Drug Use History: None Reported - Past Family History Mother Family Medical History: Cancer Additional Family Medical History / Comment(s): colon Father Family Medical History: Coronary Artery Disease (CAD), Myocardial Infarction ([place]) Additional Family Medical History / Comment(s): Father of a [place] at the age of 61 yrs. Brother(s) Family Medical History: Cancer, Myocardial Infarction ([place]) Additional Family Medical History / Comment(s): colon cancer Medications and Allergies Home Medications Medication Instructions Recorded Confirmed Type Aspirin 81 mg PO DAILY 12/24/18 09/03/20 History Cholecalciferol (Vitamin D3) 50 mcg PO DAILY 12/24/18 09/03/20 History [Vitamin D3] Isosorbide Mononitrate ER [Imdur] 30 mg PO DAILY 12/24/18 09/03/20 History Lansoprazole [Prevacid] 15 mg PO DAILY 12/24/18 09/03/20 History Nitroglycerin Sl Tabs [Nitrostat] 0.4 mg SUBLINGUAL Q5M PRN 12/24/18 09/03/20 History Rivaroxaban [Xarelto] 15 mg PO DAILY 12/24/18 09/03/20 History Atorvastatin [Lipitor] 80 mg PO HS #90 tab 12/27/18 09/03/20 Rx Furosemide [Lasix] 20 mg PO DAILY 08/16/20 09/03/20 History Metoprolol Tartrate [Lopressor] 25 mg PO BID 08/16/20 09/03/20 History lisinopriL [Zestril] 10 mg PO DAILY 08/16/20 09/03/20 History Sertraline HCl [Zoloft] 25 mg PO DAILY 09/03/20 09/03/20 History Allergies Allergy/AdvReac Type Severity Reaction Status Date / Time latex Allergy Rash/Hives Verified 09/03/20 10:42 Physical Exam Vitals: Vital Signs Temp Pulse Pulse Resp BP BP Pulse Ox 09/04/20 13:26 98.1 F 60 19 105/66 98 09/04/20 07:43 98.1 F 57 L 16 118/67 97 09/04/20 02:00 98 F 88 18 115/77 99 09/03/20 20:00 97.9 F 52 L 18 112/70 100 09/03/20 16:41 50 L 16 115/76 98 Intake and Output 09/03/20 09/04/20 09/04/20 22:59 06:59 14:59 Intake Total 0 Balance 0 Intake: Oral 0 Other: Voiding Method Toilet Toilet # Voids 1 2 1 On physical examination, patient appears comfortable in no apparent distress. HEAD: Normocephalic, atraumatic. EYES: No scleral icterus. No conjunctival injection. MOUTH: No lesions, tongue midline. NECK: Trachea midline, no gross abnormalities. CHEST: Clear to auscultation with no wheezing or rhonchi appreciated. HEART: S1-S2 appreciated. ABDOMEN: Soft, obese, nontender to palpation. Bowel sounds are positive. No organomegaly. No guarding or rigidity. EXTREMITIES: No pedal edema. SKIN: No rashes, no jaundice. NEUROLOGIC: Alert and oriented x3. No focal deficits. Results CBC & Chem 7: 09/04/20 09:17 09/04/20 09:17 Labs: Abnormal Lab Results - Last 24 Hours (Table) 09/04/20 09/04/20 09/04/20 Range/Units 09:17 09:17 09:17 RBC 3.02 L (3.80-5.40) m/uL Hgb 7.2 L (11.4-16.0) gm/dL Hct 24.2 L (34.0-46.0) % MCH 23.8 L (25.0-35.0) pg MCHC 29.8 L (31.0-37.0) g/dL RDW 16.9 H (11.5-15.5) % PT 12.4 H (9.0-12.0) sec INR 1.2 H (<1.2) BUN 18 H (7-17) mg/dL Glucose 173 H (74-99) mg/dL Assessment and Plan (1) Microcytic hypochromic anemia Narrative/Plan: 84-year-old female with multiple medical comorbidities including atrial fibrillation on anticoagulation therapy. She presents to the hospital with complaints of lightheadedness and weakness and was found to be anemic with a hemoglobin of 7.6 with microcytic indices. She had a recent admission for similar complaints at which time she underwent EGD and colonoscopy with findings of a small hiatal hernia and scattered sigmoid diverticulosis with no active bleeding or old blood noted during the procedure. Plan was for possible video capsule endoscopy, however currently this is not available at the hospital. She does report a remote history of anemia approximately 5 years ago at which time she states she did undergo capsule endoscopy but is unsure of the results. She denies any gross evidence of bleeding, except for 2 days of some painless bright red blood per rectum described as a small amount of blood in the toilet and on wiping. Unclear etiology, suspicion is for hemorrhoidal bleeding causing the patient's painless rectal bleeding, suspicion is that there is likely a component of small bowel bleeding from angiectasia, hematology services been consult to rule out other underlying cause for anemia. Current Visit: Yes Status: Acute Code(s): D50.9 - IRON DEFICIENCY ANEMIA, UNSPECIFIED SNOMED Code(s): 04199814 (2) Occult blood positive stool Current Visit: Yes Status: Acute Code(s): R19.5 - OTHER FECAL ABNORMALITIES SNOMED Code(s): 93071709 (3) GERD (gastroesophageal reflux disease) Current Visit: No Status: Acute Code(s): K21.9 - GASTRO-ESOPHAGEAL REFLUX DISEASE WITHOUT ESOPHAGITIS SNOMED Code(s): 537870474 Plan: Supportive care Continue to monitor hemoglobin and hematocrit and transfuse as needed Continue to monitor for signs or symptoms of GI bleeding Continue Protonix therapy Okay for diet Hematology service consult it with extensive laboratory evaluation ordered for evaluation of anemia Patient will likely need repeat video capsule endoscopy with timing to be determined based on the availability of the equipment No plan for endoscopic evaluation at this time given recent EGD and colonoscopy on 08/19/2020 Thank you for allowing us to participate in the care of the patient
[2020-09-05 05:49] LABS: % Iron Saturation 2.08 (12.00-45.00); Ferritin 13.2 ng/mL (10.0-291.0); Folate, Serum 17.1 ng/mL
[2020-09-05 05:55] LABS: Anisocytosis Slight; HCT 27.5 % (34.0-46.0); HGB 8.3 gm/dL (11.4-16.0); Hypochromasia Marked; MCH 24.5 pg (25.0-35.0); MCHC 30.3 g/dL (31.0-37.0); Mean Platelet Volume 10.3; Platelet Count 243 k/uL (150-450); Poikilocytosis Marked; RBC 3.39 m/uL (3.80-5.40); RDW 16.7 % (11.5-15.5); WBC 5.6 k/uL (3.8-10.6)
[2020-09-05] MEDS: PANTOPRAZOLE 40 MG TABLET PO SCH (07:54)
[2020-09-05] MEDS: ASPIRIN 81 MG PO SCH (09:48)
[2020-09-05] MEDS: FUROSEMIDE 20 MG TAB PO SCH (09:48)
[2020-09-05] MEDS: METOPROLOL TARTRATE 12.5 MG TAB PO SCH (09:48)
[2020-09-05] MEDS: CHOLECALCIFEROL 25 MCG (1000 IU) TABLET PO SCH (09:48)
[2020-09-05] MEDS: ISOSORBIDE MONONITRATE ER 30 MG TAB.ER.24H PO SCH (09:48)
[2020-09-05] MEDS: SERTRALINE 25 MG TAB PO SCH (09:48)
[2020-09-05] MEDS: SODIUM FERRIC GLUCONAT-SUCROSE 125 MG in SODIUM CHLORIDE 0.9% 100 ML IVPB SCH (09:50)
[2020-09-05] MEDS ORDERED: polyethylene glycoL 3350 17 GM POWD.PACK PO SCH (10:00)
--- NOTE | 2020-09-05 10:00 | P.PN ---
Subjective Progress Note Date: 09/05/20 Principal diagnosis: Rectal bleeding, anemia She was seen and examined sitting up in bed. She states she has not had any further rectal bleeding. She has not had a bowel movement since Thursday. She states she frequently has constipation and uses Metamucil at home daily with pr obiotic yogurt. She also states that she has no nausea, vomiting, or abdominal pain. Hematology has seen patient and done extensive workup. Patient is scheduled to see Dr. Sharma in the office this coming for a small bowel capsule. Objective - Vital Signs Vital signs: Vital Signs Temp 97.7 F 09/05/20 07:46 Pulse 82 09/05/20 07:46 Resp 19 09/05/20 07:46 BP 106/69 09/05/20 07:46 Pulse Ox 97 09/05/20 07:46 Intake & Output 09/04/20 09/05/20 09/05/20 18:59 06:59 18:59 Intake Total 100 1160 Output Total 0 Balance 100 1160 Intake: Oral 100 540 Blood Product 620 Rc As-1 Unit 310 [id number] Output: Stool 0 Other: Voiding Method Toilet Toilet # Voids 1 2 - Exam General appearance: The patient is alert, oriented, appears in no acute distress. HET: Head is normocephalic and atraumatic. Conjunctiva pink. Sclera anicteric. Neck: Supple without lymphadenopathy. Abdomen: Soft, nontender, nondistended with bowel sounds. No guarding or rigidity. Extremities: Normal skin color and turgor. No pedal edema Neurological: No focal deficits. Alert and oriented 3. - Labs CBC & Chem 7: 09/05/20 05:41 09/04/20 09:17 Labs: Abnormal Lab Results - Last 24 Hours (Table) 09/03/20 09/04/20 09/04/20 Range/Units 10:48 09:17 23:16 RBC (3.80-5.40) m/uL Hgb (11.4-16.0) gm/dL Hct (34.0-46.0) % MCH (25.0-35.0) pg MCHC (31.0-37.0) g/dL RDW (11.5-15.5) % Retic Count 2.4 H (0.5-2.0) % Iron 8 L (50-170) ug/dL % Saturation 2.08 L (12.00-45.00) Crossmatch See Detail 09/05/20 Range/Units 05:41 RBC 3.39 L (3.80-5.40) m/uL Hgb 8.3 L (11.4-16.0) gm/dL Hct 27.5 L (34.0-46.0) % MCH 24.5 L (25.0-35.0) pg MCHC 30.3 L (31.0-37.0) g/dL RDW 16.7 H (11.5-15.5) % Retic Count (0.5-2.0) % Iron (50-170) ug/dL % Saturation (12.00-45.00) Crossmatch Assessment and Plan (1) Microcytic hypochromic anemia Narrative/Plan: This is an 84-year-old female with multiple medical comorbidities including atrial fibrillation on anticoagulation therapy. She presented to the hospital with complaint of lightheadedness and weakness and was found to be anemic with a hemoglobin of 7.6 with microcytic indices. She had recent admission for similar complaints in which she underwent an EGD and colonoscopy with findings of a small hiatal hernia and scattered sigmoid diverticulosis with no active bleeding or old blood noted during the procedure. Plan was for possible video capsule endoscopy however currently this is not available at the hospital. She does report a remote history of anemia approximately 5 years ago at which time she states she did undergo capsule endoscopy but is unsure of the results. She denies any gross evidence of bleeding, except for 2 days of some painless bright red blood per rectum described as a small amount of blood in the toilet and on wiping. Unclear etiology, suspicion is for hemorrhoidal bleeding causing the patient's painless rectal bleeding, suspicion is that there is likely component of small bowel bleeding from angiectasia, hematology services has been consulted to rule out other underlying causes of anemia. Current Visit: Yes Status: Acute Code(s): D50.9 - IRON DEFICIENCY ANEMIA, UNSPECIFIED SNOMED Code(s): 78293864 (2) Occult blood positive stool Current Visit: Yes Status: Acute Code(s): R19.5 - OTHER FECAL ABNORMALITIES SNOMED Code(s): 18098822 (3) GERD (gastroesophageal reflux disease) Current Visit: No Status: Acute Code(s): K21.9 - GASTRO-ESOPHAGEAL REFLUX DISEASE WITHOUT ESOPHAGITIS SNOMED Code(s): 153123787 Plan: 1. Supportive care 2. Diet as tolerated 3. Hematology on consult appreciate their recommendations 4. Iron studies ordered and reviewed 5. Continue with IV iron as ordered 6. Patient may be discharged home from a gastroenterology standpoint, patient h as an appointment with Dr. Sharma this coming for a small bowel capsule study. Thank you for this consultation Dr. Lyles I agree with the dictator's note, documented as a scribe by Daniela Bruner.
[2020-09-05 10:51] LABS: Protein, Total 4.9 g/dL (6.2-8.2)
[2020-09-05 13:01] LABS: Free Kappa Lt Chain Qnt, Serum 3.12 mg/dL (0.33-1.94)
[2020-09-05 13:55] VITALS: BP 104/72; PULSE 77; RESP 18; TEMP 97.5
--- NOTE | 2020-09-05 16:02 | P.PN ---
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, Will monitor closely as outpatient and provide Parental iron intermittently to maintain safe and asymptomatic hemoglobin Objective - Vital Signs Vital signs: Vital Signs Temp 97.5 F L 09/05/20 13:54 Pulse 77 09/05/20 13:54 Resp 18 09/05/20 13:54 BP 104/72 09/05/20 13:54 Pulse Ox 100 09/05/20 13:54 Intake & Output 09/04/20 09/05/20 09/05/20 18:59 06:59 18:59 Intake Total 100 1160 Output Total 0 Balance 100 1160 Intake: Oral 100 540 Blood Product 620 Rc As-1 Unit 310 [id number] Output: Stool 0 Other: Voiding Method Toilet Toilet Toilet # Voids 1 2 - Exam - Constitutional General appearance: cooperative, no acute distress - EENT Eyes: dentition normal ENT: hard of hearing, NA/AT, normal oropharynx - Neck Neck: normal ROM - Respiratory Respiratory: bilateral: CTA (Shallow effort) - Cardiovascular Rhythm: regular Heart sounds: normal: S1, S2 - Gastrointestinal General gastrointestinal: soft - Integumentary Integumentary: pale - Neurologic non focal - Musculoskeletal Musculoskeletal: strength equal bilaterally - Psychiatric Psychiatric: A&O x's 3, appropriate affect - Labs CBC & Chem 7: 09/05/20 05:41 09/04/20 09:17 Labs: Abnormal Lab Results - Last 24 Hours (Table) 09/03/20 09/04/20 09/04/20 Range/Units 10:48 09:17 23:16 RBC (3.80-5.40) m/uL Hgb (11.4-16.0) gm/dL Hct (34.0-46.0) % MCH (25.0-35.0) pg MCHC (31.0-37.0) g/dL RDW (11.5-15.5) % Retic Count 2.4 H (0.5-2.0) % Iron 8 L (50-170) ug/dL % Saturation 2.08 L (12.00-45.00) Total Protein (PEP) (6.2-8.2) g/dL IgG (700.0-1600.0) mg/dL Free [place] LC, Quant (0.33-1.94) mg/dL Crossmatch See Detail 09/05/20 09/05/20 09/05/20 Range/Units 05:41 05:41 05:41 RBC 3.39 L (3.80-5.40) m/uL Hgb 8.3 L (11.4-16.0) gm/dL Hct 27.5 L (34.0-46.0) % MCH 24.5 L (25.0-35.0) pg MCHC 30.3 L (31.0-37.0) g/dL RDW 16.7 H (11.5-15.5) % Retic Count (0.5-2.0) % Iron (50-170) ug/dL % Saturation (12.00-45.00) Total Protein (PEP) 4.9 L (6.2-8.2) g/dL IgG 684.0 L (700.0-1600.0) mg/dL Free [place] LC, Quant 3.12 H (0.33-1.94) mg/dL Crossmatch Assessment and Plan (1) Microcytic hypochromic anemia Status: Acute Code(s): D50.9 - IRON DEFICIENCY ANEMIA, UNSPECIFIED SNOMED Code(s): 02783570 Plan: GI Blood loss without evidence of active bleeding via recent endoscopy. Iron deficiency likely etiology, although iron studies may be altered given recent PRBC last admission, will check. The possibility of Small bowel AVM is still most likely etiology, although other underlying causes will also be assessed for. Since patient is on Anticoagulation with xarelto and she is on aspirin given her cardiac history will need to discuss risk versus benefit with and without. In the interim agree with Parental Iron. DISPO PLan: PLanning for home today and will have patient follow-up in 2 weeks to receive parental iron and then closely follow after to intermittently provide infusions to decreased need of transfusions Physician Attest: I have completed the full history and physical and agree with above dictation, dictated as a scribe
[2020-09-06 14:02] LABS: Albumin 2.76 g/dL (3.80-4.90)
--- NOTE | 2020-09-09 21:12 | P.DS ---
Providers Date of admission: 09/03/20 13:37 Expected date of discharge: 09/05/20 Attending physician: Bishop Rodriguez Consults: 09/03/20 13:38 Consult Physician Urgent Consulting Provider: Carlitos Lyles Consult Reason/Comments: anemia, positive occult Do you want consulting provider notified?: Yes 09/04/20 14:49 Consult Physician Routine Consulting Provider: Reggie Balbuena Consult Reason/Comments: anemia Do you want consulting provider notified?: Yes [facility]: Chief Complaint: Dizzy History of presenting complaint: This is a pleasant 84-year-old patient of . Does use a cane at baseline. Chronic stable medical conditions include coronary artery disease with stent over a year ago, GERD, hypertension, hyperlipidemia, osteoarthritis. Atrial fibrillation Patient was just in the hospital from August 16 through August 19. He presented with some red stools. Receive 2 units of blood. EGD showed small hiatal hernia. Colonoscopy showed a scattered sigmoid diverticulosis. Anticoagulation was resumed. -presented with limited with feeling dizzy. For 3 days. Sometimes getting up. Has noticed minimal blood in the stool. No fever no chills. No chest pain or palpitation. He symptomatic anemia was given 1 unit of blood. Seen by Dr. Lassiter from GI. Patient scheduled as an outpatient to see Dr. Chantelle Sharma. Possible some small bowel capsule study. Given IV iron. Also seen by hematology Dr. Piña. We'll follow them also as an outpatient. Today-feeling better. Care was discussed the patient. We'll follow a GI. Hemoglobin up to 8.3. Dose of Lopressor and Zestril was cutback. Because of relatively lower blood pressure. Consultation: Dr. balbuena from hematology Dr. Lassiter from GI Past medical history to include: Coronary artery disease with stent, GERD, hyperlipidemia, hypertension, osteoarthritis, coronary stents 4 carpal tunnel Social history: Does not smoke or drink alcohol. Lives alone. Does use a cane Physical examination: VITAL SIGNS: 97.5, 77, 18, 104/72, 100% room air GENERAL: BMI 32.9, laying in bed, awake. EYES: Pupils equal. Conjunctiva pale HEENT: External appearance of nose and ears normal, oral cavity grossly normal. NECK: JVD not raised; masses not palpable. HEART: First and second heart sounds are normal; no edema. LUNGS: Respiratory rate normal; decreased breath sounds. ABDOMEN: Soft, nontender, liver spleen not palpable, no masses palpable. PSYCH: Alert and oriented x3; mood and affect normal MUSCULAR skeletal: Evidence of OA, INVESTIGATIONS, reviewed in the clinical context: September 05: White count 5.6 hemoglobin 8.3 TSH 1.5 mmHg 0.37 IgG 684 IgA 195 IgM 144 feet, bilateral chain 3.12, free lambda light chain, 2.46 Stool occult blood positive White count 4.7 hemoglobin 7.2 INR 1.2 potassium 4.3 creatinine 0.90 Assessment: -GI bleed. Exact cause unknown. Possible outpatient small bowel capsule study. -Symptomatic anemia. Patient received a unit of blood -Recent acute GI bleed with EGD and colonoscopic unremarkable. -Coronary artery with stent over a year ago -GERD -Hyperlipidemia -Essential hypertension-blood pressure running the lower side. Dose of beta walter lisinopril cutback. -Primary osteoarthritis -Chronic gait dysfunction uses a cane -Persistent atrial fibrillation rate control chronically on xarelto Disposition: Home Patient Condition at Discharge: Stable Plan - Discharge Summary Discharge Rx Participant: No New Discharge Prescriptions: New Metoprolol Tartrate [Lopressor] 12.5 mg PO BID #60 tab Continue Isosorbide Mononitrate ER [Imdur] 30 mg PO DAILY Lansoprazole [Prevacid] 15 mg PO DAILY Nitroglycerin Sl Tabs [Nitrostat] 0.4 mg SUBLINGUAL Q5M PRN PRN Reason: Chest Pain Cholecalciferol (Vitamin D3) [Vitamin D3] 50 mcg PO DAILY Aspirin 81 mg PO DAILY Rivaroxaban [Xarelto] 15 mg PO DAILY Atorvastatin [Lipitor] 80 mg PO HS #90 tab Furosemide [Lasix] 20 mg PO DAILY Sertraline HCl [Zoloft] 25 mg PO DAILY Discontinued lisinopriL [Zestril] 10 mg PO DAILY Metoprolol Tartrate [Lopressor] 25 mg PO BID Discharge Medication List Aspirin 81 mg PO DAILY 12/24/18 [History] Cholecalciferol (Vitamin D3) [Vitamin D3] 50 mcg PO DAILY 12/24/18 [History] Isosorbide Mononitrate ER [Imdur] 30 mg PO DAILY 12/24/18 [History] Lansoprazole [Prevacid] 15 mg PO DAILY 12/24/18 [History] Nitroglycerin Sl Tabs [Nitrostat] 0.4 mg SUBLINGUAL Q5M PRN 12/24/18 [History] Rivaroxaban [Xarelto] 15 mg PO DAILY 12/24/18 [History] Atorvastatin [Lipitor] 80 mg PO HS #90 tab 12/27/18 [Rx] Furosemide [Lasix] 20 mg PO DAILY 08/16/20 [History] Sertraline HCl [Zoloft] 25 mg PO DAILY 09/03/20 [History] Metoprolol Tartrate [Lopressor] 12.5 mg PO BID #60 tab 09/05/20 [Rx] Follow up Appointment(s)/Referral(s): Miko Bocanegra MD [Primary Care Provider] - 1-2 days Claudette Sharma MD [STAFF PHYSICIAN] - 1 Week Danika Ayala MD [STAFF PHYSICIAN] - 1 Week Patient Instructions/Handouts: Iron Deficiency Anemia (ED)
== END 2020-09-05 14:59 | disposition home or self-care (01) ==
LOC: EC 09:45 → 6NMEDSUR 13:37
PROVIDERS: ADMIT Hospitalist; ATTEND Hospitalist
DX: R42 Dizziness and giddiness (principal); D50.0 Iron deficiency anemia secondary to blood loss (chronic); K92.1 Melena; E78.5 Hyperlipidemia, unspecified; E86.0 Dehydration; F32.9 Major depressive disorder, single episode, unspecified; I10 Essential (primary) hypertension; I25.10 Atherosclerotic heart disease of native coronary artery without angina pectoris; I48.19 Other persistent atrial fibrillation; K21.9 Gastro-esophageal reflux disease without esophagitis; K44.9 Diaphragmatic hernia without obstruction or gangrene; K55.20 Angiodysplasia of colon without hemorrhage; K57.30 Diverticulosis of large intestine without perforation or abscess without bleeding; M19.91 Primary osteoarthritis, unspecified site; Z79.01 Long term (current) use of anticoagulants; Z79.82 Long term (current) use of aspirin; Z79.899 Other long term (current) drug therapy; Z80.0 Family history of malignant neoplasm of digestive organs; Z82.49 Family history of ischemic heart disease and other diseases of the circulatory system; Z90.710 Acquired absence of both cervix and uterus; Z91.81 History of falling; Z95.5 Presence of coronary angioplasty implant and graft
CPT/HCPCS: 96365; 96366; 96361; 99285; 36415; 93005; 86900; 86901; 83921; 80053; 80048; 84443; 82607; 82728; 82746; 83540 ×2; 83550; 83605; 83615; 84484; 85025; 85027 ×2; 85610 ×2; 85045; 86850; 86920; 82272; 81001; 82784 ×3; 84165; 86334; 83883; G0378 ×3; P9016; J2916 ×2; 36430

== ENCOUNTER → 2020-09-20 | Day surgery (SDC) | payer MEDICARE ==
[2020-09-19 09:21] VITALS: BMI 32.9
[~2020-09-20] MED LIST changes: -ALPRAZolam 0.25 MG TAB PO PRN; -ALPRAZolam 0.5 MG TAB PO PRN; -ASPIRIN 325 MG TAB PO ONE; -NITROGLYCERIN SL TABS 0.4 MG TAB SUBLINGUAL PRN; +SIMETHICONE 40 MG/0.6 ML DROPS 2,000 MG/30 ML BOTTLE PO ONE
[2020-09-20 06:52] VITALS: BP 140/66; PULSE 70; RESP 16; TEMP 96.9
== END ==
LOC: ORWHC2ENDO 06:25
PROVIDERS: ATTEND Internal Medicine Gastroenterology
DX: D50.9 Iron deficiency anemia, unspecified (principal)
CPT/HCPCS: 91110

== ENCOUNTER 2020-09-30 13:05 | Emergency (ER) | payer MEDICARE ==
[2020-09-30 13:11] VITALS: RESP 18
--- NOTE | 2020-09-30 13:37 | ED ---
General Adult HPI - General Chief complaint: Dizziness Stated complaint: SOB, dizziness Source: patient Mode of arrival: ambulatory Limitations: no limitations - History of Present Illness Initial comments: Tori is a very pleasant 84-year-old female who returns to the emergency de partment today via private vehicle with concern that she is once again anemic. Patient has had recurrent admissions for this she is currently following outpatient with gastroenterology and hematology due to recurrent anemias which are suspect to be due to AVM bleeding in the GI tract. She reports that she receive blood during her previous admission and had been doing well for approximately 2 and half weeks but over the past few days has become fatigued reports short of breath with ambulation. Denies any chest pain or palpitations. She reports these symptoms are identical to previous episodes of symptomatic anemia. - Related Data Home Medications Medication Instructions Recorded Confirmed Aspirin 81 mg PO DAILY 12/24/18 09/30/20 Cholecalciferol (Vitamin D3) 50 mcg PO DAILY 12/24/18 09/30/20 [Vitamin D3] Isosorbide Mononitrate ER [Imdur] 30 mg PO DAILY 12/24/18 09/30/20 Lansoprazole [Prevacid] 15 mg PO DAILY 12/24/18 09/30/20 Nitroglycerin Sl Tabs [Nitrostat] 0.4 mg SUBLINGUAL Q5M PRN 12/24/18 09/30/20 Rivaroxaban [Xarelto] 15 mg PO DAILY 12/24/18 09/30/20 Furosemide [Lasix] 20 mg PO DAILY 08/16/20 09/30/20 Sertraline HCl [Zoloft] 25 mg PO DAILY 09/03/20 09/30/20 Previous Rx's Medication Instructions Recorded Atorvastatin [Lipitor] 80 mg PO HS #90 tab 12/27/18 Metoprolol Tartrate [Lopressor] 12.5 mg PO BID #60 tab 09/05/20 Allergies Allergy/AdvReac Type Severity Reaction Status Date / Time latex Allergy Rash/Hives Verified 09/30/20 14:11 Review of Systems ROS Statement: Those systems with pertinent positive or pertinent negative responses have been documented in the HPI. ROS Other: All systems not noted in ROS Statement are negative. Past Medical History Past Medical History: Coronary Artery Disease (CAD), GERD/Reflux, Hyperlipide farideh, Hypertension, Osteoarthritis (OA) Additional Past Medical History / Comment(s): +OCCULT, ANEMIA. hiatal hernia History of Any Multi-Drug Resistant Organisms: None Reported Past Surgical History: Heart Catheterization With Stent, Hysterectomy, Orthopedic Surgery Additional Past Surgical History / Comment(s): vein stripping,heart stents x4,lt foot,mattie car tunnel. right leg and hip surgery, COLONOSCOPY/EGD Past Anesthesia/Blood Transfusion Reactions: No Reported Reaction Additional Past Anesthesia/Blood Transfusion Reaction / Comment(s): no hx blood transfusion Date of Last Stent Placement:: 2018 Past Psychological History: Depression Smoking Status: Never smoker - Past Family History Mother Family Medical History: Cancer Additional Family Medical History / Comment(s): colon Father Family Medical History: Coronary Artery Disease (CAD), Myocardial Infarction (NV) Additional Family Medical History / Comment(s): Father of a NV at the age of 61 yrs. Brother(s) Family Medical History: Cancer, Myocardial Infarction (NV) Additional Family Medical History / Comment(s): colon cancer General Exam - General Exam Comments Initial Comments: Physical Exam GENERAL: Patient is well-developed and well-nourished. Patient is nontoxic and well-hydrated and is in no distress. HENT: Normocephalic, Atraumatic. EYES: PERRL, EOMI PULMONARY: Unlabored respirations. CARDIOVASCULAR: RRR Warm and well perfused extremities ABDOMEN: Non-distended SKIN: No rashes or bruising : Deferred NEUROLOGIC: Alert and oriented Normal speech Normal gait MUSCULOSKELETAL: Moving all extremities with no apparent injury PSYCHIATRIC: No SI/HI Limitations: no limitations Course Vital Signs 09/30/20 09/30/20 09/30/20 13:07 15:17 15:23 Temperature 97.7 F 98.8 F 97.6 F Pulse Rate 57 L 51 L 56 L Respiratory 18 18 18 Rate Blood Pressure 116/55 109/58 119/63 O2 Sat by Pulse 98 Oximetry 09/30/20 09/30/20 09/30/20 15:33 16:03 17:03 Temperature 97.4 F L 98.2 F 98.2 F Pulse Rate 54 L 56 L 56 L Respiratory 18 18 18 Rate Blood Pressure 131/68 142/62 147/68 O2 Sat by Pulse Oximetry 09/30/20 09/30/20 09/30/20 18:03 18:22 18:34 Temperature 98.2 F 98.2 F 98.2 F Pulse Rate 57 L 53 L 53 L Respiratory 18 18 18 Rate Blood Pressure 144/70 153/74 153/74 O2 Sat by Pulse 99 98 98 Oximetry EKG Findings - EKG Comments: EKG Findings:: EKG obtained due to lightheadedness EKG obtained at 1323 rate is 62 rhythm is A. fib, no ST elevations or depressions or evidence of ischemia or infarction Medical Decision Making - Medical Decision Making Patient was seen and evaluated upon arrival to the emergency department patient has a history of symptomatically anemia reports she's feeling lightheaded and tired like she usually does when she is anemic Labs were obtained hemoglobin 8 she received one unit of packed red blood cells and was discharged home to continue her outpatient treatment and workup for chronic anemia - Lab Data Result diagrams: 09/30/20 13:48 09/30/20 13:48 Lab Results 09/30/20 09/30/20 09/30/20 Range/Units 13:47 13:48 13:48 WBC 5.0 (3.8-10.6) k/uL RBC 3.54 L (3.80-5.40) m/uL Hgb 8.0 L (11.4-16.0) gm/dL Hct 27.4 L (34.0-46.0) % MCV 77.6 L (80.0-100.0) fL MCH 22.7 L (25.0-35.0) pg MCHC 29.2 L (31.0-37.0) g/dL RDW 19.2 H (11.5-15.5) % Plt Count 307 (150-450) k/uL MPV 8.3 Neutrophils % 66 % Lymphocytes % 23 % Monocytes % 6 % Eosinophils % 3 % Basophils % 1 % Neutrophils # 3.3 (1.3-7.7) k/uL Lymphocytes # 1.2 (1.0-4.8) k/uL Monocytes # 0.3 (0-1.0) k/uL Eosinophils # 0.1 (0-0.7) k/uL Basophils # 0.0 (0-0.2) k/uL Hypochromasia Marked Poikilocytosis Moderate Anisocytosis Slight Microcytosis Slight Sodium 139 (137-145) mmol/L Potassium 4.4 (3.5-5.1) mmol/L Chloride 104 (98-107) mmol/L Carbon Dioxide 24 (22-30) mmol/L Anion Gap 11 mmol/L BUN 22 H (7-17) mg/dL Creatinine 1.01 (0.52-1.04) mg/dL Est GFR (CKD-EPI)AfAm 58 (>60 ml/min/1.73 sqM) Est GFR (CKD-EPI)NonAf 51 (>60 ml/min/1.73 sqM) Glucose 155 H (74-99) mg/dL Calcium 9.2 (8.4-10.2) mg/dL Total Bilirubin 0.6 (0.2-1.3) mg/dL AST 21 (14-36) U/L ALT 13 (4-34) U/L Alkaline Phosphatase 76 (38-126) U/L Total Protein 6.4 (6.3-8.2) g/dL Albumin 3.6 (3.5-5.0) g/dL Blood Type O Positive Blood Type Recheck O Pos Bld Type Recheck Status No Antibody Screen NEGATIVE Crossmatch See Detail Spec Expiration Date 10/03/20202346 Disposition Clinical Impression: Symptomatic anemia Disposition: HOME SELF-CARE Condition: Stable Instructions (If sedation given, give patient instructions): Blood Transfusion (DC) Is patient prescribed a controlled substance at d/c from ED?: No Referrals: Miko Bocanegra MD [Primary Care Provider] - 1-2 days
[2020-09-30 13:58] LABS: Anisocytosis Slight; Basophils % (A) 1 %; Eosinophils # (A) 0.1 k/uL (0-0.7); Eosinophils % (A) 3 %; HCT 27.4 % (34.0-46.0); Hypochromasia Marked; Lymphocytes # (A) 1.2 k/uL (1.0-4.8); Lymphocytes % (A) 23 %; MCH 22.7 pg (25.0-35.0); MCHC 29.2 g/dL (31.0-37.0); MCV 77.6 fL (80.0-100.0); Mean Platelet Volume 8.3; Microcytosis Slight; Monocytes # (A) 0.3 k/uL (0-1.0); Monocytes % (A) 6 %; Neutrophils # (A) 3.3 k/uL (1.3-7.7); Neutrophils % (A) 66 %; Platelet Count 307 k/uL (150-450); Poikilocytosis Moderate; RBC 3.54 m/uL (3.80-5.40); RDW 19.2 % (11.5-15.5)
[2020-09-30 14:07] LABS: Albumin 3.6 g/dL (3.5-5.0); Calcium 9.2 mg/dL (8.4-10.2); Potassium 4.4 mmol/L (3.5-5.1); Total Bilirubin 0.6 mg/dL (0.2-1.3); Total Protein 6.4 g/dL (6.3-8.2)
[2020-09-30 16:08] VITALS: TEMP 98.2
[2020-09-30 18:24] VITALS: BP 153/74; PULSE 53
== END 2020-09-30 18:40 | disposition home or self-care (01) ==
LOC: EC 13:05
DX: D64.9 Anemia, unspecified (principal); I10 Essential (primary) hypertension; M19.90 Unspecified osteoarthritis, unspecified site; K21.9 Gastro-esophageal reflux disease without esophagitis; F32.9 Major depressive disorder, single episode, unspecified; Z79.82 Long term (current) use of aspirin; Z79.899 Other long term (current) drug therapy; Z79.01 Long term (current) use of anticoagulants; Z91.040 Latex allergy status
CPT/HCPCS: 36415; 86900; 86901; 80053; 85025; 86850; 86920; 99284; P9016

== ENCOUNTER 2020-11-09 12:47 | Emergency (ER) | payer MEDICARE ==
--- NOTE | 2020-11-09 15:20 | XR ---
EXAMINATION TYPE: XR chest 2V DATE OF EXAM: 11/09/2020 COMPARISON: Chest x-ray dated 08/16/2020 HISTORY: Dyspnea, shortness of breath, anemia TECHNIQUE: Frontal and lateral views of the chest are obtained. FINDINGS: There is hyperinflation suggesting underlying COPD. Mitral annular calcification is presen t. The aorta is dense and ectatic, tortuous similar to prior. There is no evident pneumothorax or ple ural effusion. Cardiomediastinal silhouette shows borderline enlarged heart as on prior. Coronary art jen calcifications are present there are overlying artifacts. No evident airspace disease. IMPRESSION: No acute cardiopulmonary process. Coronary artery disease, correlate for COPD. Possible aortic ectasia and additional findings above.
--- NOTE | 2020-11-09 17:31 | ED ---
General Adult HPI - General Chief complaint: Shortness of Breath Stated complaint: SOB, Anemia Time Seen by Provider: 11/09/20 17:22 Source: patient, family, RN notes reviewed Mode of arrival: wheelchair Limitations: no limitations - History of Present Illness Initial comments: Patient is an 84 she'll female that presents to the emergency department com plaining of generalized weakness and fatigue. Daughter notes that patient does have history of chronic anemia and does get transfusions monthly per her doctor's orders. Daughter stated that told patient to come emergency room any time she starts to feel more weakness/fatigue. Patient was well-appearing while sitting up in bed during the exam and interview. She was in no apparent pain or distress. She is somewhat hard of hearing so daughter answer most questions. Daughter did state that patient doesn't eat very much iron and most of it comes from spinach. Daughter does note that she does eat a well-rounded diet otherwise. Patient denied any chest pain shortness of breath headache nausea vomiting diarrhea constipation fever fatigue chills. - Related Data Home Medications Medication Instructions Recorded Confirmed Aspirin 81 mg PO DAILY 12/24/18 11/09/20 Cholecalciferol (Vitamin D3) 50 mcg PO DAILY 12/24/18 11/09/20 [Vitamin D3] Isosorbide Mononitrate ER [Imdur] 30 mg PO DAILY 12/24/18 11/09/20 Lansoprazole [Prevacid] 15 mg PO DAILY 12/24/18 11/09/20 Nitroglycerin Sl Tabs [Nitrostat] 0.4 mg SUBLINGUAL Q5M PRN 12/24/18 11/09/20 Rivaroxaban [Xarelto] 15 mg PO DAILY 12/24/18 11/09/20 Furosemide [Lasix] 20 mg PO DAILY 08/16/20 11/09/20 Sertraline HCl [Zoloft] 25 mg PO DAILY 09/03/20 11/09/20 Docusate [Colace] 100 mg PO DAILY PRN 11/09/20 11/09/20 Lisinopril [Prinivil] 10 mg PO DAILY 11/09/20 11/09/20 Metoprolol Tartrate [Lopressor] 12.5 mg PO BID 11/09/20 11/09/20 Previous Rx's Medication Instructions Recorded Atorvastatin [Lipitor] 80 mg PO HS #90 tab 12/27/18 Allergies Allergy/AdvReac Type Severity Reaction Status Date / Time latex Allergy Rash/Hives Verified 11/09/20 18:24 Review of Systems ROS Statement: Those systems with pertinent positive or pertinent negative responses have been documented in the HPI. ROS Other: All systems not noted in ROS Statement are negative. Past Medical History Past Medical History: Coronary Artery Disease (CAD), GERD/Reflux, Hyperlipidemia, Hypertension, Osteoarthritis (OA) Additional Past Medical History / Comment(s): +OCCULT, ANEMIA. hiatal hernia History of Any Multi-Drug Resistant Organisms: None Reported Past Surgical History: Heart Catheterization With Stent, Hysterectomy, Orthopedic Surgery Additional Past Surgical History / Comment(s): vein stripping,heart stents x4,lt foot,mattie car tunnel. right leg and hip surgery, COLONOSCOPY/EGD Past Anesthesia/Blood Transfusion Reactions: No Reported Reaction Additional Past Anesthesia/Blood Transfusion Reaction / Comment(s): no hx blood transfusion Date of Last Stent Placement:: 2018 Past Psychological History: Depression Smoking Status: Never smoker - Past Family History Mother Family Medical History: Cancer Additional Family Medical History / Comment(s): colon Father Family Medical History: Coronary Artery Disease (CAD), Myocardial Infarction ([place]) Additional Family Medical History / Comment(s): Father of a [place] at the age of 61 yrs. Brother(s) Family Medical History: Cancer, Myocardial Infarction ([place]) Additional Family Medical History / Comment(s): colon cancer General Exam Limitations: no limitations General appearance: alert, in no apparent distress Head exam: Present: atraumatic, normocephalic, normal inspection Eye exam: Present: normal appearance, PERRL, EOMI. Absent: scleral icterus, conjunctival injection, periorbital swelling Neck exam: Present: normal inspection. Absent: tenderness, meningismus, lymphadenopathy Respiratory exam: Present: normal lung sounds bilaterally. Absent: respiratory distress, wheezes, rales, rhonchi, stridor Cardiovascular Exam: Present: regular rate, normal rhythm, normal heart sounds. Absent: systolic murmur, diastolic murmur, rubs, gallop, clicks GI/Abdominal exam: Present: soft, normal bowel sounds. Absent: distended, tenderness, guarding, rebound, rigid Extremities exam: Present: normal inspection, full ROM, normal capillary refill. Absent: tenderness, pedal edema, joint swelling, calf tenderness Back exam: Present: normal inspection Neurological exam: Present: alert, oriented X3, CN II-XII intact Psychiatric exam: Present: normal affect, normal mood Skin exam: Present: warm, dry, intact, normal color. Absent: rash Course Vital Signs 11/09/20 11/09/20 11/09/20 13:24 17:28 18:00 Temperature 97.9 F Pulse Rate 56 L Respiratory 18 18 20 Rate Blood Pressure 112/55 O2 Sat by Pulse 95 Oximetry EKG Findings - EKG Comments: EKG Findings:: Ventricular rate 53 bpm, QRS duration 78 ms, QT/QTc 464/435 ms, PRT axes*/69/29. Atrial fibrillation with slow ventricular response, abnormal ECG. Medical Decision Making - Medical Decision Making 84-year-old female with generalized weakness and history of chronic anemia with monthly transfusions per doctor's orders. Labs, chest x-ray, EKG ordered. Labs unremarkable. Chest x-ray shows some mild ground glass opacities. Case discussed with Dr. Hernandez, patient discharged home with conservative management. - Lab Data Result diagrams: 11/09/20 18:00 11/09/20 18:00 Lab Results 11/09/20 11/09/20 11/09/20 Range/Units 18:00 18:00 18:00 WBC 6.3 (3.8-10.6) k/uL RBC 3.85 (3.80-5.40) m/uL Hgb 7.8 L (11.4-16.0) gm/dL Hct 26.5 L (34.0-46.0) % MCV 68.7 L D (80.0-100.0) fL MCH 20.4 L (25.0-35.0) pg MCHC 29.7 L (31.0-37.0) g/dL RDW 20.1 H (11.5-15.5) % Plt Count 317 (150-450) k/uL MPV 7.7 Neutrophils % 58 % Lymphocytes % 24 % Monocytes % 9 % Eosinophils % 5 % Basophils % 1 % Neutrophils # 3.7 (1.3-7.7) k/uL Lymphocytes # 1.5 (1.0-4.8) k/uL Monocytes # 0.5 (0-1.0) k/uL Eosinophils # 0.3 (0-0.7) k/uL Basophils # 0.0 (0-0.2) k/uL Hypochromasia Marked Poikilocytosis Marked Anisocytosis Moderate Microcytosis Marked Sodium 136 L (137-145) mmol/L Potassium 4.8 (3.5-5.1) mmol/L Chloride 105 (98-107) mmol/L Carbon Dioxide 24 (22-30) mmol/L Anion Gap 7 mmol/L BUN 21 H (7-17) mg/dL Creatinine 0.92 (0.52-1.04) mg/dL Est GFR (CKD-EPI)AfAm 65 (>60 ml/min/1.73 sqM) Est GFR (CKD-EPI)NonAf 57 (>60 ml/min/1.73 sqM) Glucose 106 H (74-99) mg/dL Calcium 9.0 (8.4-10.2) mg/dL Total Bilirubin 0.8 (0.2-1.3) mg/dL AST 28 (14-36) U/L ALT 12 (4-34) U/L Alkaline Phosphatase 106 (38-126) U/L Total Protein 6.5 (6.3-8.2) g/dL Albumin 3.8 (3.5-5.0) g/dL Blood Type O Positive Blood Type Recheck O Pos Bld Type Recheck Status No Antibody Screen NEGATIVE Spec Expiration Date 11/12/20202299 - EKG Data -: EKG Interpreted by Va Rate: normal EKG Comments: Ventricular rate 53 bpm, QRS duration 78 ms, QT/QTc 464/435 ms, PRT axes*/69/29. Atrial fibrillation with slow ventricular response, abnormal ECG. - Radiology Data Radiology results: report reviewed, image reviewed Chest x-ray: No acute cardiopulmonary process. Coronary artery disease, correlate for COPD possible aortic ectasia and additional findings above. Disposition Clinical Impression: Anemia, Upper respiratory tract infection Disposition: HOME SELF-CARE Condition: Stable Instructions (If sedation given, give patient instructions): Iron Deficiency Anemia (ED) Additional Instructions: Please return to the Emergency Department if symptoms worsen or any other concerns. No need for transfusion at this point hemoglobin levels are within normal limits. Follow-up primary care in 3-5 days. Can take [id number] anti-inflammatories for any symptomatic control of upper respiratory tract infection. Is patient prescribed a controlled substance at d/c from ED?: No Referrals: Miko Bocanegra MD [Primary Care Provider] - 1-2 days Time of Disposition: 18:50
[2020-11-09 18:07] LABS: Anisocytosis Moderate; Basophils % (A) 1 %; Eosinophils # (A) 0.3 k/uL (0-0.7); Eosinophils % (A) 5 %; HCT 26.5 % (34.0-46.0); HGB 7.8 gm/dL (11.4-16.0); Hypochromasia Marked; Lymphocytes # (A) 1.5 k/uL (1.0-4.8); Lymphocytes % (A) 24 %; MCH 20.4 pg (25.0-35.0); MCHC 29.7 g/dL (31.0-37.0); Mean Platelet Volume 7.7; Microcytosis Marked; Monocytes # (A) 0.5 k/uL (0-1.0); Monocytes % (A) 9 %; Neutrophils # (A) 3.7 k/uL (1.3-7.7); Neutrophils % (A) 58 %; Platelet Count 317 k/uL (150-450); Poikilocytosis Marked; RBC 3.85 m/uL (3.80-5.40); RDW 20.1 % (11.5-15.5); WBC 6.3 k/uL (3.8-10.6)
[2020-11-09 18:12] LABS: MCV 68.7 fL (80.0-100.0)
[2020-11-09 18:15] LABS: Albumin 3.8 g/dL (3.5-5.0); Potassium 4.8 mmol/L (3.5-5.1); Total Bilirubin 0.8 mg/dL (0.2-1.3); Total Protein 6.5 g/dL (6.3-8.2)
[2020-11-09 19:54] VITALS: BP 139/67; PULSE 75; RESP 18; TEMP 97.8
== END 2020-11-09 19:45 | disposition home or self-care (01) ==
LOC: EC 12:47
DX: D64.9 Anemia, unspecified (principal); J06.9 Acute upper respiratory infection, unspecified; I25.10 Atherosclerotic heart disease of native coronary artery without angina pectoris; K21.9 Gastro-esophageal reflux disease without esophagitis; E78.5 Hyperlipidemia, unspecified; I10 Essential (primary) hypertension; M19.90 Unspecified osteoarthritis, unspecified site; F32.9 Major depressive disorder, single episode, unspecified; Z79.82 Long term (current) use of aspirin; Z79.899 Other long term (current) drug therapy
CPT/HCPCS: 36415; 71046; 80053; 85025; 86850; 86900; 86901; 93005; 99285

== ENCOUNTER 2020-12-10 09:24 | Emergency (ER) | payer MEDICARE ==
[2020-12-10 09:32] VITALS: RESP 18
--- NOTE | 2020-12-10 10:02 | ED ---
General Adult HPI - General Chief complaint: Dizziness Stated complaint: Dizziness, SOB Time Seen by Provider: 12/10/20 09:35 Source: patient, RN notes reviewed, old records reviewed Mode of arrival: ambulatory Limitations: no limitations - History of Present Illness Initial comments: 84-year-old female with chronic anemia presenting for low hemoglobin on outpatient lab testing. She was noted to have a hemoglobin 6.8. She has had some exertional dyspnea and easy fatigue. She is somewhat lightheaded. She denies focal numbness or weakness. Denies headache. Denies chest pain. She has a history of atrial fibrillation and is on Xarelto. She has had a comprehensive workup for gastrointestinal hemorrhage as the cause of her anemia and this was ruled out. She is here for blood transfusion. - Related Data Home Medications Medication Instructions Recorded Confirmed Aspirin 81 mg PO DAILY 12/24/18 11/09/20 Cholecalciferol (Vitamin D3) 50 mcg PO DAILY 12/24/18 11/09/20 [Vitamin D3] Isosorbide Mononitrate ER [Imdur] 30 mg PO DAILY 12/24/18 11/09/20 Lansoprazole [Prevacid] 15 mg PO DAILY 12/24/18 11/09/20 Nitroglycerin Sl Tabs [Nitrostat] 0.4 mg SUBLINGUAL Q5M PRN 12/24/18 11/09/20 Rivaroxaban [Xarelto] 15 mg PO DAILY 12/24/18 11/09/20 Furosemide [Lasix] 20 mg PO DAILY 08/16/20 11/09/20 Sertraline HCl [Zoloft] 25 mg PO DAILY 09/03/20 11/09/20 Docusate [Colace] 100 mg PO DAILY PRN 11/09/20 11/09/20 Lisinopril [Prinivil] 10 mg PO DAILY 11/09/20 11/09/20 Metoprolol Tartrate [Lopressor] 12.5 mg PO BID 11/09/20 11/09/20 Previous Rx's Medication Instructions Recorded Atorvastatin [Lipitor] 80 mg PO HS #90 tab 12/27/18 Allergies Allergy/AdvReac Type Severity Reaction Status Date / Time latex Allergy Rash/Hives Verified 12/10/20 09:27 Review of Systems ROS Statement: Those systems with pertinent positive or pertinent negative responses have been documented in the HPI. ROS Other: All systems not noted in ROS Statement are negative. Past Medical History Past Medical History: Coronary Artery Disease (CAD), GERD/Reflux, Hyperlipidemia, Hypertension, Osteoarthritis (OA) Additional Past Medical History / Comment(s): +OCCULT, ANEMIA. hiatal hernia History of Any Multi-Drug Resistant Organisms: None Reported Past Surgical History: Heart Catheterization With Stent, Hysterectomy, Orthopedic Surgery Additional Past Surgical History / Comment(s): vein stripping,heart stents x4,lt foot,mattie car tunnel. right leg and hip surgery, COLONOSCOPY/EGD Past Anesthesia/Blood Transfusion Reactions: No Reported Reaction Additional Past Anesthesia/Blood Transfusion Reaction / Comment(s): no hx blood transfusion Date of Last Stent Placement:: 2018 Past Psychological History: Depression Smoking Status: Never smoker Past Alcohol Use History: None Reported Past Drug Use History: None Reported - Past Family History Mother Family Medical History: Cancer Additional Family Medical History / Comment(s): colon Father Family Medical History: Coronary Artery Disease (CAD), Myocardial Infarction ([place]) Additional Family Medical History / Comment(s): Father of a [place] at the age of 61 yrs. Brother(s) Family Medical History: Cancer, Myocardial Infarction ([place]) Additional Family Medical History / Comment(s): colon cancer General Exam Limitations: no limitations General appearance: alert, in no apparent distress Head exam: Present: atraumatic, normocephalic Eye exam: Present: normal appearance, PERRL ENT exam: Present: normal exam Neck exam: Present: normal inspection. Absent: tenderness, meningismus Respiratory exam: Present: normal lung sounds bilaterally. Absent: respiratory distress, wheezes Cardiovascular Exam: Present: bradycardia, irregular rhythm GI/Abdominal exam: Present: soft. Absent: distended, tenderness, guarding, rebound Extremities exam: Present: normal inspection, normal capillary refill. Absent: pedal edema Neurological exam: Present: alert, oriented X3, CN II-XII intact. Absent: motor sensory deficit Psychiatric exam: Present: normal affect, normal mood Skin exam: Present: pallor Course Vital Signs 12/10/20 09:27 Temperature 97.8 F Pulse Rate 57 L Respiratory 18 Rate Blood Pressure 103/48 O2 Sat by Pulse 94 L Oximetry EKG Findings - EKG Comments: EKG Findings:: EKG: Atrial fibrillation with slow ventricular response, rightwa rd axis, low voltage, rate 52, QRS duration 72, QTC [address] segment elevation. Medical Decision Making - Medical Decision Making 84-year-old female history of anemia presenting with abnormal hemoglobin on outpatient lab testing. Patient is symptomatic. Repeat hemoglobin today is 7.7. She is transfused one unit. Family has follow-up with hematology and is requesting transfusion and discharge. They will monitor symptoms at home and return with any new concerns. - Lab Data Result diagrams: 12/10/20 09:59 12/10/20 09:59 Lab Results 12/10/20 12/10/20 12/10/20 Range/Units 09:59 09:59 09:59 WBC 4.4 (3.8-10.6) k/uL RBC 4.23 (3.80-5.40) m/uL Hgb 7.7 L (11.4-16.0) gm/dL Hct 27.6 L (34.0-46.0) % MCV 65.2 L (80.0-100.0) fL MCH 18.3 L (25.0-35.0) pg MCHC 28.0 L (31.0-37.0) g/dL RDW 19.4 H (11.5-15.5) % Plt Count 273 (150-450) k/uL MPV 8.8 Neutrophils % 66 % Lymphocytes % 18 % Monocytes % 10 % Eosinophils % 4 % Basophils % 1 % Neutrophils # 2.9 (1.3-7.7) k/uL Lymphocytes # 0.8 L (1.0-4.8) k/uL Monocytes # 0.4 (0-1.0) k/uL Eosinophils # 0.2 (0-0.7) k/uL Basophils # 0.0 (0-0.2) k/uL Hypochromasia Marked Poikilocytosis Moderate Anisocytosis Slight Microcytosis Marked PT 14.1 H (9.0-12.0) sec INR 1.4 H (<1.2) APTT 28.9 (22.0-30.0) sec Sodium 140 (137-145) mmol/L Potassium 4.0 (3.5-5.1) mmol/L Chloride 107 (98-107) mmol/L Carbon Dioxide 27 (22-30) mmol/L Anion Gap 6 mmol/L BUN 28 H (7-17) mg/dL Creatinine 1.15 H (0.52-1.04) mg/dL Est GFR (CKD-EPI)AfAm 50 (>60 ml/min/1.73 sqM) Est GFR (CKD-EPI)NonAf 43 (>60 ml/min/1.73 sqM) Glucose 131 H (74-99) mg/dL Plasma Lactic Acid Los (0.7-2.0) mmol/L Calcium 9.2 (8.4-10.2) mg/dL Magnesium 2.0 (1.6-2.3) mg/dL Total Bilirubin 0.6 (0.2-1.3) mg/dL AST 19 (14-36) U/L ALT 10 (4-34) U/L Alkaline Phosphatase 93 (38-126) U/L Total Protein 6.4 (6.3-8.2) g/dL Albumin 3.6 (3.5-5.0) g/dL 12/10/20 Range/Units 09:59 WBC (3.8-10.6) k/uL RBC (3.80-5.40) m/uL Hgb (11.4-16.0) gm/dL Hct (34.0-46.0) % MCV (80.0-100.0) fL MCH (25.0-35.0) pg MCHC (31.0-37.0) g/dL RDW (11.5-15.5) % Plt Count (150-450) k/uL MPV Neutrophils % % Lymphocytes % % Monocytes % % Eosinophils % % Basophils % % Neutrophils # (1.3-7.7) k/uL Lymphocytes # (1.0-4.8) k/uL Monocytes # (0-1.0) k/uL Eosinophils # (0-0.7) k/uL Basophils # (0-0.2) k/uL Hypochromasia Poikilocytosis Anisocytosis Microcytosis PT (9.0-12.0) sec INR (<1.2) APTT (22.0-30.0) sec Sodium (137-145) mmol/L Potassium (3.5-5.1) mmol/L Chloride (98-107) mmol/L Carbon Dioxide (22-30) mmol/L Anion Gap mmol/L BUN (7-17) mg/dL Creatinine (0.52-1.04) mg/dL Est GFR (CKD-EPI)AfAm (>60 ml/min/1.73 sqM) Est GFR (CKD-EPI)NonAf (>60 ml/min/1.73 sqM) Glucose (74-99) mg/dL Plasma Lactic Acid Los 1.9 (0.7-2.0) mmol/L Calcium (8.4-10.2) mg/dL Magnesium (1.6-2.3) mg/dL Total Bilirubin (0.2-1.3) mg/dL AST (14-36) U/L ALT (4-34) U/L Alkaline Phosphatase (38-126) U/L Total Protein (6.3-8.2) g/dL Albumin (3.5-5.0) g/dL Disposition Clinical Impression: Anemia Disposition: HOME SELF-CARE Condition: Fair Instructions (If sedation given, give patient instructions): Anemia (ED) Is patient prescribed a controlled substance at d/c from ED?: No Referrals: Miko Bocanegra MD [Primary Care Provider] - 1-2 days Reggie Balbuena MD [STAFF PHYSICIAN] - 1-2 days
[2020-12-10 10:09] LABS: Anisocytosis Slight; Basophils % (A) 1 %; Eosinophils # (A) 0.2 k/uL (0-0.7); Eosinophils % (A) 4 %; HCT 27.6 % (34.0-46.0); HGB 7.7 gm/dL (11.4-16.0); Hypochromasia Marked; Lymphocytes # (A) 0.8 k/uL (1.0-4.8); Lymphocytes % (A) 18 %; MCH 18.3 pg (25.0-35.0); MCV 65.2 fL (80.0-100.0); Mean Platelet Volume 8.8; Microcytosis Marked; Monocytes # (A) 0.4 k/uL (0-1.0); Monocytes % (A) 10 %; Neutrophils # (A) 2.9 k/uL (1.3-7.7); Neutrophils % (A) 66 %; Platelet Count 273 k/uL (150-450); Poikilocytosis Moderate; RBC 4.23 m/uL (3.80-5.40); RDW 19.4 % (11.5-15.5); WBC 4.4 k/uL (3.8-10.6)
[2020-12-10 10:23] LABS: INR 1.4 (<1.2); Partial Thromboplastin Time 28.9 sec (22.0-30.0); Prothrombin Time 14.1 sec (9.0-12.0)
[2020-12-10 10:28] LABS: Albumin 3.6 g/dL (3.5-5.0); Calcium 9.2 mg/dL (8.4-10.2); Total Bilirubin 0.6 mg/dL (0.2-1.3); Total Protein 6.4 g/dL (6.3-8.2)
[2020-12-10 12:07] VITALS: TEMP 98.1
[2020-12-10 13:26] VITALS: BP 121/67; PULSE 87
== END 2020-12-10 13:25 | disposition home or self-care (01) ==
LOC: EC 09:24
DX: D64.9 Anemia, unspecified (principal); E78.5 Hyperlipidemia, unspecified; F32.9 Major depressive disorder, single episode, unspecified; I10 Essential (primary) hypertension; I25.10 Atherosclerotic heart disease of native coronary artery without angina pectoris; I48.91 Unspecified atrial fibrillation; K21.9 Gastro-esophageal reflux disease without esophagitis; M19.90 Unspecified osteoarthritis, unspecified site; R06.02 Shortness of breath; Z79.01 Long term (current) use of anticoagulants; Z79.82 Long term (current) use of aspirin; Z82.49 Family history of ischemic heart disease and other diseases of the circulatory system; Z91.040 Latex allergy status; Z95.5 Presence of coronary angioplasty implant and graft
CPT/HCPCS: 36415; 93005; 86900; 86901; 80053; 83605; 83735; 85025; 85610; 85730; 86850; 86920; 99284; P9016

== ENCOUNTER 2021-02-26 09:42 | Emergency (ER) | payer MEDICARE ==
[2021-02-26 09:59] VITALS: BP 96/64; PULSE 67; RESP 18; TEMP 97.4
[2021-02-26] MEDS ORDERED: MORPHINE SULFATE 4 MG/ML SYRINGE IM STA (10:18)
--- NOTE | 2021-02-26 11:07 | CT ---
EXAMINATION TYPE: CT brain wo con DATE OF EXAM: 02/26/2021 COMPARISON: 03/15/2020 INDICATION: Fall DLP: 1040.4 mGycm, Automated exposure control for dose reduction was used. CONTRAST: None CT of the brain is performed utilizing 3 mm thick sections through the posterior fossa and 3 mm thick sections through the remaining calvarium. Study is performed within 24 hours of arrival to the hosp [facility]. No abnormal hyperdensity is present to suggest an acute intracranial hemorrhage. No mass lesion is evident. No acute infarcts are evident. Periventricular white matter hypodensity is present clinically related to microvascular ischemic change. An old lacunar infarct may be within the right basal ganglion. Fin dings appear stable from comparison. Ventricles and sulci are mildly prominent for the patient age. Paranasal sinuses and mastoid air cells within the [id number] are clear. IMPRESSIONS: 1. Atrophy with chronic appearing microvascular ischemic change. 2. Old right basal ganglia lacunar infarct
--- NOTE | 2021-02-26 11:40 | ED ---
Fall HPI - General Chief Complaint: Fall Stated Complaint: fall Time Seen by Provider: 02/26/21 10:12 Source: patient, family, RN notes reviewed Mode of arrival: wheelchair - History of Present Illness Initial Comments: Patient is an 85-year-old female that presents to the emergency department status post fall several days ago. She no she was standing up in the kitchen when she reached back for her walker unable to find it fell over. She notes that she hurt her right sided ribs. She notes that she did hit her head but her ponytail cushion the blow. She denied any loss of consciousness confusion headache. She was a well-appearing 85-year-old female who noted that right- sided rib pain increases on deep inspiration and with movement. She notes that her pain is approximately 7-8 out of 10 with no relief from at home medications. Daughter notes that she was able to get herself up into the couch with no issue. She denied any chest pain shortness of breath headache nausea vomiting diarrhea constipation fever fatigue chills. - Related Data Home Medications Medication Instructions Recorded Confirmed Aspirin 81 mg PO DAILY 12/24/18 02/26/21 Cholecalciferol (Vitamin D3) 50 mcg PO DAILY 12/24/18 02/26/21 [Vitamin D3] Isosorbide Mononitrate ER [Imdur] 30 mg PO DAILY 12/24/18 02/26/21 Lansoprazole [Prevacid] 15 mg PO DAILY 12/24/18 02/26/21 Nitroglycerin Sl Tabs [Nitrostat] 0.4 mg SL Q5M PRN 12/24/18 02/26/21 Rivaroxaban [Xarelto] 15 mg PO DAILY 12/24/18 02/26/21 Furosemide [Lasix] 20 mg PO DAILY 08/16/20 02/26/21 Sertraline HCl [Zoloft] 25 mg PO DAILY 09/03/20 02/26/21 Lisinopril [Prinivil] 10 mg PO DAILY 11/09/20 02/26/21 Metoprolol Tartrate [Lopressor] 25 mg PO BID 02/26/21 02/26/21 Previous Rx's Medication Instructions Recorded Atorvastatin [Lipitor] 80 mg PO HS #90 tab 12/27/18 Allergies Allergy/AdvReac Type Severity Reaction Status Date / Time latex Allergy Rash/Hives Verified 02/26/21 12:09 Review of Systems ROS Statement: Those systems with pertinent positive or pertinent negative responses have been documented in the HPI. ROS Other: All systems not noted in ROS Statement are negative. Past Medical History Past Medical History: Coronary Artery Disease (CAD), GERD/Reflux, Hyperlipidemia, Hypertension, Osteoarthritis (OA) Additional Past Medical History / Comment(s): +OCCULT, ANEMIA. hiatal hernia History of Any Multi-Drug Resistant Organisms: None Reported Past Surgical History: Heart Catheterization With Stent, Hysterectomy, Orthopedic Surgery Additional Past Surgical History / Comment(s): vein stripping,heart stents x4,lt foot,mattie car tunnel. right leg and hip surgery, COLONOSCOPY/EGD Past Anesthesia/Blood Transfusion Reactions: No Reported Reaction Additional Past Anesthesia/Blood Transfusion Reaction / Comment(s): no hx blood transfusion Date of Last Stent Placement:: 2018 Past Psychological History: Depression Smoking Status: Never smoker Past Alcohol Use History: None Reported Past Drug Use History: None Reported - Past Family History Mother Family Medical History: Cancer Additional Family Medical History / Comment(s): colon Father Family Medical History: Coronary Artery Disease (CAD), Myocardial Infarction ([place]) Additional Family Medical History / Comment(s): Father of a [place] at the age of 61 yrs. Brother(s) Family Medical History: Cancer, Myocardial Infarction ([place]) Additional Family Medical History / Comment(s): colon cancer General Exam Limitations: no limitations General appearance: alert, in no apparent distress, obese, other (Right-sided rib tenderness just inferior the breast to palpation.) Head exam: Present: atraumatic, normocephalic, normal inspection Eye exam: Present: normal appearance, PERRL, EOMI. Absent: scleral icterus, conjunctival injection, periorbital swelling Neck exam: Present: normal inspection Respiratory exam: Present: normal lung sounds bilaterally. Absent: respiratory distress, wheezes, rales, rhonchi, stridor Cardiovascular Exam: Present: regular rate, normal rhythm, normal heart sounds. Absent: systolic murmur, diastolic murmur, rubs, gallop, clicks GI/Abdominal exam: Present: soft, normal bowel sounds. Absent: distended, tenderness, guarding, rebound, rigid Extremities exam: Present: normal inspection, full ROM, normal capillary refill. Absent: tenderness, pedal edema, joint swelling, calf tenderness Neurological exam: Present: alert, oriented X3 Psychiatric exam: Present: normal affect, normal mood Skin exam: Present: warm, dry, intact, normal color. Absent: rash Course Vital Signs 02/26/21 09:52 Temperature 97.4 F L Pulse Rate 67 Respiratory 18 Rate Blood Pressure 96/64 O2 Sat by Pulse 100 Oximetry Medical Decision Making - Medical Decision Making 85-year-old female that fell several days ago hurting her ribs and hitting her head on blood thinners, denied loss of consciousness headache confusion 4 mg of morphine, x-ray of the right ribs, CT of the brain ordered. CT of the brain shows no acute process. X-ray negative for any acute osseous abnormalities. Given clinical symptoms most likely rib contusion. Case discussed with Dr. Esteves, patient can discharge home with follow-up to primary care. - Radiology Data Radiology results: report reviewed, image reviewed CT of the brain: Atrophy with chronic-appearing microvascular ischemic change. Old right basal ganglia lacunar infarct. No evident displaced rib fracture. Bone scan could be performed for increased sensitivity is indicated difficult fracture is suspected clinically. Disposition Clinical Impression: Fall, Rib contusion Disposition: HOME SELF-CARE Condition: Stable Instructions (If sedation given, give patient instructions): Fall Prevention for Older Adults (ED) Additional Instructions: Please return to the Emergency Department if symptoms worsen or any other concerns. Follow-up primary care as needed. Take Tylenol Motrin as needed for pain. Rib contusion will hurt with deep inspiration. Is patient prescribed a controlled substance at d/c from ED?: No Referrals: Miko Bocanegra MD [Primary Care Provider] - 1-2 days Time of Disposition: 12:26
--- NOTE | 2021-02-26 12:23 | XR ---
Right RIBS HISTORY: Trauma and pain 2 views the right ribs There is no evident pneumothorax or pleural effusion. No displaced rib fracture. Bone mineralization is reduced. No evident lung contusion. There is a spinal curvature, thoracic and lumbar spondylosis. Mitral annular calcification is noted incidentally. IMPRESSION: No evident displaced rib fracture. Bone scan could be performed for increased sensitivity as indicated if occult fracture is suspected clinically.
== END 2021-02-26 12:45 | disposition home or self-care (01) ==
LOC: EC 09:42
DX: S20.211A Contusion of right front wall of thorax, initial encounter (principal); I25.10 Atherosclerotic heart disease of native coronary artery without angina pectoris; I10 Essential (primary) hypertension; M19.90 Unspecified osteoarthritis, unspecified site; Z79.82 Long term (current) use of aspirin; Z79.899 Other long term (current) drug therapy; Z86.73 Personal history of transient ischemic attack (TIA), and cerebral infarction without residual deficits; Z95.5 Presence of coronary angioplasty implant and graft; Z91.040 Latex allergy status; W19.XXXA Unspecified fall, initial encounter; Y92.000 Kitchen of unspecified non-institutional (private) residence as the place of occurrence of the external cause
CPT/HCPCS: 99284; 96372; 71100; 70450; J2270

== ENCOUNTER 2021-03-21 08:24 | Emergency (ER) | payer MEDICARE ==
[2021-03-21] MEDS ORDERED: SODIUM CHLORIDE 0.9% 1,000 ML IV STA (08:45)
--- NOTE | 2021-03-21 08:48 | ED ---
Dizziness HPI - General Chief Complaint: Dizziness Stated Complaint: Weakness Time Seen by Provider: 03/21/21 08:31 Source: patient, family, RN notes reviewed, old records reviewed Mode of arrival: wheelchair Limitations: physical limitation - History of Present Illness Initial Comments: This is a 85-year-old female with prior episodes of dizziness history of anemia history of atrial fibrillation who states she had the onset this morning of severe dizziness and she fell is that she may pass out or fall down. She's had some dizziness for last couple days. She has a slight headache she denies any fevers chills nausea vomiting or sweats. No overt chest pain she does states she has some mild pain at the manubrium. She denies any heavy lifting or trauma of any sort. No dysuria no hematuria no other complaints or modifying factors at this time MD Complaint: dizziness, lightheadedness - Related Data Home Medications Medication Instructions Recorded Confirmed Isosorbide Mononitrate ER [Imdur] 30 mg PO DAILY 12/24/18 03/21/21 Lansoprazole [Prevacid] 15 mg PO DAILY 12/24/18 03/21/21 Nitroglycerin Sl Tabs [Nitrostat] 0.4 mg SL Q5M PRN 12/24/18 03/21/21 Rivaroxaban [Xarelto] 15 mg PO DAILY 12/24/18 03/21/21 Furosemide [Lasix] 20 mg PO DAILY 08/16/20 03/21/21 Sertraline HCl [Zoloft] 25 mg PO DAILY 09/03/20 03/21/21 Lisinopril [Prinivil] 10 mg PO DAILY 11/09/20 03/21/21 Docusate [Colace] 100 mg PO DAILY PRN 03/21/21 03/21/21 Metoprolol Tartrate [Lopressor] 25 mg PO BID 03/21/21 03/21/21 Previous Rx's Medication Instructions Recorded Atorvastatin [Lipitor] 80 mg PO HS #90 tab 12/27/18 Meclizine [Antivert] 12.5 mg PO TID #20 tab 03/21/21 Allergies Allergy/AdvReac Type Severity Reaction Status Date / Time latex Allergy Rash/Hives Verified 03/21/21 09:34 Review of Systems ROS Statement: Those systems with pertinent positive or pertinent negative responses have been documented in the HPI. ROS Other: All systems not noted in ROS Statement are negative. Past Medical History Past Medical History: Coronary Artery Disease (CAD), GERD/Reflux, Hyperlipidemia, Hypertension, Osteoarthritis (OA) Additional Past Medical History / Comment(s): +OCCULT, ANEMIA. hiatal hernia History of Any Multi-Drug Resistant Organisms: None Reported Past Surgical History: Heart Catheterization With Stent, Hysterectomy, O rthopedic Surgery Additional Past Surgical History / Comment(s): vein stripping,heart stents x4,lt foot,mattie car tunnel. right leg and hip surgery, COLONOSCOPY/EGD Past Anesthesia/Blood Transfusion Reactions: No Reported Reaction Additional Past Anesthesia/Blood Transfusion Reaction / Comment(s): no hx blood transfusion Date of Last Stent Placement:: 2018 Past Psychological History: Depression Smoking Status: Never smoker Past Alcohol Use History: None Reported Past Drug Use History: None Reported - Past Family History Mother Family Medical History: Cancer Additional Family Medical History / Comment(s): colon Father Family Medical History: Coronary Artery Disease (CAD), Myocardial Infarction ([place]) Additional Family Medical History / Comment(s): Father of a [place] at the age of 61 yrs. Brother(s) Family Medical History: Cancer, Myocardial Infarction ([place]) Additional Family Medical History / Comment(s): colon cancer General Exam - General Exam Comments Initial Comments: This is a well-developed well-nourished awake alert oriented 3 female Limitations: physical limitation General appearance: alert, anxious Head exam: Present: atraumatic, normocephalic, normal inspection Eye exam: Present: normal appearance, PERRL, EOMI. Absent: scleral icterus, conjunctival injection, periorbital swelling ENT exam: Present: mucous membranes dry Neck exam: Present: normal inspection, full ROM, other (No stridor JVD or bruits). Absent: tenderness, meningismus, lymphadenopathy Respiratory exam: Present: normal lung sounds bilaterally. Absent: respiratory distress, wheezes, rales, rhonchi, stridor Cardiovascular Exam: Present: irregular rhythm. Absent: systolic murmur, diastolic murmur, rubs, gallop, clicks GI/Abdominal exam: Present: soft, normal bowel sounds. Absent: distended, tenderness, guarding, rebound, rigid Extremities exam: Present: normal inspection, full ROM, normal capillary refill. Absent: tenderness, pedal edema, joint swelling, calf tenderness Back exam: Present: normal inspection Neurological exam: Present: alert, oriented X3, CN II-XII intact, other (Mild tremor noted in the hands) Psychiatric exam: Present: normal affect, normal mood Skin exam: Present: warm, dry, intact, normal color. Absent: rash Course Vital Signs 03/21/21 03/21/21 03/21/21 08:26 09:30 09:59 Temperature 97.6 F 97.6 F Pulse Rate 61 Pulse Rate [ 64 Left Sitting Pulse Oximetery ] Pulse Rate [ 65 Left Standing Pulse Oximetery ] Pulse Rate [ 63 Left Supine Pulse Oximetery ] Respiratory 16 16 16 Rate Blood Pressure 114/62 143/86 Blood Pressure 149/70 [Left Arm Sitting] Blood Pressure 130/71 [Left Arm Standing] Blood Pressure 142/65 [Left Arm Supine] O2 Sat by Pulse 94 L 95 100 Oximetry 03/21/21 03/21/21 10:00 12:07 Temperature 97.6 F 97.9 F Pulse Rate 65 62 Pulse Rate [ Left Sitting Pulse Oximetery ] Pulse Rate [ Left Standing Pulse Oximetery ] Pulse Rate [ Left Supine Pulse Oximetery ] Respiratory 16 18 Rate Blood Pressure 130/71 149/116 Blood Pressure [Left Arm Sitting] Blood Pressure [Left Arm Standing] Blood Pressure [Left Arm Supine] O2 Sat by Pulse 100 98 Oximetry EKG Findings - EKG Results: EKG: interpreted by CLAUDE (Atrial fibrillation rate 56 QRS 74 QT since QTC 434/418 st-t wave changes) Medical Decision Making - Medical Decision Making I did reevaluate patient on several occasions she has no further dizziness she was able ambulate with assistance that she does normally use a walker. Patient's consistent with vertigo as well as dehydration. Patient will be discharged - Lab Data Result diagrams: 03/21/21 09:15 03/21/21 09:15 Lab Results 03/21/21 03/21/21 03/21/21 Range/Units 09:15 09:15 09:15 WBC 4.4 (3.8-10.6) k/uL RBC 4.63 (3.80-5.40) m/uL Hgb 9.0 L (11.4-16.0) gm/dL Hct 31.6 L (34.0-46.0) % MCV 68.3 L (80.0-100.0) fL MCH 19.3 L (25.0-35.0) pg MCHC 28.3 L (31.0-37.0) g/dL RDW 20.2 H (11.5-15.5) % Plt Count 266 (150-450) k/uL MPV 8.1 Neutrophils % 67 % Lymphocytes % 22 % Monocytes % 6 % Eosinophils % 2 % Basophils % 0 % Neutrophils # 2.9 (1.3-7.7) k/uL Lymphocytes # 1.0 (1.0-4.8) k/uL Monocytes # 0.3 (0-1.0) k/uL Eosinophils # 0.1 (0-0.7) k/uL Basophils # 0.0 (0-0.2) k/uL Hypochromasia Marked Poikilocytosis Moderate Anisocytosis Moderate Microcytosis Marked Sodium 140 (137-145) mmol/L Potassium 4.5 (3.5-5.1) mmol/L Chloride 107 (98-107) mmol/L Carbon Dioxide 22 (22-30) mmol/L Anion Gap 11 mmol/L BUN 32 H (7-17) mg/dL Creatinine 1.02 (0.52-1.04) mg/dL Est GFR (CKD-EPI)AfAm 57 (>60 ml/min/1.73 sqM) Est GFR (CKD-EPI)NonAf 50 (>60 ml/min/1.73 sqM) Glucose 121 H (74-99) mg/dL Calcium 9.7 (8.4-10.2) mg/dL Magnesium 2.0 (1.6-2.3) mg/dL Total Bilirubin 0.7 (0.2-1.3) mg/dL AST 30 (14-36) U/L ALT 14 (4-34) U/L Alkaline Phosphatase 119 (38-126) U/L Creatine Kinase 42 (30-135) U/L Troponin I <0.012 (0.000-0.034) ng/mL Total Protein 6.7 (6.3-8.2) g/dL Albumin 3.9 (3.5-5.0) g/dL Lipase 93 (23-300) U/L Urine Color Urine Appearance (Clear) Urine pH (5.0-8.0) Ur Specific [place] (1.001-1.035) Urine Protein (Negative) Urine Glucose (UA) (Negative) Urine Ketones (Negative) Urine Blood (Negative) Urine Nitrite (Negative) Urine Bilirubin (Negative) Urine Urobilinogen (<2.0) mg/dL Ur Leukocyte Esterase (Negative) Urine RBC (0-5) /hpf Urine WBC (0-5) /hpf Ur Squamous Epith Cells (0-4) /hpf Urine Bacteria (None) /hpf Urine Mucus (None) /hpf 03/21/21 Range/Units 11:25 WBC (3.8-10.6) k/uL RBC (3.80-5.40) m/uL Hgb (11.4-16.0) gm/dL Hct (34.0-46.0) % MCV (80.0-100.0) fL MCH (25.0-35.0) pg MCHC (31.0-37.0) g/dL RDW (11.5-15.5) % Plt Count (150-450) k/uL MPV Neutrophils % % Lymphocytes % % Monocytes % % Eosinophils % % Basophils % % Neutrophils # (1.3-7.7) k/uL Lymphocytes # (1.0-4.8) k/uL Monocytes # (0-1.0) k/uL Eosinophils # (0-0.7) k/uL Basophils # (0-0.2) k/uL Hypochromasia Poikilocytosis Anisocytosis Microcytosis Sodium (137-145) mmol/L Potassium (3.5-5.1) mmol/L Chloride (98-107) mmol/L Carbon Dioxide (22-30) mmol/L Anion Gap mmol/L BUN (7-17) mg/dL Creatinine (0.52-1.04) mg/dL Est GFR (CKD-EPI)AfAm (>60 ml/min/1.73 sqM) Est GFR (CKD-EPI)NonAf (>60 ml/min/1.73 sqM) Glucose (74-99) mg/dL Calcium (8.4-10.2) mg/dL Magnesium (1.6-2.3) mg/dL Total Bilirubin (0.2-1.3) mg/dL AST (14-36) U/L ALT (4-34) U/L Alkaline Phosphatase (38-126) U/L Creatine Kinase (30-135) U/L Troponin I (0.000-0.034) ng/mL Total Protein (6.3-8.2) g/dL Albumin (3.5-5.0) g/dL Lipase (23-300) U/L Urine Color Yellow Urine Appearance Clear (Clear) Urine pH 7.0 (5.0-8.0) Ur Specific [place] 1.015 (1.001-1.035) Urine Protein Negative (Negative) Urine Glucose (UA) Negative (Negative) Urine Ketones Negative (Negative) Urine Blood Negative (Negative) Urine Nitrite Negative (Negative) Urine Bilirubin Negative (Negative) Urine Urobilinogen <2.0 (<2.0) mg/dL Ur Leukocyte Esterase Moderate H (Negative) Urine RBC 1 (0-5) /hpf Urine WBC 3 (0-5) /hpf Ur Squamous Epith Cells 1 (0-4) /hpf Urine Bacteria Rare H (None) /hpf Urine Mucus Rare H (None) /hpf - Radiology Data Radiology results: report reviewed, image reviewed Disposition Clinical Impression: Vertigo, Dehydration Disposition: HOME SELF-CARE Condition: Good Instructions (If sedation given, give patient instructions): Dizziness (ED), Dehydration (ED) Prescriptions: Meclizine [Antivert] 12.5 mg PO TID #20 tab Is patient prescribed a controlled substance at d/c from ED?: No Referrals: Miko Bocanegra MD [Primary Care Provider] - 1-2 days
[2021-03-21 09:23] LABS: Anisocytosis Moderate; Basophils % (A) 0 %; Eosinophils # (A) 0.1 k/uL (0-0.7); Eosinophils % (A) 2 %; HCT 31.6 % (34.0-46.0); Hypochromasia Marked; Lymphocytes % (A) 22 %; MCH 19.3 pg (25.0-35.0); MCHC 28.3 g/dL (31.0-37.0); MCV 68.3 fL (80.0-100.0); Mean Platelet Volume 8.1; Microcytosis Marked; Monocytes # (A) 0.3 k/uL (0-1.0); Monocytes % (A) 6 %; Neutrophils # (A) 2.9 k/uL (1.3-7.7); Neutrophils % (A) 67 %; Platelet Count 266 k/uL (150-450); Poikilocytosis Moderate; RBC 4.63 m/uL (3.80-5.40); RDW 20.2 % (11.5-15.5); WBC 4.4 k/uL (3.8-10.6)
[2021-03-21 09:42] LABS: Albumin 3.9 g/dL (3.5-5.0); Calcium 9.7 mg/dL (8.4-10.2); Potassium 4.5 mmol/L (3.5-5.1); Total Bilirubin 0.7 mg/dL (0.2-1.3); Total Protein 6.7 g/dL (6.3-8.2)
--- NOTE | 2021-03-21 09:47 | CT ---
EXAMINATION TYPE: CT brain wo con DATE OF EXAM: 03/21/2021 COMPARISON: 02/26/2021 HISTORY: 85-year-old female with HOFFMAN, confusion TECHNIQUE: Examination was done in axial plane without intravenous contrast. Coronal and sagittal r econstructions performed. CT DLP: 1099.4 mGycm Automated exposure control for dose reduction was used. FINDINGS: There is no evidence of acute intracranial hemorrhage, acute ischemic changes, mass, mass-effect, or extra-axial fluid collection. There is no effacement of cerebral sulci or basal subarachnoid cister ns. There is no hydrocephalus. There is no midline shift. Bone-white matter distinction is preserv ed. Mild generalized cervical atrophy. Mild ventricular prominence likely secondary to central cerebral v olume loss. Mild patchy white matter hypodensities in the periventricular regions. Additional hypoden sity right greater than left basal ganglia, unchanged. Mild mucosal thickening maxillary sinuses. Mastoid air cells well pneumatized. Orbits and globes are intact. IMPRESSION: Mild generalized cortical and central cerebral atrophy. No acute intracranial abnormality seen. 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 No acute intracranial abnormality seen.
--- NOTE | 2021-03-21 09:50 | XR ---
EXAMINATION TYPE: XR chest 2V DATE OF EXAM: 03/21/2021 COMPARISON: 11/09/2020 TECHNIQUE: PA and lateral views submitted. HISTORY: Dizziness FINDINGS: The lungs are clear and there is no pneumothorax, pleural effusion, or focal pneumonia. Hypertrophi c and degenerative change of the spine. Hyperinflation suggests COPD. Atherosclerotic change aorta. A rthropathy of the shoulders with diffuse osteopenia. Suggestion of annular calcification of possible previous coronary artery stenting. IMPRESSION: 1. No acute process.
[2021-03-21 11:41] LABS: Appearance,Urine Clear (Clear); Bacteria,Urine Rare /hpf; Bilirubin,Urine Negative (Negative); Blood,Urine Negative (Negative); Color,Urine Yellow; Glucose,Urine (UA) Negative (Negative); Ketones,Urine Negative (Negative); Leukocyte Esterase,Urine Moderate (Negative); Mucus,Urine Rare /hpf; Nitrite,Urine Negative (Negative); Protein,Urine Negative (Negative); RBC,Urine 1 /hpf (0-5); Specific Gravity,Urine 1.015 (1.001-1.035); Squamous Epithelial Cell,Urine 1 /hpf (0-4); Urobilinogen,Urine <2.0 mg/dL (<2.0); WBC,Urine 3 /hpf (0-5)
[2021-03-21 12:08] VITALS: RESP 18; TEMP 97.9
[2021-03-21 12:37] VITALS: BP 126/51; PULSE 65
== END 2021-03-21 12:56 | disposition home or self-care (01) ==
LOC: EC 08:24
DX: E86.0 Dehydration (principal); I10 Essential (primary) hypertension; K21.9 Gastro-esophageal reflux disease without esophagitis; I25.10 Atherosclerotic heart disease of native coronary artery without angina pectoris; I48.91 Unspecified atrial fibrillation; Z79.899 Other long term (current) drug therapy; Z86.73 Personal history of transient ischemic attack (TIA), and cerebral infarction without residual deficits; Z95.5 Presence of coronary angioplasty implant and graft; Z91.040 Latex allergy status
CPT/HCPCS: 36415; 70450; 71046; 80053; 81001; 82550; 83690; 83735; 84484; 85025; 93005; 96360; 96361; 99284

== ENCOUNTER 2021-04-02 11:04 | Observation (INO) | payer MEDICARE ==
[2021-04-02] MEDS ORDERED: SODIUM CHLORIDE 0.9% 500 ML 500 ML IV STA (12:01)
--- NOTE | 2021-04-02 12:18 | ED ---
General Adult HPI - General Chief complaint: Recheck/Abnormal Lab/Rx Stated complaint: Abn Labs Time Seen by Provider: 04/02/21 11:25 Source: patient, family, RN notes reviewed, old records reviewed Mode of arrival: wheelchair Limitations: physical limitation - History of Present Illness Initial comments: This is an 85-year-old female with past medical history significant for atrial fibrillation patient is on Xarelto. Patient also since November is been anemic on and off she has seen GI and he can ever find a source for the anemia. Patient states she continues on Xarelto however. Patient states lately she's becoming more more weak and that she stay and she feels lightheaded so she went to her doctor to doctor told her hemoglobin was in the sixes. Patient states that she was unable to stand up this morning because she was so weak. Patient denies any chest pain or palpitations. Patient states she started feeling worse about 2 weeks ago and was only short of breath with exertion but now that she can't walk she is short of breath just in bed. Patient denies any black or bloody stools. Patient denies abdominal pain patient denies any nausea vomiting or diarrhea. - Related Data Home Medications Medication Instructions Recorded Confirmed Isosorbide Mononitrate ER [Imdur] 30 mg PO DAILY 12/24/18 04/02/21 Lansoprazole [Prevacid] 15 mg PO DAILY 12/24/18 04/02/21 Nitroglycerin Sl Tabs [Nitrostat] 0.4 mg SL Q5M PRN 12/24/18 04/02/21 Rivaroxaban [Xarelto] 15 mg PO DAILY 12/24/18 04/02/21 Furosemide [Lasix] 20 mg PO DAILY 08/16/20 04/02/21 Sertraline HCl [Zoloft] 25 mg PO DAILY 09/03/20 04/02/21 Lisinopril [Prinivil] 10 mg PO DAILY 11/09/20 04/02/21 Docusate [Colace] 100 mg PO DAILY PRN 03/21/21 04/02/21 Metoprolol Tartrate [Lopressor] 12.5 mg PO BID 04/02/21 04/02/21 Previous Rx's Medication Instructions Recorded Atorvastatin [Lipitor] 80 mg PO HS #90 tab 12/27/18 Meclizine [Antivert] 12.5 mg PO TID #20 tab 03/21/21 Allergies Allergy/AdvReac Type Severity Reaction Status Date / Time latex Allergy Rash/Hives Verified 04/02/21 13:06 Review of Systems ROS Statement: Those systems with pertinent positive or pertinent negative responses have been documented in the HPI. ROS Other: All systems not noted in ROS Statement are negative. Past Medical History Past Medical History: Coronary Artery Disease (CAD), GERD/Reflux, Hyperlipidemia, Hypertension, Osteoarthritis (OA) Additional Past Medical History / Comment(s): +OCCULT, ANEMIA. hiatal hernia History of Any Multi-Drug Resistant Organisms: None Reported Past Surgical History: Heart Catheterization With Stent, Hysterectomy, Orthopedic Surgery Additional Past Surgical History / Comment(s): vein stripping,heart stents x4,lt foot,mattie car tunnel. right leg and hip surgery, COLONOSCOPY/EGD Past Anesthesia/Blood Transfusion Reactions: No Reported Reaction Additional Past Anesthesia/Blood Transfusion Reaction / Comment(s): no hx blood transfusion Date of Last Stent Placement:: 2018 Past Psychological History: Depression Smoking Status: Never smoker Past Alcohol Use History: None Reported Past Drug Use History: None Reported - Past Family History Mother Family Medical History: Cancer Additional Family Medical History / Comment(s): colon Father Family Medical History: Coronary Artery Disease (CAD), Myocardial Infarction ([place]) Additional Family Medical History / Comment(s): Father of a [place] at the age of 61 yrs. Brother(s) Family Medical History: Cancer, Myocardial Infarction ([place]) Additional Family Medical History / Comment(s): colon cancer General Exam - General Exam Comments Initial Comments: GENERAL: Patient is well-developed and well-nourished. Patient is nontoxic and well- hydrated and is in mild distress. ENT: Neck is soft and supple. No significant lymphadenopathy is noted. Oropharynx is clear. Moist mucous membranes. Neck has full range of motion without eliciting any pain. EYES: The sclera were anicteric and conjunctiva are pale. Extraocular movements were intact and pupils were equal round and reactive to light. Eyelids were unremarkable. PULMONARY: Unlabored respirations. Good breath sounds bilaterally. No audible rales rhonchi or wheezing was noted. CARDIOVASCULAR: There is a regular rate and rhythm without any murmurs gallops or rubs. ABDOMEN: Soft and nontender with normal bowel sounds. No palpable organomegaly was noted. There is no palpable pulsatile mass. SKIN: Patient's skin is pale NEUROLOGIC: Patient is alert and oriented x3. Cranial nerves II through XII are grossly intact. Motor and sensory are also intact. Normal speech, volume and content. Symmetrical smile. MUSCULOSKELETAL: Normal extremities with adequate strength and full range of motion. No lower extremity swelling or edema. No calf tenderness. LYMPHATICS: No significant lymphadenopathy is noted PSYCHIATRIC: Normal psychiatric evaluation. Limitations: physical limitation Course Vital Signs 04/02/21 04/02/21 11:27 13:53 Temperature 98.2 F Pulse Rate 64 52 L Respiratory 18 18 Rate Blood Pressure 103/65 115/71 O2 Sat by Pulse 99 98 Oximetry Medical Decision Making - Lab Data Result diagrams: 04/02/21 12:05 04/02/21 12:05 Lab Results 04/02/21 04/02/21 04/02/21 Range/Units 12:05 12:05 12:05 WBC 7.3 (3.8-10.6) k/uL RBC 4.14 (3.80-5.40) m/uL Hgb 7.9 L (11.4-16.0) gm/dL Hct 28.1 L (34.0-46.0) % MCV 68.0 L (80.0-100.0) fL MCH 19.0 L (25.0-35.0) pg MCHC 27.9 L (31.0-37.0) g/dL RDW 19.7 H (11.5-15.5) % Plt Count 342 (150-450) k/uL MPV 8.4 Neutrophils % 80 % Lymphocytes % 12 % Monocytes % 5 % Eosinophils % 1 % Basophils % 1 % Neutrophils # 5.8 (1.3-7.7) k/uL Lymphocytes # 0.9 L (1.0-4.8) k/uL Monocytes # 0.4 (0-1.0) k/uL Eosinophils # 0.0 (0-0.7) k/uL Basophils # 0.1 (0-0.2) k/uL Hypochromasia Marked Poikilocytosis Moderate Anisocytosis Slight Microcytosis Marked PT 12.5 H (9.0-12.0) sec INR 1.2 H (<1.2) APTT 24.2 (22.0-30.0) sec Sodium 136 L (137-145) mmol/L Potassium 4.3 (3.5-5.1) mmol/L Chloride 104 (98-107) mmol/L Carbon Dioxide 19 L (22-30) mmol/L Anion Gap 13 mmol/L BUN 36 H (7-17) mg/dL Creatinine 1.11 H (0.52-1.04) mg/dL Est GFR (CKD-EPI)AfAm 52 (>60 ml/min/1.73 sqM) Est GFR (CKD-EPI)NonAf 45 (>60 ml/min/1.73 sqM) Glucose 156 H (74-99) mg/dL Calcium 9.1 (8.4-10.2) mg/dL Magnesium 2.0 (1.6-2.3) mg/dL Total Bilirubin 0.6 (0.2-1.3) mg/dL AST 31 (14-36) U/L ALT 13 (4-34) U/L Alkaline Phosphatase 92 (38-126) U/L Total Protein 6.7 (6.3-8.2) g/dL Albumin 3.9 (3.5-5.0) g/dL Disposition Clinical Impression: Generalized weakness, Dyspnea, Anemia Disposition: ADMITTED IP TO THIS HOSP Referrals: Miko Bocanegra MD [Primary Care Provider] - 1-2 days Time of Disposition: 13:59
--- NOTE | 2021-04-02 12:22 | XR ---
EXAMINATION TYPE: XR chest 2V DATE OF EXAM: 04/02/2021 COMPARISON: Chest x-ray 03/21/2021 HISTORY: Chest pain, dizziness TECHNIQUE: Frontal and lateral views of the chest are obtained. FINDINGS: There is no focal air space opacity, pleural effusion, or pneumothorax seen. The cardiac silhouette size is within normal limits. The patient is rotated. There are overlying leads. Aorta jennifer ws atheromatous change and is tortuous, possibly ectatic, there are coronary artery calcifications. T here is eventration of the hemidiaphragms. Mitral annular calcification is present. Prominent lung vo lumes may be indicative of underlying COPD. The osseous structures are intact, bone mineralization is reduced. IMPRESSION: No acute cardiopulmonary process. Coronary artery disease and additional findings above
[2021-04-02 12:32] LABS: INR 1.2 (<1.2); Partial Thromboplastin Time 24.2 sec (22.0-30.0); Prothrombin Time 12.5 sec (9.0-12.0)
[2021-04-02 12:34] LABS: Albumin 3.9 g/dL (3.5-5.0); Calcium 9.1 mg/dL (8.4-10.2); Potassium 4.3 mmol/L (3.5-5.1); Total Bilirubin 0.6 mg/dL (0.2-1.3); Total Protein 6.7 g/dL (6.3-8.2)
[2021-04-02 13:30] LABS: Anisocytosis Slight; Basophils # (A) 0.1 k/uL (0-0.2); Basophils % (A) 1 %; Eosinophils % (A) 1 %; HCT 28.1 % (34.0-46.0); HGB 7.9 gm/dL (11.4-16.0); Hypochromasia Marked; Lymphocytes # (A) 0.9 k/uL (1.0-4.8); Lymphocytes % (A) 12 %; MCHC 27.9 g/dL (31.0-37.0); Mean Platelet Volume 8.4; Microcytosis Marked; Monocytes # (A) 0.4 k/uL (0-1.0); Monocytes % (A) 5 %; Neutrophils # (A) 5.8 k/uL (1.3-7.7); Neutrophils % (A) 80 %; Platelet Count 342 k/uL (150-450); Poikilocytosis Moderate; RBC 4.14 m/uL (3.80-5.40); RDW 19.7 % (11.5-15.5); WBC 7.3 k/uL (3.8-10.6)
[2021-04-02] MEDS ORDERED: SODIUM CHLORIDE 0.9% 1,000 ML IV ONE (14:01)
[2021-04-02] MEDS: MECLIZINE 12.5 MG TAB PO SCH (22:44)
[2021-04-02] MEDS: METOPROLOL TARTRATE 12.5 MG TAB PO SCH (22:44)
[2021-04-02] MEDS: ATORVASTATIN 80 MG TAB PO SCH (23:02)
[2021-04-02] MEDS ORDERED: DOCUSATE 100 MG CAP PO PRN (23:58)
[2021-04-02] MEDS ORDERED: NITROGLYCERIN SL TABS 0.4 MG TAB SUBLINGUAL PRN (23:58)
--- NOTE | 2021-04-03 00:14 | P.HPIM ---
History of Present Illness This is a pleasant 85 years old female with past medical history of coronary artery disease, GERD, hyperlipidemia, hypertension, osteoarthritis. Presents because of low hemoglobin checked at her PCP office Dr. Bocanegra and it was 6.6 as per daughter at bedside. However repeat hemoglobin check the hospital it was 7.9. Patient has previous workup for anemia which was on remarkable as per ED staff. As per daughter patient complaining of from dizziness and shortness of breath and generally weak. Patient is fully awake and oriented while she is lying in bed she denies any specific complaint. Pain or dyspnea. No headache or dizziness. No urinary or bowel complaints. No fever Blood pressure is borderline and she received more than 500 mL of normal saline bolus in the emergency room. Systolic blood pressure 90s-100s. And also she is on multiple blood pressure medications including lisinopril 10 mg, Imdur 30 mg, Lasix orally 20 mg and metoprolol 12.5 mg. Creatinine on admission is 1.1 Chest x-ray was unremarkable. Review of Systems CONSTITUTIONAL: No fever, no malaise, no fatigue. HEENT: No recent visual problems or hearing problems. Denied any sore throat. CARDIOVASCULAR: No orthopnea, PND, no palpitations, no syncope. PULMONARY: No shortness of breath, no cough, no hemoptysis. GASTROINTESTINAL: No diarrhea, no nausea, no vomiting, no abdominal pain. Normoactive bowel sounds. NEUROLOGICAL: No headaches, no weakness, no numbness. HEMATOLOGICAL: Denies any bleeding or petechiae. GENITOURINARY: Denies any burning micturition, frequency, or urgency. MUSCULOSKELETAL/RHEUMATOLOGICAL: Denies any joint pain, swelling, or any muscle pain. ENDOCRINE: Denies any polyuria or polydipsia. Past Medical History Past Medical History: Coronary Artery Disease (CAD), GERD/Reflux, Hyperlipidemia, Hypertension, Osteoarthritis (OA) Additional Past Medical History / Comment(s): +OCCULT, ANEMIA. hiatal hernia History of Any Multi-Drug Resistant Organisms: None Reported Past Surgical History: Heart Catheterization With Stent, Hysterectomy, Orthopedic Surgery Additional Past Surgical History / Comment(s): vein stripping,heart stents x4,lt foot,mattie car tunnel. right leg and hip surgery, COLONOSCOPY/EGD Past Anesthesia/Blood Transfusion Reactions: No Reported Reaction Additional Past Anesthesia/Blood Transfusion Reaction / Comment(s): no hx blood transfusion Date of Last Stent Placement:: 2018 Past Psychological History: Depression Additional Psychological History / Comment(s): She now resides in an apartment and her cherelle, Clary lives nearby. Pt ambulates with a walker. She no longer drives, her cherelle drives or she pays a friend to take her places. She has a private pay caregiver. She has a cleaning lady and receives MOW. Smoking Status: Never smoker Past Alcohol Use History: None Reported Past Drug Use History: None Reported - Past Family History Mother Family Medical History: Cancer Additional Family Medical History / Comment(s): colon Father Family Medical History: Coronary Artery Disease (CAD), Myocardial Infarction ([place]) Additional Family Medical History / Comment(s): Father of a [place] at the age of 61 yrs. Brother(s) Family Medical History: Cancer, Myocardial Infarction ([place]) Additional Family Medical History / Comment(s): colon cancer Medications and Allergies Home Medications Medication Instructions Recorded Confirmed Type Isosorbide Mononitrate ER [Imdur] 30 mg PO DAILY 12/24/18 04/02/21 History Lansoprazole [Prevacid] 15 mg PO DAILY 12/24/18 04/02/21 History Nitroglycerin Sl Tabs [Nitrostat] 0.4 mg SL Q5M PRN 12/24/18 04/02/21 History Rivaroxaban [Xarelto] 15 mg PO DAILY 12/24/18 04/02/21 History Atorvastatin [Lipitor] 80 mg PO HS #90 tab 12/27/18 04/02/21 Rx Furosemide [Lasix] 20 mg PO DAILY 08/16/20 04/02/21 History Sertraline HCl [Zoloft] 25 mg PO DAILY 09/03/20 04/02/21 History Lisinopril [Prinivil] 10 mg PO DAILY 11/09/20 04/02/21 History Docusate [Colace] 100 mg PO DAILY PRN 03/21/21 04/02/21 History Meclizine [Antivert] 12.5 mg PO TID #20 tab 03/21/21 04/02/21 Rx Metoprolol Tartrate [Lopressor] 12.5 mg PO BID 04/02/21 04/02/21 History Allergies Allergy/AdvReac Type Severity Reaction Status Date / Time latex Allergy Rash/Hives Verified 04/02/21 13:06 Physical Exam Vitals: Vital Signs Temp Pulse Pulse Resp BP BP Pulse Ox 04/02/21 20:41 98.4 F 61 16 105/64 100 04/02/21 20:12 98.9 F 59 L 18 98/57 98 04/02/21 19:15 98.7 F 53 L 16 106/53 99 04/02/21 18:54 56 L 16 102/46 99 04/02/21 13:53 52 L 18 115/71 98 04/02/21 11:27 98.2 F 64 18 103/65 99 Intake and Output 04/02/21 04/02/21 04/03/21 14:59 22:59 06:59 Other: Weight 84.368 kg 84.368 kg -GENERAL: The patient is alert and oriented x3, not in any acute distress. Obese, generally weak HEENT: Pupils are round and equally reacting to light. EOMI. No scleral icterus. No conjunctival pallor. Normocephalic, atraumatic. No pharyngeal erythema. No thyromegaly. CARDIOVASCULAR: S1 and S2 present. No murmurs, rubs, or gallops. PULMONARY: Chest is clear to auscultation, no wheezing or crackles. ABDOMEN: Soft, nontender, nondistended, normoactive bowel sounds. No palpable organomegaly. MUSCULOSKELETAL: No joint swelling or deformity. EXTREMITIES: No cyanosis, clubbing, or pedal edema. NEUROLOGICAL: Gross neurological examination did not reveal any focal deficits. SKIN: No rashes. No petechiae Results CBC & Chem 7: 04/02/21 12:05 04/02/21 12:05 Labs: Abnormal Lab Results - Last 24 Hours (Table) 04/02/21 04/02/21 04/02/21 Range/Units 12:05 12:05 12:05 Hgb 7.9 L (11.4-16.0) gm/dL Hct 28.1 L (34.0-46.0) % MCV 68.0 L (80.0-100.0) fL MCH 19.0 L (25.0-35.0) pg MCHC 27.9 L (31.0-37.0) g/dL RDW 19.7 H (11.5-15.5) % Lymphocytes # 0.9 L (1.0-4.8) k/uL PT 12.5 H (9.0-12.0) sec INR 1.2 H (<1.2) Sodium 136 L (137-145) mmol/L Carbon Dioxide 19 L (22-30) mmol/L BUN 36 H (7-17) mg/dL Creatinine 1.11 H (0.52-1.04) mg/dL Glucose 156 H (74-99) mg/dL Thrombosis Risk Factor Assmnt - Choose All That Apply Each Factor Represents 1 point: Obesity (BMI >25) Each Risk Factor Represents 3 Points: Age 75 years or older Thrombosis Risk Factor Assessment Total Risk Factor Score: 4 Thrombosis Risk Factor Assessment Level: Moderate Risk Assessment and Plan Assessment: Generalized weakness with dyspnea and dizziness, most likely related to dehydration and mild hypotension as she's been on multiple blood pressure medication History of coronary artery disease, status post stent Anemia History of GERD Hyperlipidemia Hypertension, her blood pressure is borderline now History of osteoarthritis Obesity with BMI 32.9 Plan: This is a pleasant 85 years old female who presents with general symptoms of weakness, dizziness and dyspnea with suspicion of low hemoglobin however hemoglobin rechecked and emergency room was much improved without intervention, Lower lisinopril to 5 mg, with close blood pressure monitoring Continue with indigo, Lasix and low-dose metoprolol. Follow-up Cardiology and hematology consults Labs and medication were reviewed.. Continue same treatment. Continue with symptomatic treatment. Resume home medication. Monitor lytes and vitals. DVT and GI prophylaxis. Further recommendations as per clinical course of the patient DVT prophylaxis: Restart Xarelto but if hemoglobin stable tomorrow GI Prophylaxis: Pepcid PT/OT: Pending Prognosis is guarded
[2021-04-03 03:23] LABS: Appearance,Urine Clear (Clear); Bacteria,Urine Rare /hpf; Bilirubin,Urine Negative (Negative); Blood,Urine Negative (Negative); Color,Urine Light Yellow; Glucose,Urine (UA) Negative (Negative); Hyaline Casts,Urine 1 /lpf (0-2); Ketones,Urine Negative (Negative); Leukocyte Esterase,Urine Moderate (Negative); Nitrite,Urine Negative (Negative); PH, Urine 5.5 (5.0-8.0); Protein,Urine Negative (Negative); RBC,Urine 1 /hpf (0-5); Squamous Epithelial Cell,Urine 2 /hpf (0-4); Urobilinogen,Urine <2.0 mg/dL (<2.0); WBC,Urine 7 /hpf (0-5)
[2021-04-03 06:51] LABS: Anisocytosis Slight; Basophils % (A) 1 %; Eosinophils # (A) 0.2 k/uL (0-0.7); Eosinophils % (A) 3 %; HCT 22.7 % (34.0-46.0); Hypochromasia Marked; Lymphocytes # (A) 1.3 k/uL (1.0-4.8); Lymphocytes % (A) 26 %; MCH 19.3 pg (25.0-35.0); MCHC 28.5 g/dL (31.0-37.0); MCV 67.5 fL (80.0-100.0); Mean Platelet Volume 7.3; Microcytosis Marked; Monocytes # (A) 0.4 k/uL (0-1.0); Monocytes % (A) 7 %; Neutrophils % (A) 60 %; Platelet Count 271 k/uL (150-450); Poikilocytosis Moderate; RBC 3.36 m/uL (3.80-5.40); RDW 19.5 % (11.5-15.5); WBC 5.1 k/uL (3.8-10.6)
[2021-04-03 06:55] LABS: HGB 6.5 gm/dL (11.4-16.0)
[2021-04-03 07:08] LABS: African American GFR (CKD) 51 (>60 ml/min/1.73 sqM); Anion Gap 6 mmol/L; Blood Urea Nitrogen 34 mg/dL (7-17); Calcium 8.8 mg/dL (8.4-10.2); Carbon Dioxide 24 mmol/L (22-30); Chloride 109 mmol/L (98-107); Glucose 108 mg/dL (74-99); Non-African American GFR(CKD) 44 (>60 ml/min/1.73 sqM); Potassium 4.5 mmol/L (3.5-5.1); Sodium 139 mmol/L (137-145)
[2021-04-03] MEDS ORDERED: SODIUM CHLORIDE 0.9% 500 ML 500 ML IV ONE (07:55)
[2021-04-03] MEDS ORDERED: PANTOPRAZOLE 40 MG/10 ML VIAL IVP SCH (08:00)
[2021-04-03] MEDS: MECLIZINE 12.5 MG TAB PO SCH ×3 (08:49→20:19)
[2021-04-03] MEDS: SODIUM CHLORIDE 0.9% 1,000 ML IV SCH (08:49)
[2021-04-03] MEDS: METOPROLOL TARTRATE 12.5 MG TAB PO SCH ×2 (08:49→20:19)
[2021-04-03] MEDS: SERTRALINE 25 MG TAB PO SCH (08:50)
[2021-04-03] MEDS ORDERED: ISOSORBIDE MONONITRATE ER 30 MG TAB.ER.24H PO SCH (09:00)
[2021-04-03] MEDS ORDERED: lisinopriL 5 MG TAB PO SCH (09:00)
[2021-04-03] MEDS ORDERED: FUROSEMIDE 20 MG TAB PO SCH (09:00)
--- NOTE | 2021-04-03 10:30 | P.CRDCN ---
History of Present Illness History of present illness: HISTORY OF PRESENTING ILLNESS This is a pleasant 85-year-old female past medical history significant for chronic persistent atrial fibrillation on long-term anticoagulation, adams ry artery disease status post PCI to the OM branch in 2019, hypertension, dyslipidemia and chronic anemia. She follows in the office with Dr. Ayala. We have been asked to see in consultation for anticoagulation recommendations. She presented to the hospital with symptoms of shortness of breath, generalized weakness and fatigue and possible dark stools. She states for the previous one year she has been struggling with anemia. She has undergone upper and lower endoscopies and has followed with hematology in the past. She has received multiple blood transfusions as well. She continues to be maintained on Xarelto for her A. fib. She is seen and examined resting comfortably lying flat in bed in no acute distress. She states overall she feels tired and weak. Hemoglobin on admission was 7.9 with a repeat this morning of 6.5. According to the patient her last dose of Xarelto was 2 nights prior to coming to the hospital. WBC 5.1, platelets 271, sodium 139, potassium 4.5, creatinine 1.12, magnesium 2.0. Chest x-ray is negative for an acute cardiopulmonary process. EKG reveals atrial fibrillation with heart rate of 68. Current daily cardiac medications include Xarelto 15 mg daily, Lopressor 12.5 mg twice a day, lisinopril 10 mg daily, Imdur 30 mg daily, Lasix 20 mg daily and atorvastatin 80 mg at bedtime. Most recent echocardiogram from 2018 revealed preserved LV systolic function. REVIEW OF SYSTEMS At the time of my exam: CONSTITUTIONAL: Complains of generalized weakness and fatigue. Denies fever or chills. CARDIOVASCULAR: Denies chest pain, shortness of breath, orthopnea, PND or palpitations. RESPIRATORY: Denies cough. GASTROINTESTINAL: Denies abdominal pain, diarrhea, constipation, nausea or vomiting. MUSCULOSKELETAL: Denies myalgias. NEUROLOGIC: Denies numbness, tingling, headache or weakness. ENDOCRINE: Denies fatigue, weight change, polydipsia or polyurina. GENITOURINARY: Denies burning, hematuria or urgency with micturation. HEMATOLOGIC: Denies history of anemia or bleeding. PHYSICAL EXAMINATION Blood pressure 108/58 heart rate 91 afebrile and maintaining oxygen saturation on room air. CONSTITUTIONAL: No apparent distress. HEENT: Head is normocephalic. Pupils are equal, round. Sclerae anicteric. Mucous membranes of the mouth are moist. No JVD. No carotid bruit. CHEST EXAMINATION: Lungs are clear to auscultation. No chest wall tenderness is noted on palpation or with deep breathing. HEART EXAMINATION: Irregular rate and rhythm. S1, S2 heard. Systolic ejection murmur at the base, no gallops or rub. ABDOMEN: Soft, nontender. EXTREMITIES: 2+ peripheral pulses, no lower extremity edema and no calf tenderness. NEUROLOGIC EXAMINATION: Patient is awake, alert and oriented x3. ASSESSMENT Generalized weakness and fatigue Anemia, hypochromic and microcytic Possible GI bleeding Chronic persistent atrial fibrillation on Xarelto Hypotension secondary to hypovolemia History of hypertension Coronary artery disease status post PCI in 2019 Dyslipidemia PLAN Discontinue Xarelto. At this time we recommend discontinuing indefinitely due to frequent episodes of anemia requiring blood transfusions despite being on lower dose. Recommend GI and hematology evaluation. Unclear if the patient has had small bowel capsule study in the past. She may benefit from this. Hold lisinopril, Imdur and Lasix secondary to hypotension. Parameters were placed on metoprolol. Obtain 2-D echocardiogram and Doppler study to assess cardiac structure and function. Thank you kindly for this consultation. Nurse Practitioner note has been reviewed, I agree with a documented findings and plan of care. Patient was seen and examined. Past Medical History Past Medical History: Coronary Artery Disease (CAD), GERD/Reflux, Hyperlipidemia, Hypertension, Osteoarthritis (OA) Additional Past Medical History / Comment(s): +OCCULT, ANEMIA. hiatal hernia History of Any Multi-Drug Resistant Organisms: None Reported Past Surgical History: Heart Catheterization With Stent, Hysterectomy, Orthopedic Surgery Additional Past Surgical History / Comment(s): vein stripping,heart stents x4,lt foot,mattie car tunnel. right leg and hip surgery, COLONOSCOPY/EGD Past Anesthesia/Blood Transfusion Reactions: No Reported Reaction Additional Past Anesthesia/Blood Transfusion Reaction / Comment(s): no hx blood transfusion Date of Last Stent Placement:: 2018 Past Psychological History: Depression Additional Psychological History / Comment(s): She now resides in an apartment and her cherelle, Clary lives nearby. Pt ambulates with a walker. She no longer drives, her cherelle drives or she pays a friend to take her places. She has a private pay caregiver. She has a cleaning lady and receives MOW. Smoking Status: Never smoker Past Alcohol Use History: None Reported Past Drug Use History: None Reported - Past Family History Mother Family Medical History: Cancer Additional Family Medical History / Comment(s): colon Father Family Medical History: Coronary Artery Disease (CAD), Myocardial Infarction ([place]) Additional Family Medical History / Comment(s): Father of a [place] at the age of 61 yrs. Brother(s) Family Medical History: Cancer, Myocardial Infarction ([place]) Additional Family Medical History / Comment(s): colon cancer Medications and Allergies Home Medications Medication Instructions Recorded Confirmed Type Isosorbide Mononitrate ER [Imdur] 30 mg PO DAILY 12/24/18 04/02/21 History Lansoprazole [Prevacid] 15 mg PO DAILY 12/24/18 04/02/21 History Nitroglycerin Sl Tabs [Nitrostat] 0.4 mg SL Q5M PRN 12/24/18 04/02/21 History Rivaroxaban [Xarelto] 15 mg PO DAILY 12/24/18 04/02/21 History Atorvastatin [Lipitor] 80 mg PO HS #90 tab 12/27/18 04/02/21 Rx Furosemide [Lasix] 20 mg PO DAILY 08/16/20 04/02/21 History Sertraline HCl [Zoloft] 25 mg PO DAILY 09/03/20 04/02/21 History Lisinopril [Prinivil] 10 mg PO DAILY 11/09/20 04/02/21 History Docusate [Colace] 100 mg PO DAILY PRN 03/21/21 04/02/21 History Meclizine [Antivert] 12.5 mg PO TID #20 tab 03/21/21 04/02/21 Rx Metoprolol Tartrate [Lopressor] 12.5 mg PO BID 04/02/21 04/02/21 History Allergies Allergy/AdvReac Type Severity Reaction Status Date / Time latex Allergy Rash/Hives Verified 04/02/21 13:06 Physical Exam Vitals: Vital Signs Temp Pulse Pulse Pulse Pulse Pulse Resp 04/03/21 02:55 82 04/03/21 02:50 69 04/03/21 02:45 98.2 F 69 16 04/02/21 21:00 61 16 04/02/21 20:41 98.4 F 61 16 04/02/21 20:12 98.9 F 59 L 18 04/02/21 19:15 98.7 F 53 L 16 04/02/21 18:54 56 L 16 04/02/21 13:53 52 L 18 04/02/21 11:27 98.2 F 64 18 BP BP BP BP BP Pulse Ox 04/03/21 02:55 78/47 100 04/03/21 02:50 86/53 100 04/03/21 02:45 100/61 100 04/02/21 21:00 04/02/21 20:41 105/64 100 04/02/21 20:12 98/57 98 04/02/21 19:15 106/53 99 04/02/21 18:54 102/46 99 04/02/21 13:53 115/71 98 04/02/21 11:27 103/65 99 Intake and Output 04/02/21 04/03/21 04/03/21 22:59 06:59 14:59 Other: Voiding Method Bedside Commode # Voids 1 Weight 84.368 kg Results 04/03/21 06:22 04/03/21 06:22 Cardiac Enzymes 04/02/21 Range/Units 12:05 AST 31 (14-36) U/L Coagulation 04/02/21 Range/Units 12:05 PT 12.5 H (9.0-12.0) sec APTT 24.2 (22.0-30.0) sec CBC 04/02/21 04/03/21 Range/Units 12:05 06:22 WBC 7.3 5.1 (3.8-10.6) k/uL RBC 4.14 3.36 L (3.80-5.40) m/uL Hgb 7.9 L 6.5 L* (11.4-16.0) gm/dL Hct 28.1 L 22.7 L (34.0-46.0) % Plt Count 342 271 (150-450) k/uL Comprehensive Metabolic Panel 04/02/21 04/03/21 Range/Units 12:05 06:22 Sodium 136 L 139 (137-145) mmol/L Potassium 4.3 4.5 (3.5-5.1) mmol/L Chloride 104 109 H (98-107) mmol/L Carbon Dioxide 19 L 24 (22-30) mmol/L BUN 36 H 34 H (7-17) mg/dL Creatinine 1.11 H 1.12 H (0.52-1.04) mg/dL Glucose 156 H 108 H (74-99) mg/dL Calcium 9.1 8.8 (8.4-10.2) mg/dL AST 31 (14-36) U/L ALT 13 (4-34) U/L Alkaline Phosphatase 92 (38-126) U/L Total Protein 6.7 (6.3-8.2) g/dL Albumin 3.9 (3.5-5.0) g/dL Current Medications Generic Name Dose Route Start Last Admin Trade Name Freq PRN Reason Stop Dose Admin Atorvastatin Calcium 80 mg 04/02/21 21:00 04/02/21 23:02 Atorvastatin 80 Mg Tab PO 80 mg HS KIMBERLY Administration Docusate Sodium 100 mg 04/02/21 23:58 Docusate 100 Mg Cap PO DAILY PRN Constipation Furosemide 20 mg 04/03/21 09:00 Furosemide 20 Mg Tab PO DAILY KIMBERLY Isosorbide Mononitrate 30 mg 04/03/21 09:00 Isosorbide Mononitrate Er 30 Mg Tab.Er.24h PO DAILY KIMBERLY Meclizine HCl 12.5 mg 04/02/21 22:00 04/02/21 22:44 Meclizine 12.5 Mg Tab PO Not Given TID KIMBERLY Metoprolol Tartrate 12.5 mg 04/02/21 21:30 04/02/21 22:44 Metoprolol Tartrate 12.5 Mg Tab PO Not Given BID KIMBERLY Nitroglycerin 0.4 mg 04/02/21 23:58 Nitroglycerin Sl Tabs 0.4 Mg Tab SUBLINGUAL Q5M PRN Chest Pain Sertraline HCl 25 mg 04/03/21 09:00 Sertraline 25 Mg Tab PO DAILY KIMBERLY Intake and Output 04/02/21 04/03/21 04/03/21 22:59 06:59 14:59 Other: Voiding Method Bedside Commode # Voids 1 Weight 84.368 kg 04/03/21 06:22 04/03/21 06:22
--- NOTE | 2021-04-03 11:37 | ECHOF ---
Referral Reason:weakness, afib MEASUREMENTS -------- HEIGHT: 160.0 cm WEIGHT: 84.4 kg BP: 108/58 RVIDd: 3.0 cm (< 3.3) IVSd: 1.3 cm (0.6 - 1.1) LVIDd: 4.5 cm (3.9 - 5.3) LVPWd: 1.3 cm (0.6 - 1.1) IVSs: 1.7 cm LVIDs: 3.0 cm LVPWs: 1.7 cm LA Diam: 3.6 cm (2.7 - 3.8) LAESV Index (A-L): 57.81 ml/m Ao Diam: 3.7 cm (2.0 - 3.7) AV Cusp: 2.0 cm (1.5 - 2.6) MV EXCURSION: 14.642 mm (> 18.000) MV EF SLOPE: 65 mm/s (70 - 150) EPSS: 1.0 cm AV maxP.57 mmHg AV meanP.32 mmHg AR PHT: 473 ms RAP: 5.00 mmHg RVSP: 60.21 mmHg FINDINGS -------- Atrial fibrillation. This was a technically adequate study. The left ventricular size is normal. There is mild concentric left ventricular hypertrophy. Overa ll left ventricular systolic function is normal with, an EF between 60 - 65 %. The right ventricle is normal in size. LA is moderately dilated 34-39 ml/m2 The right atrium is normal in size. Interatrial and interventricular septum intact. There is mild aortic valve sclerosis. There is moderate aortic regurgitation. There is mild aorti c stenosis present. Peak/mean gradient across the Aortic Valve is 18.57mmHg / 10.32mmHg. The mitral valve leaflets are mildly thickened. Mild mitral annular calcification present. Mild m itral regurgitation is present. Mild tricuspid regurgitation present. There is severe pulmonary hypertension. The right ventricul ar systolic pressure, as measured by Doppler, is 60.21mmHg. Trace/mild (physiologic) pulmonic regurgitation. The aortic root size is normal. Normal inferior vena cava with normal inspiratory collapse consistent with estimated right atrial pre ssure of 5 mmHg. There is no pericardial effusion. CONCLUSIONS -------- 1. The left ventricular size is normal. 2. There is mild concentric left ventricular hypertrophy. 3. Overall left ventricular systolic function is normal with, an EF between 60 - 65 %. 4. LA is moderately dilated 34-39 ml/m2 5. There is mild aortic valve sclerosis. 6. There is moderate aortic regurgitation. 7. There is mild aortic stenosis present. 8. Peak/mean gradient across the Aortic Valve is 18.57mmHg / 10.32mmHg. 9. The mitral valve leaflets are mildly thickened. 10. Mild mitral annular calcification present. 11. Mild mitral regurgitation is present. 12. Mild tricuspid regurgitation present. 13. There is severe pulmonary hypertension. 14. The right ventricular systolic pressure, as measured by Doppler, is 60.21mmHg. 15. Trace/mild (physiologic) pulmonic regurgitation. 16. There is no pericardial effusion. SEARCH MANAGER: Shaneka Anderson RDCS
--- NOTE | 2021-04-03 14:08 | P.CONS ---
History of Present Illness - Reason for Consult Consult date: 04/03/21 anemia Requesting physician: David Villarreal - Chief Complaint Generalized weakness - History of Present Illness Mrs. Stokes is a very pleasant 84-year-old female who was seen by heme/on August of this year. She was worked up at that time with no paraproteinemia. She was F ound to be iron deficient- on anticoagulation and antiplatelet therapy for coronary artery disease and stent. She had endoscopies 08/20/[address] Sharma, small hiatal hernia, sigmoid diverticulosis, no AVMs or masses, she was discharged on anticoagulation and her antiplatelet therapy. It is documented that after a fall in March 2020, she had surgery for a femur fracture and her baseline hemoglobin stayed near 8. Hematology workup was otherwise negative. It was suspected that the likely cause of her iron deficiency was Intermittent bleeding of AVMs exacerbated by anticoagulation and antiplatelet therapy. Patient was supposed to follow up and have serial CBCs with iron studies is needed and parenteral iron when necessary. There is documentation of several attempts to make a follow-up with the appointment, unfortunately, there was no return phone calls. Patient presents with complaints of generalized weakness, easy fatigue, makes it harder for her to to get around, she does live alone. She denies any notable bleeding, denies any changes in the color of her urine or stool. She was 6.5 on admission, unit of packed red blood cells being given, otherwise her CBC with differential is normal. Mild chronic renal insufficiency creatinine 1.12. Review of Systems 10 point review of systems is negative except as stated in HPI Past Medical History Past Medical History: Coronary Artery Disease (CAD), GERD/Reflux, Hyperlipidemia, Hypertension, Osteoarthritis (OA) Additional Past Medical History / Comment(s): +OCCULT, ANEMIA. hiatal hernia History of Any Multi-Drug Resistant Organisms: None Reported Past Surgical History: Heart Catheterization With Stent, Hysterectomy, Orthopedic Surgery Additional Past Surgical History / Comment(s): vein stripping,heart stents x4,lt foot,mattie car tunnel. right leg and hip surgery, COLONOSCOPY/EGD Past Anesthesia/Blood Transfusion Reactions: No Reported Reaction Additional Past Anesthesia/Blood Transfusion Reaction / Comm: no hx blood transfusion Date of Last Stent Placement:: 2018 Past Psychological History: Depression Additional Psychological History / Comment(s): She now resides in an apartment and her cherelle, Clary lives nearby. Pt ambulates with a walker. She no longer drives, her cherelle drives or she pays a friend to take her places. She has a private pay caregiver. She has a cleaning lady and receives MOW. Smoking Status: Never smoker Past Alcohol Use History: None Reported Past Drug Use History: None Reported - Past Family History Mother Family Medical History: Cancer Additional Family Medical History / Comment(s): colon Father Family Medical History: Coronary Artery Disease (CAD), Myocardial Infarction ([place]) Additional Family Medical History / Comment(s): Father of a [place] at the age of 61 yrs. Brother(s) Family Medical History: Cancer, Myocardial Infarction ([place]) Additional Family Medical History / Comment(s): colon cancer Medications and Allergies Home Medications Medication Instructions Recorded Confirmed Type Isosorbide Mononitrate ER [Imdur] 30 mg PO DAILY 12/24/18 04/02/21 History Lansoprazole [Prevacid] 15 mg PO DAILY 12/24/18 04/02/21 History Nitroglycerin Sl Tabs [Nitrostat] 0.4 mg SL Q5M PRN 12/24/18 04/02/21 History Rivaroxaban [Xarelto] 15 mg PO DAILY 12/24/18 04/02/21 History Atorvastatin [Lipitor] 80 mg PO HS #90 tab 12/27/18 04/02/21 Rx Furosemide [Lasix] 20 mg PO DAILY 08/16/20 04/02/21 History Sertraline HCl [Zoloft] 25 mg PO DAILY 09/03/20 04/02/21 History Lisinopril [Prinivil] 10 mg PO DAILY 11/09/20 04/02/21 History Docusate [Colace] 100 mg PO DAILY PRN 03/21/21 04/02/21 History Meclizine [Antivert] 12.5 mg PO TID #20 tab 03/21/21 04/02/21 Rx Metoprolol Tartrate [Lopressor] 12.5 mg PO BID 04/02/21 04/02/21 History Allergies Allergy/AdvReac Type Severity Reaction Status Date / Time latex Allergy Rash/Hives Verified 04/02/21 13:06 Physical Exam Vitals: Vital Signs Temp Pulse Pulse Pulse Pulse Pulse Resp 04/03/21 11:29 04/03/21 08:00 61 69 91 69 16 04/03/21 07:00 98.5 F 91 16 04/03/21 02:55 82 04/03/21 02:50 69 04/03/21 02:45 98.2 F 69 16 04/02/21 21:00 61 16 04/02/21 20:41 98.4 F 61 16 04/02/21 20:12 98.9 F 59 L 18 04/02/21 19:15 98.7 F 53 L 16 04/02/21 18:54 56 L 16 BP BP BP BP BP Pulse Ox 04/03/21 11:29 97 04/03/21 08:00 04/03/21 07:00 108/58 98 04/03/21 02:55 78/47 100 04/03/21 02:50 86/53 100 04/03/21 02:45 100/61 100 04/02/21 21:00 04/02/21 20:41 105/64 100 04/02/21 20:12 98/57 98 04/02/21 19:15 106/53 99 04/02/21 18:54 102/46 99 Intake and Output 04/02/21 04/03/21 04/03/21 22:59 06:59 14:59 Other: Voiding Method Bedside Commode Bedside Commode # Voids 1 Weight 84.368 kg - Constitutional General appearance: average body habitus, cooperative, no acute distress - EENT Eyes: anicteric sclerae, EOMI ENT: hearing grossly normal, normal oropharynx - Neck Neck: no lymphadenopathy - Respiratory Respiratory: bilateral: CTA - Cardiovascular Rhythm: regular Heart sounds: normal: S1, S2 leg Peripheral Edema: bilateral: None - Gastrointestinal General gastrointestinal: no absent bowel sounds, no decreased bowel sounds, no distended, no hepatomegaly, no hyperactive bowel sounds, normal bowel sounds, no organomegaly, no rigid, no scaphoid, soft, no splenomegaly, no tenderness, no umbilical hernia, no ventral hernia - Integumentary Integumentary: pale - Neurologic Neurologic: CNII-XII intact - Musculoskeletal Musculoskeletal: generalized weakness - Psychiatric Psychiatric: A&O x's 3, appropriate affect, intact judgment & insight Results CBC & Chem 7: 04/03/21 06:22 04/03/21 06:22 Labs: Abnormal Lab Results - Last 24 Hours (Table) 04/02/21 04/03/21 04/03/21 Range/Units 13:05 02:50 06:22 RBC 3.36 L (3.80-5.40) m/uL Hgb 6.5 L* (11.4-16.0) gm/dL Hct 22.7 L (34.0-46.0) % MCV 67.5 L (80.0-100.0) fL MCH 19.3 L (25.0-35.0) pg MCHC 28.5 L (31.0-37.0) g/dL RDW 19.5 H (11.5-15.5) % Chloride (98-107) mmol/L BUN (7-17) mg/dL Creatinine (0.52-1.04) mg/dL Glucose (74-99) mg/dL Ur Leukocyte Esterase Moderate H (Negative) Urine WBC 7 H (0-5) /hpf Urine Bacteria Rare H (None) /hpf Crossmatch See Detail 04/03/21 Range/Units 06:22 RBC (3.80-5.40) m/uL Hgb (11.4-16.0) gm/dL Hct (34.0-46.0) % MCV (80.0-100.0) fL MCH (25.0-35.0) pg MCHC (31.0-37.0) g/dL RDW (11.5-15.5) % Chloride 109 H (98-107) mmol/L BUN 34 H (7-17) mg/dL Creatinine 1.12 H (0.52-1.04) mg/dL Glucose 108 H (74-99) mg/dL Ur Leukocyte Esterase (Negative) Urine WBC (0-5) /hpf Urine Bacteria (None) /hpf Crossmatch Chest x-ray: report reviewed Assessment and Plan (1) Iron deficiency anemia due to chronic blood loss Narrative/Plan: Patient states that it's difficult for her to get to and from appointments as she relies on her children for the same. Her iron studies are being checked during this visit. Pending results and if Appropriate, patient will receive parenteral iron. That would be expected to improve her hemoglobin. Patient has difficulty getting to and from appointments recommendation would be for home care to draw her labs once a month and iron studies 4 weeks after iron infusions. We will sent a communication to the [employer] to see if this is possible. Current Visit: Yes Status: Chronic Priority: Medium Code(s): D50.0 - IRON DEFICIENCY ANEMIA SECONDARY TO BLOOD LOSS (CHRONIC) SNOMED Code(s): 463575451 Plan: tests: I have preformed H&P and developed impression and plan of care for patient, discussed with dictator. I agree with dictated note, documented as a scribe
--- NOTE | 2021-04-03 14:27 | P.PN ---
Subjective This is a pleasant 85 years old female with past medical history of coronary artery disease, GERD, hyperlipidemia, hypertension, osteoarthritis. Presents because of low hemoglobin checked at her PCP office Dr. Bocanegra and it was 6.6 as per daughter at bedside. However repeat hemoglobin check the hospital it was 7.9. Patient has previous workup for anemia which was on remarkable as per ED staff. As per daughter patient complaining of from dizziness and shortness of breath and generally weak. Patient is fully awake and oriented while she is lying in bed she denies any specific complaint. Pain or dyspnea. No headache or dizziness. No urinary or bowel complaints. No fever Blood pressure is borderline and she received more than 500 mL of normal saline bolus in the emergency room. Systolic blood pressure 90s-100s. And also she is on multiple blood pressure medications including lisinopril 10 mg, Imdur 30 mg, Lasix orally 20 mg and metoprolol 12.5 mg. Creatinine on admission is 1.1 Chest x-ray was unremarkable. 04/03/21 Patient clinically looks the same as yesterday because she is sitting in bed [place] she still feeling generally weak but no exertional dyspnea or dizziness Her hemoglobin came back low today at 6.5 and she was hypotensive with blood pressure 78/47. She received a bolus of normal saline and 1 unit of blood ferrari sfusion is ordered. Anemia workup is ordered as well Xarelto is on hold [facility] cardiology recommended to hold it indefinitely for severe bleeding and recurrent bleeding even on a small dose as risk no more than benefits GI consult for possible capsule endoscopy. Hematology on the case Urine analysis is suspicious for UTI, sent for urine culture, start Rocephin Objective - Vital Signs Vital signs: Vital Signs Temp 98.5 F 04/03/21 07:00 Pulse 61 04/03/21 14:00 Resp 16 04/03/21 14:00 BP 108/58 04/03/21 07:00 Pulse Ox 97 04/03/21 11:29 Intake & Output 04/02/21 04/03/21 04/03/21 18:59 06:59 18:59 Weight 84.368 kg Other: Voiding Method Bedside Commode Bedside Commode # Voids 1 3 - Exam -GENERAL: The patient is alert and oriented x3, not in any acute distress. Obese, generally weak HEENT: Pupils are round and equally reacting to light. EOMI. No scleral icterus. No conjunctival pallor. Normocephalic, atraumatic. No pharyngeal erythema. No t hyromegaly. CARDIOVASCULAR: S1 and S2 present. No murmurs, rubs, or gallops. PULMONARY: Chest is clear to auscultation, no wheezing or crackles. ABDOMEN: Soft, nontender, nondistended, normoactive bowel sounds. No palpable organomegaly. MUSCULOSKELETAL: No joint swelling or deformity. EXTREMITIES: No cyanosis, clubbing, or pedal edema. NEUROLOGICAL: Gross neurological examination did not reveal any focal deficits. SKIN: No rashes. No petechiae - Labs CBC & Chem 7: 04/03/21 06:22 04/03/21 06:22 Labs: Abnormal Lab Results - Last 24 Hours (Table) 04/02/21 04/03/21 04/03/21 Range/Units 13:05 02:50 06:22 RBC 3.36 L (3.80-5.40) m/uL Hgb 6.5 L* (11.4-16.0) gm/dL Hct 22.7 L (34.0-46.0) % MCV 67.5 L (80.0-100.0) fL MCH 19.3 L (25.0-35.0) pg MCHC 28.5 L (31.0-37.0) g/dL RDW 19.5 H (11.5-15.5) % Chloride (98-107) mmol/L BUN (7-17) mg/dL Creatinine (0.52-1.04) mg/dL Glucose (74-99) mg/dL Ur Leukocyte Esterase Moderate H (Negative) Urine WBC 7 H (0-5) /hpf Urine Bacteria Rare H (None) /hpf Crossmatch See Detail 04/03/21 Range/Units 06:22 RBC (3.80-5.40) m/uL Hgb (11.4-16.0) gm/dL Hct (34.0-46.0) % MCV (80.0-100.0) fL MCH (25.0-35.0) pg MCHC (31.0-37.0) g/dL RDW (11.5-15.5) % Chloride 109 H (98-107) mmol/L BUN 34 H (7-17) mg/dL Creatinine 1.12 H (0.52-1.04) mg/dL Glucose 108 H (74-99) mg/dL Ur Leukocyte Esterase (Negative) Urine WBC (0-5) /hpf Urine Bacteria (None) /hpf Crossmatch Assessment and Plan Assessment: Generalized weakness with dyspnea and dizziness, most likely related to dehydration and hypotension secondary to possible GI bleed and as she's been on multiple blood pressure medication Possible acute urinary tract infection History of coronary artery disease, status post stent Anemia History of GERD Hyperlipidemia Hypertension, her blood pressure is borderline now History of osteoarthritis Obesity with BMI 32.9 Plan: This is a pleasant 85 years old female who presents with general symptoms of weakness, dizziness and dyspnea with suspicion of low hemoglobin however hemoglobin rechecked and emergency room was much improved without intervention, Hold lisinopril, Lasix and Imdur. Continue with metoprolol with para liters GI consult for possible capsule endoscopy Give 1 unit of blood transfusion Start Rocephin and follow-up urine culture Follow-up Cardiology and hematology consults Labs and medication were reviewed.. Continue same treatment. Continue with symptomatic treatment. Resume home medication. Monitor lytes and vitals. DVT and GI prophylaxis. Further recommendations as per clinical course of the patient DVT prophylaxis: Discontinue Xarelto GI Prophylaxis: Ppi PT/OT: Pending Prognosis is guarded
[2021-04-03 14:48] LABS: Ferritin 6.9 ng/mL (10.0-291.0)
[2021-04-03 14:49] LABS: % Iron Saturation 1.62 (12.00-45.00); Folate, Serum 23.1 ng/mL
--- NOTE | 2021-04-03 15:33 | P.CONS ---
History of Present Illness - Reason for Consult Consult date: 04/03/21 anemia, poosible [facility] Requesting physician: Shannon Bello - Chief Complaint shortness of breath, dizziness and weakness - History of Present Illness State pleasant 85-year-old white female who presented to the emergency department with complaints of weakness, shortness of breath, and dizziness. She was seen by her PCP and was noted to be anemic. Patient was sent to the emergency department for further evaluation. She has a past medical history including coronary artery disease, atrial fibrillation on Xarelto, GERD, hyperlipidemia, hypertension, osteoarthritis, and chronic anemia. The patient is denying any abdominal pain, nausea, or vomiting. She states at times she thinks her stool may be dark, denies any blood. On admission she was noted to have a hemoglobin of 7.9. Gastroenterology was consulted to rule out possibility of GI bleed. The patient was admitted back in August for similar complaints. At that time she underwent an EGD and colonoscopy on . EGD with findings of small hiatal hernia, colonoscopy showed scattered diverticulosis. There was no active bleeding or old blood noted. She underwent an outpatient small bowel video capsule endoscopy on 09/20/2020 showing a normal small bowel mucosa. No angiectasia or active bleeding. Today's labs WBC 5, hemoglobin 6.5, hematocrit 22, platelet count 271,000, total bilirubin 0.6, alkaline phosphatase 92, ALT 31, ALT 13, INR 1.2. Patient was also noted to be hypotensive on admission. Cardiology is following. They have discontinued her Xarelto and plan to indefinitely related to continued drop in hemoglobin. Patient was also seen in August by hematology for iron deficiency anemia. Patient was supposed to follow up outpatient however did not follow up. The patient denies getting any outpatient iron infusions were taking oral iron. Review of Systems REVIEW OF SYSTEMS: CARDIOPULMONARY: No chest pain or shortness of breath. Gastrointestinal: No abdominal pain.. No nausea or vomiting. No hematemesis, coffee-ground emesis. No rectal bleeding, or melena. GENITOURINARY: No dysuria or hematuria. MUSCULOSKELETAL: Reports normal range of motion., Joint pain. SKIN: No rashes. No jaundice. ENDOCRINE: No chills, fevers. No excessive weight gain or loss. No polydipsia or polyuria. PSYCHIATRIC: Unremarkable. NEUROLOGY: No change in mental status. Dizziness. ENT: Vision unremarkable. CONSTITUTIONAL: No recent weight loss. No fever, chills, night sweats. Reports of dizziness, weakness. Past Medical History Past Medical History: Coronary Artery Disease (CAD), GERD/Reflux, Hyperlipidemia, Hypertension, Osteoarthritis (OA) Additional Past Medical History / Comment(s): +OCCULT, ANEMIA. hiatal hernia History of Any Multi-Drug Resistant Organisms: None Reported Past Surgical History: Heart Catheterization With Stent, Hysterectomy, Orthopedic Surgery Additional Past Surgical History / Comment(s): vein stripping,heart stents x4,lt foot,mattie car tunnel. right leg and hip surgery, COLONOSCOPY/EGD Past Anesthesia/Blood Transfusion Reactions: No Reported Reaction Additional Past Anesthesia/Blood Transfusion Reaction / Comm: no hx blood transfusion Date of Last Stent Placement:: 2018 Past Psychological History: Depression Additional Psychological History / Comment(s): She now resides in an apartment and her cherelle, Clary lives nearby. Pt ambulates with a walker. She no longer drives, her cherelle drives or she pays a friend to take her places. She has a private pay caregiver. She has a cleaning lady and receives MOW. Smoking Status: Never smoker Past Alcohol Use History: None Reported Past Drug Use History: None Reported - Past Family History Mother Family Medical History: Cancer Additional Family Medical History / Comment(s): colon Father Family Medical History: Coronary Artery Disease (CAD), Myocardial Infarction ([place]) Additional Family Medical History / Comment(s): Father of a [place] at the age of 61 yrs. Brother(s) Family Medical History: Cancer, Myocardial Infarction ([place]) Additional Family Medical History / Comment(s): colon cancer Medications and Allergies Home Medications Medication Instructions Recorded Confirmed Type Isosorbide Mononitrate ER [Imdur] 30 mg PO DAILY 12/24/18 04/02/21 History Lansoprazole [Prevacid] 15 mg PO DAILY 12/24/18 04/02/21 History Nitroglycerin Sl Tabs [Nitrostat] 0.4 mg SL Q5M PRN 12/24/18 04/02/21 History Rivaroxaban [Xarelto] 15 mg PO DAILY 12/24/18 04/02/21 History Atorvastatin [Lipitor] 80 mg PO HS #90 tab 12/27/18 04/02/21 Rx Furosemide [Lasix] 20 mg PO DAILY 08/16/20 04/02/21 History Sertraline HCl [Zoloft] 25 mg PO DAILY 09/03/20 04/02/21 History Lisinopril [Prinivil] 10 mg PO DAILY 11/09/20 04/02/21 History Docusate [Colace] 100 mg PO DAILY PRN 03/21/21 04/02/21 History Meclizine [Antivert] 12.5 mg PO TID #20 tab 03/21/21 04/02/21 Rx Metoprolol Tartrate [Lopressor] 12.5 mg PO BID 04/02/21 04/02/21 History Allergies Allergy/AdvReac Type Severity Reaction Status Date / Time latex Allergy Rash/Hives Verified 04/02/21 13:06 Physical Exam Vitals: Vital Signs Temp Pulse Pulse Pulse Pulse Pulse Resp 04/03/21 07:00 98.5 F 91 16 04/03/21 02:55 82 04/03/21 02:50 69 04/03/21 02:45 98.2 F 69 16 04/02/21 21:00 61 16 04/02/21 20:41 98.4 F 61 16 04/02/21 20:12 98.9 F 59 L 18 04/02/21 19:15 98.7 F 53 L 16 04/02/21 18:54 56 L 16 04/02/21 13:53 52 L 18 04/02/21 11:27 98.2 F 64 18 BP BP BP BP BP Pulse Ox 04/03/21 07:00 108/58 98 04/03/21 02:55 78/47 100 04/03/21 02:50 86/53 100 04/03/21 02:45 100/61 100 04/02/21 21:00 04/02/21 20:41 105/64 100 04/02/21 20:12 98/57 98 04/02/21 19:15 106/53 99 04/02/21 18:54 102/46 99 04/02/21 13:53 115/71 98 04/02/21 11:27 103/65 99 Intake and Output 04/02/21 04/03/21 04/03/21 22:59 06:59 14:59 Other: Voiding Method Bedside Commode # Voids 1 Weight 84.368 kg General appearance: The patient is alert, oriented, appears in no acute distress. HET: Head is normocephalic and atraumatic. Conjunctiva pink. Sclera anicteric. Neck: Supple without lymphadenopathy. Trachea midline. Heart: S1 S2. Regular rate and rhythm. Lungs: Clear to auscultation. Abdomen: Soft, nontender, nondistended with bowel sounds. No guarding or rigidity. Skin: No rashes. No jaundice. Extremities: Normal skin color and turgor. No pedal edema. Neurological: No focal deficits. Alert and oriented 3.. Results CBC & Chem 7: 04/03/21 06:22 04/03/21 06:22 Labs: Abnormal Lab Results - Last 24 Hours (Table) 04/02/21 04/02/21 04/02/21 Range/Units 12:05 12:05 12:05 RBC (3.80-5.40) m/uL Hgb 7.9 L (11.4-16.0) gm/dL Hct 28.1 L (34.0-46.0) % MCV 68.0 L (80.0-100.0) fL MCH 19.0 L (25.0-35.0) pg MCHC 27.9 L (31.0-37.0) g/dL RDW 19.7 H (11.5-15.5) % Lymphocytes # 0.9 L (1.0-4.8) k/uL PT 12.5 H (9.0-12.0) sec INR 1.2 H (<1.2) Sodium 136 L (137-145) mmol/L Chloride (98-107) mmol/L Carbon Dioxide 19 L (22-30) mmol/L BUN 36 H (7-17) mg/dL Creatinine 1.11 H (0.52-1.04) mg/dL Glucose 156 H (74-99) mg/dL Ur Leukocyte Esterase (Negative) Urine WBC (0-5) /hpf Urine Bacteria (None) /hpf Crossmatch 04/02/21 04/03/21 04/03/21 Range/Units 13:05 02:50 06:22 RBC 3.36 L (3.80-5.40) m/uL Hgb 6.5 L* (11.4-16.0) gm/dL Hct 22.7 L (34.0-46.0) % MCV 67.5 L (80.0-100.0) fL MCH 19.3 L (25.0-35.0) pg MCHC 28.5 L (31.0-37.0) g/dL RDW 19.5 H (11.5-15.5) % Lymphocytes # (1.0-4.8) k/uL PT (9.0-12.0) sec INR (<1.2) Sodium (137-145) mmol/L Chloride (98-107) mmol/L Carbon Dioxide (22-30) mmol/L BUN (7-17) mg/dL Creatinine (0.52-1.04) mg/dL Glucose (74-99) mg/dL Ur Leukocyte Esterase Moderate H (Negative) Urine WBC 7 H (0-5) /hpf Urine Bacteria Rare H (None) /hpf Crossmatch See Detail 04/03/21 Range/Units 06:22 RBC (3.80-5.40) m/uL Hgb (11.4-16.0) gm/dL Hct (34.0-46.0) % MCV (80.0-100.0) fL MCH (25.0-35.0) pg MCHC (31.0-37.0) g/dL RDW (11.5-15.5) % Lymphocytes # (1.0-4.8) k/uL PT (9.0-12.0) sec INR (<1.2) Sodium (137-145) mmol/L Chloride 109 H (98-107) mmol/L Carbon Dioxide (22-30) mmol/L BUN 34 H (7-17) mg/dL Creatinine 1.12 H (0.52-1.04) mg/dL Glucose 108 H (74-99) mg/dL Ur Leukocyte Esterase (Negative) Urine WBC (0-5) /hpf Urine Bacteria (None) /hpf Crossmatch Assessment and Plan (1) Microcytic anemia Narrative/Plan: 85-year-old female with a history of iron deficiency anemia likely from GI blood loss. Patient presented to the emergency department as directed by her PCP with complaints of weakness, dizziness and shortness of breath. Patient was found to be anemic and sent to the emergency department for further evaluation. Patient has a history of atrial fibrillation on Xarelto, currently discontinued. She's been anemic since 2019. In August of this year she presented to the emergency department with similar complaints, however at that time she did notice some small amounts of bright red blood on tissue with wiping. She underwent an EGD and colonoscopy on 08/30/2020. EGD found small hiatal hernia, colonoscopy found scattered diverticulosis. Patient underwent an out patient small bowel capsule endoscopy on 09/20/2011 showing a normal small bowel mucosa, no angiectasia or active bleeding. Patient was supposed to follow-up with hematology however did not. Likely iron deficiency anemia related to GI bleed from angiectasia. There is no plans for repeating endoscopic evaluation, agree with holding anticoagulation. Agree with hematology consult. Continue to monitor H&H, transfuse as needed for hemoglobin less than 7. Iron studies ordered. Current Visit: Yes Status: Acute Code(s): D50.9 - IRON DEFICIENCY ANEMIA, UNSPECIFIED SNOMED Code(s): 645395457 (2) History of atrial fibrillation Current Visit: Yes Status: Acute Code(s): Z86.79 - PERSONAL HISTORY OF OTHER DISEASES OF THE CIRCULATORY SYSTEM SNOMED Code(s): 342454057 (3) Essential hypertension Current Visit: No Status: Acute Code(s): I10 - ESSENTIAL (PRIMARY) HYP ERTENSION SNOMED Code(s): 32294051 (4) GERD (gastroesophageal reflux disease) Current Visit: No Status: Acute Code(s): K21.9 - GASTRO-ESOPHAGEAL REFLUX DISEASE WITHOUT ESOPHAGITIS SNOMED Code(s): 785843935 Plan: 1. Continue symptomatic supportive care 2. Patient may have heart healthy diet 3. Agree with 1 unit of PRBC 4. Daily CBC, transfuse for hemoglobin less than 7 5. IV iron daily 3 6. Agree with discontinuing Xarelto 7. No plans on endoscopic evaluation as patient recently underwent EGD, colonoscopy, and small bowel capsule video endoscopy earlier this year. Likely source of GI blood losses angiectasia. Patient anticoagulation has been discontinued. 8. Hematology on consult, following patient closely Thank you for this consultation, we will continue to follow. Dr. Chantelle Sharma I agree with the dictator's note, documented as a scribe by Daniela Bruner.
[2021-04-03] MEDS: ATORVASTATIN 80 MG TAB PO SCH (20:19)
[2021-04-04] MEDS: SODIUM CHLORIDE 0.9% 1,000 ML IV SCH (00:49)
[2021-04-04 09:21] LABS: HCT 26.3 % (37.2-46.3); HGB 7.2 g/dL (12.0-15.0); MCH 18.8 pg (27.0-32.0); MCHC 27.4 g/dL (32.0-37.0); MCV 68.8 fL (80.0-97.0); Mean Platelet Volume 10.3 fL (9.5-12.2); Platelet Count 301 X 10*3/uL (140-440); RBC 3.82 X 10*6/uL (4.10-5.20); RDW 22.2 % (11.5-14.5); WBC 5.36 X 10*3/uL (4.50-10.00)
[2021-04-04] MEDS: SODIUM FERRIC GLUCONAT-SUCROSE 125 MG in SODIUM CHLORIDE 0.9% 100 ML IVPB SCH (09:37)
[2021-04-04] MEDS: MECLIZINE 12.5 MG TAB PO SCH ×3 (09:40→20:17)
[2021-04-04] MEDS: METOPROLOL TARTRATE 12.5 MG TAB PO SCH ×2 (09:40→20:17)
[2021-04-04] MEDS: SERTRALINE 25 MG TAB PO SCH (09:40)
[2021-04-04] MEDS: PANTOPRAZOLE 40 MG TABLET PO SCH (09:40)
--- NOTE | 2021-04-04 10:25 | P.PN ---
Subjective Progress Note Date: 04/04/21 Principal diagnosis: iron deficient anemia 2/2 chronic blood loss In f/u today pt is feeling good, wondering if she can go home. Denies bleeding, she is tolerating oral intake Objective - Vital Signs Vital signs: Vital Signs Temp 98.2 F 04/04/21 07:00 Pulse 84 04/04/21 07:00 Resp 19 04/04/21 08:00 BP 110/66 04/04/21 07:00 Pulse Ox 95 04/04/21 08:22 Intake & Output 04/03/21 04/04/21 04/04/21 18:59 06:59 18:59 Intake Total 0 273 240 Output Total 500 Balance 0 -227 240 Intake: Oral 240 Blood Product 0 273 Rc Pheresis As-3 Unit 0 273 [id number] Output: Urine 500 Other: Voiding Method Bedside Commode Bedside Commode Bedside Commode # Voids 3 2 - Constitutional General appearance: Present: average body habitus, cooperative, no acute distress - EENT Eyes: Present: anicteric sclerae, EOMI ENT: Present: hearing grossly normal - Respiratory Details: resp even and unlabored - Musculoskeletal Musculoskeletal: Present: generalized weakness - Psychiatric Psychiatric: Present: A&O x's 3, appropriate affect, intact judgment & insight - Labs CBC & Chem 7: 04/04/21 05:53 04/03/21 06:22 Labs: Abnormal Lab Results - Last 24 Hours (Table) 04/02/21 04/02/21 04/04/21 Range/Units 12:05 13:05 05:53 RBC 3.82 L (4.10-5.20) X 10*6/uL Hgb 7.2 L (12.0-15.0) g/dL Hct 26.3 L (37.2-46.3) % MCV 68.8 L (80.0-97.0) fL MCH 18.8 L (27.0-32.0) pg MCHC 27.4 L (32.0-37.0) g/dL RDW 22.2 H (11.5-14.5) % Iron 7 L (50-170) ug/dL % Saturation 1.62 L (12.00-45.00) Ferritin 6.9 L (10.0-291.0) ng/mL Crossmatch See Detail Microbiology - Last 24 Hours (Table) 04/03/21 02:50 Urine Culture - Preliminary Urine,Voided Assessment and Plan (1) Iron deficiency anemia due to chronic blood loss Narrative/Plan: Case discussed briefly with Cardiology. Plan is to hold anticoagulation. Pt may have improvement in Hgb/iron stores if chronic blood loss from AVMs ex acerbated by anticoagulation. IV iron x 3 ordered. Rx for oral iron sent to pt preferred pharmacy. D/W hr manager CBC monthly with home care. F/U DR. Balbuena 6 weeks. Current Visit: Yes Status: Chronic Priority: Medium Code(s): D50.0 - IRON DEFICIENCY ANEMIA SECONDARY TO BLOOD LOSS (CHRONIC) SNOMED Code(s): 554897990 Plan: attests: I have preformed H&P and developed impression and plan of care for patient, discussed with dictator. I agree with dictated note, documented as a scribe
--- NOTE | 2021-04-04 12:48 | P.PN ---
Subjective This is a pleasant 85 years old female with past medical history of coronary artery disease, GERD, hyperlipidemia, hypertension, osteoarthritis. Presents because of low hemoglobin checked at her PCP office Dr. Bocanegra and it was 6.6 as per daughter at bedside. However repeat hemoglobin check the hospital it was 7.9. Patient has previous workup for anemia which was on remarkable as per ED staff. As per daughter patient complaining of from dizziness and shortness of breath and generally weak. Patient is fully awake and oriented while she is lying in bed she denies any specific complaint. Pain or dyspnea. No headache or dizziness. No urinary or bowel complaints. No fever Blood pressure is borderline and she received more than 500 mL of normal saline bolus in the emergency room. Systolic blood pressure 90s-100s. And also she is on multiple blood pressure medications including lisinopril 10 mg, Imdur 30 mg, Lasix orally 20 mg and metoprolol 12.5 mg. Creatinine on admission is 1.1 Chest x-ray was unremarkable. 04/03/21 Patient clinically looks the same as yesterday because she is sitting in bed [place] she still feeling generally weak but no exertional dyspnea or dizziness Her hemoglobin came back low today at 6.5 and she was hypotensive with blood pressure 78/47. She received a bolus of normal saline and 1 unit of blood ferrari sfusion is ordered. Anemia workup is ordered as well Xarelto is on hold [facility] cardiology recommended to hold it indefinitely for severe bleeding and recurrent bleeding even on a small dose as risk no more than benefits GI consult for possible capsule endoscopy. Hematology on the case Urine analysis is suspicious for UTI, sent for urine culture, start Rocephin 04/04/2021 Patient feels much better with no orbital symptoms. generalized weakness and fatigue improved, no dyspnea, no shortness of breath, no nausea or dizziness. Her blood pressure is better 112/67. Is now only on metoprolol, her lisinopril, Imdur and Lasix were held. The patient continued on IV fluids. Hemoglobin is better today at 7.2 after 1 unit of blood transfusion. Monitor creatinine which is ordered She remains on ceftriaxone and urine culture is pending Cardiology team recommended to stop Xarelto for recurrent bleeding that's severe enough to need a blood transfusion I agree with this as it is felt that risk of anticoagulation more than the benefit. I discussed that with the patient and explained the risk of stroke while being off anticoagulation, I told her also she can follow up with her primary care doctor in 1 week if she still wants to be on anticoagulation, however the patient confirmed to me she agrees to be off anticoagulation and she is aware of the risk of stroke She is currently on IV iron Objective - Vital Signs Vital signs: Vital Signs Temp 98.2 F 04/04/21 07:00 Pulse 84 04/04/21 07:00 Resp 19 04/04/21 08:00 BP 110/66 04/04/21 07:00 Pulse Ox 95 04/04/21 08:22 Intake & Output 04/03/21 04/04/21 04/04/21 18:59 06:59 18:59 Intake Total 0 273 240 Output Total 500 Balance 0 -227 240 Intake: Oral 240 Blood Product 0 273 Rc Pheresis As-3 Unit 0 273 [id number] Output: Urine 500 Other: Voiding Method Bedside Commode Bedside Commode Bedside Commode # Voids 3 2 - Exam -GENERAL: The patient is alert and oriented x3, not in any acute distress. Obese, generally weak HEENT: Pupils are round and equally reacting to light. EOMI. No scleral icterus. No conjunctival pallor. Normocephalic, atraumatic. No pharyngeal erythema. No thyromegaly. CARDIOVASCULAR: S1 and S2 present. No murmurs, rubs, or gallops. PULMONARY: Chest is clear to auscultation, no wheezing or crackles. ABDOMEN: Soft, nontender, nondistended, normoactive bowel sounds. No palpable organomegaly. MUSCULOSKELETAL: No joint swelling or deformity. EXTREMITIES: No cyanosis, clubbing, or pedal edema. NEUROLOGICAL: Gross neurological examination did not reveal any focal deficits. SKIN: No rashes. No petechiae - Labs CBC & Chem 7: 04/04/21 05:53 04/03/21 06:22 Labs: Abnormal Lab Results - Last 24 Hours (Table) 04/02/21 04/02/21 04/04/21 Range/Units 12:05 13:05 05:53 RBC 3.82 L (4.10-5.20) X 10*6/uL Hgb 7.2 L (12.0-15.0) g/dL Hct 26.3 L (37.2-46.3) % MCV 68.8 L (80.0-97.0) fL MCH 18.8 L (27.0-32.0) pg MCHC 27.4 L (32.0-37.0) g/dL RDW 22.2 H (11.5-14.5) % Iron 7 L (50-170) ug/dL % Saturation 1.62 L (12.00-45.00) Ferritin 6.9 L (10.0-291.0) ng/mL Crossmatch See Detail Microbiology - Last 24 Hours (Table) 04/03/21 02:50 Urine Culture - Preliminary Urine,Voided Assessment and Plan Assessment: Generalized weakness with dyspnea and dizziness, most likely related to dehydration and bleeding, improved with blood transfusion hypotension secondary to possible GI bleed and as she's been on multiple blood pressure medication. Improved with blood transfusion acute urinary tract infection History of coronary artery disease, status post stent Anemia History of GERD Hyperlipidemia Hypertension, her blood pressure is borderline now History of osteoarthritis Obesity with BMI 32.9 Plan: This is a pleasant 85 years old female who presents with general symptoms of weakness, dizziness and dyspnea with suspicion of low hemoglobin however hemoglobin rechecked and emergency room was much improved without intervention, Hold lisinopril, Lasix and Imdur. Continue with metoprolol with para liters GI consult for possible capsule endoscopy Give 1 unit of blood transfusion Start Rocephin and follow-up urine culture Follow-up Cardiology and hematology consults Labs and medication were reviewed.. Continue same treatment. Continue with symptomatic treatment. Resume home medication. Monitor lytes and vitals. DVT and GI prophylaxis. Further recommendations as per clinical course of the patient DVT prophylaxis: Discontinue Xarelto , risk of anticoagulation is high GI Prophylaxis: Ppi PT/OT: Pending Prognosis is guarded
[2021-04-04 13:11] LABS: African American GFR (CKD) 57 (>60 ml/min/1.73 sqM); Anion Gap 5 mmol/L; Blood Urea Nitrogen 26 mg/dL (7-17); Calcium 8.9 mg/dL (8.4-10.2); Carbon Dioxide 26 mmol/L (22-30); Chloride 109 mmol/L (98-107); Glucose 108 mg/dL (74-99); Non-African American GFR(CKD) 50 (>60 ml/min/1.73 sqM); Potassium 4.8 mmol/L (3.5-5.1); Sodium 140 mmol/L (137-145)
--- NOTE | 2021-04-04 15:05 | P.PN ---
Subjective Progress Note Date: 04/04/21 Principal diagnosis: Anemia Patient is seen and examined lying in bed. She has a history of chronic anemia since 2019. She was admitted earlier this year with iron deficiency anemia and underwent EGD and colonoscopy in August of this year with no findings of GI bleed or old blood. She underwent a small bowel video capsule endoscopy in September 2020, no AVMs, no old blood or active blood noted. Patient has history of atrial fibrillation has been on Xarelto that has been discontinued indefinitely by cardiology. She is continued to deny any signs or symptoms of GI bleed. She states occasionally she thinks she has a dark stool. Today's hemoglobin is stable at 7.2, this is status post 1 unit of PRBC transfusion. Iron studies consistent with iron deficiency anemia. Patient started on IV iron. Hematology is following patient closely. Objective - Vital Signs Vital signs: Vital Signs Temp 98.2 F 04/04/21 07:00 Pulse 84 04/04/21 07:00 Resp 19 04/04/21 07:00 BP 110/66 04/04/21 07:00 Pulse Ox 95 04/04/21 08:22 Intake & Output 04/03/21 04/04/21 04/04/21 18:59 06:59 18:59 Intake Total 0 273 Output Total 500 Balance 0 -227 Intake: Blood Product 0 273 Rc Pheresis As-3 Unit 0 273 [id number] Output: Urine 500 Other: Voiding Method Bedside Commode Bedside Commode # Voids 3 2 - Exam General appearance: The patient is alert, oriented, appears in no acute distress. HET: Head is normocephalic and atraumatic. Conjunctiva pink. Sclera anicteric. Neck: Supple without lymphadenopathy. Abdomen: Soft, nontender, nondistended with bowel sounds. No guarding or rigidity. Extremities: Normal skin color and turgor. No pedal edema Skin: No rashes, no jaundice Neurological: No focal deficits. Alert and oriented 3. - Labs CBC & Chem 7: 04/04/21 05:53 04/04/21 05:53 Labs: Abnormal Lab Results - Last 24 Hours (Table) 04/02/21 04/02/21 Range/Units 12:05 13:05 Iron 7 L (50-170) ug/dL % Saturation 1.62 L (12.00-45.00) Ferritin 6.9 L (10.0-291.0) ng/mL Crossmatch See Detail Microbiology - Last 24 Hours (Table) 04/03/21 02:50 Urine Culture - Preliminary Urine,Voided Assessment and Plan (1) Microcytic anemia Narrative/Plan: 85-year-old female with a history of iron deficiency anemia likely from GI blood loss. Patient presented to the emergency department as directed by her PCP with complaints of weakness, dizziness and shortness of breath. Patient was found to be anemic and sent to the emergency department for further evaluation. Patient has a history of atrial fibrillation on Xarelto, currently discontinued. She's been anemic since 2019. In August of this year she presented to the emergency department with similar complaints, however at that time she did notice some small amounts of bright red blood on tissue with wiping. She underwent an EGD and colonoscopy on 08/30/2020. EGD found small hiatal hernia, colonoscopy found scattered diverticulosis. Patient underwent an out patient small bowel capsule endoscopy on 09/20/2011 showing a normal small bowel mucosa, no angiectasia or active bleeding. Patient was supposed to follow-up with hematology however did not. Likely iron deficiency anemia related to GI bleed from angiectasia. There is no plans for repeating endoscopic evaluation, agree with holding anticoag ulation. Agree with hematology consult. Continue to monitor H&H, transfuse as needed for hemoglobin less than 7. Iron studies ordered. Current Visit: Yes Status: Acute Code(s): D50.9 - IRON DEFICIENCY ANEMIA, UNSPECIFIED SNOMED Code(s): 353782795 (2) History of atrial fibrillation Current Visit: Yes Status: Acute Code(s): Z86.79 - PERSONAL HISTORY OF OTHER DISEASES OF THE CIRCULATORY SYSTEM SNOMED Code(s): 721586268 (3) Essential hypertension Current Visit: No Status: Acute Code(s): I10 - ESSENTIAL (PRIMARY) HYPERTENSION SNOMED Code(s): 83550489 (4) GERD (gastroesophageal reflux disease) Current Visit: No Status: Acute Code(s): K21.9 - GASTRO-ESOPHAGEAL REFLUX DISEASE WITHOUT ESOPHAGITIS SNOMED Code(s): 813324003 Plan: 1. Continue symptomatic supportive care 2. Patient may have heart healthy diet 3. Daily CBC, transfuse for hemoglobin less than 7 4. IV iron daily 3 5. Agree with discontinuing Xarelto 6. No plans on endoscopic evaluation as patient recently underwent EGD, colonoscopy, and small bowel capsule video endoscopy earlier this year. Likely source of GI blood losses angiectasia. 7. Hematology on consult, following patient closely Thank you for this consultation, we will continue to follow. Dr. Chantelle Sharma I agree with the dictator's note, documented as a scribe by Daniela Bruner.
[2021-04-04] MEDS: ATORVASTATIN 80 MG TAB PO SCH (20:17)
[2021-04-05] MEDS: SODIUM CHLORIDE 0.9% 1,000 ML IV SCH ×3 (02:49→08:34)
[2021-04-05] MEDS: SODIUM FERRIC GLUCONAT-SUCROSE 125 MG in SODIUM CHLORIDE 0.9% 100 ML IVPB SCH (08:40)
[2021-04-05] MEDS: polyethylene glycoL 3350 17 GM POWD.PACK PO SCH (10:15)
[2021-04-05] MEDS: METOPROLOL TARTRATE 12.5 MG TAB PO SCH ×2 (10:15→21:12)
[2021-04-05] MEDS: SERTRALINE 25 MG TAB PO SCH (10:16)
[2021-04-05] MEDS: PANTOPRAZOLE 40 MG TABLET PO SCH (10:16)
[2021-04-05 10:17] LABS: African American GFR (CKD) 58.7 (60.0-200.0); Calcium 8.5 mg/dL (8.7-10.3); Magnesium 1.8 mg/dL (1.5-2.4); Non-African American GFR(CKD) 50.6 (60.0-200.0); Potassium 4.8 mmol/L (3.5-5.5)
[2021-04-05] MEDS: MECLIZINE 12.5 MG TAB PO SCH ×3 (10:44→21:13)
[2021-04-05 13:00] LABS: Basophils # (A) 0.05 X 10*3/uL (0.00-0.10); Basophils % (A) 0.9 %; Eosinophils # (A) 0.28 X 10*3/uL (0.04-0.35); Eosinophils % (A) 5.1 %; HCT 25.7 % (37.2-46.3); MCH 18.8 pg (27.0-32.0); MCHC 27.2 g/dL (32.0-37.0); MCV 69.1 fL (80.0-97.0); Mean Platelet Volume 10.5 fL (9.5-12.2); Monocytes # (A) 0.77 X 10*3/uL (0.20-1.00); Neutrophils # (A) 3.28 X 10*3/uL (1.80-7.70); Neutrophils % (A) 59.5 %; Platelet Count 272 X 10*3/uL (140-440); RBC 3.72 X 10*6/uL (4.10-5.20); RDW 22.5 % (11.5-14.5); WBC 5.51 X 10*3/uL (4.50-10.00)
[2021-04-05 13:01] LABS: Anisocytosis (M) 2+; Hypochromasia (M) 2+
--- NOTE | 2021-04-05 17:22 | P.PN ---
Subjective Progress Note Date: 04/05/21 Principal diagnosis: Anemia Patient is seen and examined lying in bed. She has a history of chronic anemia since 2019. She was admitted earlier this year with iron deficiency anemia and underwent EGD and colonoscopy in August of this year with no findings of GI bleed or old blood. She underwent a small bowel video capsule endoscopy in September 2020, no AVMs, no old blood or active blood noted. Patient has history of atrial fibrillation has been on Xarelto that has been discontinued indefinitely by cardiology. She is continued to deny any signs or symptoms of GI bleed. She states occasionally she thinks she has a dark stool. Today's hemoglobin is stable at 7.0, this is status post 1 unit of PRBC transfusion this admission. Iron studies consistent with iron deficiency anemia. Patient started on IV iron. Hematology is following patient closely. States she is feeling well today. No bowel movement, states she hasn't had a bowel movement in 3-4 days. She states this is normal for her, she usually uses prune juice at home. Objective - Vital Signs Vital signs: Vital Signs Temp 98.0 F 04/05/21 07:00 Pulse 56 L 04/05/21 07:00 Resp 18 04/05/21 07:00 BP 123/73 04/05/21 07:00 Pulse Ox 95 04/05/21 07:00 Intake & Output 04/04/21 04/05/21 04/05/21 18:59 06:59 18:59 Intake Total 1180 Balance 1180 Intake: IV 700 Sodium Chloride 0.9% 1, 600 000 ml @ 75 mls/hr IV . [id number] [facility] Rx#:[id number] Sodium Ferric Gluconat- 100 Sucrose 125 mg In Sodium Chloride 0.9% 100 ml @ 100 mls/hr IVPB DAILY [facility] Rx#:[id number] Oral 480 Other: Voiding Method Bedside Commode Bedside Commode # Voids 1 - Exam General appearance: The patient is alert, oriented, appears in no acute distress. HET: Head is normocephalic and atraumatic. Conjunctiva pink. Sclera anicteric. Neck: Supple without lymphadenopathy. Abdomen: Soft, nontender, nondistended with bowel sounds. No guarding or rigidity. Extremities: Normal skin color and turgor. No pedal edema Skin: No rashes, no jaundice Neurological: No focal deficits. Alert and oriented 3. - Labs CBC & Chem 7: 04/05/21 05:54 04/05/21 05:54 Labs: Abnormal Lab Results - Last 24 Hours (Table) 04/04/21 04/04/21 Range/Units 05:53 05:53 RBC 3.82 L (4.10-5.20) X 10*6/uL Hgb 7.2 L (12.0-15.0) g/dL Hct 26.3 L (37.2-46.3) % MCV 68.8 L (80.0-97.0) fL MCH 18.8 L (27.0-32.0) pg MCHC 27.4 L (32.0-37.0) g/dL RDW 22.2 H (11.5-14.5) % Chloride 109 H (98-107) mmol/L BUN 26 H (7-17) mg/dL Glucose 108 H (74-99) mg/dL Assessment and Plan (1) Microcytic anemia Narrative/Plan: 85-year-old female with a history of iron deficiency anemia likely from GI blood loss. Patient presented to the emergency department as directed by her PCP with complaints of weakness, dizziness and shortness of breath. Patient was found to be anemic and sent to the emergency department for further evaluation. Patient has a history of atrial fibrillation on Xarelto, currently discontinued. She's been anemic since 2019. In August of this year she presented to the emergency department with similar complaints, however at that time she did notice some small amounts of bright red blood on tissue with wiping. She underwent an EGD and colonoscopy on 08/30/2020. EGD found small hiatal hernia, colonoscopy found scattered diverticulosis. Patient underwent an out patient small bowel capsule endoscopy on 09/20/2011 showing a normal small bowel mucosa, no angiectasia or active bleeding. Patient was supposed to follow-up with hematology however did not. Likely iron deficiency anemia related to GI bleed from angiectasia. There is no plans for repeating endoscopic evaluation, agree with holding anticoagulation. Agree with hematology consult. Continue to monitor H&H, transfuse as needed for hemoglobin less than 7. Iron studies ordered. Current Visit: Yes Status: Acute Code(s): D50.9 - IRON DEFICIENCY ANEMIA, UNSPECIFIED SNOMED Code(s): 094114596 (2) History of atrial fibrillation Current Visit: Yes Status: Acute Code(s): Z86.79 - PERSONAL HISTORY OF OTHER DISEASES OF THE CIRCULATORY SYSTEM SNOMED Code(s): 952753546 (3) Essential hypertension Current Visit: No Status: Acute Code(s): I10 - ESSENTIAL (PRIMARY) HYPERTENSION SNOMED Code(s): 54627327 (4) GERD (gastroesophageal reflux disease) Current Visit: No Status: Acute Code(s): K21.9 - GASTRO-ESOPHAGEAL REFLUX DISEASE WITHOUT ESOPHAGITIS SNOMED Code(s): 734588109 (5) Chronic constipation Narrative/Plan: Will add Miralax daily Current Visit: Yes Status: Acute Code(s): K59.09 - OTHER CONSTIPATION SNOMED Code(s): 097555551 Plan: 1. Continue symptomatic supportive care 2. Patient may have heart healthy diet 3. Give 1 unit of PRBC transfusion 4. IV iron daily 3 5. Agree with discontinuing Xarelto 6. No plans on endoscopic evaluation as patient recently underwent EGD, colonoscopy, and small bowel capsule video endoscopy earlier this year. Likely source of GI blood losses angiectasia. 7. Hematology on consult, following patient closely 8. Will add MiraLAX daily, discussed with patient to continue at home and may titrate as needed from a half a capful 2 to Also day. Thank you for this consultation, the patient is cleared from gastroenterology for discharge. Dr. Chantelle Sharma I agree with the dictator's note, documented as a scribe by Daniela Bruner.
[2021-04-05] MEDS: ATORVASTATIN 80 MG TAB PO SCH (21:12)
--- NOTE | 2021-04-05 22:38 | P.PN ---
Subjective Progress Note Date: 04/05/21 Principal diagnosis: anemia Hemoglobin 7 today. No acute events overnight Objective - Vital Signs Vital signs: Vital Signs Temp 98.0 F 04/05/21 07:00 Pulse 56 L 04/05/21 07:00 Resp 18 04/05/21 07:00 BP 123/73 04/05/21 07:00 Pulse Ox 95 04/05/21 07:00 Intake & Output 04/04/21 04/05/21 04/05/21 18:59 06:59 18:59 Intake Total 1180 Balance 1180 Intake: IV 700 Sodium Chloride 0.9% 1, 600 000 ml @ 75 mls/hr IV . [id number] [facility] Rx#:[id number] Sodium Ferric Gluconat- 100 Sucrose 125 mg In Sodium Chloride 0.9% 100 ml @ 100 mls/hr IVPB DAILY [facility] Rx#:[id number] Oral 480 Other: Voiding Method Bedside Commode Bedside Commode # Voids 1 - Exam - Constitutional General appearance: Present: average body habitus, cooperative, no acute distress - EENT Eyes: Present: anicteric sclerae, EOMI ENT: Present: hearing grossly normal - Respiratory Details: resp even and unlabored - Musculoskeletal Musculoskeletal: Present: generalized weakness - Psychiatric Psychiatric: Present: A&O x's 3, appropriate affect, intact judgment & insight - Labs CBC & Chem 7: 04/05/21 05:54 04/05/21 05:54 Labs: Abnormal Lab Results - Last 24 Hours (Table) 04/04/21 04/05/21 Range/Units 05:53 05:54 Chloride 109 H 110 H (98-107) mmol/L BUN 26 H (7-17) mg/dL Est GFR (CKD-EPI)AfAm 58.7 L (60.0-200.0) Est GFR (CKD-EPI)NonAf 50.6 L (60.0-200.0) BUN/Creatinine Ratio 21.00 H (12.00-20.00) Ratio Glucose 108 H (74-99) mg/dL Calcium 8.5 L (8.7-10.3) mg/dL Assessment and Plan Plan: Assessment and Plan Iron deficiency anemia due to chronic blood loss - Anticoagulation conitnues on hold - Recheck CBC in AM - Transfuse less than 7 Current Visit: Yes Status: Chronic Priority: Medium Code(s): D50.0 - IRON DEFICIENCY ANEMIA SECONDARY TO BLOOD LOSS (CHRONIC) SNOMED Code(s): 804426782 attests: I have preformed H&P and developed impression and plan of care for patient, discussed with dictator. I agree with dictated note, documented as a scribe
[2021-04-05] MEDS ORDERED: CYANOCOBALAMIN 1,000 MCG/ML 1 ML VIAL IM ONE (23:12)
--- NOTE | 2021-04-05 23:22 | P.PN ---
Subjective This is a pleasant 85 years old female with past medical history of coronary artery disease, GERD, hyperlipidemia, hypertension, osteoarthritis. Presents because of low hemoglobin checked at her PCP office Dr. Bocanegra and it was 6.6 as per daughter at bedside. However repeat hemoglobin check the hospital it was 7.9. Patient has previous workup for anemia which was on remarkable as per ED staff. As per daughter patient complaining of from dizziness and shortness of breath and generally weak. Patient is fully awake and oriented while she is lying in bed she denies any specific complaint. Pain or dyspnea. No headache or dizziness. No urinary or bowel complaints. No fever Blood pressure is borderline and she received more than 500 mL of normal saline bolus in the emergency room. Systolic blood pressure 90s-100s. And also she is on multiple blood pressure medications including lisinopril 10 mg, Imdur 30 mg, Lasix orally 20 mg and metoprolol 12.5 mg. Creatinine on admission is 1.1 Chest x-ray was unremarkable. 04/03/21 Patient clinically looks the same as yesterday because she is sitting in bed [place] she still feeling generally weak but no exertional dyspnea or dizziness Her hemoglobin came back low today at 6.5 and she was hypotensive with blood pressure 78/47. She received a bolus of normal saline and 1 unit of blood ferrari sfusion is ordered. Anemia workup is ordered as well Xarelto is on hold [facility] cardiology recommended to hold it indefinitely for severe bleeding and recurrent bleeding even on a small dose as risk no more than benefits GI consult for possible capsule endoscopy. Hematology on the case Urine analysis is suspicious for UTI, sent for urine culture, start Rocephin 04/04/2021 Patient feels much better with no orbital symptoms. generalized weakness and fatigue improved, no dyspnea, no shortness of breath, no nausea or dizziness. Her blood pressure is better 112/67. Is now only on metoprolol, her lisinopril, Imdur and Lasix were held. The patient continued on IV fluids. Hemoglobin is better today at 7.2 after 1 unit of blood transfusion. Monitor creatinine which is ordered She remains on ceftriaxone and urine culture is pending Cardiology team recommended to stop Xarelto for recurrent bleeding that's severe enough to need a blood transfusion I agree with this as it is felt that risk of anticoagulation more than the benefit. I discussed that with the patient and explained the risk of stroke while being off anticoagulation, I told her also she can follow up with her primary care doctor in 1 week if she still wants to be on anticoagulation, however the patient confirmed to me she agrees to be off anticoagulation and she is aware of the risk of stroke She is currently on IV iron 04/05/2021 Patient awake still feels generally weak although hemodynamically stable her blood pressure is borderline since admission since she is on multiple cardiac medications and blood pressure medication per recommendation of material planner. Hemoglobin dropped to 7.2 down to 7.0. However when I talked to the patient today systolic agreeable to discontinue Xarelto as risk of bleeding is higher than the benefits, patient is aware she will be at risk of stroke without Xarelto but again it felt risk of bleeding is higher. Medical Apparatus [employer] team recommended to discontinue Xarelto and other consultants as well Creatinine is stable at 1.0. Urine culture going to [place]. Patient with no fever or leukocytosis. No overt and clear urinary tract signs and symptoms like no dysuria. We'll discontinue ceftriaxone Continue with gentle hydration I discussed with the patient the importance of going to rehab she agreed to me but then she has stated when she talked to the social marker, we will discuss w ith the patient again tomorrow to see her wishes. Still rehab is recommended to strongly for the patient as she is has risk for falling, complication and hospital readmission. Low vitamin B12 at 200 is been replaced with IM injection Objective - Vital Signs Vital signs: Vital Signs Temp 98.0 F 04/05/21 07:00 Pulse 56 L 04/05/21 07:00 Resp 18 04/05/21 08:00 BP 123/73 04/05/21 07:00 Pulse Ox 95 04/05/21 07:00 Intake & Output 04/04/21 04/05/21 04/05/21 18:59 06:59 18:59 Intake Total 1180 240 Balance 1180 240 Intake: IV 700 Sodium Chloride 0.9% 1, 600 000 ml @ 75 mls/hr IV . [id number] [facility] Rx#:[id number] Sodium Ferric Gluconat- 100 Sucrose 125 mg In Sodium Chloride 0.9% 100 ml @ 100 mls/hr IVPB DAILY [facility] Rx#:[id number] Oral 480 240 Other: Voiding Method Bedside Commode Bedside Commode Toilet # Voids 1 - Exam -GENERAL: The patient is alert and oriented x3, not in any acute distress. Obese, generally weak HEENT: Pupils are round and equally reacting to light. EOMI. No scleral icterus. No conjunctival pallor. Normocephalic, atraumatic. No pharyngeal erythema. No thyromegaly. CARDIOVASCULAR: S1 and S2 present. No murmurs, rubs, or gallops. PULMONARY: Chest is clear to auscultation, no wheezing or crackles. ABDOMEN: Soft, nontender, nondistended, normoactive bowel sounds. No palpable organomegaly. MUSCULOSKELETAL: No joint swelling or deformity. EXTREMITIES: No cyanosis, clubbing, or pedal edema. NEUROLOGICAL: Gross neurological examination did not reveal any focal deficits. SKIN: No rashes. No petechiae - Labs CBC & Chem 7: 04/05/21 05:54 04/05/21 05:54 Labs: Abnormal Lab Results - Last 24 Hours (Table) 04/05/21 04/05/21 Range/Units 05:54 05:54 RBC 3.72 L (4.10-5.20) X 10*6/uL Hgb 7.0 L (12.0-15.0) g/dL Hct 25.7 L (37.2-46.3) % MCV 69.1 L (80.0-97.0) fL MCH 18.8 L (27.0-32.0) pg MCHC 27.2 L (32.0-37.0) g/dL RDW 22.5 H (11.5-14.5) % Absolute Nucleated RBC 0.03 H (0.00-0.00) X 10*3/uL NRBC/100 WBC Diff 0.5 H (0.0-0.0) /100 WBCS Chloride 110 H (96-109) mmol/L Est GFR (CKD-EPI)AfAm 58.7 L (60.0-200.0) Est GFR (CKD-EPI)NonAf 50.6 L (60.0-200.0) BUN/Creatinine Ratio 21.00 H (12.00-20.00) Ratio Calcium 8.5 L (8.7-10.3) mg/dL Assessment and Plan Assessment: Generalized weakness with dyspnea and dizziness, most likely related to dehydration and bleeding, improved with blood transfusion hypotension secondary to possible GI bleed and as she's been on multiple blood pressure medication. Improved with blood transfusion Anemia, multifactorial secondary to suspected GI bleed and vitamin B12 deficiency Vitamin B12 deficiency, been replaced Asymptomatic bacteriuria rather than acute urinary tract infection. Discontinue antibiotic History of coronary artery disease, status post stent History of GERD Hyperlipidemia Hypertension, her blood pressure is borderline now History of osteoarthritis Obesity with BMI 32.9 Plan: This is a pleasant 85 years old female who presents with general symptoms of weakness, dizziness and dyspnea with suspicion of low hemoglobin however hemoglobin rechecked and emergency room was much improved without intervention, Hold lisinopril, Lasix and Imdur. Continue with metoprolol with holding parameters GI consult. The patient for discharge Status post 1 unit of blood transfusion Discontinue Rocephin as urine culture is negative Cardiology team signed off Replacement vitamin B12, tomorrow last dose of IV iron and switched to oral medication upon discharge Labs and medication were reviewed.. Continue same treatment. Continue with symptomatic treatment. Resume home medication. Monitor lytes and vitals. DVT and GI prophylaxis. Further recommendations as per clinical course of the patient DVT prophylaxis: Discontinue Xarelto , risk of anticoagulation is high GI Prophylaxis: Ppi PT/OT: Subacute rehab versus home health care, is hesitant to go to rehab for now Prognosis is guarded
[2021-04-06] MEDS: SODIUM CHLORIDE 0.9% 1,000 ML IV SCH (03:52)
[2021-04-06 06:53] LABS: Anisocytosis Moderate; Basophils % (A) 0 %; Eosinophils # (A) 0.2 k/uL (0-0.7); Eosinophils % (A) 4 %; HCT 29.4 % (34.0-46.0); Hypochromasia Marked; Lymphocytes # (A) 1.3 k/uL (1.0-4.8); Lymphocytes % (A) 20 %; MCHC 29.7 g/dL (31.0-37.0); MCV 70.6 fL (80.0-100.0); Mean Platelet Volume 7.5; Microcytosis Marked; Monocytes # (A) 0.5 k/uL (0-1.0); Monocytes % (A) 7 %; Neutrophils # (A) 4.3 k/uL (1.3-7.7); Neutrophils % (A) 66 %; Platelet Count 278 k/uL (150-450); Poikilocytosis Marked; RBC 4.16 m/uL (3.80-5.40); RDW 21.7 % (11.5-15.5); WBC 6.6 k/uL (3.8-10.6)
[2021-04-06 06:56] LABS: HGB 8.7 gm/dL (11.4-16.0)
[2021-04-06] MEDS: PANTOPRAZOLE 40 MG TABLET PO SCH (08:34)
[2021-04-06] MEDS: METOPROLOL TARTRATE 12.5 MG TAB PO SCH (08:34)
[2021-04-06] MEDS: MECLIZINE 12.5 MG TAB PO SCH (08:35)
[2021-04-06] MEDS: polyethylene glycoL 3350 17 GM POWD.PACK PO SCH ×2 (08:35→08:43)
[2021-04-06] MEDS: SERTRALINE 25 MG TAB PO SCH (08:39)
[2021-04-06] MEDS: SODIUM FERRIC GLUCONAT-SUCROSE 125 MG in SODIUM CHLORIDE 0.9% 100 ML IVPB SCH (08:49)
[2021-04-06] MEDS ORDERED: CYANOCOBALAMIN 1,000 MCG/ML 1 ML VIAL IM ONE ×2 (12:41→13:15)
[2021-04-06 14:36] VITALS: BP 114/67; PULSE 98; TEMP 98.3
[2021-04-06 16:33] VITALS: RESP 17
--- NOTE | 2021-04-06 22:34 | P.DS ---
Providers Date of admission: 04/04/21 19:27 Attending physician: Wilton Hernandez Consults: 04/02/21 14:01 Consult Physician Urgent Consulting Provider: [facility] Consult Reason/Comments: Dyspnea, anticoagulation Do you want consulting provider notified?: Yes Consult Physician Urgent Consulting Provider: Reggie Balbuena Consult Reason/Comments: Anemia Do you want consulting provider notified?: Yes Primary care physician: Miko Bocanegra Hospital Course: Diagnoses: Diagnoses: Generalized weakness with dyspnea and dizziness, most likely related to dehydration and bleeding, improved with blood transfusion hypotension secondary to possible GI bleed and as she's been on multiple blood pressure medication. Improved with blood transfusion Anemia, multifactorial secondary to suspected GI bleed and vitamin B12 deficiency Most likely acute GI bleed while on Xarelto, recurrent. Unknown source of bleeding despite extensive previous workup Vitamin B12 deficiency, been replaced Asymptomatic urine bacteriuria rather than acute urinary tract infection. Discontinue antibiotic History of coronary artery disease, status post stent History of GERD Hyperlipidemia Hypertension, her blood pressure is borderline now History of osteoarthritis Obesity with BMI 32.9 Hospital course: This is a pleasant 85 years old female with past medical history of coronary artery disease, GERD, hyperlipidemia, hypertension, osteoarthritis. Presents because of low hemoglobin checked at her PCP office Dr. Bocanegra and it was 6.6 as per daughter at bedside. However repeat hemoglobin check the hospital it was 7.9. Patient has previous workup for anemia which was on remarkable as per ED staff. As per daughter patient complaining of from dizziness and shortness of breath and generally weak. Patient was sent from the office for low hemoglobin. She was hypotensive on admission as well. Repeat hemoglobin in the hospital was 6.5 and despite 1 unit of blood transfusion went up to 7.2 and then it dropped again to 7 while patient remained asymptomatic. Another unit of blood transfusion has to be given yesterday and her hemoglobin today significantly improved to 8.7. With improvement of her hemoglobin today she is more comfortable, more relaxed and happy. She states that all her symptoms are improved, her weakness is significantly improved. Or dyspnea or dizziness especially with exertion. Today she couldn't walk by herself using her own walker to the bathroom and back to her. Although she was attended by the bedside nurse but she did not need really help. Previously the physical therapy recommended patient to go to rehab however today patient declined and wants to go home because she has family visiting from out of state she hasn't seen them for a while and they are staying only for 2 weeks as she states. She was so adamant to go home today. Her anemia also was noted to due to low vitamin B12 at 200. Patient has been get 2 doses of IM injections of vitamin B12 and then continued with oral medication 1000 g daily with recommendation to check her level of B12 in 1-2 months and she agrees. Also patient was discharge on oral iron for recommendation of Dr. Piña cleared her for discharge today. Patient has been seen by multiple consultants including GI, cardiology and hematology. Because of the nature of her recurrent bleeding and severe anemia and symptomatic disease needing 2 units of blood transfusion at about the risk of anticoagulation more than benefits. Therefore cycle specialist recommended to stop Xarelto, which was the same feeling by other consultants like the GI team. When discussed with the patient she agrees and I've been checking with the patient over the last 3 days and she constantly confirms her which is to stay off Xarelto. She is aware of the risk of stroke while being off anticoagulation. And she is going to follow up with her PCP Dr. Bocanegra in one week and discuss anticoagulation with him as well. But currently she agrees to stay off Xarelto. She is hemodynamically stable on the day of discharge. Her creatinine is stable at 1.0. Her ejection fraction is 60-65% with severe pulmonary hypertension Urine culture growing fluoroscopy therefore antibiotic started on admission was discontinued Today patient was asymptomatic stating that she is back to her own self. Denies chest pain or dyspnea. She denies headache or dizziness. No weakness or numbness. No change on urine or bowel habits. No fever. And she wants to go home today. And was cleared for discharge by all consultants including cycle specialist, GI and hematology service Problems and management plan were discussed with the patient and he verbalized understanding and acceptance Patient was found stable and can be discharged home in guarded prognosis however she needs follow-up as an outpatient. Patient was instructed to follow up with PCP Dr. Bocanegra within one week and patient agrees Also patient was instructed to follow up with outsewer Dr. Balbuena in 6 weeks, With her cycle specialist Dr. Ayala in 1-[address] Sharma (GI)in 4 weeks and she agrees with these recommendations stated she will call and make her own appointments as today is weekend. Home health care Patient was discharged on Physical exam Gen: patient is a AAOx3, no distress CVS: S1-S2, RRR, no murmur Lungs: B/L CTA, no wheezing Abdomen: soft, no distention, no tenderness, positive bowel sounds Extremity: no leg edema or induration Time spent more than 35 minutes Plan - Discharge Summary Discharge Rx Participant: No New Discharge Prescriptions: New Ferrous Fumarate/Ascorbic Acid [Khadijah-Sequels 65-25 mg Caplet] 1 tab PO DAILY #90 tab Cyanocobalamin [Vitamin B-12] 1,000 mcg PO DAILY 30 Days #30 tab Continue Lansoprazole [Prevacid] 15 mg PO DAILY Nitroglycerin Sl Tabs [Nitrostat] 0.4 mg SL Q5M PRN PRN Reason: Chest Pain Atorvastatin [Lipitor] 80 mg PO HS #90 tab Furosemide [Lasix] 20 mg PO DAILY Sertraline HCl [Zoloft] 25 mg PO DAILY Docusate [Colace] 100 mg PO DAILY PRN PRN Reason: Constipation Meclizine [Antivert] 12.5 mg PO TID #20 tab Metoprolol Tartrate [Lopressor] 12.5 mg PO BID Discontinued Isosorbide Mononitrate ER [Imdur] 30 mg PO DAILY Rivaroxaban [Xarelto] 15 mg PO DAILY Lisinopril [Prinivil] 10 mg PO DAILY Discharge Medication List Lansoprazole [Prevacid] 15 mg PO DAILY 12/24/18 [History] Nitroglycerin Sl Tabs [Nitrostat] 0.4 mg SL Q5M PRN 12/24/18 [History] Atorvastatin [Lipitor] 80 mg PO HS #90 tab 12/27/18 [Rx] Furosemide [Lasix] 20 mg PO DAILY 08/16/20 [History] Sertraline HCl [Zoloft] 25 mg PO DAILY 09/03/20 [History] Docusate [Colace] 100 mg PO DAILY PRN 03/21/21 [History] Meclizine [Antivert] 12.5 mg PO TID #20 tab 03/21/21 [Rx] Metoprolol Tartrate [Lopressor] 12.5 mg PO BID 04/02/21 [History] Ferrous Fumarate/Ascorbic Acid [Khadijah-Sequels 65-25 mg Caplet] 1 tab PO DAILY #90 tab 04/04/21 [Rx] Cyanocobalamin [Vitamin B-12] 1,000 mcg PO DAILY 30 Days #30 tab 04/06/21 [Rx] Follow up Appointment(s)/Referral(s): Reggie Balbuena MD [STAFF PHYSICIAN] - 6 Weeks [facility], [NON-STAFF] - 1 Week Miko Bocanegra MD [Primary Care Provider] - 1-2 days Claudette Sharma MD [STAFF PHYSICIAN] - 4 Weeks Danika Ayala MD [STAFF PHYSICIAN] - 2 Weeks Patient Instructions/Handouts: Iron Deficiency Anemia (DC) Activity/Diet/Wound Care/Special Instructions: Discussed with Sensory Scientist-monthly CBC with homecare RN. Fax results to Dr. Balbuena [phone] heart healthy diet activity is restricted till you see your doctor we recommend to check your vitmain B12 with your doctor in 1-2 months please recheck your BP and talk to your doctor to resume your lisinopril and imdur ( or Dr Bocanegra) discuss with your pcp dr. Bocanegra your anticoagulation plan and indication Discharge Disposition: HOME WITH HOME HEALTH SERVICES
[2021-04-07] MEDS ORDERED: CYANOCOBALAMIN 500 MCG TAB PO SCH (09:00)
== END 2021-04-06 16:26 | disposition home health service (06) ==
LOC: EC 11:04 → 6NMEDSUR 14:08 → INTOOBSV 04-04 19:27 → OBSVTOIN 04-04 19:27 → UNDODISIN 04-06 16:26
PROVIDERS: ADMIT Hospitalist; ATTEND Hospitalist
PROC: 30233N1 Transfusion of Nonautologous Red Blood Cells into Peripheral Vein, Percutaneous Approach (ICD-10-PCS; principal; 2021-04-03)
DX: D50.0 Iron deficiency anemia secondary to blood loss (chronic) (principal); E53.8 Deficiency of other specified B group vitamins; I48.19 Other persistent atrial fibrillation; I95.89 Other hypotension; E86.1 Hypovolemia; E86.0 Dehydration; I12.9 Hypertensive chronic kidney disease with stage 1 through stage 4 chronic kidney disease, or unspecified chronic kidney disease; N18.2 Chronic kidney disease, stage 2 (mild); R82.71 Bacteriuria; K59.09 Other constipation; I27.20 Pulmonary hypertension, unspecified; I08.3 Combined rheumatic disorders of mitral, aortic and tricuspid valves; I25.10 Atherosclerotic heart disease of native coronary artery without angina pectoris; K44.9 Diaphragmatic hernia without obstruction or gangrene; E78.5 Hyperlipidemia, unspecified; M19.90 Unspecified osteoarthritis, unspecified site; K57.30 Diverticulosis of large intestine without perforation or abscess without bleeding; K21.9 Gastro-esophageal reflux disease without esophagitis; F32.9 Major depressive disorder, single episode, unspecified; E66.9 Obesity, unspecified; Z68.32 Body mass index [BMI] 32.0-32.9, adult; Z79.01 Long term (current) use of anticoagulants; Z79.899 Other long term (current) drug therapy; Z91.040 Latex allergy status; Z95.5 Presence of coronary angioplasty implant and graft; Z90.710 Acquired absence of both cervix and uterus; Z98.890 Other specified postprocedural states; Z87.81 Personal history of (healed) traumatic fracture; Z91.81 History of falling; Z80.0 Family history of malignant neoplasm of digestive organs; Z82.49 Family history of ischemic heart disease and other diseases of the circulatory system
CPT/HCPCS: 36430 ×2; 96361 ×3; 96365; 96366 ×4; 96367; 96372; 96375; 99285; 36415; 94760; 93306; 97116; 97530; 97162; 97165; 86900 ×2; 86901 ×2; 80053; 80048 ×3; 82607; 82728; 82746; 83540; 83550; 83735 ×2; 85025 ×4; 85027; 85610; 85730; 86850 ×2; 86920 ×2; 81001; 87086; 71046; G0378 ×5; P9016 ×2; J3420; J0696 ×2; J2916 ×3; C9113; 96360

== ENCOUNTER 2021-04-06 19:56 | Inpatient (IN) | payer MEDICARE ==
[2021-04-06] MEDS ORDERED: SODIUM CHLORIDE 0.9% 500 ML 500 ML IV STA (20:29)
[2021-04-06 21:08] LABS: Partial Thromboplastin Time 21.8 sec (22.0-30.0); Prothrombin Time 10.9 sec (9.0-12.0)
[2021-04-06 21:11] LABS: Albumin 3.1 g/dL (3.5-5.0); Calcium 8.7 mg/dL (8.4-10.2); Magnesium 1.9 mg/dL (1.6-2.3); Potassium 4.4 mmol/L (3.5-5.1); Total Bilirubin 0.4 mg/dL (0.2-1.3); Total Protein 5.7 g/dL (6.3-8.2)
[2021-04-06 21:16] LABS: Anisocytosis Moderate; Basophils % (A) 0 %; Eosinophils # (A) 0.2 k/uL (0-0.7); Eosinophils % (A) 2 %; HCT 34.9 % (34.0-46.0); HGB 10.4 gm/dL (11.4-16.0); Hypochromasia Marked; Lymphocytes # (A) 0.9 k/uL (1.0-4.8); Lymphocytes % (A) 10 %; MCH 21.2 pg (25.0-35.0); MCHC 29.8 g/dL (31.0-37.0); MCV 71.3 fL (80.0-100.0); Mean Platelet Volume 7.7; Microcytosis Marked; Monocytes # (A) 0.5 k/uL (0-1.0); Monocytes % (A) 6 %; Neutrophils % (A) 80 %; Platelet Count 248 k/uL (150-450); Poikilocytosis Marked; RBC 4.89 m/uL (3.80-5.40); RDW 22.2 % (11.5-15.5); WBC 8.7 k/uL (3.8-10.6)
--- NOTE | 2021-04-06 21:16 | CT ---
EXAMINATION TYPE: CT brain gisela stacy DATE OF EXAM: 04/06/2021 COMPARISON: 03/15/2020 HISTORY: Syncope. CT DLP: 1363.7 mGycm Automated exposure control for dose reduction was used. There is cerebral cortical atrophy. There is 2 x 1 cm hypodensity anterior right internal capsule rel ated to old lacunar infarct. There is no midline shift. There is no sign of intracranial hemorrhage. The calvarium is intact. Cervical vertebra show 2 mm subluxation at C4-5. The facet joints are intact. There is mild hypertrop hic facet arthropathy. There is no compression fracture. There is mild disc space narrowing at C5-6 a nd C6-7. IMPRESSION: Mild degenerative subluxation at C4-5 without change. No fracture. Cerebral atrophy. 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 No acute intrac ranial abnormality.
--- NOTE | 2021-04-06 21:18 | XR ---
EXAMINATION TYPE: XR chest 2V DATE OF EXAM: 04/06/2021 COMPARISON: 04/02/2021 HISTORY: Syncope TECHNIQUE: 2 views FINDINGS: There is no heart failure nor confluent pneumonic infiltrate. Thoracic aorta is atheromatou s. There are chest leads. There are no hilar masses. Costophrenic angles are clear. IMPRESSION: No active cardiomegaly disease. Normal heart. No change.
--- NOTE | 2021-04-06 21:22 | ED ---
General Adult HPI - General Chief complaint: Syncope Stated complaint: Fall Time Seen by Provider: 04/06/21 20:20 Source: patient, EMS Mode of arrival: EMS Limitations: altered mental status - History of Present Illness Initial comments: 85 year-old male patient presents for evaluation after a syncopal episode. Patient states she was walking with her walker when she got a "weird noise" in her head and then passed out. States she knew she was going to pass out she did start to lower herself but did fall on top of her walker. States when she got to her buttocks she did fall back and hit her head on the floor. She denies any current headache, blurred or double vision. States she was nauseated but denies any vomiting. Denies any current pain to her extremities. Denies any chest pain or shortness of breath. Denies any recent diarrhea. States she was just discharged from the hospital today after being admitted for anemia. Patient denies any recent rash, fever, chills, cough, abdominal pain, constipation, back pain, hematuria, dysuria, urinary urgency, urinary frequency, or any other complaints. - Related Data Home Medications Medication Instructions Recorded Confirmed Lansoprazole [Prevacid] 15 mg PO DAILY 12/24/18 04/06/21 Nitroglycerin Sl Tabs [Nitrostat] 0.4 mg SL Q5M PRN 12/24/18 04/06/21 Furosemide [Lasix] 20 mg PO DAILY 08/16/20 04/06/21 Sertraline HCl [Zoloft] 25 mg PO DAILY 09/03/20 04/06/21 Docusate [Colace] 100 mg PO DAILY PRN 03/21/21 04/06/21 Metoprolol Tartrate [Lopressor] 12.5 mg PO BID 04/02/21 04/06/21 Previous Rx's Medication Instructions Recorded Atorvastatin [Lipitor] 80 mg PO HS #90 tab 12/27/18 Meclizine [Antivert] 12.5 mg PO TID #20 tab 03/21/21 Ferrous Fumarate/Ascorbic Acid 1 tab PO DAILY #90 tab 04/04/21 [Khadijah-Sequels 65-25 mg Caplet] Cyanocobalamin [Vitamin B-12] 1,000 mcg PO DAILY 30 Days #30 tab 04/06/21 Allergies Allergy/AdvReac Type Severity Reaction Status Date / Time latex Allergy Rash/Hives Verified 04/06/21 22:41 Review of Systems ROS Statement: Those systems with pertinent positive or pertinent negative responses have been documented in the HPI. ROS Other: All systems not noted in ROS Statement are negative. Past Medical History Past Medical History: Coronary Artery Disease (CAD), GERD/Reflux, Hyperlipidemia, Hypertension, Osteoarthritis (OA) Additional Past Medical History / Comment(s): +OCCULT, ANEMIA. hiatal hernia History of Any Multi-Drug Resistant Organisms: None Reported Past Surgical History: Heart Catheterization With Stent, Hysterectomy, Orthopedic Surgery Additional Past Surgical History / Comment(s): vein stripping,heart stents x4,lt foot,mattie car tunnel. right leg and hip surgery, COLONOSCOPY/EGD Past Anesthesia/Blood Transfusion Reactions: No Reported Reaction Additional Past Anesthesia/Blood Transfusion Reaction / Comment(s): no hx blood transfusion Date of Last Stent Placement:: 2018 Past Psychological History: No Psychological Hx Reported, Depression Smoking Status: Never smoker Past Alcohol Use History: None Reported Past Drug Use History: None Reported - Past Family History Mother Family Medical History: Cancer Additional Family Medical History / Comment(s): colon Father Family Medical History: Coronary Artery Disease (CAD), Myocardial Infarction (CT) Additional Family Medical History / Comment(s): Father of a CT at the age of 61 yrs. Brother(s) Family Medical History: Cancer, Myocardial Infarction (CT) Additional Family Medical History / Comment(s): colon cancer General Exam Limitations: altered mental status General appearance: alert, in no apparent distress, other (This is a well- developed, well-nourished, nontoxic-appearing elderly female patient in no acute distress. Vital signs upon presentation are temperature 98.5F, pulse 62, respirations 18, blood pressure 128/52, pulse ox 97% on room air.) Eye exam: Present: normal appearance, PERRL, EOMI. Absent: scleral icterus, conjunctival injection, periorbital swelling ENT exam: Present: normal exam, normal oropharynx, mucous membranes moist Respiratory exam: Present: normal lung sounds bilaterally. Absent: respiratory distress, wheezes, rales, rhonchi, stridor Cardiovascular Exam: Present: regular rate, normal rhythm, normal heart sounds. Absent: systolic murmur, diastolic murmur, rubs, gallop, clicks GI/Abdominal exam: Present: soft, normal bowel sounds. Absent: distended, tenderness, guarding, rebound, rigid Neurological exam: Present: alert, oriented X3, CN II-XII intact Expanded Speech: Present: fluid speech Cranial nerves: EOM's Intact: Normal, Tongue Deviation: Normal Motor strength exam: RUE: 5, LUE: 5, RLE: 5, LLE: 5 Psychiatric exam: Present: normal affect, normal mood Skin exam: Present: warm, dry, intact, normal color. Absent: rash Course Vital Signs 04/06/21 04/06/21 04/06/21 19:58 20:27 21:11 Temperature 98.5 F Pulse Rate 62 61 60 Pulse Rate [ Bilateral Radial] Respiratory 18 18 18 Rate Blood Pressure 128/52 136/63 Blood Pressure [Right Arm Sitting] Blood Pressure [Right Arm Standing] Blood Pressure [Right Arm Supine] O2 Sat by Pulse 97 98 99 Oximetry 04/06/21 21:45 Temperature Pulse Rate Pulse Rate [ 61 Bilateral Radial] Respiratory Rate Blood Pressure Blood Pressure 145/53 [Right Arm Sitting] Blood Pressure 112/84 [Right Arm Standing] Blood Pressure 148/74 [Right Arm Supine] O2 Sat by Pulse Oximetry EKG Findings - EKG Comments: EKG Findings:: EKG obtained at 2006 shows atrial fibrillation with a ventricular rate of 66, QRS duration 76, QTC 414, QTC 434. No evidence of ST elevation or depression. Medical Decision Making - Medical Decision Making 85-year-old female patient presents to the emergency department today for evaluation of Syncopal Episode. Physical Examination Is Unremarkable. She Is Neurologically Intact. No Deficits. Reports No Injuries. States She Did Stri ke Her Head Lightly. CT Brain and C-Spine Was Negative. Chest X-Ray Negative. Labs Are Unremarkable. Patient Was Just Discharged from the Hospital Today after an Admission for Anemia. She'll Be Admitted to the Hospital Now for Further Evaluation and Monitoring. She Is Agreeable This Plan. Case Discussed with My Attending Dr. Esteves. - Lab Data Result diagrams: 04/06/21 20:34 04/06/21 20:34 Lab Results 04/06/21 04/06/21 04/06/21 Range/Units 20:34 20:34 20:34 WBC 8.7 (3.8-10.6) k/uL RBC 4.89 (3.80-5.40) m/uL Hgb 10.4 L (11.4-16.0) gm/dL Hct 34.9 (34.0-46.0) % MCV 71.3 L (80.0-100.0) fL MCH 21.2 L (25.0-35.0) pg MCHC 29.8 L (31.0-37.0) g/dL RDW 22.2 H (11.5-15.5) % Plt Count 248 (150-450) k/uL MPV 7.7 Neutrophils % 80 % Lymphocytes % 10 % Monocytes % 6 % Eosinophils % 2 % Basophils % 0 % Neutrophils # 7.0 (1.3-7.7) k/uL Lymphocytes # 0.9 L (1.0-4.8) k/uL Monocytes # 0.5 (0-1.0) k/uL Eosinophils # 0.2 (0-0.7) k/uL Basophils # 0.0 (0-0.2) k/uL Hypochromasia Marked Poikilocytosis Marked Anisocytosis Moderate Microcytosis Marked PT 10.9 (9.0-12.0) sec INR 1.0 (<1.2) APTT 21.8 L (22.0-30.0) sec Sodium 138 (137-145) mmol/L Potassium 4.4 (3.5-5.1) mmol/L Chloride 107 (98-107) mmol/L Carbon Dioxide 23 (22-30) mmol/L Anion Gap 8 mmol/L BUN 22 H (7-17) mg/dL Creatinine 1.13 H (0.52-1.04) mg/dL Est GFR (CKD-EPI)AfAm 51 (>60 ml/min/1.73 sqM) Est GFR (CKD-EPI)NonAf 44 (>60 ml/min/1.73 sqM) Glucose 203 H (74-99) mg/dL Calcium 8.7 (8.4-10.2) mg/dL Magnesium 1.9 (1.6-2.3) mg/dL Total Bilirubin 0.4 (0.2-1.3) mg/dL AST 20 (14-36) U/L ALT 10 (4-34) U/L Alkaline Phosphatase 86 (38-126) U/L Troponin I (0.000-0.034) ng/mL Total Protein 5.7 L (6.3-8.2) g/dL Albumin 3.1 L (3.5-5.0) g/dL 04/06/21 Range/Units 20:34 WBC (3.8-10.6) k/uL RBC (3.80-5.40) m/uL Hgb (11.4-16.0) gm/dL Hct (34.0-46.0) % MCV (80.0-100.0) fL MCH (25.0-35.0) pg MCHC (31.0-37.0) g/dL RDW (11.5-15.5) % Plt Count (150-450) k/uL MPV Neutrophils % % Lymphocytes % % Monocytes % % Eosinophils % % Basophils % % Neutrophils # (1.3-7.7) k/uL Lymphocytes # (1.0-4.8) k/uL Monocytes # (0-1.0) k/uL Eosinophils # (0-0.7) k/uL Basophils # (0-0.2) k/uL Hypochromasia Poikilocytosis Anisocytosis Microcytosis PT (9.0-12.0) sec INR (<1.2) APTT (22.0-30.0) sec Sodium (137-145) mmol/L Potassium (3.5-5.1) mmol/L Chloride (98-107) mmol/L Carbon Dioxide (22-30) mmol/L Anion Gap mmol/L BUN (7-17) mg/dL Creatinine (0.52-1.04) mg/dL Est GFR (CKD-EPI)AfAm (>60 ml/min/1.73 sqM) Est GFR (CKD-EPI)NonAf (>60 ml/min/1.73 sqM) Glucose (74-99) mg/dL Calcium (8.4-10.2) mg/dL Magnesium (1.6-2.3) mg/dL Total Bilirubin (0.2-1.3) mg/dL AST (14-36) U/L ALT (4-34) U/L Alkaline Phosphatase (38-126) U/L Troponin I <0.012 (0.000-0.034) ng/mL Total Protein (6.3-8.2) g/dL Albumin (3.5-5.0) g/dL - Radiology Data Radiology results: report reviewed, image reviewed Two-view x-ray of the chest is obtained. Report is reviewed in its entirety. Impression by Dr. Worthington shows no active cardiopulmonary disease. Normal heart. No change. CT brain cspine without contrast was obtained. Impression by Dr. Worthington shows mild degenerative subluxation at C4-5 without change. No fracute. Cerebral atrophy. 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 No acute intracranial abnormality. Disposition Clinical Impression: Syncope, Fall Disposition: ADMITTED IP TO THIS [facility] Condition: Serious Decision to Admit Reason: Admit from EC Decision Date: 04/06/21 Decision Time: 22:46
[2021-04-06] MEDS ORDERED: NALOXONE 0.4 MG/ML 1 ML VIAL IV PRN (22:45)
[2021-04-06 23:08] LABS: Amorphous Sediment,Urine Rare /hpf; Appearance,Urine Cloudy (Clear); Bilirubin,Urine Negative (Negative); Blood,Urine Moderate (Negative); Color,Urine Yellow; Glucose,Urine (UA) Negative (Negative); Hyaline Casts,Urine 53 /lpf (0-2); Ketones,Urine Negative (Negative); Leukocyte Esterase,Urine Moderate (Negative); Mucus,Urine Moderate /hpf; Nitrite,Urine Negative (Negative); Protein,Urine Trace (Negative); RBC,Urine 1 /hpf (0-5); Specific Gravity,Urine 1.023 (1.001-1.035); Squamous Epithelial Cell,Urine 12 /hpf (0-4); Urobilinogen,Urine <2.0 mg/dL (<2.0); WBC,Urine 7 /hpf (0-5)
[2021-04-07] MEDS: SODIUM CHLORIDE 0.9% 1,000 ML IV SCH ×2 (00:08→08:00)
[2021-04-07] MEDS ORDERED: NITROGLYCERIN SL TABS 0.4 MG TAB SUBLINGUAL PRN (15:05)
[2021-04-07] MEDS ORDERED: DOCUSATE 100 MG CAP PO PRN (15:05)
[2021-04-07] MEDS: CYANOCOBALAMIN 500 MCG TAB PO SCH (15:27)
[2021-04-07 17:01] LABS: Appearance,Urine Clear (Clear); Bilirubin,Urine Negative (Negative); Blood,Urine Negative (Negative); Color,Urine Yellow; Glucose,Urine (UA) Negative (Negative); Ketones,Urine Negative (Negative); Leukocyte Esterase,Urine Negative (Negative); Nitrite,Urine Negative (Negative); Protein,Urine Negative (Negative); Specific Gravity,Urine 1.015 (1.001-1.035); Urobilinogen,Urine <2.0 mg/dL (<2.0)
[2021-04-07] MEDS: METOPROLOL TARTRATE 12.5 MG TAB PO SCH (20:11)
[2021-04-07] MEDS: ATORVASTATIN 80 MG TAB PO SCH (20:11)
[2021-04-08] MEDS: FUROSEMIDE 20 MG TAB PO SCH (08:14)
[2021-04-08] MEDS: CYANOCOBALAMIN 500 MCG TAB PO SCH (08:14)
[2021-04-08] MEDS: SERTRALINE 25 MG TAB PO SCH (08:14)
[2021-04-08] MEDS: METOPROLOL TARTRATE 12.5 MG TAB PO SCH ×2 (08:14→22:17)
--- NOTE | 2021-04-08 10:06 | P.HPIM ---
History of Present Illness This is a pleasant 85 years old female with past medical history of coronary artery disease, GERD, hyperlipidemia, hypertension, osteoarthritis. She was recently discharged yesterday because of low hemoglobin in the hospital was 6.5 and she needed 2 units of blood transfusion, and low vitamin B12 was replaced and her hemoglobin on discharge was 8.7. She's been evaluated by several consultants including cardiology, GI and hemato logy service. Patient was found high-risk for bleeding, she has previous GI workup which was unrelieving , because of recurrent episodes of GI bleed Xarelto was recommended to be discontinued by consultants and patient agreed as risk of bleeding and felt more than benefits for her A. fib. And because of that Xarelto was discontinued upon discharge. Patient agrees with this recommendation and she was aware of risk of stroke while she is off anticoagulation. Also during last admission her antihypertensive or discontinued because of her borderline low blood pressure excellent metoprolol 12.5 mg recommended by battery recharger The patient was generally weak but she adamantly refused to go to rehab assisted on going home because she has a family visiting from out of state. Risks/benefits are explained for her. After discharge patient felt weak and passed out, patient could not remember the episode and circumstances happened with her when I saw her this morning however as per records Syncopal episode, dizzness and fall from standing that occured around 1830. Pt denies hitting head when falling, she states she fell on her walker and chair.States she knew she was going to pass out she did start to lower herself but did fall on top of her walker. States when she got to her buttocks she did fall back and hit her head on the floor. There was evidence of positive orthostatic drop in blood pressure on admission and patient started on normal saline 50 mL/h However when I saw the patient she was still feels generally weak. He denies headache or weakness or numbness in extremities. Blurred vision. No dizziness. No slurred speech. She denies chest pain or dyspnea. No abdominal pain or nausea vomiting. No dysuria Vitals and labs are reviewed Recent echocardiogram, ejection fraction is 60-65% with severe pulmonary hypertension Review of Systems CONSTITUTIONAL: No fever, no malaise, no fatigue. HEENT: No recent visual problems or hearing problems. Denied any sore throat. CARDIOVASCULAR: No orthopnea, PND, no palpitations, no syncope. PULMONARY: No shortness of breath, no cough, no hemoptysis. GASTROINTESTINAL: No diarrhea, no nausea, no vomiting, no abdominal pain. Normoactive bowel sounds. NEUROLOGICAL: No headaches, no weakness, no numbness. HEMATOLOGICAL: Denies any bleeding or petechiae. GENITOURINARY: Denies any burning micturition, frequency, or urgency. MUSCULOSKELETAL/RHEUMATOLOGICAL: Denies any joint pain, swelling, or any muscle pain. ENDOCRINE: Denies any polyuria or polydipsia. Past Medical History Past Medical History: Coronary Artery Disease (CAD), GERD/Reflux, Hyperlipidemia, Hypertension, Osteoarthritis (OA) Additional Past Medical History / Comment(s): +OCCULT, ANEMIA. hiatal hernia History of Any Multi-Drug Resistant Organisms: None Reported Past Surgical History: Heart Catheterization With Stent, Hysterectomy, Orthopedic Surgery Additional Past Surgical History / Comment(s): vein stripping,heart stents x4,lt foot,mattie car tunnel. right leg and hip surgery, COLONOSCOPY/EGD Past Anesthesia/Blood Transfusion Reactions: No Reported Reaction Additional Past Anesthesia/Blood Transfusion Reaction / Comment(s): no hx blood transfusion Date of Last Stent Placement:: 2018 Past Psychological History: Depression Additional Psychological History / Comment(s): She now resides in an apartment and her cherelle, Clary lives nearby. Pt ambulates with a walker. She no longer drives, her cherelle drives or she pays a friend to take her places. She has a private pay caregiver. She has a cleaning lady. Smoking Status: Never smoker Past Alcohol Use History: None Reported Past Drug Use History: None Reported - Past Family History Mother Family Medical History: Cancer Additional Family Medical History / Comment(s): colon Father Family Medical History: Coronary Artery Disease (CAD), Myocardial Infarction ([place]) Additional Family Medical History / Comment(s): Father of a [place] at the age of 61 yrs. Brother(s) Family Medical History: Cancer, Myocardial Infarction ([place]) Additional Family Medical History / Comment(s): colon cancer Medications and Allergies Home Medications Medication Instructions Recorded Confirmed Type Lansoprazole [Prevacid] 15 mg PO DAILY 12/24/18 04/06/21 History Nitroglycerin Sl Tabs [Nitrostat] 0.4 mg SL Q5M PRN 12/24/18 04/06/21 History Atorvastatin [Lipitor] 80 mg PO HS #90 tab 12/27/18 04/06/21 Rx Furosemide [Lasix] 20 mg PO DAILY 08/16/20 04/06/21 History Sertraline HCl [Zoloft] 25 mg PO DAILY 09/03/20 04/06/21 History Docusate [Colace] 100 mg PO DAILY PRN 03/21/21 04/06/21 History Meclizine [Antivert] 12.5 mg PO TID #20 tab 03/21/21 04/06/21 Rx Metoprolol Tartrate [Lopressor] 12.5 mg PO BID 04/02/21 04/06/21 History Ferrous Fumarate/Ascorbic Acid 1 tab PO DAILY #90 tab 04/04/21 04/06/21 Rx [Khadijah-Sequels 65-25 mg Caplet] Cyanocobalamin [Vitamin B-12] 1,000 mcg PO DAILY 30 Days #30 tab 04/06/21 04/06/21 Rx Allergies Allergy/AdvReac Type Severity Reaction Status Date / Time latex Allergy Rash/Hives Verified 04/06/21 22:41 Physical Exam Vitals: Vital Signs Temp Pulse Pulse Resp BP BP BP 04/07/21 01:43 98.0 F 55 L 18 04/06/21 23:30 98.8 F 63 17 04/06/21 21:45 61 145/53 112/84 04/06/21 21:11 60 18 136/63 04/06/21 20:27 61 18 04/06/21 19:58 98.5 F 62 18 128/52 BP Pulse Ox 04/07/21 01:43 127/60 100 04/06/21 23:30 171/71 97 04/06/21 21:45 148/74 04/06/21 21:11 99 04/06/21 20:27 98 04/06/21 19:58 97 Intake and Output 04/06/21 04/07/21 04/07/21 22:59 06:59 14:59 Other: Voiding Method Bedside Commode # Voids 0 Weight 83.915 kg 83.915 kg GENERAL: The patient is alert and oriented x3, not in any acute distress. Well developed obese. Generally weak HEENT: Pupils are round and equally reacting to light. EOMI. No scleral icterus. No conjunctival pallor. Normocephalic, atraumatic. No pharyngeal erythema. No thyromegaly. CARDIOVASCULAR: S1 and S2 present. No murmurs, rubs, or gallops. PULMONARY: Chest is clear to auscultation, no wheezing or crackles. ABDOMEN: Soft, nontender, nondistended, normoactive bowel sounds. No palpable organomegaly. MUSCULOSKELETAL: No joint swelling or deformity. EXTREMITIES: No cyanosis, clubbing, or pedal edema. NEUROLOGICAL: Gross neurological examination did not reveal any focal deficits. SKIN: No rashes. No petechiae Results CBC & Chem 7: 04/06/21 20:34 04/06/21 20:34 Labs: Abnormal Lab Results - Last 24 Hours (Table) 04/06/21 04/06/21 04/06/21 Range/Units 20:34 20:34 20:34 Hgb 10.4 L (11.4-16.0) gm/dL MCV 71.3 L (80.0-100.0) fL MCH 21.2 L (25.0-35.0) pg MCHC 29.8 L (31.0-37.0) g/dL RDW 22.2 H (11.5-15.5) % Lymphocytes # 0.9 L (1.0-4.8) k/uL APTT 21.8 L (22.0-30.0) sec BUN (7-17) mg/dL Creatinine (0.52-1.04) mg/dL Glucose (74-99) mg/dL Total Protein (6.3-8.2) g/dL Albumin (3.5-5.0) g/dL Urine Appearance Cloudy H (Clear) Urine Protein Trace H (Negative) Urine Blood Moderate H (Negative) Ur Leukocyte Esterase Moderate H (Negative) Urine WBC 7 H (0-5) /hpf Ur Squamous Epith Cells 12 H (0-4) /hpf Amorphous Sediment Rare H (None) /hpf Hyaline Casts 53 H (0-2) /lpf Urine Mucus Moderate H (None) /hpf 04/06/21 Range/Units 20:34 Hgb (11.4-16.0) gm/dL MCV (80.0-100.0) fL MCH (25.0-35.0) pg MCHC (31.0-37.0) g/dL RDW (11.5-15.5) % Lymphocytes # (1.0-4.8) k/uL APTT (22.0-30.0) sec BUN 22 H (7-17) mg/dL Creatinine 1.13 H (0.52-1.04) mg/dL Glucose 203 H (74-99) mg/dL Total Protein 5.7 L (6.3-8.2) g/dL Albumin 3.1 L (3.5-5.0) g/dL Urine Appearance (Clear) Urine Protein (Negative) Urine Blood (Negative) Ur Leukocyte Esterase (Negative) Urine WBC (0-5) /hpf Ur Squamous Epith Cells (0-4) /hpf Amorphous Sediment (None) /hpf Hyaline Casts (0-2) /lpf Urine Mucus (None) /hpf Thrombosis Risk Factor Assmnt - Choose All That Apply Any of the Below Risk Factors Present?: Yes Each Factor Represents 1 point: Obesity (BMI >25) Other Risk Factors: Yes Each Risk Factor Represents 3 Points: Age 75 years or older Other congenital or acquired thrombophilia - If yes, enter type in comment: No Thrombosis Risk Factor Assessment Total Risk Factor Score: 4 Thrombosis Risk Factor Assessment Level: Moderate Risk Assessment and Plan Assessment: Syncope episode, with a fall. most likely secondary to orthostatic hypotension Generalized weakness wit deconditioning Head trauma secondary to above Noncompliance with medical advice Orthostatic hypotension secondary to recent GI bleed, dehydration and deconditioning History of Atrial fibrillation, Xarelto is contraindicated because of recurrent GI bleed and recurrent: recent history of hypotension secondary to GI bleed and as she's been on multiple blood pressure medication. Improved with blood transfusion Anemia, multifactorial secondary to suspected GI bleed and vitamin B12 deficiency Most likely acute GI bleed while was on Xarelto, recurrent. Unknown source of bleeding despite extensive previous workup Vitamin B12 deficiency, been replaced Asymptomatic urine bacteriuria rather than acute urinary tract infection. Discontinue antibiotic History of coronary artery disease, status post stent History of GERD Hyperlipidemia Hypertension, her blood pressure is borderline now History of osteoarthritis Obesity with BMI 32.9 Plan: This is a pleasant 85 years old female who presents with syncopal episodes, orthostatic hypertension and deconditioning. Discontinue ceftriaxone as repeat urine analysis is normal Discontinue IV fluids because repeat orthostatic vitals normalized Neuro check for head trauma, check pelvic x-ray for fall Although there was no obvious neurological deficit when I saw the patient however patient is high-risk for stroke. She is with atrial fibrillation with her anticoagulation was recently stopped Labs and medication were reviewed.. Continue same treatment. Continue with symptomatic treatment. Resume home medication. Monitor lytes and vitals. DVT and GI prophylaxis. Further recommendationsas per clinical course of the patient DVT prophylaxis: no Subcutaneous heparin in view of recent GI bleed GI Prophylaxis: Ppi PT/OT: Pending Prognosis is guarded
[2021-04-08] MEDS: MECLIZINE 12.5 MG TAB PO SCH ×3 (10:09→22:17)
--- NOTE | 2021-04-08 12:20 | XR ---
EXAMINATION TYPE: XR Hip Bilateral and AP pelvis DATE OF EXAM: 04/08/2021 COMPARISON: X-ray 03/15/2020 HISTORY: Trauma and pain TECHNIQUE: A single AP view of the pelvis is obtained. Two views of the bilateral hips are obtained. FINDINGS: There is no acute fracture/dislocation evident in the pelvis. Postop changes are present s tatus post operative reduction internal fixation for proximal right intertrochanteric femoral fractur e seen on prior. Osteoarthritic changes are present within the hips. Degenerative disc changes presen t in the visualized spine. There are vascular calcifications present within the pelvis. Bone minerali zation is reduced. IMPRESSION: No acute fracture or dislocation.
--- NOTE | 2021-04-08 12:24 | P.CNNES ---
History of Present Illness Consult date: 04/08/21 Requesting physician: Jose E Lois Reason for Consult: syncope History of Present Illness: This is an 85-year-old woman with medical history of atrial fibrillation (not on anticoagulation because of anemia) hypertension, hyperlipidemia, CAD s/p stent who presented to the emergency department on 04/06/2021 after a syncopal episode. The patient was walking with her walker when she got a "weird nose" in the head then passed out according to the patient. She stated that she had the sensation that she is going to pass out and therefore she try lowering herself but ended up falling on top of her walker. She ended up hitting her head on the floor. Patient denies of any headaches, diplopia, fever. According to the patient she has been feeling dizzy and feels room is dizzy for the past one year. She said yesterday prior to her syncopal episode she felt dizzy but denies any tongue bite, urinary or bowel incontinence. She had other episode of syncopal and denies any urinary, bowel incontinence or tongue. She denies history of seizures. She said at few occasions she noticed that she had jerking of her extremities and could not stop them. Patient on medication consist of metoprolol, Lasix, vitamin B12 at thousand micrograms daily, Lipitor 80 mg daily at bedtime, Zoloft, nitroglycerin, iron Per patient's nurse, patient has history of atrial fibrillation and is not on anticoagulation since was taking off it in past because of anemia. Patient was suppose to follow-up with cardiology as outpatient but has missed her appointment. Some of the workup in the hospital consisted of: Initial vital signs: Blood pressure of 128/52, heart rate of 62, respiratory of 18, temperature of 98.5 Fahrenheit oral and pulse ox of 97% at room air. Since the patient has been in our facility the patient has been afebrile. CT of the head is reported as cerebral atrophy. 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 No acute intracranial abnormality. CT of the cervical is reported as mild degenerative subluxation at C4-C5 without change. No fracture. CBC with differential is white blood cells 8.7, hematocrit of 34.9 and platelets 248 which is within normal limits. The MCV is 71.3 and hemoglobin is 10.4 which is slightly low. Chemistry panel is still glucose serum was 203 which is slightly elevated. Creatinine is 1.13 which is also slightly elevated. Otherwise sodium is 138, calcium is 8.7, magnesium is 1.9, AST of 20 and ALT of 10 which is considered within normal limits. Urinalysis seen suspicious for urinary tract infection. EKG is reported as atrial fibrillation. Abnormal EKG. Review of Systems Review of system: The 12 point system was reviewed and apparent positive and negative per HPI. Past Medical History Past Medical History: Coronary Artery Disease (CAD), GERD/Reflux, Hyperli pidemia, Hypertension, Osteoarthritis (OA) Additional Past Medical History / Comment(s): +OCCULT, ANEMIA. hiatal hernia History of Any Multi-Drug Resistant Organisms: None Reported Past Surgical History: Heart Catheterization With Stent, Hysterectomy, Orthopedic Surgery Additional Past Surgical History / Comment(s): vein stripping,heart stents x4,lt foot,mattie car tunnel. right leg and hip surgery, COLONOSCOPY/EGD Past Anesthesia/Blood Transfusion Reactions: No Reported Reaction Additional Past Anesthesia/Blood Transfusion Reaction / Comment(s): no hx blood transfusion Date of Last Stent Placement:: 2018 Past Psychological History: Depression Additional Psychological History / Comment(s): She now resides in an apartment and her cherelle, Clary lives nearby. Pt ambulates with a walker. She no longer drives, her cherelle drives or she pays a friend to take her places. She has a private pay caregiver. She has a cleaning lady. Smoking Status: Never smoker Past Alcohol Use History: None Reported Past Drug Use History: None Reported - Past Family History Mother Family Medical History: Cancer Additional Family Medical History / Comment(s): colon Father Family Medical History: Coronary Artery Disease (CAD), Myocardial Infarction (DC) Additional Family Medical History / Comment(s): Father of a DC at the age of 61 yrs. Brother(s) Family Medical History: Cancer, Myocardial Infarction (DC) Additional Family Medical History / Comment(s): colon cancer Medications and Allergies Home Medications Medication Instructions Recorded Confirmed Type Lansoprazole [Prevacid] 15 mg PO DAILY 12/24/18 04/06/21 History Nitroglycerin Sl Tabs [Nitrostat] 0.4 mg SL Q5M PRN 12/24/18 04/06/21 History Atorvastatin [Lipitor] 80 mg PO HS #90 tab 12/27/18 04/06/21 Rx Furosemide [Lasix] 20 mg PO DAILY 08/16/20 04/06/21 History Sertraline HCl [Zoloft] 25 mg PO DAILY 09/03/20 04/06/21 History Docusate [Colace] 100 mg PO DAILY PRN 03/21/21 04/06/21 History Meclizine [Antivert] 12.5 mg PO TID #20 tab 03/21/21 04/06/21 Rx Metoprolol Tartrate [Lopressor] 12.5 mg PO BID 04/02/21 04/06/21 History Ferrous Fumarate/Ascorbic Acid 1 tab PO DAILY #90 tab 04/04/21 04/06/21 Rx [Khadijah-Sequels 65-25 mg Caplet] Cyanocobalamin [Vitamin B-12] 1,000 mcg PO DAILY 30 Days #30 tab 04/06/21 04/06/21 Rx Allergies Allergy/AdvReac Type Severity Reaction Status Date / Time latex Allergy Rash/Hives Verified 04/06/21 22:41 Physical Examination - Vital Signs Vital Signs: Vital Signs Temp Pulse Pulse Pulse Pulse Resp BP 04/08/21 07:00 97.9 F 63 16 04/08/21 01:46 66 17 04/07/21 21:11 87 86 71 130/68 04/07/21 20:00 98.2 F 68 17 04/07/21 15:00 98.2 F 69 18 BP BP Pulse Ox 04/08/21 07:00 138/70 95 04/08/21 01:46 99 04/07/21 21:11 138/70 145/77 04/07/21 20:00 145/58 100 04/07/21 15:00 121/72 96 Intake and Output 04/07/21 04/08/21 04/08/21 22:59 06:59 14:59 Intake Total 10 Balance 10 Intake: IV 10 Invasive Line 2 10 Other: Voiding Method Bedside Commode Bedside Commode # Voids 2 GENERAL: The patient is lying in bed and is not in acute distress. CHEST: The heart rate is regular rate rhythm. No murmurs to auscultation. No carotid bruit bilaterally. LUNG: Clear to auscultation bilaterally no wheezing noted throughout. Not labored breathing. ABDOMEN/GI: Bowel sounds present in all 4 quadrants. No tenderness to palpation throughout. NEUROLOGICAL: Higher mental function: The patient is awake, alert, oriented to self, place and time. Patient is following commands. No aphasia and no neglect. Cranial nerves: The pupils are round, equal and reactive to light and accommodation. Visual pina are full to confrontation throughout. Extraocular movement is intact no nystagmus is noted. Facial sensation is normal to touch throughout. The facial strength is normal throughout. Hearing is normal bilaterally to hand rub. Tongue is midline and moved [id number] without any difficulty. No dysarthria is noted. Shoulder shrug is normal bilaterally. Motor: Gait was attempted but patient was feeling dizzy. The strength is 5 over 5 throughout. Normal tone and bulk. Cerebellum: Normal finger to nose heel to mccarty bilaterally. Sensation: Sensation is normal to touch throughout. Reflexes (right/left): 2+ throughout upper but lower are limited because of her refusal because of arthritis. Plantars are downgoing bilaterally. Results - Laboratory Findings CBC and BMP: 04/08/21 05:17 04/08/21 05:17 Abnormal Lab Findings: Abnormal Labs 04/06/21 04/06/21 04/06/21 20:34 20:34 20:34 Hgb 10.4 L MCV 71.3 L MCH 21.2 L MCHC 29.8 L RDW 22.2 H Lymphocytes # 0.9 L APTT 21.8 L BUN Creatinine Glucose Total Protein Albumin Urine Appearance Cloudy H Urine Protein Trace H Urine Blood Moderate H Ur Leukocyte Esterase Moderate H Urine WBC 7 H Ur Squamous Epith Cells 12 H Amorphous Sediment Rare H Hyaline Casts 53 H Urine Mucus Moderate H 04/06/21 20:34 Hgb MCV MCH MCHC RDW Lymphocytes # APTT BUN 22 H Creatinine 1.13 H Glucose 203 H Total Protein 5.7 L Albumin 3.1 L Urine Appearance Urine Protein Urine Blood Ur Leukocyte Esterase Urine WBC Ur Squamous Epith Cells Amorphous Sediment Hyaline Casts Urine Mucus Assessment and Plan Assessment: Syncope. Seems unclear. Seizure is not clear but cannot be excluded (had few episodes of upper extremity jerking according to patient but denies urinary/bowel incontinence and tongue bite). She denies history of seizure. 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 History of Hypertension--controlled History of CAD s/p stent Plan: I ordered MRI of the brain with and without. Ordered routine EEG. Orthostatic are ordered. PT and OT are consulted. On Q4 hour neuro checks. Placed on cardiac monitoring. Regarding this read of Atrial fibrillation, will defer managment to the primary team and consider cardiology consult. Consider ASA 81mg which is also beneficial for secondary stroke prophylaxis (if no further anemia and primary feels safe). Continue Lipitor for secondary stroke prophylaxis (currently on 80mg qhs and can consider going down to 40mg qhs from neurological stand point). Will defer the rest of medical management to the primary team. The plan is discussed with nurse. Thank you for the consultation. UPDATE: MRI Brain w/ and w/o: Is reported as diffusion weighted image demonstrated abnormal increased signal adjacent to the right temporal horn extending to the right occipital lobe consistent with vascular insult. No hemorrhage identified Routine EEG: This is a normal study. There are no focal slowing, epileptiform discharges or seizure on the EEG. I ordered the rest of stroke work-up. Started the patient on Vimpat 50mg bid as seizure prophylaxis because of imaging finding which can increase risk of seizures. The plan is discussed with the nurse. Murphy Sim MD Neuro-Hospitalist. Time with Patient: Greater than 30
--- NOTE | 2021-04-08 13:51 | MR ---
EXAMINATION TYPE: MR brain wo/w con DATE OF EXAM: 04/08/2021 1:29 PM COMPARISON: None HISTORY: Seizure CONTRAST: Patient received 8.5 mL intravenous Gadavist gadolinium contrast. Multiplanar and multispin-echo imaging of the brain was performed . Pre and post contrast enhanced i mages are obtained. The ventricles, basal cisterns and sulci overlying the cerebral convexities are mildly enlarged. There is evidence of mild periventricular white matter ischemic demyelination. Remote deep white matter insults are also noted. Diffusion-weighted imaging demonstrates abnormal increased signal adjacent to the right temporal horn extending into the right occipital lobe consistent with vascular insult. No additional areas of abno rmal diffusion weighted imaging identified at this time. There is no evidence for midline shift or mass effect. Acute intracranial hemorrhage or extra-axial collection is not evident. No enhancing lesions are seen. The paranasal sinuses and mastoid air cells are well-aerated. IMPRESSION: Diffusion-weighted imaging demonstrates abnormal increased signal adjacent to the right temporal horn extending into the right occipital lobe consistent with vascular insult. No hemorrhage identified.
--- NOTE | 2021-04-08 15:55 | EEG ---
ELECTROENCEPHALOGRAM REPORT DATE OF SERVICE: 04/08/2021. CLINICAL HISTORY: This is an 85-year-old woman with a syncopal episode. The video EEG is obtained to evaluate for seizure epileptiform activity. RELEVANT MEDICATION: None. EEG TYPE: A routine 21-channel EEG is performed with video using the 10/20 electrode placement system. DESCRIPTION: Awake state is only obtained. During wakefulness, there is a posterior-dominant rhythm of low to moderate voltage of 8.5-9 hertz activity. There is no sleep architecture seen. There is no focal slowing. Interictal and ictal is none. ACTIVATION PROCEDURE: Photic stimulation did not evoke a posterior driving response. There is no abnormality during photic stimulation. Hyperventilation is not performed. CLINICAL INTERPRETATION: This is a normal routine EEG. There are no focal slowing, epileptiform discharges or seizure on the EEG. Clinical correlation is recommended. MEENA / SONY: [id number] / MTDD
[2021-04-08 16:08] LABS: Acanthocytes 2+; Anisocytosis (M) 3+; Basophils # (A) 0.03 X 10*3/uL (0.00-0.10); Basophils % (A) 0.4 %; Eosinophils # (A) 0.29 X 10*3/uL (0.04-0.35); Eosinophils % (A) 4.3 %; HCT 29.5 % (37.2-46.3); HGB 8.3 g/dL (12.0-15.0); Hypochromasia (M) 2+; Lymphocytes # (A) 1.27 X 10*3/uL (0.90-5.00); MCH 20.9 pg (27.0-32.0); MCHC 28.1 g/dL (32.0-37.0); MCV 74.3 fL (80.0-97.0); Microcytosis (M) 2+; Monocytes # (A) 0.78 X 10*3/uL (0.20-1.00); Monocytes % (A) 11.7 %; Neutrophils # (A) 4.27 X 10*3/uL (1.80-7.70); Neutrophils % (A) 64.2 %; Platelet Count 252 X 10*3/uL (140-440); RBC 3.97 X 10*6/uL (4.10-5.20); RDW 26.8 % (11.5-14.5); WBC 6.67 X 10*3/uL (4.50-10.00)
[2021-04-08 16:33] LABS: African American GFR (CKD) 66.6 (60.0-200.0); Anion Gap 7.8 mmol/L (4.00-12.00); BUN/Creat Ratio 15.56 Ratio (12.00-20.00); Calcium 8.2 mg/dL (8.7-10.3); Carbon Dioxide 23.2 mmol/L (21.6-31.8); Magnesium 1.7 mg/dL (1.5-2.4); Non-African American GFR(CKD) 57.5 (60.0-200.0); Potassium 4.4 mmol/L (3.5-5.5)
--- NOTE | 2021-04-08 18:50 | US ---
EXAMINATION TYPE: US carotid duplex BILAT DATE OF EXAM: 04/08/2021 COMPARISON: NONE CLINICAL HISTORY: stroke. EXAM MEASUREMENTS: RIGHT: Peak Systolic Velocity (PSV) cm/sec ----- Right CCA: 58.9 ----- Right ICA: 106.2 ----- Right ECA: 73.2 ICA/CCA ratio: 1.8 RIGHT: End Diastole cm/sec ----- Right CCA: 11.7 ----- Right ICA: 34.7 ----- Right ECA: 11.7 LEFT: Peak Systolic Velocity (PSV) cm/sec ----- Left CCA: 97.7 ----- Left ICA: 91.9 ----- Left ECA: 63.3 ICA/CCA ratio: 0.9 LEFT: End Diastole cm/sec ----- Left CCA: 16.9 ----- Left ICA: 27.3 ----- Left ECA: 7.6 VERTEBRALS (direction of flow): Right Vertebral: Antegrade Left Vertebral: Antegrade Rhythm: Arrhythmia Moderate plaque visualized bilateral bulbs. No elevated velocities, no significant stenosis. IMPRESSION: There is antegrade flow in the vertebral arteries. There is bilateral plaque formation in the images and measurements suggest less than 25% stenosis in both internal carotid arteries. NASCET criteria was used in interpretation of this exam? Criteria for Assigning % of Stenosis / Diameter reduction (Estimation based on the indirect measurements of the internal carotid artery velocities (ICA PSV). 1. Normal (no stenosis)=ICA PSV < 125 cm/s: ratio < 2.0: ICA EDV<40 cm/s. 2. Less than 50% stenosis=ICA PSV < 125 cm/s: ratio < 2.0: ICA EDV<40 cm/s. 3. 50 to 69% stenosis=ICA PSV of 125 to 230 cm/s: ration 2.0 ? 4.0: ICA EDV 40-100 cm/s. 4. Greater than 70% stenosis to near occlusion= ICA PSV > 230 cm/s: ratio > 4.0: ICA EDV > 100 cm/s. 5. Near occlusion= ICA PSV velocities may be low or undetectable: variable ratio and ICA EDV. 6. Total occlusion=unable to detect flow.
[2021-04-08 20:19] LABS: Chol/HDL Ratio 2.69; LDL Cholesterol,Calculated 40.4 mg/dL (0.0-131.0); VLDL Calculation 13.6 mg/dL (5.00-40.00)
--- NOTE | 2021-04-08 20:22 | PN ---
PROGRESS NOTE DATE OF SERVICE: 03/29/2021 This 85-year-old woman who was admitted with significant weakness was recently admitted with anemia, hemoglobin 6.5. Xarelto was stopped. At home the patient was extremely weak and the patient was taken to [facility] and admitted for further evaluation and treatment. Neurology is following the patient closely. Dr. Sim recommended a brain MRI, which showed possible right temporal extending into the right occipital lobe stroke, and EEG was normal. The EKG showed atrial fibrillation. The patient is being closely monitored at this time. Past medical history reviewed. REVIEW OF SYSTEMS: CARDIOVASCULAR SYSTEM: No angina. RESPIRATION: As mentioned earlier. GI: As mentioned earlier. : No dysuria. NERVOUS SYSTEM: No numbness, weakness. CURRENT MEDICATIONS: Reviewed. They include aspirin, Lipitor, vitamin B12, Colace, Lasix Vimpat, Antivert, Lopressor, Narcan doses are reviewed. PHYSICAL EXAMINATION: Patient is alert, oriented x2. Pulse 88, blood pressure 112/57, respiration 18, temperature 98.2, pulse ox 100% on room air. HEENT: Conjunctivae normal. NECK: No jugular venous distention. CARDIOVASCULAR: S1, S2 muffled. RESPIRATION: Breath sounds diminished at the bases. Bilateral scattered rhonchi and crackles. ABDOMEN: Soft, nontender. LEGS: No edema. No swelling. NERVOUS SYSTEM: Diffusely weak. LABS: WBC 6.67, hemoglobin is 8.3. Sodium 143, potassium 4.3. ASSESSMENT: 1. Diffuse weakness. Rule out acute right temporal and occipital CVA and infarct. 2. Anemia, acute on chronic blood-loss anemia. 3. Syncope, possibly secondary to orthostatic hypotension. 4. Generalized weakness. 5. History of head trauma. 6. Orthostatic hypotension. 7. History of atrial fibrillation. 8. Xarelto discontinued because of recurrent gastrointestinal bleed. 9. Increased creatinine with mild acute renal failure, present on admission. 10.History of coronary artery disease. 11.Gastroesophageal reflux disease. 12.Hypertension. 13.Hyperlipidemia. 14.Degenerative joint disease. 15.History of anemia. 16.History of hiatal hernia. 17.History of coronary artery disease, stent. 18.History of depression. 19.FULL CODE. RECOMMENDATIONS AND DISCUSSION: In this 85-year-old woman who presented with multiple complex medical issues, we will monitor the patient closely, continue the current medications, continue symptomatic treatment, continue with antiplatelet agents. Otherwise, proton pump inhibitors. Continue the rest of the medications. PT/OT evaluation. Follow closely with Neurology. Prognosis extremely guarded because of multiple complex medical issues. Further recommendations to follow. Carotid ultrasound has also been requested. Repeat labs tomorrow. Discussed with the two daughters at the bedside, who understand and agree. Further recommendations to follow. The daughters prefer [facility] for EC rehab. MEENA / SONY: [id number] / VIVIAN
[2021-04-08] MEDS: ATORVASTATIN 80 MG TAB PO SCH (22:17)
[2021-04-08] MEDS: LACOSAMIDE 50 MG TABLET PO SCH (22:17)
[2021-04-08] MEDS: PANTOPRAZOLE 40 MG TABLET PO SCH (22:17)
[2021-04-09] MEDS ORDERED: PANTOPRAZOLE 40 MG TABLET PO SCH (09:00)
[2021-04-09] MEDS: MECLIZINE 12.5 MG TAB PO SCH ×3 (09:29→22:45)
[2021-04-09] MEDS: LACOSAMIDE 50 MG TABLET PO SCH ×2 (09:29→09:41)
[2021-04-09] MEDS: FUROSEMIDE 20 MG TAB PO SCH (09:29)
[2021-04-09] MEDS: METOPROLOL TARTRATE 12.5 MG TAB PO SCH ×2 (09:29→22:45)
[2021-04-09] MEDS: SERTRALINE 25 MG TAB PO SCH (09:30)
[2021-04-09] MEDS: CYANOCOBALAMIN 500 MCG TAB PO SCH (09:30)
[2021-04-09] MEDS: PANTOPRAZOLE 40 MG TABLET PO SCH ×2 (09:30→22:45)
[2021-04-09 10:10] LABS: Anisocytosis Marked; Basophils # (A) 0.1 k/uL (0-0.2); Basophils % (A) 1 %; Eosinophils # (A) 0.2 k/uL (0-0.7); Eosinophils % (A) 2 %; HGB 9.9 gm/dL (11.4-16.0); Hypochromasia Marked; Lymphocytes # (A) 0.8 k/uL (1.0-4.8); Lymphocytes % (A) 12 %; MCH 22.2 pg (25.0-35.0); Mean Platelet Volume 7.3; Microcytosis Marked; Monocytes # (A) 0.3 k/uL (0-1.0); Monocytes % (A) 5 %; Neutrophils # (A) 5.5 k/uL (1.3-7.7); Neutrophils % (A) 78 %; Platelet Count 260 k/uL (150-450); Poikilocytosis Marked; RBC 4.45 m/uL (3.80-5.40)
[2021-04-09 10:16] LABS: RDW 25.5 % (11.5-15.5)
[2021-04-09 10:21] LABS: Basophils # (A) 0.03 X 10*3/uL (0.00-0.10); Basophils % (A) 0.5 %; Eosinophils # (A) 0.23 X 10*3/uL (0.04-0.35); Eosinophils % (A) 3.7 %; HCT 30.9 % (37.2-46.3); HGB 8.8 g/dL (12.0-15.0); Lymphocytes % (A) 16.1 %; MCH 21.5 pg (27.0-32.0); MCHC 28.5 g/dL (32.0-37.0); MCV 75.4 fL (80.0-97.0); Mean Platelet Volume 10.8 fL (9.5-12.2); Monocytes # (A) 0.62 X 10*3/uL (0.20-1.00); Neutrophils # (A) 4.28 X 10*3/uL (1.80-7.70); Neutrophils % (A) 69.1 %; Platelet Count 240 X 10*3/uL (140-440); RDW 27.8 % (11.5-14.5)
[2021-04-09 11:43] LABS: African American GFR (CKD) 58.7 (60.0-200.0); Anion Gap 7.1 mmol/L (4.00-12.00); Calcium 8.4 mg/dL (8.7-10.3); Carbon Dioxide 26.9 mmol/L (21.6-31.8); Non-African American GFR(CKD) 50.6 (60.0-200.0); Potassium 4.2 mmol/L (3.5-5.5)
--- NOTE | 2021-04-09 14:38 | P.PN ---
Subjective Progress Note Date: 04/09/21 The patient is seen at bedside and in the morning the nurse notified me that she more sleepy and drowsy than normal and no jerking of any extremities, foaming around the mouth. Upon seeing the patient in afternoon, she was working with therapy and using her walker and stated she was doing better. I personally spoke with the patient family members (daughters and her grand- daughter) and was notified that patient does not have history of seizures. She has episodes of syncope but her blood pressure would be low when they take reading. She also has tremor of upper extremities and head but is responsive during the episodes and no foaming around the mouth, gaze deviation, urinary or bowel incontinence. Objective - Vital Signs Vital signs: Vital Signs Temp 97.6 F 04/09/21 07:00 Pulse 67 04/09/21 07:00 Resp 14 04/09/21 09:47 BP 131/79 04/09/21 07:00 Pulse Ox 97 04/09/21 09:47 Intake & Output 04/08/21 04/09/21 04/09/21 18:59 06:59 18:59 Other: Voiding Method Bedside Commode Bedside Commode # Voids 2 2 # Bowel Movements 1 - Exam GENERAL: The patient is lying in bed and is not in acute distress. NEUROLOGICAL: Higher mental function: The patient is awake, alert, oriented to self, place and time. Patient was able to name the current [place] president. Patient is following commands. No aphasia and no neglect. Cranial nerves: The pupils are round, equal and reactive to light and accommodation. Visual pina are full to confrontation throughout. Extraocular movement is intact no nystagmus is noted. Facial sensation is normal to touch throughout. The facial strength is normal throughout. Hearing is normal bilaterally to hand rub. Tongue is midline and moved [id number] without any difficulty. No dysarthria is noted. Shoulder shrug is normal bilaterally. Motor: Gait is able to stand up and using a walker. The strength is 5 over 5 throughout. Normal tone and bulk. Cerebellum: Normal finger to nose heel to mccarty bilaterally. Sensation: Sensation is normal to touch throughout. Reflexes (right/left): 2+ throughout upper but lower are limited because of her refusal because of arthritis. Plantars are downgoing bilaterally. WORK-UP: Lipid panel: Triglyceride 68, cholesterol 86, LDL 40 and HDL of 32. TSH is 1.120 which is within normal limits Hemoglobin A1c 6.0 which is within normal limits. Orthostatic vitals: Supine blood pressure is 117/75 with a heart rate of 61; sitting is blood pressure of 123/69 with a heart rate of 73 and standing of 108/48 with a heart rate of 80. Then was repeated again: standing blood pressure is 131/79 with a heart rate of 67; sitting is 122/79 with a heart rate of the 15 9 and standing is 107/68 with a heart rate is 97 (on second time orthostatic is negative). CT of the head is reported as cerebral atrophy. 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 No acute intracranial abnormality. CT of the cervical is reported as mild degenerative subluxation at C4-C5 without change. No fracture. MRI Brain w/ and w/o: Is reported as diffusion weighted image demonstrated abnormal increased signal adjacent to the right temporal horn extending to the right occipital lobe consistent with vascular insult. No hemorrhage identified Routine EEG: This is a normal study. There are no focal slowing, epileptiform discharges or seizure on the EEG. Carotid duplex is reported as anterograde flow in the vertebral arteries. There is bilateral plaque formation in the images and measurements suggest less than 25% stenosis in both internal carotid arteries. 2-D echo on 04/03/2021 is reported as mild concentric left ventricular hypertro phy. Overall left ventricle soft function is normal with ejection fraction of 6065%. Left atrium is about moderately dilated that. - Labs CBC & Chem 7: 04/09/21 09:53 04/09/21 06:19 Labs: Abnormal Lab Results - Last 24 Hours (Table) 04/08/21 04/08/21 04/08/21 Range/Units 05:17 05:17 05:17 RBC 3.97 L (4.10-5.20) X 10*6/uL Hgb 8.3 L (12.0-15.0) g/dL Hct 29.5 L (37.2-46.3) % MCV 74.3 L (80.0-97.0) fL MCH 20.9 L (27.0-32.0) pg MCHC 28.1 L (32.0-37.0) g/dL RDW 26.8 H (11.5-14.5) % Absolute Nucleated RBC 0.02 H (0.00-0.00) X 10*3/uL Lymphocytes # (1.0-4.8) k/uL NRBC/100 WBC Diff 0.3 H (0.0-0.0) /100 WBCS Chloride 112 H (96-109) mmol/L Est GFR (CKD-EPI)AfAm (60.0-200.0) Est GFR (CKD-EPI)NonAf 57.5 L (60.0-200.0) Calcium 8.2 L (8.7-10.3) mg/dL HDL Cholesterol 32.0 L (40.0-60.0) mg/dL 04/09/21 04/09/21 04/09/21 Range/Units 06:19 06:19 09:53 RBC (4.10-5.20) X 10*6/uL Hgb 8.8 L 9.9 L (12.0-15.0) g/dL Hct 30.9 L 33.0 L (37.2-46.3) % MCV 75.4 L 74.0 L (80.0-97.0) fL MCH 21.5 L 22.2 L (27.0-32.0) pg MCHC 28.5 L 30.0 L (32.0-37.0) g/dL RDW 27.8 H 25.5 H (11.5-14.5) % Absolute Nucleated RBC (0.00-0.00) X 10*3/uL Lymphocytes # 0.8 L (1.0-4.8) k/uL NRBC/100 WBC Diff (0.0-0.0) /100 WBCS Chloride (96-109) mmol/L Est GFR (CKD-EPI)AfAm 58.7 L (60.0-200.0) Est GFR (CKD-EPI)NonAf 50.6 L (60.0-200.0) Calcium 8.4 L (8.7-10.3) mg/dL HDL Cholesterol (40.0-60.0) mg/dL Assessment and Plan Assessment: Syncope. Seem hypotensive during episodes per family. Does not seem seizure (Per family she does not have history of seizure but has tremors of uppers and neck but is responsive during episode, no foaming around the mouth or urinary or bowel incontinence). Acute ischemic stroke (right temporal horn extending to the right occipital lobe consistent). Seems embolic since patient not on anticoagulation since has history of anemia. 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 History of Hypertension--controlled History of CAD s/p stent Plan: Continue ASA 81mg daily for now (not on dual antiplatelets because of history of anemia and avoid increase risk of bleeding). Consider anticoagulation since has history of atrial fibrillation if cleared from cardiology (family notified risk and benefits. Family will have patient follow-up with her splitter operator as outpatient). On Lipitor from 80mg and from neurological stand point can go down to 40mg qhs for secondary stroke prophylaxis. PT and OT are consulted. On Q4 hour neuro checks. On cardiac monitoring. Stopped Vimpat since these syncopal episodes are not clear seizure as well from history. I ordered 2 1/2 hours ambulatory EEG (will be scheduled by optometric tech). Will defer the rest of medical management to the primary team. The plan is discussed with the nurse as well as patient's family members. There is no further neurological work-up. Murphy Sim MD Neuro-Hospitalist. Time with Patient: Less than 30
--- NOTE | 2021-04-09 16:00 | P.PN ---
Subjective Progress Note Date: 04/09/21 This is an 85-year-old female who was recently admitted significant weakness and being closely monitored. Being evaluated by neurology and underwent MRI of the brain, carotid Doppler study, EEG for further neurological workup. Patient currently on aspirin and statin and is not on dual antiplatelet therapy or anticoagulation as she was most recently admitted with significant anemia. Patient is on telemetry monitoring and showing A. fib and family is aware and would like to follow-up with her cardiology outpatient to discuss anticoagulation therapy. They were agreeable with aspirin and statin. She continues to be lethargic today per nursing staff and was on prophylactic Vimpat but the possibility of seizures although EEG was normal and showing no epileptiform activity and neurology also has ordered a 2-1/2 hour EEG for further monitoring. PT/OT therapy evaluating the patient recommending subacute rehab and patient is now agreeable to a rehab facility that can accommodate visitations with appointments. Authorization is required through insurance in case management along with social work following. White blood count within normal limits at 7.0, hemoglobin is 9.9 today no active bleeding noted. Patient is afebrile. Patient denies any shortness of breath. Review of systems: Constitutional: reports generalized fatigue, no reports of fever, or chills Cardiovascular: No reports of chest pain or palpitations Respiratory: No reports of shortness of breath or cough GI: No reports of nausea, vomiting, or diarrhea : No reports of dysuria or retention Neurovascular: Reports generalized weakness All medications have been reviewed Active Medications Aspirin (Aspirin 81 Mg) 81 mg PO [facility] Atorvastatin Calcium (Atorvastatin 80 Mg Tab) 80 mg PO [facility] Last Admin: 04/08/21 22:17 Dose: 80 mg Documented by: Cyanocobalamin (Cyanocobalamin 500 Mcg Tab) 1,000 mcg PO DAILY@1200 [facility] Last Admin: 04/09/21 09:30 Dose: 1,000 mcg Documented by: Docusate Sodium (Docusate 100 Mg Cap) 100 mg PO DAILY PRN PRN Reason: Constipation Furosemide (Furosemide 20 Mg Tab) 20 mg PO DAILY [facility] Last Admin: 04/09/21 09:29 Dose: 20 mg Documented by: Meclizine HCl (Meclizine 12.5 Mg Tab) 12.5 mg PO TID [facility] Last Admin: 04/09/21 14:54 Dose: 12.5 mg Documented by: Metoprolol Tartrate (Metoprolol Tartrate 12.5 Mg Tab) 12.5 mg PO BID [facility] Last Admin: 04/09/21 09:29 Dose: 12.5 mg Documented by: Naloxone HCl (Naloxone 0.4 Mg/Ml 1 Ml Vial) 0.2 mg IV Q2M PRN PRN Reason: Opioid Reversal Nitroglycerin (Nitroglycerin Sl Tabs 0.4 Mg Tab) 0.4 mg SUBLINGUAL Q5M PRN PRN Reason: Chest Pain Pantoprazole Sodium (Pantoprazole 40 Mg Tablet) 40 mg PO BID [facility] Last Admin: 04/09/21 09:30 Dose: 40 mg Documented by: Sertraline HCl (Sertraline 25 Mg Tab) 25 mg PO DAILY [facility] Last Admin: 04/09/21 09:30 Dose: 25 mg Documented by: Objective - Vital Signs Vital signs: Vital Signs Temp 97.6 F 04/09/21 07:00 Pulse 67 04/09/21 07:00 Resp 14 04/09/21 09:47 BP 131/79 04/09/21 07:00 Pulse Ox 97 04/09/21 09:47 Intake & Output 04/08/21 04/09/21 04/09/21 18:59 06:59 18:59 Other: Voiding Method Bedside Commode Bedside Commode # Voids 2 2 # Bowel Movements 1 - Exam Gen: This is a 85-year-old female awake, alert and oriented 2. Temp Is 97.9F, pulse is 56, respirations are 17, blood pressure is 122/71, oxygen saturation is 94% on room air. HEENT: Head is atraumatic, normocephalic. Pupils equal, round. Sclerae is anicteric. NECK: Supple. No JVD. No lymphadenopathy. No thyromegaly. LUNGS: Diminished breath sounds bilaterally with some scattered rhonchi noted. No intercostal retractions. HEART: S1, S2 are muffled, irregularly irregular ABDOMEN: Soft. Bowel sounds are present. No masses. No tenderness. EXTREMITIES: No pedal edema. No calf tenderness. NEUROLOGICAL: Patient is awake, alert and oriented x2. Diffusely weak. - Labs CBC & Chem 7: 04/09/21 09:53 04/09/21 06:19 Labs: Abnormal Lab Results - Last 24 Hours (Table) 08/04/08/21 04/08/21 Range/Units 05:17 05:17 05:17 RBC 3.97 L (4.10-5.20) X 10*6/uL Hgb 8.3 L (12.0-15.0) g/dL Hct 29.5 L (37.2-46.3) % MCV 74.3 L (80.0-97.0) fL MCH 20.9 L (27.0-32.0) pg MCHC 28.1 L (32.0-37.0) g/dL RDW 26.8 H (11.5-14.5) % Absolute Nucleated RBC 0.02 H (0.00-0.00) X 10*3/uL Lymphocytes # (1.0-4.8) k/uL NRBC/100 WBC Diff 0.3 H (0.0-0.0) /100 WBCS Chloride 112 H (96-109) mmol/L Est GFR (CKD-EPI)AfAm (60.0-200.0) Est GFR (CKD-EPI)NonAf 57.5 L (60.0-200.0) Calcium 8.2 L (8.7-10.3) mg/dL HDL Cholesterol 32.0 L (40.0-60.0) mg/dL 04/09/21 04/09/21 04/09/21 Range/Units 06:19 06:19 09:53 RBC (4.10-5.20) X 10*6/uL Hgb 8.8 L 9.9 L (12.0-15.0) g/dL Hct 30.9 L 33.0 L (37.2-46.3) % MCV 75.4 L 74.0 L (80.0-97.0) fL MCH 21.5 L 22.2 L (27.0-32.0) pg MCHC 28.5 L 30.0 L (32.0-37.0) g/dL RDW 27.8 H 25.5 H (11.5-14.5) % Absolute Nucleated RBC (0.00-0.00) X 10*3/uL Lymphocytes # 0.8 L (1.0-4.8) k/uL NRBC/100 WBC Diff (0.0-0.0) /100 WBCS Chloride (96-109) mmol/L Est GFR (CKD-EPI)AfAm 58.7 L (60.0-200.0) Est GFR (CKD-EPI)NonAf 50.6 L (60.0-200.0) Calcium 8.4 L (8.7-10.3) mg/dL HDL Cholesterol (40.0-60.0) mg/dL Assessment and Plan Assessment: Diffuse weakness, rule out acute right temporal and occipital CVA and infarct Anemia, acute on chronic blood loss anemia Syncope, possibly secondary to orthostatic hypotension generalized weakness history of head trauma orthostatic hypotension history of atrial fibrillation Xarelto discontinued because of recurrent GI bleeding Increased creatinine with mild acute renal failure, present on admission History of coronary artery disease Gastroesophageal reflux disease Hypertension Hyperlipidemia Degenerative joint disease history of anemia history of hiatal hernia history of coronary artery disease, stent History of depression Full code Recommendations and discussion: Recommend to continue with current medications, management, and symptomatic treatment. She has continued on aspirin and Xarelto has been discontinued for most recent hospitalization of continued GI bleed. Neurology also following and patient underwent MRI of the brain which showed diffusion-weighted imaging demonstrates abnormal increased signal adjacent to the right temporal horn extending into the right occipital lobe consistent with vascular insult with no hemorrhage identified with no evidence of midline shift or mass effect. Carotid Doppler shows moderate plaque visualized at the bilateral bulbs with no elevated velocities and no significant stenosis was suggestive less than 25% stenosis in both internal carotid arteries. Recommend to continue with current medication regimen. Case management and social work following as patient continues to be weak and PT/OT evaluated the patient recommending subacute rehab. Patient will require insurance authorization and accepting facility and will continue to monitor closely. Due to multiple complex medical issues, prognosis is guarded. Time with Patient: Greater than 30
[2021-04-09] MEDS: ASPIRIN 81 MG PO SCH (22:45)
[2021-04-09] MEDS: ATORVASTATIN 80 MG TAB PO SCH (22:45)
[2021-04-10] MEDS: METOPROLOL TARTRATE 12.5 MG TAB PO SCH ×2 (08:56→21:21)
[2021-04-10] MEDS: MECLIZINE 12.5 MG TAB PO SCH ×3 (08:56→21:21)
[2021-04-10] MEDS: SERTRALINE 25 MG TAB PO SCH (08:56)
[2021-04-10] MEDS: FUROSEMIDE 20 MG TAB PO SCH (08:57)
[2021-04-10] MEDS: PANTOPRAZOLE 40 MG TABLET PO SCH ×2 (08:57→21:21)
[2021-04-10] MEDS: CYANOCOBALAMIN 500 MCG TAB PO SCH (13:48)
[2021-04-10] MEDS: ASPIRIN 81 MG PO SCH (21:20)
[2021-04-10] MEDS: ATORVASTATIN 80 MG TAB PO SCH (21:20)
--- NOTE | 2021-04-11 03:01 | P.PN ---
Subjective Progress Note Date: 04/10/21 This is an 85-year-old female who was recently admitted significant weakness and being closely monitored. Being evaluated by neurology and underwent MRI of the brain, carotid Doppler study, EEG for further neurological workup. Patient currently on aspirin and statin and is not on dual antiplatelet therapy or anticoagulation as she was most recently admitted with significant anemia. Patient is on telemetry monitoring and showing A. fib and family is aware and would like to follow-up with her cardiology outpatient to discuss anticoagulation therapy. They were agreeable with aspirin and statin. She continues to be lethargic today per nursing staff and was on prophylactic Vimpat but the possibility of seizures although EEG was normal and showing no epileptiform activity and neurology also has ordered a 2-1/2 hour EEG for further monitoring. PT/OT therapy evaluating the patient recommending subacute rehab and patient is now agreeable to a rehab facility that can accommodate visitations with appointments. Authorization is required through insurance in case management along with social work following. White blood count within normal limits at 7.0, hemoglobin is 9.9 today no active bleeding noted. Patient is afebrile. Patient denies any shortness of breath. 04/10/2021 Patient is seen and evaluated in follow up this morning with daughter at the bedside. Neurology following and cardiology. Patient primary diesel motor mechanic is Dr. Moyer and have reconsulted as family is quite concerned that she is not on any anticoagulation and has had no further bleeding noted and hemoglobin is stable at 9.9. Neurology following as well and recommending anticoagulation given her history of atrial fibrillation and recent vascular insult. Patient is maintained on aspirin. Review of systems: Constitutional: no reports of fatigue, no reports of fever, or chills Cardiovascular: No reports of chest pain or palpitations Respiratory: No reports of shortness of breath or cough GI: No reports of nausea, vomiting, or diarrhea : No reports of dysuria or retention Neurovascular: Reports generalized weakness All medications have been reviewed Objective - Vital Signs Vital signs: Vital Signs Temp 98.2 F 04/10/21 08:38 Pulse 53 L 04/10/21 08:38 Resp 18 04/10/21 08:38 BP 144/60 04/10/21 08:38 Pulse Ox 97 04/10/21 08:38 Intake & Output 04/09/21 04/10/21 04/10/21 18:59 06:59 18:59 Other: # Voids 1 1 # Bowel Movements 1 - Exam Gen: This is a 85-year-old female awake, alert and oriented 2-3. Temp Is 98.2F, pulse is 53, respirations are 18, blood pressure is 144/60, oxygen saturation is 97% on room air. HEENT: Head is atraumatic, normocephalic. Pupils equal, round. Sclerae is anicteric. NECK: Supple. No JVD. No lymphadenopathy. No thyromegaly. LUNGS: Diminished breath sounds bilaterally with some scattered rhonchi noted. No intercostal retractions. HEART: S1, S2 are muffled, irregularly irregular ABDOMEN: Soft. obese. Bowel sounds are present. No masses. No tenderness. EXTREMITIES: No pedal edema. No calf tenderness. NEUROLOGICAL: Patient is awake, alert and oriented x2-3. Diffusely weak. - Labs CBC & Chem 7: 04/09/21 09:53 04/09/21 06:19 Assessment and Plan Assessment: Diffuse weakness, rule out acute right temporal and occipital CVA and infarct Anemia, acute on chronic blood loss anemia Syncope, possibly secondary to orthostatic hypotension generalized weakness history of head trauma orthostatic hypotension chronic persistent atrial fibrillation Xarelto discontinued because of recurrent GI bleeding Increased creatinine with mild acute renal failure, present on admission History of coronary artery disease Gastroesophageal reflux disease Hypertension Hyperlipidemia Degenerative joint disease history of anemia history of hiatal hernia history of coronary artery disease, stent History of depression Full code Recommendations and discussion: Recommend to continue with current medications, management, and symptomatic treatment. She is continued on aspirin and Xarelto has been discontinued for most recent hospitalization of continued GI bleed. Family extremely concerned of not being on anticoagulant and have asked cardio to reevaluate for possibly resuming xarelto as there has been no further episodes of any GI bleeding. Dr. Moyer is her primary diesel motor mechanic. Appreciate cardiology recommendations. Neurology also following. Recommend to continue with current medication regimen. Case management and social work following as patient continues to be weak and PT/OT evaluated the patient recommending subacute rehab. Patient will require insurance authorization and accepting facility and will continue to monitor closely. Will repeat am labs to monitor hemoglobin and kidney functions. Due to multiple complex medical issues, prognosis is guarded.
[2021-04-11 08:23] VITALS: RESP 18
[2021-04-11 09:30] LABS: African American GFR (CKD) 59 (>60 ml/min/1.73 sqM); Anion Gap 7 mmol/L; Blood Urea Nitrogen 16 mg/dL (7-17); Carbon Dioxide 27 mmol/L (22-30); Chloride 106 mmol/L (98-107); Glucose 101 mg/dL (74-99); Non-African American GFR(CKD) 51 (>60 ml/min/1.73 sqM); Potassium 5.1 mmol/L (3.5-5.1); Sodium 140 mmol/L (137-145)
[2021-04-11 09:56] LABS: Anisocytosis Marked; Basophils % (A) 1 %; Eosinophils # (A) 0.3 k/uL (0-0.7); Eosinophils % (A) 4 %; HCT 33.8 % (34.0-46.0); HGB 10.1 gm/dL (11.4-16.0); Hypochromasia Marked; Lymphocytes # (A) 1.1 k/uL (1.0-4.8); Lymphocytes % (A) 18 %; MCH 22.6 pg (25.0-35.0); MCHC 29.9 g/dL (31.0-37.0); MCV 75.6 fL (80.0-100.0); Microcytosis Marked; Monocytes # (A) 0.3 k/uL (0-1.0); Monocytes % (A) 6 %; Neutrophils % (A) 69 %; Platelet Count 239 k/uL (150-450); Poikilocytosis Marked; RBC 4.47 m/uL (3.80-5.40); WBC 5.9 k/uL (3.8-10.6)
[2021-04-11] MEDS: FUROSEMIDE 20 MG TAB PO SCH (09:57)
[2021-04-11] MEDS: PANTOPRAZOLE 40 MG TABLET PO SCH ×2 (09:57→21:30)
[2021-04-11] MEDS: MECLIZINE 12.5 MG TAB PO SCH ×3 (09:58→21:31)
[2021-04-11] MEDS: METOPROLOL TARTRATE 12.5 MG TAB PO SCH ×2 (09:58→21:31)
[2021-04-11] MEDS: SERTRALINE 25 MG TAB PO SCH (09:58)
[2021-04-11] MEDS: APIXABAN 2.5 MG TABLET PO SCH ×2 (11:17→21:30)
--- NOTE | 2021-04-11 12:46 | P.CRDCN ---
History of Present Illness History of present illness: This is a pleasant 85-year-old female past medical history significant for chronic persistent atrial fibrillation (was on Xarelto, recently stopped in March 2021), coronary artery disease status post PCI to the OM branch in 2019, hypertension, dyslipidemia and chronic anemia. She follows in the office with Dr. Ayala. We have been asked to see in consultation for anticoagulation recommendations. Patient presented to the emergency department on 04/06/21 after syncopal episode. Patient states that she was walking with her walker, had a weird feeling in her head, she states that she had sensation in her head that she felt that she may pass out, she tried lowering herself to the floor, however ended up in her head. She endorses dizziness. She denies any chest pain, shortness of breath. She denies any loss of urinary or bowel incontinence. Neurology was consulted patient underwent MRI of the brain which revealed increased signal adjacent to the right temporal horn extending to the right occipital lobe consistent with vascular insult. No hemorrhage identified. She also underwent an EEG which was normal. Patient seen and examined at bedside, no acute distress. She has no complaints. She did have slightly positive 04/03/21: She presented to the hospital with symptoms of shortness of breath, generalized weakness and fatigue and possible dark stools. She states for the previous one year she has been struggling with anemia. She presented to the hospital with anemia also in August 2020 and underwent an EGD and colonoscopy on 08/30/2020. EGD with findings of small hiatal hernia, colonoscopy showed scattered diverticulosis. There was no active bleeding or old blood noted. She underwent an outpatient small bowel video capsule endoscopy on 09/20/2020 showing a normal small bowel mucosa. Per GI likely source of GI blood losses angiectasia. She has received multiple blood transfusions as well. Her Xarelto was discontinued in March 2021. Patient's ACEI and DIAGNOSTICS: EKG reveals atrial fibrillation, heart rate 66, no significant ST or T-wave abnormalities. Echocardiogram in 04/03/2021 revealed an EF of 6065 percent, LA is moderately dilated, moderate aortic regurgitation, mild aortic stenosis peak/mean gradient of 18 mmHg/10 mmHg, mild mitral regurgitation, mild tricuspid irritation, severe pulmonary hypertension RVSP 60mmHg. Carotid Dopplers revealed bilateral plaque formation suggesting less than 25% stenosis in both internal carotid arteries. Telemetry tracings indicate atrial fibrillation with controlled ventricular rates and bradycardia REVIEW OF SYSTEMS At the time of my exam: CONSTITUTIONAL: Denies fever or chills. CARDIOVASCULAR: Denies chest pain, shortness of breath, orthopnea, PND or palpitations. RESPIRATORY: Denies cough. GASTROINTESTINAL: Denies abdominal pain, diarrhea, constipation, nausea or vomiting. MUSCULOSKELETAL: Denies myalgias. NEUROLOGIC: +lightheaded, pre-syncope. +tremors of upper extremities. Denies numbness, tingling, headache or weakness. ENDOCRINE: Denies fatigue, weight change, polydipsia or polyurina. GENITOURINARY: Denies burning, hematuria or urgency with micturation. HEMATOLOGIC: Denies history of anemia or bleeding. PHYSICAL EXAMINATION Blood pressure 127/77 heart rate 53 afebrile and maintaining oxygen saturation on room air. CONSTITUTIONAL: No apparent distress. HEENT: Head is normocephalic. Pupils are equal, round. Sclerae anicteric. Mucous membranes of the mouth are moist. No JVD. No carotid bruit. CHEST EXAMINATION: Lungs are clear to auscultation. No chest wall tenderness is noted on palpation or with deep breathing. HEART EXAMINATION: Irregular rate and rhythm. S1, S2 heard. Systolic ejection murmur at the base, no gallops or rub. ABDOMEN: Soft, nontender. EXTREMITIES: 2+ peripheral pulses, no lower extremity edema and no calf tenderness. NEUROLOGIC EXAMINATION: Patient is awake, alert and oriented x3. ASSESSMENT Syncope Acute Ischemic Stroke Anemia, hypochromic and microcytic, multiple admissions for anemia and requrinig blood transfusions Chronic persistent atrial fibrillation- was on Xarelto, however discontinued in March 2021 due to anemia History of hypertension- Hypotensive in previous admissions, antihypertensives were held Mild aortic stenosis Moderate aortic regurgitation Coronary artery disease status post PCI in 2019 Dyslipidemia PLAN Recommend restarting anticoagulation Will start Eliquis 2.5mg BID Stop aspirin Continue statin Case Management consulted, for cost. Eliquis is $21.75/month. Plan for patient to possibly be discharged to [facility] Parameters were placed on metoprolol. Thank you kindly for this consultation. Nurse Practitioner note has been reviewed, I agree with a documented findings and plan of care. Patient was seen and examined. Past Medical History Past Medical History: Coronary Artery Disease (CAD), GERD/Reflux, Hyperlipidemia, Hypertension, Osteoarthritis (OA) Additional Past Medical History / Comment(s): +OCCULT, ANEMIA. hiatal hernia History of Any Multi-Drug Resistant Organisms: None Reported Past Surgical History: Heart Catheterization With Stent, Hysterectomy, Orthopedic Surgery Additional Past Surgical History / Comment(s): vein stripping,heart stents x4,lt foot,mattie car tunnel. right leg and hip surgery, COLONOSCOPY/EGD Past Anesthesia/Blood Transfusion Reactions: No Reported Reaction Additional Past Anesthesia/Blood Transfusion Reaction / Comment(s): no hx blood transfusion Date of Last Stent Placement:: 2018 Past Psychological History: Depression Additional Psychological History / Comment(s): She now resides in an apartment and her cherelle, Clary lives nearby. Pt ambulates with a walker. She no longer drives, her cherelle drives or she pays a friend to take her places. She has a private pay caregiver. She has a cleaning lady. Smoking Status: Never smoker Past Alcohol Use History: None Reported Past Drug Use History: None Reported - Past Family History Mother Family Medical History: Cancer Additional Family Medical History / Comment(s): colon Father Family Medical History: Coronary Artery Disease (CAD), Myocardial Infarction (CO) Additional Family Medical History / Comment(s): Father of a CO at the age of 61 yrs. Brother(s) Family Medical History: Cancer, Myocardial Infarction (CO) Additional Family Medical History / Comment(s): colon cancer Medications and Allergies Home Medications Medication Instructions Recorded Confirmed Type Lansoprazole [Prevacid] 15 mg PO DAILY 12/24/18 04/06/21 History Nitroglycerin Sl Tabs [Nitrostat] 0.4 mg SL Q5M PRN 12/24/18 04/06/21 History Atorvastatin [Lipitor] 80 mg PO HS #90 tab 12/27/18 04/06/21 Rx Furosemide [Lasix] 20 mg PO DAILY 08/16/20 04/06/21 History Sertraline HCl [Zoloft] 25 mg PO DAILY 09/03/20 04/06/21 History Docusate [Colace] 100 mg PO DAILY PRN 03/21/21 04/06/21 History Meclizine [Antivert] 12.5 mg PO TID #20 tab 03/21/21 04/06/21 Rx Metoprolol Tartrate [Lopressor] 12.5 mg PO BID 04/02/21 04/06/21 History Ferrous Fumarate/Ascorbic Acid 1 tab PO DAILY #90 tab 04/04/21 04/06/21 Rx [Khadijah-Sequels 65-25 mg Caplet] Cyanocobalamin [Vitamin B-12] 1,000 mcg PO DAILY 30 Days #30 tab 04/06/21 04/06/21 Rx Apixaban [Eliquis] 2.5 mg PO BID 30 Days #15 tab 04/11/21 Rx Allergies Allergy/AdvReac Type Severity Reaction Status Date / Time latex Allergy Rash/Hives Verified 04/06/21 22:41 Physical Exam Vitals: Vital Signs Temp Pulse Pulse Pulse Pulse Resp BP 04/11/21 02:15 98.7 F 59 L 16 04/10/21 21:10 73 04/10/21 21:05 62 135/65 04/10/21 21:00 97.5 F L 63 16 04/10/21 16:00 98.1 F 66 18 114/70 04/10/21 08:38 98.2 F 53 L 18 04/10/21 08:00 18 BP BP Pulse Ox 04/11/21 02:15 136/77 98 04/10/21 21:10 114/77 98 04/10/21 21:05 98 04/10/21 21:00 143/79 98 04/10/21 16:00 99 04/10/21 08:38 144/60 97 04/10/21 08:00 Intake and Output 04/10/21 04/10/21 04/11/21 14:59 22:59 06:59 Intake Total 240 Balance 240 Intake: Oral 240 Other: Voiding Method Bedside Commode Bedside Commode # Voids 3 2 Results 04/11/21 08:48 04/11/21 08:48 Current Medications Generic Name Dose Route Start Last Admin Trade Name Freq PRN Reason Stop Dose Admin Aspirin 81 mg 04/09/21 21:00 04/10/21 21:20 Aspirin 81 Mg PO 81 mg HS KIMBERLY Administration Atorvastatin Calcium 80 mg 04/07/21 21:00 04/10/21 21:20 Atorvastatin 80 Mg Tab PO 80 mg HS KIMBERLY Administration Cyanocobalamin 1,000 mcg 04/07/21 15:30 04/10/21 13:48 Cyanocobalamin 500 Mcg Tab PO 1,000 mcg DAILY@1200 K[facility]BER[facility] Administration Docusate Sodium 100 mg 04/07/21 15:05 Docusate 100 Mg Cap PO DAILY PRN Constipation Furosemide 20 mg 04/08/21 09:00 04/10/21 08:57 Furosemide 20 Mg Tab PO 20 mg DAILY K[facility] Administration Meclizine HCl 12.5 mg 04/08/21 10:00 04/10/21 21:21 Meclizine 12.5 Mg Tab PO 12.5 mg TID KIMBERLY Administration Metoprolol Tartrate 12.5 mg 04/07/21 21:00 04/10/21 21:21 Metoprolol Tartrate 12.5 Mg Tab PO 12.5 mg BID [facility] Administration Naloxone HCl 0.2 mg 04/06/21 22:45 Naloxone 0.4 Mg/Ml 1 Ml Vial IV Q2M PRN Opioid Reversal Nitroglycerin 0.4 mg 04/07/21 15:05 Nitroglycerin Sl Tabs 0.4 Mg Tab SUBLINGUAL Q5M PRN Chest Pain Pantoprazole Sodium 40 mg 04/08/21 21:00 04/10/21 21:21 Pantoprazole 40 Mg Tablet PO 40 mg BID [facility] Administration Sertraline HCl 25 mg 04/08/21 09:00 04/10/21 08:56 Sertraline 25 Mg Tab PO 25 mg DAILY KIMBERLY Administration Intake and Output 04/10/21 04/10/21 04/11/21 14:59 22:59 06:59 Intake Total 240 Balance 240 Intake: Oral 240 Other: Voiding Method Bedside Commode Bedside Commode # Voids 3 2 04/09/21 09:53 04/09/21 06:19
[2021-04-11] MEDS: CYANOCOBALAMIN 500 MCG TAB PO SCH (13:09)
[2021-04-11] MEDS: ATORVASTATIN 80 MG TAB PO SCH (21:30)
--- NOTE | 2021-04-12 03:15 | P.PN ---
Subjective Progress Note Date: 04/11/21 This is an 85-year-old female who was recently admitted significant weakness and being closely monitored. Being evaluated by neurology and underwent MRI of the brain, carotid Doppler study, EEG for further neurological workup. Patient currently on aspirin and statin and is not on dual antiplatelet therapy or anticoagulation as she was most recently admitted with significant anemia. Patient is on telemetry monitoring and showing A. fib and family is aware and would like to follow-up with her cardiology outpatient to discuss anticoagulation therapy. They were agreeable with aspirin and statin. She continues to be lethargic today per nursing staff and was on prophylactic Vimpat but the possibility of seizures although EEG was normal and showing no epileptiform activity and neurology also has ordered a 2-1/2 hour EEG for further monitoring. PT/OT therapy evaluating the patient recommending subacute rehab and patient is now agreeable to a rehab facility that can accommodate visitations with appointments. Authorization is required through insurance in case management along with social work following. White blood count within normal limits at 7.0, hemoglobin is 9.9 today no active bleeding noted. Patient is afebrile. Patient denies any shortness of breath. 04/10/2021 Patient is seen and evaluated in follow up this morning with daughter at the bedside. Neurology following and cardiology. Patient primary offset second press operator is Dr. Moyer and have reconsulted as family is quite concerned that she is not on any anticoagulation and has had no further bleeding noted and hemoglobin is stable at 9.9. Neurology following as well and recommending anticoagulation given her history of atrial fibrillation and recent vascular insult. Patient is maintained on aspirin. 04/11/2021 Patient is evaluated in follow up and continues to be closely monitored. Patient was reevaluated by cardiology and being started on low dose eliquis and asa being discontinued. Case management verified coverage and will continue to monitor closely for any signs of bleeding. Patient has not had a bowel movement as of yet and denies any abdominal discomfort. Patient hemoglobin stable at 10.1. Will monitor cbc closely. Awaiting insurance authorization to [facility] as well with social work and case management following closely. Patient continues to be weak and working with PT/OT. Review of systems: Constitutional: no reports of fatigue, no reports of fever, or chills Cardiovascular: No reports of chest pain or palpitations Respiratory: No reports of shortness of breath or cough GI: No reports of nausea, vomiting, or diarrhea : No reports of dysuria or retention Neurovascular: Reports generalized weakness All medications have been reviewed Objective - Vital Signs Vital signs: Vital Signs Temp 97.9 F 04/11/21 08:22 Pulse 53 L 04/11/21 08:22 Resp 18 04/11/21 08:22 BP 127/77 04/11/21 08:22 Pulse Ox 98 04/11/21 08:22 Intake & Output 04/10/21 04/11/21 04/11/21 18:59 06:59 18:59 Intake Total 240 Balance 240 Intake: Oral 240 Other: Voiding Method Bedside Commode Bedside Commode # Voids 3 2 - Exam Gen: This is a 85-year-old female awake, alert and oriented 2-3. Temp Is 97.9F, pulse is 53, respirations are 18, blood pressure is 127/77, oxygen saturation is 98% on room air. HEENT: Head is atraumatic, normocephalic. Pupils equal, round. Sclerae is anicteric. NECK: Supple. No JVD. No lymphadenopathy. No thyromegaly. LUNGS: Diminished breath sounds bilaterally with some scattered rhonchi noted. No intercostal retractions. HEART: S1, S2 are muffled, irregularly irregular ABDOMEN: Soft. obese. Bowel sounds are present. No masses. No tenderness. EXTREMITIES: No pedal edema. No calf tenderness. NEUROLOGICAL: Patient is awake, alert and oriented x2-3. Diffusely weak. 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 Anemia, acute on chronic blood loss anemia Syncope, possibly secondary to orthostatic hypotension generalized weakness history of head trauma orthostatic hypotension chronic persistent atrial fibrillation Xarelto discontinued because of recurrent GI bleeding Increased creatinine with mild acute renal failure, present on admission History of coronary artery disease Gastroesophageal reflux disease Hypertension Hyperlipidemia Degenerative joint disease history of anemia history of hiatal hernia history of coronary artery disease, stent History of depression Full code Recommendations and discussion: Recommend to continue with current medications, management, and symptomatic treatment. Being started on low dose Eliquis per cardiology recommendations and ASA discontinued. Hemoglobin stable at 10 and will repeat and monitor closely. Dr. Moyer is her primary offset second press operator. Neurology also following. Recommen d to continue with current medication regimen. Case management and social work following as patient continues to be weak and PT/OT evaluated the patient recommending subacute rehab. Patient awaiting insurance authorization for [facility] and will continue to monitor closely. Will repeat am labs to monitor hemoglobin. Due to multiple complex medical issues, prognosis is guarded.
[2021-04-12] MEDS: APIXABAN 2.5 MG TABLET PO SCH (08:39)
[2021-04-12] MEDS: METOPROLOL TARTRATE 12.5 MG TAB PO SCH (08:40)
[2021-04-12] MEDS: FUROSEMIDE 20 MG TAB PO SCH (08:40)
[2021-04-12] MEDS: MECLIZINE 12.5 MG TAB PO SCH (08:41)
[2021-04-12] MEDS: SERTRALINE 25 MG TAB PO SCH (08:41)
[2021-04-12] MEDS: PANTOPRAZOLE 40 MG TABLET PO SCH (08:41)
[2021-04-12 10:32] VITALS: BP 145/86; PULSE 58; TEMP 97.1
[2021-04-12 11:01] LABS: African American GFR (CKD) 55 (>60 ml/min/1.73 sqM); Anion Gap 6 mmol/L; Blood Urea Nitrogen 19 mg/dL (7-17); Calcium 9.1 mg/dL (8.4-10.2); Carbon Dioxide 28 mmol/L (22-30); Chloride 104 mmol/L (98-107); Glucose 161 mg/dL (74-99); Non-African American GFR(CKD) 47 (>60 ml/min/1.73 sqM); Potassium 4.2 mmol/L (3.5-5.1); Sodium 138 mmol/L (137-145)
[2021-04-12 11:22] LABS: Anisocytosis Marked; Basophils # (A) 0.1 k/uL (0-0.2); Basophils % (A) 1 %; Eosinophils # (A) 0.2 k/uL (0-0.7); Eosinophils % (A) 4 %; HCT 35.7 % (34.0-46.0); HGB 10.6 gm/dL (11.4-16.0); Hypochromasia Marked; Lymphocytes # (A) 0.8 k/uL (1.0-4.8); Lymphocytes % (A) 16 %; MCH 22.8 pg (25.0-35.0); MCHC 29.8 g/dL (31.0-37.0); MCV 76.3 fL (80.0-100.0); Mean Platelet Volume 7.7; Microcytosis Marked; Monocytes # (A) 0.3 k/uL (0-1.0); Monocytes % (A) 5 %; Neutrophils # (A) 3.6 k/uL (1.3-7.7); Neutrophils % (A) 72 %; Platelet Count 259 k/uL (150-450); Poikilocytosis Moderate; RBC 4.68 m/uL (3.80-5.40)
[2021-04-12 11:25] LABS: RDW 26.9 % (11.5-15.5)
--- NOTE | 2021-04-12 13:34 | P.DS ---
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 Anemia, acute on chronic blood loss anemia Syncope, possibly secondary to orthostatic hypotension generalized weakness history of head trauma orthostatic hypotension chronic persistent atrial fibrillation Xarelto discontinued because of recurrent GI bleeding Increased creatinine with mild acute renal failure, present on admission History of coronary artery disease Gastroesophageal reflux disease Hypertension Hyperlipidemia Degenerative joint disease history of anemia history of hiatal hernia history of coronary artery disease, stent History of depression Full code Discharge disposition Patient is being discharged in a stable condition with guarded prognosis to [facility] for continued PT/OT therapy. Patient will follow-up with Dr. Bocanegra in the outpatient setting upon discharge. Patient is to also follow-up with Dr. Ayala her manager bakery along with neurology outpatient. Total time taken is greater than 35 minutes. Hospital course This is an 85-year-old female who was recently admitted significant weakness and being closely monitored. Being evaluated by neurology and underwent MRI of the brain, carotid Doppler study, EEG for further neurological workup. Patient currently on aspirin and statin and is not on dual antiplatelet therapy or anticoagulation as she was most recently admitted with significant anemia. Patient is on telemetry monitoring and showing A. fib and family is aware and would like to follow-up with her cardiology outpatient to discuss anticoagulatio n therapy. They were agreeable with aspirin and statin. She continues to be lethargic today per nursing staff and was on prophylactic Vimpat but the possibility of seizures although EEG was normal and showing no epileptiform activity and neurology also has ordered a 2-1/2 hour EEG for further monitoring. PT/OT therapy evaluating the patient recommending subacute rehab and patient is now agreeable to a rehab facility that can accommodate visitations with appointments. Authorization is required through insurance in case management along with social work following. White blood count within normal limits at 7.0, hemoglobin is 9.9 today no active bleeding noted. Patient is afebrile. Patient denies any shortness of breath. 04/10/2021 Patient is seen and evaluated in follow up this morning with daughter at the bedside. Neurology following and cardiology. Patient primary manager bakery is Dr. Moyer and have reconsulted as family is quite concerned that she is not on any anticoagulation and has had no further bleeding noted and hemoglobin is stable at 9.9. Neurology following as well and recommending anticoagulation given her history of atrial fibrillation and recent vascular insult. Patient is maintained on aspirin. 04/11/2021 Patient is evaluated in follow up and continues to be closely monitored. Patient was reevaluated by cardiology and being started on low dose eliquis and asa being discontinued. Case management verified coverage and will continue to monitor closely for any signs of bleeding. Patient has not had a bowel movement as of yet and denies any abdominal discomfort. Patient hemoglobin stable at 10.1. Will monitor cbc closely. Awaiting insurance authorization to [facility] as well with social work and case management following closely. Patient continues to be weak and working with PT/OT. 04/12/2021 Patient is seen in follow-up this morning. Hemoglobin is 10.6 this morning with no active bleeding noted. Other labs within normal limits. Patient has been started on Eliquis 2.5 mg twice daily and will continue. Aspirin has been discontinued. Patient will need outpatient follow-up with her manager bakery along with neurology in the outpatient setting. Patient continues to be weak and is agreeable to going to rehab and will be going today for continued strength and mobility. Currently no reports of chest pain, shortness of breath, or palpitations. Patient is afebrile. No reports of nausea or vomiting and patient is tolerating diet. Patient will be going to [facility] today. Guarded prognosis. On exam vital signs are stable. Cardio S1, S2 are muffled. Respiratory system shows diminished breath sounds at the bases with no wheezing or rhonchi noted. Abdomen is soft and obese, and nontender. Nervous system shows diffuse weak ness. Please refer to medication reconciliation sheet for a list of medications. Patient Condition at Discharge: Stable Plan - Discharge Summary Discharge Rx Participant: No New Discharge Prescriptions: New Apixaban [Eliquis] 2.5 mg PO BID 30 Days #15 tab Metoprolol Tartrate [Lopressor] 12.5 mg PO BID tab Pantoprazole [Protonix] 40 mg PO BID tab Continue Nitroglycerin Sl Tabs [Nitrostat] 0.4 mg SL Q5M PRN PRN Reason: Chest Pain Atorvastatin [Lipitor] 80 mg PO HS #90 tab Furosemide [Lasix] 20 mg PO DAILY Sertraline HCl [Zoloft] 25 mg PO DAILY Ferrous Fumarate/Ascorbic Acid [Khadijah-Sequels 65-25 mg Caplet] 1 tab PO DAILY #90 tab Cyanocobalamin [Vitamin B-12] 1,000 mcg PO DAILY 30 Days #30 tab Docusate [Colace] 100 mg PO DAILY PRN PRN Reason: Constipation Meclizine [Antivert] 12.5 mg PO TID #20 tab Discontinued Lansoprazole [Prevacid] 15 mg PO DAILY Metoprolol Tartrate [Lopressor] 12.5 mg PO BID Discharge Medication List Nitroglycerin Sl Tabs [Nitrostat] 0.4 mg SL Q5M PRN 12/24/18 [History] Atorvastatin [Lipitor] 80 mg PO HS #90 tab 12/27/18 [Rx] Furosemide [Lasix] 20 mg PO DAILY 08/16/20 [History] Sertraline HCl [Zoloft] 25 mg PO DAILY 09/03/20 [History] Docusate [Colace] 100 mg PO DAILY PRN 03/21/21 [History] Meclizine [Antivert] 12.5 mg PO TID #20 tab 03/21/21 [Rx] Ferrous Fumarate/Ascorbic Acid [Khadijah-Sequels 65-25 mg Caplet] 1 tab PO DAILY #90 tab 04/04/21 [Rx] Cyanocobalamin [Vitamin B-12] 1,000 mcg PO DAILY 30 Days #30 tab 04/06/21 [Rx] Apixaban [Eliquis] 2.5 mg PO BID 30 Days #15 tab 04/11/21 [Rx] Metoprolol Tartrate [Lopressor] 12.5 mg PO BID tab 04/12/21 [Rx] Pantoprazole [Protonix] 40 mg PO BID tab 04/12/21 [Rx] Follow up Appointment(s)/Referral(s): Miko Bocanegra MD [Primary Care Provider] - 1-2 days Danika Ayala MD [STAFF PHYSICIAN] - 2 Weeks Activity/Diet/Wound Care/Special Instructions: Patient is going to [facility] Activity as tolerated Continue medications as prescribed Continue with regular diet Follow-up with neurology outpatient Follow-up cardiology outpatient Follow-up primary care provider on discharge Do not take aspirin when you're taking Eliquis Discharge Disposition: TRANSFER TO SNF/ECF
[2021-04-12] MEDS: CYANOCOBALAMIN 500 MCG TAB PO SCH (14:40)
== END 2021-04-12 16:20 | DRG 65 ==
LOC: EC 19:56 → 6NMEDSUR 22:22 → OBSVTOIN 04-09 12:03
PROVIDERS: ADMIT Internal Medicine; ATTEND Internal Medicine
DX: I63.9 Cerebral infarction, unspecified (principal); I48.19 Other persistent atrial fibrillation; K92.2 Gastrointestinal hemorrhage, unspecified; D62 Acute posthemorrhagic anemia; N17.9 Acute kidney failure, unspecified; I95.1 Orthostatic hypotension; R55 Syncope and collapse; E78.5 Hyperlipidemia, unspecified; M19.90 Unspecified osteoarthritis, unspecified site; K21.9 Gastro-esophageal reflux disease without esophagitis; I25.10 Atherosclerotic heart disease of native coronary artery without angina pectoris; E86.0 Dehydration; S09.90XA Unspecified injury of head, initial encounter; E66.9 Obesity, unspecified; Z80.0 Family history of malignant neoplasm of digestive organs; Z82.49 Family history of ischemic heart disease and other diseases of the circulatory system; W18.30XA Fall on same level, unspecified, initial encounter; Z86.73 Personal history of transient ischemic attack (TIA), and cerebral infarction without residual deficits; Z95.5 Presence of coronary angioplasty implant and graft; Z91.19 Patient's noncompliance with other medical treatment and regimen; Z68.32 Body mass index [BMI] 32.0-32.9, adult; E53.8 Deficiency of other specified B group vitamins; I99.8 Other disorder of circulatory system; I27.20 Pulmonary hypertension, unspecified; I10 Essential (primary) hypertension; Z79.82 Long term (current) use of aspirin; K57.90 Diverticulosis of intestine, part unspecified, without perforation or abscess without bleeding; K44.9 Diaphragmatic hernia without obstruction or gangrene; I35.1 Nonrheumatic aortic (valve) insufficiency; F32.9 Major depressive disorder, single episode, unspecified; Z79.899 Other long term (current) drug therapy; Z90.710 Acquired absence of both cervix and uterus
CPT/HCPCS: 36415; 70450; 70553; 71046; 72125; 73521; 80048; 80053; 80061; 81001; 81003; 83036; 83735; 84443; 84484; 85025; 85610; 85730; 93005; 93880; 95816; 99285

== ENCOUNTER → 2021-04-24 | Outpatient (CLI) | payer MEDICARE | END | disposition home or self-care (01) | LOC: NEUROMAIN 07:54 | PROVIDERS: ATTEND Student in an Organized Health Care Education/Training Program | DX: R55 Syncope and collapse (principal) | CPT/HCPCS: 95713 ==